=== PATIENT | male | born 1965 | race African-American/Black ===

== ENCOUNTER 2016-05-10 08:14 | Inpatient (IN) | payer OTHER ==
[2016-05-10 09:59] VITALS: BMI 39.5
[2016-05-10] MEDS ORDERED: MENTHOL/PHENOL 1 EACH UD MM PRN (12:13)
[2016-05-10] MEDS ORDERED: P-EPHED 60MG/TRIPROLIDI 2.5MG TABLET PO PRN (12:13)
[2016-05-10] MEDS ORDERED: MAGNESIUM CITRATE 300 ML BOTTLE PO PRN (12:13)
[2016-05-10] MEDS ORDERED: chlordiazePOXIDE HCL 25 MG CAPSULE PO PRN (12:13)
[2016-05-10] MEDS ORDERED: hydrOXYzine PAMOATE 50 MG CAPSULE (FP) PO PRN (12:13)
[2016-05-10] MEDS ORDERED: NICOTINE POLACRILEX 2 MG GUM BUC PRN (12:13)
[2016-05-10] MEDS ORDERED: ACETAMINOPHEN 325 MG TABLET (FP) PO PRN (12:13)
[2016-05-10] MEDS ORDERED: MAGNESIUM HYDROX 2400MG/30ML ORAL SUSPENSION 30 ML CUP PO PRN (12:13)
[2016-05-10] MEDS ORDERED: MAG HYDROX/AL HYDROX/SIMETH 30 ML UNIT-DOSE CUP PO PRN (12:13)
[2016-05-10] MEDS ORDERED: LOPERAMIDE HCL 2 MG CAPSULE PO PRN (12:13)
[2016-05-10] MEDS ORDERED: guaiFENesin/D-METHORPHAN HB 10 ML UNIT-DOSE CUPS PO PRN (12:13)
--- NOTE | 2016-05-10 12:25 | HP ---
CIWA Score - CIWA Score Nausea/Vomitin-Mild Nausea/No Vomiting (and diarrhea) Muscle Tremors: 3 Anxiety: 4-Mod. Anxious/Guarded Agitation: 3 Paroxysmal Sweats: 3 Orientation: 2-Disoriented Date<2 days Tacttile Disturbances: 0-None Auditory Disturbances: 0-None Visual Disturbances: 0-None Headache: 1-Very Mild CIWA-Ar Total Score: 17 Admission ROS BHS - HPI Chief Complaint: Withdrawal sx. Allergies/Adverse Reactions: Allergies Allergy/AdvReac Type Severity Reaction Status Date / Time No Known Allergies Allergy Verified 05/10/16 10:17 History of Present Illness: 51 y/o man with a long hx. of alcoholism is admitted for detox. Pt. has been in previous detox, he reports sobriety only during incarceration. Exam Limitations: No Limitations - Ebola screening Have you traveled outside of the country in the last 21 days: No Have you had contact with anyone from an Ebola affected area: No Have you been sick,other than usual withdrawal symptoms: No - Review of Systems Constitutional: Diaphoresis EENT: reports: No Symptoms Reported Respiratory: reports: No Symptoms reported Cardiac: reports: No Symptoms Reported GI: reports: Diarrhea, Nausea : reports: No Symptoms Reported Musculoskeletal: reports: No Symptoms Reported Integumentary: reports: Sweating Neuro: reports: Headache, Tremors Endocrine: reports: No Symptoms Reported Hematology: reports: No Symptoms Reported Psychiatric: reports: No Sypmtoms Reported Other Systems: Reviewed and Negative Patient History - Patient Medical History Hx Anemia: No Hx Asthma: No Hx Chronic Obstructive Pulmonary Disease (COPD): No Hx Cancer: No Hx Cardiac Disorders: No Hx Congestive Heart Failure: No Hx Hypertension: Yes (on meds) Hx Hypercholesterolemia: Yes (zocor) Hx Pacemaker: No HX Cerebrovascular Accident: No Hx Seizures: No Hx Dementia: No Hx Diabetes: Yes (Type II) Hx Gastrointestinal Disorders: No Hx Liver Disease: No Hx Genitourinary Disorders: No Hx Sexually Transmitted Disorders: No Hx Renal Disease (ESRD): No Hx Thyroid Disease: No Hx Human Immunodeficiency Virus (HIV): No (NEGATIVE HX) Hx Hepatitis C: No Hx Depression: No Hx Suicide Attempt: No Hx Bipolar Disorder: No Hx Schizophrenia: No - Patient Surgical History Past Surgical History: No Hx Neurologic Surgery: No Hx Cataract Extraction: No Hx Cardiac Surgery: No Hx Lung Surgery: No Hx Breast Surgery: No Hx Breast Biopsy: No Hx Abdominal Surgery: No Hx Appendectomy: No Hx Cholecystectomy: No Hx Genitourinary Surgery: No Hx Section: No Hx Orthopedic Surgery: No Anesthesia Reaction: No - PPD History Previous Implant?: Yes Documented Results: Negative w/o proof Implanted On Prior R Admission?: Yes Date: 02/01/15 Results: 0 mm PPD to be Administered?: Yes - Smoking Cessation Smoking history: Current every day smoker Have you smoked in the past 12 months: Yes Aproximately how many cigarettes per day: 10 Hx Chewing Tobacco Use: No Initiated information on smoking cessation: Yes 'Breaking Loose' booklet given: 05/10/16 - Substance & Tx. History Hx Alcohol Use: Yes Hx Substance Use: Yes Substance Use Type: Alcohol, Cocaine Hx Substance Use Treatment: Yes (Detox) - Substances Abused Alcohol Route: Oral Frequency: Daily Amount used: 3 PINTS VODKA Age of first use: 15 Date of Last Use: 05/10/16 Crack Route: Smoking Frequency: Daily Amount used: $40 Age of first use: 21 Date of Last Use: 05/07/16 Family Disease History - Family Disease History Family Disease History: Diabetes: Father (diabetes), Heart Disease: Mother ( hypertension) Admission Physical Exam BHS - Vital Signs Vital Signs: Vital Signs - 24 hr 05/10/16 09:57 Temperature 97.6 F Pulse Rate 86 Respiratory 18 Rate Blood Pressure 138/75 - Physical General Appearance: Yes: Alcohol on Breath, Tremorous, Sweating, Anxious HEENTM: Yes: Within Normal Limits Respiratory: Yes: Chest Non-Tender, Lungs Clear, Normal Breath Sounds Neck: Yes: Supple Breast: Yes: Breast Exam Deferred Cardiology: Yes: Regular Rhythm, Regular Rate, S1, S2 Abdominal: Yes: Normal Bowel Sounds, Non Tender, Soft Genitourinary: Yes: Within Normal Limits Back: Yes: Within Normal Limits Musculoskeletal: Yes: Within Normal Limits Extremities: Yes: Tremors Neurological: Yes: Fully Oriented, Alert Integumentary: Yes: Diaphoresis Lymphatic: Yes: Within Normal Limits - Diagnostic (1) Alcohol dependence with uncomplicated withdrawal Current Visit: Yes Status: Acute (2) Hypertension Current Visit: Yes Status: Chronic Qualifiers: Hypertension type: essential hypertension Qualified Code(s): I10 - Essential (primary) hypertension (3) Type II diabetes mellitus Current Visit: Yes Status: Chronic Qualifiers: Diabetes mellitus complication status: without complication Diabetes mellitus longterm insulin use: without longterm use Qualified Code(s): E11.9 - Type 2 diabetes mellitus without complications (4) Cocaine dependence, uncomplicated Current Visit: Yes Status: Acute (5) Acid reflux disease Current Visit: Yes Status: Chronic Qualifiers: Esophagitis presence: esophagitis presence not specified Qualified Code (s): K21.9 - Gastro-esophageal reflux disease without esophagitis (6) Obesities, morbid Current Visit: Yes Status: Acute Qualifiers: Obesity type: due to excess calories Qualified Code(s): E66.01 - Morbid (severe) obesity due to excess calories Cleared for Admission BHS - Detox or Rehab S Level of Care: Medically Managed Detox Regimen/Protocol: Librium S Breath Alcohol Content Breath Alcohol Content: 0.003 Urine Drug Screen - Results Drug Screen Negative: No Urine Drug Screen Results: BINH-Cocaine, MET-Methamphetamine
[2016-05-10] MEDS ORDERED: chlordiazePOXIDE HCL 25 MG CAPSULE PO ONE (12:53)
[2016-05-10 14:36] LABS: HIV 1 & 2 AB NEGATIVE; HIV 1 AGp24 NEGATIVE
[2016-05-10] MEDS ORDERED: chlordiazePOXIDE HCL 25 MG CAPSULE ONE (14:59)
[2016-05-10] MEDS: NICOTINE 21 MG/24 HOURS TOPICAL PATCH TD SCH (15:10)
[2016-05-10] MEDS: chlordiazePOXIDE HCL 25 MG CAPSULE PO SCH ×2 (17:30→22:13)
[2016-05-10] MEDS: INSULIN SLIDING SCALE (NOVOLOG) 1 VIAL SQ SCH (17:31)
[2016-05-10] MEDS: metFORMIN HCL 500 MG TABLET (FP) PO SCH (17:34)
[2016-05-10 19:12] LABS: URINE APPEARANCE CLEAR; URINE BILIRUBIN NEGATIVE (NEGATIVE); URINE BLOOD 1+ (NEGATIVE); URINE COLOR STRAW; URINE GLUCOSE (UA) NEGATIVE (NEGATIVE); URINE KETONE NEGATIVE (NEGATIVE); URINE LEUK ESTERASE NEGATIVE (NEGATIVE); URINE NITRITE NEGATIVE (NEGATIVE); URINE PROTEIN 3+ (NEGATIVE); URINE UROBILINOGEN NEGATIVE E.U./dl (0.2-1.0)
[2016-05-10 19:24] LABS: URINE RBC 4 /hpf (0-3); URINE WBC 1 /hpf (3-5)
[2016-05-10] MEDS: THIAMINE HCL 100 MG TABLET (FP) PO SCH (22:12)
[2016-05-10] MEDS: ATORVASTATIN CA 20 MG TABLET (FP) PO SCH (22:12)
[2016-05-10] MEDS: RANITIDINE HCL 150 MG TABLET (FP) PO SCH (22:12)
[2016-05-11] MEDS: IBUPROFEN 400 MG TABLET (FP) PO PRN ×2 (04:19→10:26)
[2016-05-11] MEDS: chlordiazePOXIDE HCL 25 MG CAPSULE PO SCH ×4 (06:21→23:07)
[2016-05-11] MEDS: metFORMIN HCL 500 MG TABLET (FP) PO SCH ×2 (06:22→17:37)
[2016-05-11] MEDS: INSULIN SLIDING SCALE (NOVOLOG) 1 VIAL SQ SCH ×2 (06:44→17:38)
[2016-05-11 10:09] LABS: MCHC 31.9 g/dl (32.0-35.9); MEAN CELL VOLUME 81.5 fl (80-96); MEAN PLT VOLUME 9.5 fl (7.5-11.1); PLATELET COUNT 212 K/MM3 (134-434); RDW 17.5 % (11.9-15.9); WHITE BLOOD COUNT 9.5 K/mm3 (4.0-10.0)
[2016-05-11] MEDS: NICOTINE 21 MG/24 HOURS TOPICAL PATCH TD SCH (10:22)
[2016-05-11 10:27] LABS: ALBUMIN 2.3 g/dl (3.4-5.0); BILIRUBIN,TOTAL 0.2 mg/dL (0.2-1.0); CALCIUM 8.4 mg/dL (8.5-10.1); CREATININE 1.7 mg/dL (0.7-1.3); TOT PROT 5.6 g/dl (6.4-8.2)
[2016-05-11] MEDS: RANITIDINE HCL 150 MG TABLET (FP) PO SCH ×2 (10:27→23:08)
[2016-05-11] MEDS: LISINOPRIL 20 MG TABLET (FP) PO SCH (10:27)
[2016-05-11] MEDS: ASPIRIN 81 MG CHEWABLE TABLETS PO SCH (10:27)
[2016-05-11] MEDS: PRENATAL VITAMINS W/ FOLIC ACID TABLET (FP) PO SCH (10:27)
--- NOTE | 2016-05-11 10:51 | PN ---
S CIWA - CIWA Score Nausea/Vomitin-No Nausea/No Vomiting Muscle Tremors: 4-Moderate,w/Arms Extend Anxiety: 4-Mod. Anxious/Guarded Agitation: 4-Moderately Restless Paroxysmal Sweats: 3 Orientation: 0-Oriented Tacttile Disturbances: 0-None Auditory Disturbances: 0-None Visual Disturbances: 0-None Headache: 1-Very Mild CIWA-Ar Total Score: 16 BHS Progress Note (SOAP) Subjective: low back pain sweats irritable agitation Objective: 05/11/16 10:48 Vital Signs Temperature 97.9 F 05/11/16 10:17 Pulse Rate 74 05/11/16 10:17 Respiratory Rate 18 05/11/16 10:17 Blood Pressure 135/84 05/11/16 10:17 O2 Sat by Pulse Oximetry (%) Laboratory Tests 05/10/16 05/10/16 05/10/16 10:30 11:30 13:00 WBC RBC Hgb Hct MCV MCHC RDW Plt Count MPV Sodium Potassium Chloride Carbon Dioxide Anion Gap BUN Creatinine Creat Clearance w eGFR POC Glucometer 129 Random Glucose Calcium Total Bilirubin AST ALT Alkaline Phosphatase Total Protein Albumin Urine Color Straw Urine Appearance Clear Urine pH 5.0 Ur Specific [place] 1.015 Urine Protein 3+ H Urine Glucose (UA) Negative Urine Ketones Negative Urine Blood 1+ H Urine Nitrite Negative Urine Bilirubin Negative Urine Urobilinogen Negative Ur Leukocyte Esterase Negative Urine RBC 4 Urine WBC 1 HIV 1&2 Antibody Screen Negative HIV P24 Antigen Negative 05/10/16 05/11/16 05/11/16 16:36 06:00 06:00 WBC 9.5 RBC 4.91 Hgb 12.8 Hct 40.0 MCV 81.5 MCHC 31.9 L RDW 17.5 H D Plt Count 212 MPV 9.5 Sodium 141 Potassium 4.0 Chloride 104 Carbon Dioxide 28 Anion Gap 9 BUN 37 H Creatinine 1.7 H Creat Clearance w eGFR 42.70 POC Glucometer 101 Random Glucose 86 Calcium 8.4 L Total Bilirubin 0.2 D AST 22 D ALT 21 D Alkaline Phosphatase 66 Total Protein 5.6 L Albumin 2.3 L Urine Color Urine Appearance Urine pH Ur Specific [place] Urine Protein Urine Glucose (UA) Urine Ketones Urine Blood Urine Nitrite Urine Bilirubin Urine Urobilinogen Ur Leukocyte Esterase Urine RBC Urine WBC HIV 1&2 Antibody Screen HIV P24 Antigen 05/11/16 06:21 WBC RBC Hgb Hct MCV MCHC RDW Plt Count MPV Sodium Potassium Chloride Carbon Dioxide Anion Gap BUN Creatinine Creat Clearance w eGFR POC Glucometer 87 Random Glucose Calcium Total Bilirubin AST ALT Alkaline Phosphatase Total Protein Albumin Urine Color Urine Appearance Urine pH Ur Specific [place] Urine Protein Urine Glucose (UA) Urine Ketones Urine Blood Urine Nitrite Urine Bilirubin Urine Urobilinogen Ur Leukocyte Esterase Urine RBC Urine WBC HIV 1&2 Antibody Screen HIV P24 Antigen awake/alert ambulating no acute distress Assessment: 05/11/16 10:50 withdrawal sx Plan: continue detox increase fluids motrin 400mg prn
[2016-05-11] MEDS ORDERED: PNEUMOCOCCAL 23 VACCINE 0.5 ML VIAL IM ONE (12:00)
[2016-05-11] MEDS ORDERED: PNEUMOC 13-VAL CONJ-DIP CRM/PF 0.5 ML DISP.SYRIN IM ONE (12:00)
--- NOTE | 2016-05-11 12:28 | EKG ---
Test Reason : Blood Pressure : / mmHG Vent. Rate : 088 BPM Atrial Rate : 088 BPM P-R Int : 148 ms QRS Dur : 086 ms QT Int : 374 ms P-R-T Axes : 039 008 029 degrees QTc Int : 452 ms NORMAL SINUS RHYTHM MODERATE VOLTAGE CRITERIA FOR LVH, MAY BE NORMAL VARIANT NONSPECIFIC T WAVE ABNORMALITY ABNORMAL ECG NO PREVIOUS ECGS AVAILABLE Confirmed by NACHO COTE MD ([id number]) on 05/11/2016 12:28:05 PM Referred By: Confirmed By:NACHO COTE MD
[2016-05-11] MEDS: ATORVASTATIN CA 20 MG TABLET (FP) PO SCH (23:07)
[2016-05-11] MEDS: THIAMINE HCL 100 MG TABLET (FP) PO SCH (23:07)
[2016-05-12] MEDS: chlordiazePOXIDE HCL 25 MG CAPSULE PO SCH ×2 (05:16→10:20)
[2016-05-12] MEDS: IBUPROFEN 400 MG TABLET (FP) PO PRN (06:01)
[2016-05-12] MEDS: INSULIN SLIDING SCALE (NOVOLOG) 1 VIAL SQ SCH ×2 (07:47→17:00)
[2016-05-12] MEDS: metFORMIN HCL 500 MG TABLET (FP) PO SCH (07:47)
--- NOTE | 2016-05-12 09:32 | CONSULT ---
[facility] Psychiatric Consult - Data Date of interview: 05/12/16 Admission source: [facility] Identifying data: This is 51 years old male with no psychiatric hospitalization history ihtoxicated with: Alcohol, Crack and Nicotine Substance Abuse History: Smoking history: Current every day smoker. Have you smoked in the past 12 months: Yes. Aproximately how many cigarettes per day: 10. Hx Chewing Tobacco Use: No. Initiated information on smoking cessation: Yes. 'Breaking Loose' booklet given: 05/10/16. - Substance & Tx. History. Hx Alcohol Use: Yes. Hx Substance Use: Yes. Substance Use Type: Alcohol, Cocaine. Hx Substance Use Treatment: Yes (Detox). - Substances Abused. Alcohol. Route: Oral. Frequency: Daily. Amount used: 3 PINTS VODKA. Age of first use: 15. Date of Last Use: 05/10/16. Crack. Route: Smoking. Frequency: Daily. Amount used: $40. Age of first use: 21. Date of Last Use: 05/07/16 Medical History: Obesity, GERD, HTN, DM-2, Left shoulder injury history Psychiatric History: Denies past psychiatric history Physical/Sexual Abuse/Trauma History: Denies Additional Comment: Obsewrvation. Detox Unit Care Protocol Mental Status Exam - Mental Status Exam Alert and Oriented to: Person Cognitive Function: Fair Patient Appearance: Unkempt Mood: Sad Affect: Flat Patient Behavior: Sedated Speech Pattern: Delayed Voice Loudness: Mildly Soft/Quiet Thought Process: Circumstantial Thought Disorder: Being Controlled Hallucinations: Denies Suicidal Ideation: Denies Homicidal Ideation: Denies Insight/Judgement: Fair Sleep: Difficulty falling asleep Appetite: Weight gain Muscle strength/Tone: Mild Hypotonicity Gait/Station: Shuffling Additional Comments: Obsewrvation. Detox Unit Care Protocol Psychiatric Findings - Problem List ([place] 1, 2,3) (1) Alcohol dependence with uncomplicated withdrawal Current Visit: Yes Status: Acute (2) Cocaine dependence, uncomplicated Current Visit: Yes Status: Acute (3) Obesities, morbid Current Visit: Yes Status: Acute Qualifiers: Obesity type: due to excess calories Qualified Code(s): E66.01 - Morbid (severe) obesity due to excess calories (4) Cocaine dependence with withdrawal Current Visit: No Status: Chronic (5) Drug-induced mood disorder Current Visit: Yes Status: Suspected - Initial Treatment Plan Initial Treatment Plan: Obsewrvation. Detox Unit Care Protocol
[2016-05-12] MEDS: NICOTINE 21 MG/24 HOURS TOPICAL PATCH TD SCH (10:19)
[2016-05-12] MEDS: PRENATAL VITAMINS W/ FOLIC ACID TABLET (FP) PO SCH (10:19)
[2016-05-12] MEDS: ASPIRIN 81 MG CHEWABLE TABLETS PO SCH (10:20)
[2016-05-12] MEDS: RANITIDINE HCL 150 MG TABLET (FP) PO SCH ×2 (10:20→22:50)
[2016-05-12] MEDS: LISINOPRIL 20 MG TABLET (FP) PO SCH (10:20)
--- NOTE | 2016-05-12 12:19 | PN ---
[facility] CIWA - CIWA Score Nausea/Vomitin Muscle Tremors: 2 Anxiety: 3 Agitation: 3 Paroxysmal Sweats: 3 Orientation: 0-Oriented Tacttile Disturbances: 1-Very Mild Itch/Numbness Auditory Disturbances: 1-Very Mild Visual Disturbances: 0-None Headache: 0-None Present CIWA-Ar Total Score: 15 S Progress Note (SOAP) Subjective: interrupted sleep, sweats, wants more food Objective: 05/12/16 12:15 Vital Signs Temperature 97.9 F 05/12/16 09:29 Pulse Rate 80 05/12/16 09:29 Respiratory Rate 18 05/12/16 09:29 Blood Pressure 145/90 05/12/16 09:29 O2 Sat by Pulse Oximetry (%) Laboratory Tests 05/10/16 05/10/16 05/10/16 10:30 11:30 13:00 WBC RBC Hgb Hct MCV MCHC RDW Plt Count MPV Sodium Potassium Chloride Carbon Dioxide Anion Gap BUN Creatinine Creat Clearance w eGFR POC Glucometer 129 Random Glucose Calcium Total Bilirubin AST ALT Alkaline Phosphatase Total Protein Albumin Urine Color Straw Urine Appearance Clear Urine pH 5.0 Ur Specific [place] 1.015 Urine Protein 3+ H Urine Glucose (UA) Negative Urine Ketones Negative Urine Blood 1+ H Urine Nitrite Negative Urine Bilirubin Negative Urine Urobilinogen Negative Ur Leukocyte Esterase Negative Urine RBC 4 Urine WBC 1 RPR Titer HIV 1&2 Antibody Screen Negative HIV P24 Antigen Negative 05/10/16 05/11/16 05/11/16 16:36 06:00 06:00 WBC 9.5 RBC 4.91 Hgb 12.8 Hct 40.0 MCV 81.5 MCHC 31.9 L RDW 17.5 H D Plt Count 212 MPV 9.5 Sodium 141 Potassium 4.0 Chloride 104 Carbon Dioxide 28 Anion Gap 9 BUN 37 H Creatinine 1.7 H Creat Clearance w eGFR 42.70 POC Glucometer 101 Random Glucose 86 Calcium 8.4 L Total Bilirubin 0.2 D AST 22 D ALT 21 D Alkaline Phosphatase 66 Total Protein 5.6 L Albumin 2.3 L Urine Color Urine Appearance Urine pH Ur Specific [place] Urine Protein Urine Glucose (UA) Urine Ketones Urine Blood Urine Nitrite Urine Bilirubin Urine Urobilinogen Ur Leukocyte Esterase Urine RBC Urine WBC RPR Titer HIV 1&2 Antibody Screen HIV P24 Antigen 05/11/16 05/11/16 05/11/16 06:00 06:21 16:39 WBC RBC Hgb Hct MCV MCHC RDW Plt Count MPV Sodium Potassium Chloride Carbon Dioxide Anion Gap BUN Creatinine Creat Clearance w eGFR POC Glucometer 87 103 Random Glucose Calcium Total Bilirubin AST ALT Alkaline Phosphatase Total Protein Albumin Urine Color Urine Appearance Urine pH Ur Specific [place] Urine Protein Urine Glucose (UA) Urine Ketones Urine Blood Urine Nitrite Urine Bilirubin Urine Urobilinogen Ur Leukocyte Esterase Urine RBC Urine WBC RPR Titer Nonreactive HIV 1&2 Antibody Screen HIV P24 Antigen 05/12/16 05:18 WBC RBC Hgb Hct MCV MCHC RDW Plt Count MPV Sodium Potassium Chloride Carbon Dioxide Anion Gap BUN Creatinine Creat Clearance w eGFR POC Glucometer 117 Random Glucose Calcium Total Bilirubin AST ALT Alkaline Phosphatase Total Protein Albumin Urine Color Urine Appearance Urine pH Ur Specific [place] Urine Protein Urine Glucose (UA) Urine Ketones Urine Blood Urine Nitrite Urine Bilirubin Urine Urobilinogen Ur Leukocyte Esterase Urine RBC Urine WBC RPR Titer HIV 1&2 Antibody Screen HIV P24 Antigen pt aox3 in nad , obese Assessment: 05/12/16 12:16 withdrawl sx;s dm obesity elevated creatine 05/12/16 12:18 Plan: cont. detox increase fluids d/c metform creatine 1.7 gluotrol 5.0mg bid
[2016-05-12] MEDS: glipiZIDE 5 MG TABLET (FP) PO SCH (18:13)
[2016-05-12] MEDS: chlordiazePOXIDE 5 MG CAPSULE PO SCH ×2 (18:13→22:50)
[2016-05-12] MEDS: THIAMINE HCL 100 MG TABLET (FP) PO SCH (22:50)
[2016-05-12] MEDS: ATORVASTATIN CA 20 MG TABLET (FP) PO SCH (22:50)
[2016-05-13] MEDS: diphenhydrAMINE HCL 50 MG CAPSULE PO PRN ×2 (00:36→22:20)
[2016-05-13] MEDS: IBUPROFEN 400 MG TABLET (FP) PO PRN (00:36)
[2016-05-13] MEDS: chlordiazePOXIDE 5 MG CAPSULE PO SCH ×2 (05:40→10:55)
[2016-05-13] MEDS: INSULIN SLIDING SCALE (NOVOLOG) 1 VIAL SQ SCH ×2 (08:31→17:25)
[2016-05-13] MEDS: glipiZIDE 5 MG TABLET (FP) PO SCH ×2 (08:31→17:23)
[2016-05-13] MEDS: PRENATAL VITAMINS W/ FOLIC ACID TABLET (FP) PO SCH (10:55)
[2016-05-13] MEDS: RANITIDINE HCL 150 MG TABLET (FP) PO SCH ×2 (10:55→22:19)
[2016-05-13] MEDS: ASPIRIN 81 MG CHEWABLE TABLETS PO SCH (10:55)
[2016-05-13] MEDS: NICOTINE 21 MG/24 HOURS TOPICAL PATCH TD SCH (10:55)
[2016-05-13] MEDS: LISINOPRIL 20 MG TABLET (FP) PO SCH (10:55)
[2016-05-13] MEDS ORDERED: LIDOCAINE 5% TOPICAL PATCH TP ONE (11:01)
--- NOTE | 2016-05-13 13:16 | PN ---
S Progress Note (SOAP) Subjective: Interrupted sleep, Back Ache, anxious, irritable. Objective: PT A & O X 2 (DISORIENTED ABOUT DAY / DATE); OBSERVED AMBULATING ON UNIT. 05/13/16 13:14 Vital Signs Temperature 97.3 F L 05/13/16 10:26 Pulse Rate 84 05/13/16 10:26 Respiratory Rate 18 05/13/16 10:26 Blood Pressure 155/93 05/13/16 10:26 O2 Sat by Pulse Oximetry (%) Laboratory Last Values WBC 9.5 K/mm3 (4.0-10.0) 05/11/16 06:00 RBC 4.91 M/mm3 (4.00-5.60) 05/11/16 06:00 Hgb 12.8 GM/dL (11.7-16.9) 05/11/16 06:00 Hct 40.0 % (35.4-49) 05/11/16 06:00 MCV 81.5 fl (80-96) 05/11/16 06:00 MCHC 31.9 g/dl (32.0-35.9) L 05/11/16 06:00 RDW 17.5 % (11.9-15.9) H D 05/11/16 06:00 Plt Count 212 K/MM3 (134-434) 05/11/16 06:00 MPV 9.5 fl (7.5-11.1) 05/11/16 06:00 Sodium 141 mmol/L (136-145) 05/11/16 06:00 Potassium 4.0 mmol/L (3.5-5.1) 05/11/16 06:00 Chloride 104 mmol/L (98-107) 05/11/16 06:00 Carbon Dioxide 28 mmol/L (21-32) 05/11/16 06:00 Anion Gap 9 (8-16) 05/11/16 06:00 BUN 37 mg/dL (7-18) H 05/11/16 06:00 Creatinine 1.7 mg/dL (0.7-1.3) H 05/11/16 06:00 Creat Clearance w eGFR 42.70 (>60) 05/11/16 06:00 POC Glucometer 112 UNITS (()) 05/12/16 16:50 Random Glucose 86 mg/dL (74-106) 05/11/16 06:00 Calcium 8.4 mg/dL (8.5-10.1) L 05/11/16 06:00 Total Bilirubin 0.2 mg/dL (0.2-1.0) D 05/11/16 06:00 AST 22 U/L (15-37) D 05/11/16 06:00 ALT 21 U/L (12-78) D 05/11/16 06:00 Alkaline Phosphatase 66 U/L (45-117) 05/11/16 06:00 Total Protein 5.6 g/dl (6.4-8.2) L 05/11/16 06:00 Albumin 2.3 g/dl (3.4-5.0) L 05/11/16 06:00 Urine Color Straw 05/10/16 13:00 Urine Appearance Clear 05/10/16 13:00 Urine pH 5.0 (5.0-8.0) 05/10/16 13:00 Ur Specific [place] 1.015 (1.001-1.035) 05/10/16 13:00 Urine Protein 3+ (NEGATIVE) H 05/10/16 13:00 Urine Glucose (UA) Negative (NEGATIVE) 05/10/16 13:00 Urine Ketones Negative (NEGATIVE) 05/10/16 13:00 Urine Blood 1+ (NEGATIVE) H 05/10/16 13:00 Urine Nitrite Negative (NEGATIVE) 05/10/16 13:00 Urine Bilirubin Negative (NEGATIVE) 05/10/16 13:00 Urine Urobilinogen Negative E.U./dl (0.2-1.0) 05/10/16 13:00 Ur Leukocyte Esterase Negative (NEGATIVE) 05/10/16 13:00 Urine RBC 4 /hpf (0-3) 05/10/16 13:00 Urine WBC 1 /hpf (3-5) 05/10/16 13:00 RPR Titer Nonreactive (NONREACTIVE) 05/11/16 06:00 HIV 1&2 Antibody Screen Negative 05/10/16 11:30 HIV P24 Antigen Negative 05/10/16 11:30 LABS NOTED. Assessment: 05/13/16 13:15 WITHDRAWAL SYMPTOMS. Plan: CONTINUE DETOX. ADVISED PATIENT TO FOLLOW-UP WITH MANAGER OF ADMINISTRATION AFTER DISCHARGE FROM DETOX FOR GENERAL MEDICAL ASSESSMENT AND FOR ABNORMAL LAB VALUES.
[2016-05-13] MEDS: chlordiazePOXIDE HCL 10 MG CAPSULE PO SCH ×2 (17:24→22:19)
[2016-05-13] MEDS: ATORVASTATIN CA 20 MG TABLET (FP) PO SCH (22:19)
[2016-05-13] MEDS: THIAMINE HCL 100 MG TABLET (FP) PO SCH (22:19)
[2016-05-14 07:02] VITALS: BP 137/75; PULSE 72; TEMP 98.3
== END 2016-05-14 07:15 | disposition home or self-care (01) | DRG 774 ==
LOC: YASAS 08:14 → Y6N 12:48 → UNDODISIN 05-14 07:15 → Y6N 05-20 14:35
PROVIDERS: ADMIT Internal Medicine Addiction Medicine; ATTEND Internal Medicine Addiction Medicine
PROC: HZ2ZZZZ Detoxification Services for Substance Abuse Treatment (ICD-10-PCS; principal; 2016-05-14)
DX: F10.230 Alcohol dependence with withdrawal, uncomplicated (principal); F14.23 Cocaine dependence with withdrawal; F19.24 Other psychoactive substance dependence with psychoactive substance-induced mood disorder; I10 Essential (primary) hypertension; E11.9 Type 2 diabetes mellitus without complications; Z79.4 Long term (current) use of insulin; K21.9 Gastro-esophageal reflux disease without esophagitis; E66.01 Morbid (severe) obesity due to excess calories; Z68.39 Body mass index [BMI] 39.0-39.9, adult
CPT/HCPCS: 36415; 80053; 81003; 81015; 85027; 86593; 87389; 90732; 93005; 93010; G0009

== ENCOUNTER 2016-09-04 21:30 | Inpatient (IN) | payer OTHER ==
--- NOTE | 2016-09-04 21:57 | HP ---
CIWA Score - CIWA Score Nausea/Vomitin-Mild Nausea/No Vomiting Muscle Tremors: 1-None Visible, but [place] Anxiety: 3 Agitation: 3 Paroxysmal Sweats: No Perspiration Orientation: 1-Uncertain about Date Tacttile Disturbances: 0-None Auditory Disturbances: 0-None Visual Disturbances: 2-Mild Sensitivity Headache: 2-Mild CIWA-Ar Total Score: 13 Admission ROS BHS - HPI Chief Complaint: WITHDRAWAL SYMPTOMS Allergies/Adverse Reactions: Allergies Allergy/AdvReac Type Severity Reaction Status Date / Time No Known Allergies Allergy Verified 05/10/16 10:17 History of Present Illness: 51 y.o. man with an extensive history of alcohol dependence is here seeking detox. He was last here for detox on 05/10/16. His longest period of sobriety has been 18 years while incarcerated. Exam Limitations: No Limitations - Ebola screening Have you traveled outside of the country in the last 21 days: No (N) Have you had contact with anyone from an Ebola affected area: No Do you have a fever: No - Review of Systems Constitutional: Loss of Appetite, Changes in sleep, Unintentional Wgt. Loss EENT: reports: Blurred Vision, Nose Congestion Respiratory: reports: Cough Cardiac: reports: Lightheadedness GI: reports: Diarrhea, Poor Appetite : reports: No Symptoms Reported Musculoskeletal: reports: Joint Pain (Right knee) Integumentary: reports: No Symptoms Reported Neuro: reports: Headache Endocrine: reports: No Symptoms Reported Hematology: reports: No Symptoms Reported Psychiatric: reports: Mood/Affect Appropiate, Depressed Other Systems: Reviewed and Negative Patient History - Patient Medical History Hx Anemia: No Hx Asthma: No Hx Chronic Obstructive Pulmonary Disease (COPD): No Hx Cancer: No Hx Cardiac Disorders: No Hx Congestive Heart Failure: No Hx Hypertension: Yes (on meds) Hx Hypercholesterolemia: Yes Hx Pacemaker: No HX Cerebrovascular Accident: No Hx Seizures: No Hx Dementia: No Hx Diabetes: Yes (Type II) Hx Gastrointestinal Disorders: Yes Hx Liver Disease: No Hx Genitourinary Disorders: No Hx Sexually Transmitted Disorders: No Hx Renal Disease (ESRD): No Hx Thyroid Disease: No Hx Human Immunodeficiency Virus (HIV): No (NEGATIVE HX) Hx Hepatitis C: No Hx Depression: Yes Hx Suicide Attempt: No Hx Bipolar Disorder: No Hx Schizophrenia: No - Patient Surgical History Past Surgical History: No Hx Neurologic Surgery: No Hx Cataract Extraction: No Hx Cardiac Surgery: No Hx Lung Surgery: No Hx Breast Surgery: No Hx Breast Biopsy: No Hx Abdominal Surgery: No Hx Appendectomy: No Hx Cholecystectomy: No Hx Genitourinary Surgery: No Hx Section: No Hx Orthopedic Surgery: No Anesthesia Reaction: No - PPD History Previous Implant?: Yes Documented Results: Negative w/proof Date: 05/12/16 Results: 0 mm PPD to be Administered?: No - Reproductive History Patient is a Female of Child Bearing Age (11 -55 yrs old): No - Smoking Cessation Smoking history: Current every day smoker Have you smoked in the past 12 months: Yes Aproximately how many cigarettes per day: 10 Hx Chewing Tobacco Use: No Initiated information on smoking cessation: Yes 'Breaking Loose' booklet given: 09/04/16 - Substance & Tx. History Hx Alcohol Use: Yes Hx Substance Use: Yes Substance Use Type: Alcohol, Cocaine Hx Substance Use Treatment: Yes (Detox: last was in 04/2016 + rehab at [facility] 06/2016 ) - Substances Abused Alcohol Route: Oral Frequency: Daily Amount used: 6 packs of 24oz of beer + 2 pints of liquor Age of first use: 15 Date of Last Use: 09/04/16 Cocaine Route: Smoking Frequency: 1-3 times last 30 days Amount used: $40 Age of first use: 24 Date of Last Use: 09/01/16 Family Disease History - Family Disease History Family Disease History: Diabetes: Father (diabetes), Heart Disease: Mother ( hypertension) Admission Physical Exam BHS - Vital Signs Vital Signs: Last Vital Signs Temp Pulse Resp BP Pulse Ox 98.0 F 88 16 161/102 09/04/16 22:19 09/04/16 22:19 09/04/16 22:19 09/04/16 22:19 - Physical General Appearance: Yes: Obese, Irritable, Anxious HEENTM: Yes: Hearing grossly Normal, Normocephalic, Normal Voice, BIB Respiratory: Yes: Lungs Clear, Normal Breath Sounds, No Respiratory Distress, No Accessory Muscle Use Neck: Yes: No masses,lesions,Nodules, Trachea in good position Breast: Yes: Breast Exam Deferred Cardiology: Yes: Regular Rhythm, Regular Rate Abdominal: Yes: Flat, Soft Genitourinary: Yes: Other (NO COMPLAINTS REPORTED) Back: Yes: Normal Inspection Musculoskeletal: Yes: Back pain Extremities: Yes: Normal Inspection, Normal Range of Motion, Non-Tender Neurological: Yes: Alert, Normal Mood/Affect, Normal Response Integumentary: Yes: Normal Color, Dry, Warm Lymphatic: Yes: Within Normal Limits - Diagnostic (1) Alcohol dependence with uncomplicated withdrawal Current Visit: Yes Status: Chronic (2) Cocaine dependence, uncomplicated Current Visit: Yes Status: Chronic (3) Obesities, morbid Current Visit: Yes Status: Chronic Qualifiers: Obesity type: due to excess calories Qualified Code(s): E66.01 - Morbid (severe) obesity due to excess calories (4) Acid reflux disease Current Visit: Yes Status: Chronic Qualifiers: Esophagitis presence: esophagitis presence not specified Qualified Code(s): K21.9 - Gastro-esophageal reflux disease without esophagitis (5) Hypertension Current Visit: Yes Status: Chronic Qualifiers: Hypertension type: essential hypertension Qualified Code(s): I10 - Essential (primary) hypertension (6) Type II diabetes mellitus Current Visit: Yes Status: Chronic Qualifiers: Diabetes mellitus complication status: without complication Diabetes mellitus terminal gauger supervisor insulin use: without senior living use Qualified Code(s): E11.9 - Type 2 diabetes mellitus without complications Cleared for Admission BHS - Detox or Rehab S Level of Care: Medically Managed Detox Regimen/Protocol: Librium BHS Breath Alcohol Content Breath Alcohol Content: 0 Vital Signs - Vital Signs Vital Signs Refused: No Temperature: 98.0 F Temperature Source: Oral Pulse Rate: 88 Respiratory Rate: 16 Blood Pressure: 161/102 BP Location: Left Arm Blood Pressure Position: Sitting - Height Height: 5 ft 8 in - Weight Weight: 249 lb Weight Measurement Method: Standing Scale Body Mass Index (BMI): 37.8 Urine Drug Screen - Test Device Lot Number: [id number] Expiration Date: 02/23/17 - Control Is Test Valid: Yes - Results Drug Screen Negative: No Urine Drug Screen Results: BINH-Cocaine
[2016-09-04] MEDS ORDERED: chlordiazePOXIDE HCL 25 MG CAPSULE PO ONE (22:00)
[2016-09-04] MEDS ORDERED: MAGNESIUM HYDROX 2400MG/30ML ORAL SUSPENSION 30 ML CUP PO PRN (22:00)
[2016-09-04] MEDS ORDERED: hydrOXYzine PAMOATE 50 MG CAPSULE (FP) PO PRN (22:00)
[2016-09-04] MEDS ORDERED: P-EPHED 60MG/TRIPROLIDI 2.5MG TABLET PO PRN (22:00)
[2016-09-04] MEDS ORDERED: MENTHOL/PHENOL 1 EACH UD MM PRN (22:00)
[2016-09-04] MEDS ORDERED: ACETAMINOPHEN 325 MG TABLET (FP) PO PRN (22:00)
[2016-09-04] MEDS ORDERED: LOPERAMIDE HCL 2 MG CAPSULE PO PRN (22:00)
[2016-09-04] MEDS ORDERED: guaiFENesin/D-METHORPHAN HB 10 ML UNIT-DOSE CUPS PO PRN (22:00)
[2016-09-04] MEDS ORDERED: chlordiazePOXIDE HCL 25 MG CAPSULE PO PRN (22:00)
[2016-09-04] MEDS ORDERED: MAGNESIUM CITRATE 300 ML BOTTLE PO PRN (22:00)
[2016-09-04] MEDS ORDERED: diphenhydrAMINE HCL 50 MG CAPSULE PO PRN (22:00)
[2016-09-04] MEDS ORDERED: LISINOPRIL 20 MG TABLET (FP) PO ONE (22:04)
[2016-09-04 22:19] VITALS: BMI 37.8
[2016-09-04] MEDS: THIAMINE HCL 100 MG TABLET (FP) PO SCH (23:12)
[2016-09-04] MEDS: chlordiazePOXIDE HCL 25 MG CAPSULE PO SCH (23:13)
[2016-09-05] MEDS: chlordiazePOXIDE HCL 25 MG CAPSULE PO SCH ×4 (06:01→22:52)
[2016-09-05] MEDS: cloNIDine HCL 0.1 MG TABLET PO PRN (06:25)
[2016-09-05] MEDS: metFORMIN HCL 500 MG TABLET (FP) PO SCH ×2 (06:39→17:10)
[2016-09-05] MEDS ORDERED: LISINOPRIL 20 MG TABLET (FP) PO SCH (10:00)
[2016-09-05 10:03] LABS: MCH 26.7 pg (25.7-33.7); MCHC 32.2 g/dl (32.0-35.9); MEAN CELL VOLUME 83.1 fl (80-96); MEAN PLT VOLUME 9.3 fl (7.5-11.1); PLATELET COUNT 199 K/MM3 (134-434); RDW 16.4 % (11.9-15.9)
[2016-09-05 10:13] LABS: ALBUMIN 1.7 g/dl (3.4-5.0); CALCIUM 7.9 mg/dL (8.5-10.1)
[2016-09-05 10:18] LABS: BILIRUBIN,TOTAL 0.1 mg/dL (0.2-1.0); COCKROFT - GAULT 87.25; CREATININE 1.6 mg/dL (0.7-1.3); TOT PROT 4.6 g/dl (6.4-8.2)
[2016-09-05] MEDS: RANITIDINE HCL 150 MG TABLET (FP) PO SCH (10:18)
[2016-09-05] MEDS: PRENATAL VITAMINS W/ FOLIC ACID TABLET (FP) PO SCH (10:19)
[2016-09-05] MEDS: ASPIRIN COATED 81 MG TABLET.EC PO SCH (10:19)
[2016-09-05] MEDS: IBUPROFEN 400 MG TABLET (FP) PO PRN (11:04)
[2016-09-05] MEDS ORDERED: PNEUMOC 13-VAL CONJ-DIP CRM/PF 0.5 ML DISP.SYRIN IM ONE (12:00)
[2016-09-05] MEDS ORDERED: PNEUMOCOCCAL 23 VACCINE 0.5 ML VIAL IM ONE (12:00)
[2016-09-05 12:39] LABS: HIV 1 & 2 AB NEGATIVE; HIV 1 AGp24 NEGATIVE
--- NOTE | 2016-09-05 12:45 | CONSULT ---
[facility] Psychiatric Consult - Data Date of interview: 09/05/16 Admission source: [facility] Identifying data: Readmission to [facility] for this 51 y/o AA male seking detox treatment for alcohol and cocaine dependence.Patient is single without children, homeless,unemployed and supported on Welfare. Substance Abuse History: - Smoking Cessation. Smoking history: Current every day smoker. Have you smoked in the past 12 months: Yes. Aproximately how many cigarettes per day: 10. Hx Chewing Tobacco Use: No. Initiated information on smoking cessation: Yes. 'Breaking Loose' booklet given: 09/04/16. - Substance & Tx. History. Hx Alcohol Use: Yes. Hx Substance Use: Yes. Substance Use Type : Alcohol, Cocaine. Hx Substance Use Treatment: Yes (Detox: last was in 04/2016 + rehab at [facility] 06/2016). - Substances Abused. Alcohol. Route: Oral. Frequency: Daily. Amount used: 6 packs of 24oz of beer + 2 pints of liquor. Age of first use: 15. Date of Last Use: 09/04/16. Cocaine. Route: Smoking. Frequency: 1-3 times last 30 days. Amount used: $40. Age of first use: 24. Date of Last Use: 09/01/16. Confirmed by patient. Medical History: Diabetes mellitus,hypertension and hypercholesterolemia. Psychiatric History: Patient denies. Physical/Sexual Abuse/Trauma History: Patient denies. Additional Comment: Urine Drug Screen Results: BINH-Cocaine.Noted. Mental Status Exam - Mental Status Exam Alert and Oriented to: Time, Place, Person Cognitive Function: Good Patient Appearance: Well Groomed Mood: Withdrawn, Anxious Affect: Mood Congruent Patient Behavior: Fatigued, Appropriate, Cooperative Speech Pattern: Clear Voice Loudness: Normal Thought Process: Goal Oriented Thought Disorder: Not Present Hallucinations: Denies Suicidal Ideation: Denies Homicidal Ideation: Denies Insight/Judgement: Poor Sleep: Poorly, Difficulty falling asleep Appetite: Good Muscle strength/Tone: Normal Gait/Station: Normal Psychiatric Findings - Problem List ([place] 1, 2,3) (1) Alcohol dependence with uncomplicated withdrawal Current Visit: Yes Status: Acute (2) Cocaine dependence, uncomplicated Current Visit: Yes Status: Acute (3) Nicotine dependence Current Visit: Yes Status: Acute (4) Drug-induced mood disorder Current Visit: Yes Status: Acute (5) Acid reflux disease Current Visit: Yes Status: Chronic Qualifiers: Esophagitis presence: esophagitis presence not specified Qualified Code(s): K21.9 - Gastro-esophageal reflux disease without esophagitis (6) Hypertension Current Visit: Yes Status: Chronic Qualifiers: Hypertension type: essential hypertension Qualified Code(s): I10 - Essential (primary) hypertension (7) Type II diabetes mellitus Current Visit: Yes Status: Chronic Qualifiers: Diabetes mellitus complication status: without complication Diabetes mellitus usp insulin use: without exterminator helper use Qualified Code(s): E11.9 - Type 2 diabetes mellitus without complications (8) Insomnia Current Visit: Yes Status: Acute - Initial Treatment Plan Initial Treatment Plan: Psychoeducation.Detoxification.Ambien 10 mg po hs prn.Patient is made aware of potential for parasomnias.Observation.
--- NOTE | 2016-09-05 14:12 | EKG ---
Test Reason : Blood Pressure : / mmHG Vent. Rate : 084 BPM Atrial Rate : 084 BPM P-R Int : 146 ms QRS Dur : 086 ms QT Int : 366 ms P-R-T Axes : 033 004 000 degrees QTc Int : 432 ms NORMAL SINUS RHYTHM VOLTAGE CRITERIA FOR LEFT VENTRICULAR HYPERTROPHY NONSPECIFIC T WAVE ABNORMALITY ABNORMAL ECG WHEN COMPARED WITH ECG OF 10-MAY-2016 15:01, NO SIGNIFICANT CHANGE WAS FOUND Confirmed by CHARLIE PAULINO MD ([id number]) on 09/05/2016 2:12:18 PM Referred By: Confirmed By:CHARLIE PAULINO MD
--- NOTE | 2016-09-05 14:13 | PN ---
S CIWA - CIWA Score Nausea/Vomitin-No Nausea/No Vomiting Muscle Tremors: 3 Anxiety: 4-Mod. Anxious/Guarded Agitation: 4-Moderately Restless Paroxysmal Sweats: 3 Orientation: 0-Oriented Tacttile Disturbances: 0-None Auditory Disturbances: 0-None Visual Disturbances: 0-None Headache: 0-None Present CIWA-Ar Total Score: 14 [facility] Progress Note (SOAP) Subjective: Sweating,interrupted sleep,restless Objective: 09/05/16 14:12 Vital Signs - 8 hr 09/05/16 09/05/16 09/05/16 06:23 09:44 13:41 Temperature 97.9 F 98.0 F 97.5 F L Pulse Rate 81 75 74 Respiratory 18 18 18 Rate Blood Pressure 157/100 150/96 152/96 Laboratory Tests 09/05/16 09/05/16 09/05/16 06:01 07:00 07:00 WBC 8.0 RBC 4.94 Hgb 13.2 Hct 41.1 MCV 83.1 MCHC 32.2 RDW 16.4 H Plt Count 199 MPV 9.3 Sodium 144 Potassium 4.1 Chloride 110 H Carbon Dioxide 27 Anion Gap 7 L BUN 24 H D Creatinine 1.6 H Creat Clearance w eGFR 45.80 POC Glucometer 84 Random Glucose 88 Calcium 7.9 L Total Bilirubin 0.1 L D AST 23 ALT 23 Alkaline Phosphatase 62 Total Protein 4.6 L Albumin 1.7 L D RPR Titer HIV 1&2 Antibody Screen HIV P24 Antigen 09/05/16 09/05/16 07:00 07:00 WBC RBC Hgb Hct MCV MCHC RDW Plt Count MPV Sodium Potassium Chloride Carbon Dioxide Anion Gap BUN Creatinine Creat Clearance w eGFR POC Glucometer Random Glucose Calcium Total Bilirubin AST ALT Alkaline Phosphatase Total Protein Albumin RPR Titer Nonreactive HIV 1&2 Antibody Screen Negative HIV P24 Antigen Negative labs noted Assessment: 09/05/16 14:13 withdrawal sx. Plan: continue detox
[2016-09-05 17:26] LABS: URINE APPEARANCE CLEAR; URINE BILIRUBIN NEGATIVE (NEGATIVE); URINE COLOR STRAW; URINE GLUCOSE (UA) 1+ (NEGATIVE); URINE KETONE NEGATIVE (NEGATIVE); URINE LEUK ESTERASE NEGATIVE (NEGATIVE); URINE NITRITE NEGATIVE (NEGATIVE); URINE UROBILINOGEN NEGATIVE E.U./dl (0.2-1.0)
[2016-09-05 17:27] LABS: URINE BLOOD 1+ (NEGATIVE); URINE PROTEIN 3+ (NEGATIVE)
[2016-09-05 17:30] LABS: URINE MUCUS RARE; URINE RBC 7 /hpf (0-3); URINE WBC 5 /hpf (3-5)
[2016-09-05] MEDS ORDERED: ZOLPIDEM TARTRATE 10 MG TABLET (PARK CARE ONLY) PO PRN (22:00)
[2016-09-05] MEDS: THIAMINE HCL 100 MG TABLET (FP) PO SCH (22:51)
[2016-09-05] MEDS: LISINOPRIL 20 MG TABLET (FP) PO SCH (22:51)
[2016-09-06] MEDS: MAG HYDROX/AL HYDROX/SIMETH 30 ML UNIT-DOSE CUP PO PRN (01:02)
[2016-09-06] MEDS: IBUPROFEN 400 MG TABLET (FP) PO PRN ×2 (02:29→19:25)
[2016-09-06] MEDS: chlordiazePOXIDE HCL 25 MG CAPSULE PO SCH ×3 (05:40→16:48)
[2016-09-06] MEDS: cloNIDine HCL 0.1 MG TABLET PO PRN (05:56)
[2016-09-06] MEDS: metFORMIN HCL 500 MG TABLET (FP) PO SCH ×2 (07:03→16:49)
[2016-09-06] MEDS: PRENATAL VITAMINS W/ FOLIC ACID TABLET (FP) PO SCH (10:22)
[2016-09-06] MEDS: ASPIRIN COATED 81 MG TABLET.EC PO SCH (10:22)
[2016-09-06] MEDS: TRIAMTERENE AND HCTZ - 37.5 MG/25 MG CAPSULE PO SCH (10:22)
[2016-09-06] MEDS: RANITIDINE HCL 150 MG TABLET (FP) PO SCH (10:22)
[2016-09-06] MEDS: LISINOPRIL 20 MG TABLET (FP) PO SCH ×2 (10:22→22:21)
--- NOTE | 2016-09-06 10:36 | PN ---
[facility] CIWA - CIWA Score Nausea/Vomitin-No Nausea/No Vomiting Muscle Tremors: 4-Moderate,w/Arms Extend Anxiety: 5 Agitation: 4-Moderately Restless Paroxysmal Sweats: 1-Minimal Palms Moist Orientation: 0-Oriented Tacttile Disturbances: 3-Moderate Itch/Numb/Burn Auditory Disturbances: 0-None Visual Disturbances: 0-None Headache: 0-None Present CIWA-Ar Total Score: 17 S Progress Note (SOAP) Subjective: ANXIETY,IRRITABILITY,SWEATS,INTERMITTENT SLEEP. Objective: 09/06/16 10:35 Vital Signs Temperature 97.2 F L 09/06/16 09:30 Pulse Rate 66 09/06/16 09:30 Respiratory Rate 18 09/06/16 09:30 Blood Pressure 166/107 09/06/16 09:30 O2 Sat by Pulse Oximetry (%) Laboratory Last Values WBC 8.0 K/mm3 (4.0-10.0) 09/05/16 07:00 RBC 4.94 M/mm3 (4.00-5.60) 09/05/16 07:00 Hgb 13.2 GM/dL (11.7-16.9) 09/05/16 07:00 Hct 41.1 % (35.4-49) 09/05/16 07:00 MCV 83.1 fl (80-96) 09/05/16 07:00 MCHC 32.2 g/dl (32.0-35.9) 09/05/16 07:00 RDW 16.4 % (11.9-15.9) H 09/05/16 07:00 Plt Count 199 K/MM3 (134-434) 09/05/16 07:00 MPV 9.3 fl (7.5-11.1) 09/05/16 07:00 Sodium 144 mmol/L (136-145) 09/05/16 07:00 Potassium 4.1 mmol/L (3.5-5.1) 09/05/16 07:00 Chloride 110 mmol/L (98-107) H 09/05/16 07:00 Carbon Dioxide 27 mmol/L (21-32) 09/05/16 07:00 Anion Gap 7 (8-16) L 09/05/16 07:00 BUN 24 mg/dL (7-18) H D 09/05/16 07:00 Creatinine 1.6 mg/dL (0.7-1.3) H 09/05/16 07:00 Creat Clearance w eGFR 45.80 (>60) 09/05/16 07:00 POC Glucometer 85 UNITS (()) 09/05/16 16:18 Random Glucose 88 mg/dL (74-106) 09/05/16 07:00 Calcium 7.9 mg/dL (8.5-10.1) L 09/05/16 07:00 Total Bilirubin 0.1 mg/dL (0.2-1.0) L D 09/05/16 07:00 AST 23 U/L (15-37) 09/05/16 07:00 ALT 23 U/L (12-78) 09/05/16 07:00 Alkaline Phosphatase 62 U/L (45-117) 09/05/16 07:00 Total Protein 4.6 g/dl (6.4-8.2) L 09/05/16 07:00 Albumin 1.7 g/dl (3.4-5.0) L D 09/05/16 07:00 Urine Color Straw 09/05/16 17:00 Urine Appearance Clear 09/05/16 17:00 Urine pH 6.0 (5.0-8.0) 09/05/16 17:00 Ur Specific [place] 1.020 (1.005-1.025) 09/05/16 17:00 Urine Protein 3+ (NEGATIVE) H 09/05/16 17:00 Urine Glucose (UA) 1+ (NEGATIVE) H 09/05/16 17:00 Urine Ketones Negative (NEGATIVE) 09/05/16 17:00 Urine Blood 1+ (NEGATIVE) H 09/05/16 17:00 Urine Nitrite Negative (NEGATIVE) 09/05/16 17:00 Urine Bilirubin Negative (NEGATIVE) 09/05/16 17:00 Urine Urobilinogen Negative E.U./dl (0.2-1.0) 09/05/16 17:00 Ur Leukocyte Esterase Negative (NEGATIVE) 09/05/16 17:00 Urine RBC 7 /hpf (0-3) 09/05/16 17:00 Urine WBC 5 /hpf (3-5) 09/05/16 17:00 Urine Mucus Rare 09/05/16 17:00 RPR Titer Nonreactive (NONREACTIVE) 09/05/16 07:00 HIV 1&2 Antibody Screen Negative 09/05/16 07:00 HIV P24 Antigen Negative 09/05/16 07:00 Assessment: 09/06/16 10:36 WITHDRAWAL SX Plan: CONTINUE DETOX
--- NOTE | 2016-09-06 18:56 | PN ---
[facility] Progress Note Note: Psychiatry Attending's note : Asked to re-evaluate this patient. Reason : irritability and disregard for rules/regulations. Upset when called for meds and tests/procedures. Prone to loud outbursts and profane language. Taken to office for psychiatric interview. Mr Ugarte started cursing.Argues that he " should be left alone ". " I need my f.. sleep and privacy.Mind your business." Patient refused to answer questions and left office. Staff was made aware of details of encounter.
[2016-09-06] MEDS: THIAMINE HCL 100 MG TABLET (FP) PO SCH (22:21)
[2016-09-06] MEDS: chlordiazePOXIDE 5 MG CAPSULE PO SCH (22:21)
[2016-09-07] MEDS: MAG HYDROX/AL HYDROX/SIMETH 30 ML UNIT-DOSE CUP PO PRN (00:48)
[2016-09-07] MEDS: chlordiazePOXIDE 5 MG CAPSULE PO SCH ×3 (05:47→17:02)
[2016-09-07] MEDS: cloNIDine HCL 0.1 MG TABLET PO PRN (06:00)
[2016-09-07] MEDS: IBUPROFEN 400 MG TABLET (FP) PO PRN (06:08)
[2016-09-07] MEDS: metFORMIN HCL 500 MG TABLET (FP) PO SCH ×2 (07:27→17:02)
[2016-09-07] MEDS: PRENATAL VITAMINS W/ FOLIC ACID TABLET (FP) PO SCH (10:38)
[2016-09-07] MEDS: RANITIDINE HCL 150 MG TABLET (FP) PO SCH (10:38)
[2016-09-07] MEDS: ASPIRIN COATED 81 MG TABLET.EC PO SCH (10:38)
[2016-09-07] MEDS: TRIAMTERENE AND HCTZ - 37.5 MG/25 MG CAPSULE PO SCH (10:38)
[2016-09-07] MEDS: LISINOPRIL 20 MG TABLET (FP) PO SCH ×2 (10:39→22:19)
--- NOTE | 2016-09-07 11:00 | PN ---
[facility] Progress Note (SOAP) Subjective: PT RESPONDED TO STAFF BY IGNORING CALLS BY TRANSITION COACH. EXHIBITS IRRITABILITY,ANGER. Objective: 09/07/16 10:58 Vital Signs Temperature 96.2 F L 09/07/16 09:22 Pulse Rate 65 09/07/16 09:22 Respiratory Rate 18 09/07/16 09:22 Blood Pressure 151/96 09/07/16 09:22 O2 Sat by Pulse Oximetry (%) Assessment: 09/07/16 10:58 WITHDRAWAL SX Plan: CONTINUE DETOX MONITOR PT STATUS
[2016-09-07] MEDS: chlordiazePOXIDE HCL 10 MG CAPSULE PO SCH (22:19)
[2016-09-07] MEDS: THIAMINE HCL 100 MG TABLET (FP) PO SCH (22:19)
[2016-09-08] MEDS: IBUPROFEN 400 MG TABLET (FP) PO PRN (04:59)
[2016-09-08] MEDS: chlordiazePOXIDE HCL 10 MG CAPSULE PO SCH (06:12)
[2016-09-08] MEDS: metFORMIN HCL 500 MG TABLET (FP) PO SCH (06:12)
[2016-09-08] MEDS: RANITIDINE HCL 150 MG TABLET (FP) PO SCH (06:40)
[2016-09-08] MEDS: LISINOPRIL 20 MG TABLET (FP) PO SCH (06:41)
[2016-09-08 06:48] VITALS: BP 167/96; PULSE 70; TEMP 97.1
--- NOTE | 2016-09-08 12:41 | DS ---
[facility] Detox Discharge Summary Admission Date: 09/04/16 Discharge Date: 09/08/16 - History Present History: Alcohol Dependence, Cocaine Dependence Additional Comments: DETOX COMPLETED. PT D/C'D EARLIER TODAY. Pertinent Past History: HTN HYPERCHOLESTEROLEMIA TYPE 2 DM GERD - Physical Exam Results Vital Signs: Vital Signs Temperature 97.1 F L 09/08/16 06:48 Pulse Rate 70 09/08/16 06:48 Respiratory Rate 18 09/08/16 06:48 Blood Pressure 167/96 09/08/16 06:48 O2 Sat by Pulse Oximetry (%) Pertinent Admission Physical Exam Findings: WITHDRAWAL SX - Treatment Hospital Course: Detox Protocol Followed, Detoxed Safely, Responded well, Discharged Condition Good, Rehab Referral Accepted Patient has Accepted a Rehab Referral to: [facility] - Medication Discharge Medications: Ambulatory Orders Aspirin [ASA -] 81 mg PO DAILY 02/11/15 Lisinopril [Prinivil] 20 mg PO DAILY #30 tablet 04/06/15 Ranitidine [Zantac -] 150 mg PO BID #60 tablet 04/06/15 Metformin HCl [Glucophage -] 500 mg PO BID 05/10/16 Triamterene/Hydrochlorothiazid [Dyazide 37.5-25 Capsule] 1 each PO DAILY - Diagnosis (1) Alcohol dependence with uncomplicated withdrawal Status: Acute (2) Cocaine dependence, uncomplicated Status: Acute (3) Nicotine dependence Status: Acute Qualifiers: Nicotine product type: cigarettes Substance use status: in withdrawal Qualified Code(s): F17.213 - Nicotine dependence, cigarettes, with withdrawal (4) Acid reflux disease Status: Chronic Qualifiers: Esophagitis presence: esophagitis presence not specified Qualified Code(s): K21.9 - Gastro-esophageal reflux disease without esophagitis (5) Hypertension Status: Chronic Qualifiers: Hypertension type: essential hypertension Qualified Code(s): I10 - Essential (primary) hypertension (6) Drug-induced mood disorder Status: Acute (7) Insomnia Status: Acute (8) Obesities, morbid Status: Chronic Qualifiers: Obesity type: due to excess calories Qualified Code(s): E66.01 - Morbid (severe) obesity due to excess calories (9) Type II diabetes mellitus Status: Chronic Qualifiers: Diabetes mellitus complication status: without complication Diabetes mellitus joint terminal attack controller insulin use: without joint terminal attack controller use Qualified Code(s): E11.9 - Type 2 diabetes mellitus without complications - AMA Did Patient Leave Against Medical Advice: No
== END 2016-09-08 06:45 | disposition home or self-care (01) | DRG 774 ==
LOC: YASAS 21:30 → Y3N 21:42
PROVIDERS: ADMIT Internal Medicine; ATTEND Internal Medicine
PROC: HZ2ZZZZ Detoxification Services for Substance Abuse Treatment (ICD-10-PCS; principal; 2016-09-04)
DX: F10.230 Alcohol dependence with withdrawal, uncomplicated (principal); F14.20 Cocaine dependence, uncomplicated; F17.213 Nicotine dependence, cigarettes, with withdrawal; F19.24 Other psychoactive substance dependence with psychoactive substance-induced mood disorder; K21.9 Gastro-esophageal reflux disease without esophagitis; I10 Essential (primary) hypertension; G47.00 Insomnia, unspecified; E66.01 Morbid (severe) obesity due to excess calories; Z68.37 Body mass index [BMI] 37.0-37.9, adult; E11.9 Type 2 diabetes mellitus without complications; Z79.84 Long term (current) use of oral hypoglycemic drugs
CPT/HCPCS: 36415; 80053; 81003; 81015; 85027; 86593; 87389; 90732; 93005; 93010; G0009

== ENCOUNTER 2016-09-08 10:16 | Inpatient (IN) | payer OTHER ==
[2016-09-08 12:32] VITALS: BMI 38.0
--- NOTE | 2016-09-08 14:38 | HP ---
[facility] Re[facility] Assess/Revision - Admission History Ad[facility] (COMPLETED DETOX FROM 09/04/16 TO 09/08/16) Date of Admission to Rehab: 09/08/16 - Vital signs Vital Signs: Vital Signs Period Temp Pulse Resp BP Sys/Light Pulse Ox Last 24 Hr 96.6 F 80 18 160/98 - Findings Detox History & Physical reviewed: Yes Concur with findings: Yes Comments/Additional Findings: PT COMPLETED DETOX TODAY AND WAS SUPPOSED TO BE PICKED UP BY [facility] WHO WAS A NO SHOW PER PT BUT NOW HERE TO CONTINUE WITH REHAB AFTERCARE. PT REMAINED ON PREMISES. ALERT O X 3. NAD. PLAN:ADMIT TO REHAB TODAY.
[2016-09-08] MEDS ORDERED: IBUPROFEN 400 MG TABLET (FP) PO PRN (14:40)
[2016-09-08] MEDS ORDERED: P-EPHED 60MG/TRIPROLIDI 2.5MG TABLET PO PRN (14:40)
[2016-09-08] MEDS ORDERED: ACETAMINOPHEN 325 MG TABLET (FP) PO PRN (14:40)
[2016-09-08] MEDS ORDERED: NICOTINE POLACRILEX 2 MG GUM BUC PRN (14:40)
[2016-09-08] MEDS ORDERED: MAGNESIUM HYDROX 2400MG/30ML ORAL SUSPENSION 30 ML CUP PO PRN (14:40)
[2016-09-08] MEDS ORDERED: MENTHOL/PHENOL 1 EACH UD MM PRN (14:40)
[2016-09-08] MEDS ORDERED: guaiFENesin/D-METHORPHAN HB 10 ML UNIT-DOSE CUPS PO PRN (14:40)
[2016-09-08] MEDS ORDERED: LOPERAMIDE HCL 2 MG CAPSULE PO PRN (14:40)
[2016-09-08] MEDS ORDERED: hydrOXYzine PAMOATE 25 MG CAPSULE (FP) PO PRN (14:40)
[2016-09-08] MEDS ORDERED: MAGNESIUM CITRATE 300 ML BOTTLE PO PRN (14:40)
[2016-09-08] MEDS: TRIAMTERENE AND HCTZ - 37.5 MG/25 MG CAPSULE PO SCH (15:47)
[2016-09-08] MEDS: NICOTINE 14 MG/24 HOURS TOPICAL PATCH TD SCH (15:50)
[2016-09-08] MEDS: metFORMIN HCL 500 MG TABLET (FP) PO SCH (17:16)
[2016-09-08 20:02] LABS: URINE APPEARANCE CLEAR; URINE BILIRUBIN NEGATIVE (NEGATIVE); URINE COLOR STRAW; URINE GLUCOSE (UA) 1+ (NEGATIVE); URINE KETONE NEGATIVE (NEGATIVE); URINE LEUK ESTERASE NEGATIVE (NEGATIVE); URINE NITRITE NEGATIVE (NEGATIVE); URINE UROBILINOGEN NEGATIVE E.U./dl (0.2-1.0)
[2016-09-08 20:06] LABS: URINE BLOOD 1+ (NEGATIVE); URINE PROTEIN 3+ (NEGATIVE)
[2016-09-08 20:09] LABS: GRANULAR CASTS 95 /lpf; URINE MUCUS RARE; URINE RBC 3 /hpf (0-3); URINE WBC 4 /hpf (3-5)
[2016-09-08] MEDS: THIAMINE HCL 100 MG TABLET (FP) PO SCH (22:03)
[2016-09-08] MEDS: RANITIDINE HCL 150 MG TABLET (FP) PO SCH (22:04)
[2016-09-08] MEDS: diphenhydrAMINE HCL 50 MG CAPSULE PO PRN (22:04)
[2016-09-09] MEDS: metFORMIN HCL 500 MG TABLET (FP) PO SCH ×2 (06:27→16:47)
[2016-09-09] MEDS: LISINOPRIL 10 MG TABLET (FP) PO SCH (10:29)
[2016-09-09] MEDS: RANITIDINE HCL 150 MG TABLET (FP) PO SCH ×2 (10:29→21:55)
[2016-09-09] MEDS: PRENATAL VITAMINS W/ FOLIC ACID TABLET (FP) PO SCH (10:29)
[2016-09-09] MEDS: ASPIRIN 81 MG CHEWABLE TABLETS PO SCH (10:29)
[2016-09-09] MEDS: TRIAMTERENE AND HCTZ - 37.5 MG/25 MG CAPSULE PO SCH (10:29)
[2016-09-09] MEDS: NICOTINE 14 MG/24 HOURS TOPICAL PATCH TD SCH (10:30)
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
[2016-09-09 18:09] LABS: URINE APPEARANCE CLEAR; URINE BILIRUBIN NEGATIVE (NEGATIVE); URINE BLOOD 1+ (NEGATIVE); URINE COLOR LTYELLOW; URINE GLUCOSE (UA) NEGATIVE (NEGATIVE); URINE KETONE NEGATIVE (NEGATIVE); URINE LEUK ESTERASE NEGATIVE (NEGATIVE); URINE NITRITE NEGATIVE (NEGATIVE); URINE PROTEIN 3+ (NEGATIVE); URINE UROBILINOGEN NEGATIVE E.U./dl (0.2-1.0)
[2016-09-09 18:11] LABS: URINE HYALINE CAST 1 /lpf; URINE MUCUS RARE; URINE RBC 15 /hpf (0-3); URINE WBC 3 /hpf (3-5)
[2016-09-09] MEDS: THIAMINE HCL 100 MG TABLET (FP) PO SCH (21:55)
[2016-09-10] MEDS: metFORMIN HCL 500 MG TABLET (FP) PO SCH ×2 (06:23→16:52)
[2016-09-10] MEDS: RANITIDINE HCL 150 MG TABLET (FP) PO SCH ×2 (10:09→22:04)
[2016-09-10] MEDS: NICOTINE 14 MG/24 HOURS TOPICAL PATCH TD SCH (10:09)
[2016-09-10] MEDS: ASPIRIN 81 MG CHEWABLE TABLETS PO SCH (10:09)
[2016-09-10] MEDS: TRIAMTERENE AND HCTZ - 37.5 MG/25 MG CAPSULE PO SCH (10:09)
[2016-09-10] MEDS: LISINOPRIL 10 MG TABLET (FP) PO SCH (10:09)
[2016-09-10] MEDS: PRENATAL VITAMINS W/ FOLIC ACID TABLET (FP) PO SCH (10:09)
[2016-09-10] MEDS: THIAMINE HCL 100 MG TABLET (FP) PO SCH (22:04)
[2016-09-10] MEDS: diphenhydrAMINE HCL 50 MG CAPSULE PO PRN (22:04)
[2016-09-11] MEDS: metFORMIN HCL 500 MG TABLET (FP) PO SCH ×2 (06:42→16:54)
[2016-09-11] MEDS: RANITIDINE HCL 150 MG TABLET (FP) PO SCH ×2 (10:44→22:10)
[2016-09-11] MEDS: PRENATAL VITAMINS W/ FOLIC ACID TABLET (FP) PO SCH (10:44)
[2016-09-11] MEDS: LISINOPRIL 10 MG TABLET (FP) PO SCH (10:44)
[2016-09-11] MEDS: TRIAMTERENE AND HCTZ - 37.5 MG/25 MG CAPSULE PO SCH (10:44)
[2016-09-11] MEDS: ASPIRIN 81 MG CHEWABLE TABLETS PO SCH (10:44)
[2016-09-11] MEDS: NICOTINE 14 MG/24 HOURS TOPICAL PATCH TD SCH (10:45)
[2016-09-11] MEDS: diphenhydrAMINE HCL 50 MG CAPSULE PO PRN (22:10)
[2016-09-11] MEDS: THIAMINE HCL 100 MG TABLET (FP) PO SCH (22:10)
[2016-09-12] MEDS: metFORMIN HCL 500 MG TABLET (FP) PO SCH ×2 (06:39→17:00)
[2016-09-12] MEDS: RANITIDINE HCL 150 MG TABLET (FP) PO SCH ×2 (10:41→22:22)
[2016-09-12] MEDS: LISINOPRIL 10 MG TABLET (FP) PO SCH (10:41)
[2016-09-12] MEDS: PRENATAL VITAMINS W/ FOLIC ACID TABLET (FP) PO SCH (10:41)
[2016-09-12] MEDS: NICOTINE 14 MG/24 HOURS TOPICAL PATCH TD SCH (10:41)
[2016-09-12] MEDS: ASPIRIN 81 MG CHEWABLE TABLETS PO SCH (10:41)
[2016-09-12] MEDS: TRIAMTERENE AND HCTZ - 37.5 MG/25 MG CAPSULE PO SCH (10:42)
--- NOTE | 2016-09-12 12:18 | PN ---
[facility] Progress Note Note: bgm monitoring has been in normal range will d/c bgm
[2016-09-12] MEDS: diphenhydrAMINE HCL 50 MG CAPSULE PO PRN (22:22)
[2016-09-12] MEDS: THIAMINE HCL 100 MG TABLET (FP) PO SCH (22:22)
[2016-09-13] MEDS: metFORMIN HCL 500 MG TABLET (FP) PO SCH ×2 (06:53→17:05)
[2016-09-13] MEDS: NICOTINE 14 MG/24 HOURS TOPICAL PATCH TD SCH (10:32)
[2016-09-13] MEDS: RANITIDINE HCL 150 MG TABLET (FP) PO SCH ×2 (10:32→22:06)
[2016-09-13] MEDS: TRIAMTERENE AND HCTZ - 37.5 MG/25 MG CAPSULE PO SCH (10:32)
[2016-09-13] MEDS: LISINOPRIL 10 MG TABLET (FP) PO SCH (10:32)
[2016-09-13] MEDS: PRENATAL VITAMINS W/ FOLIC ACID TABLET (FP) PO SCH (10:32)
[2016-09-13] MEDS: ASPIRIN 81 MG CHEWABLE TABLETS PO SCH (10:32)
[2016-09-13] MEDS: THIAMINE HCL 100 MG TABLET (FP) PO SCH (22:06)
[2016-09-14] MEDS: metFORMIN HCL 500 MG TABLET (FP) PO SCH ×2 (06:39→16:54)
[2016-09-14] MEDS: TRIAMTERENE AND HCTZ - 37.5 MG/25 MG CAPSULE PO SCH (10:41)
[2016-09-14] MEDS: PRENATAL VITAMINS W/ FOLIC ACID TABLET (FP) PO SCH (10:42)
[2016-09-14] MEDS: NICOTINE 14 MG/24 HOURS TOPICAL PATCH TD SCH (10:42)
[2016-09-14] MEDS: LISINOPRIL 10 MG TABLET (FP) PO SCH (10:42)
[2016-09-14] MEDS: RANITIDINE HCL 150 MG TABLET (FP) PO SCH ×2 (10:42→21:49)
[2016-09-14] MEDS: ASPIRIN 81 MG CHEWABLE TABLETS PO SCH (10:42)
[2016-09-14] MEDS: MAG HYDROX/AL HYDROX/SIMETH 30 ML UNIT-DOSE CUP PO PRN (19:45)
[2016-09-14] MEDS: THIAMINE HCL 100 MG TABLET (FP) PO SCH (21:49)
[2016-09-15] MEDS: metFORMIN HCL 500 MG TABLET (FP) PO SCH ×2 (06:15→17:05)
[2016-09-15] MEDS: RANITIDINE HCL 150 MG TABLET (FP) PO SCH ×2 (10:35→22:10)
[2016-09-15] MEDS: LISINOPRIL 10 MG TABLET (FP) PO SCH (10:35)
[2016-09-15] MEDS: TRIAMTERENE AND HCTZ - 37.5 MG/25 MG CAPSULE PO SCH (10:35)
[2016-09-15] MEDS: ASPIRIN 81 MG CHEWABLE TABLETS PO SCH (10:35)
[2016-09-15] MEDS: PRENATAL VITAMINS W/ FOLIC ACID TABLET (FP) PO SCH (10:35)
[2016-09-15] MEDS: NICOTINE 14 MG/24 HOURS TOPICAL PATCH TD SCH (10:36)
[2016-09-15] MEDS: MAG HYDROX/AL HYDROX/SIMETH 30 ML UNIT-DOSE CUP PO PRN (17:51)
[2016-09-15] MEDS: diphenhydrAMINE HCL 50 MG CAPSULE PO PRN (22:10)
[2016-09-15] MEDS: THIAMINE HCL 100 MG TABLET (FP) PO SCH (22:10)
[2016-09-15] MEDS: HYDROCORTISONE 1% TOPICAL CREAM 30 GM TUBE TP SCH (22:11)
[2016-09-16] MEDS: metFORMIN HCL 500 MG TABLET (FP) PO SCH ×2 (06:01→16:58)
[2016-09-16] MEDS: LISINOPRIL 10 MG TABLET (FP) PO SCH (10:22)
[2016-09-16] MEDS: RANITIDINE HCL 150 MG TABLET (FP) PO SCH ×2 (10:22→22:15)
[2016-09-16] MEDS: TRIAMTERENE AND HCTZ - 37.5 MG/25 MG CAPSULE PO SCH (10:22)
[2016-09-16] MEDS: ASPIRIN 81 MG CHEWABLE TABLETS PO SCH (10:22)
[2016-09-16] MEDS: PRENATAL VITAMINS W/ FOLIC ACID TABLET (FP) PO SCH (10:22)
[2016-09-16] MEDS: NICOTINE 14 MG/24 HOURS TOPICAL PATCH TD SCH (10:23)
[2016-09-16] MEDS: HYDROCORTISONE 1% TOPICAL CREAM 30 GM TUBE TP SCH ×2 (10:23→22:15)
[2016-09-16] MEDS: THIAMINE HCL 100 MG TABLET (FP) PO SCH (22:15)
[2016-09-16] MEDS: MAG HYDROX/AL HYDROX/SIMETH 30 ML UNIT-DOSE CUP PO PRN (22:28)
[2016-09-17] MEDS: metFORMIN HCL 500 MG TABLET (FP) PO SCH ×2 (06:33→17:30)
[2016-09-17] MEDS: NICOTINE 14 MG/24 HOURS TOPICAL PATCH TD SCH (10:12)
[2016-09-17] MEDS: ASPIRIN 81 MG CHEWABLE TABLETS PO SCH (10:12)
[2016-09-17] MEDS: TRIAMTERENE AND HCTZ - 37.5 MG/25 MG CAPSULE PO SCH (10:12)
[2016-09-17] MEDS: LISINOPRIL 10 MG TABLET (FP) PO SCH (10:12)
[2016-09-17] MEDS: HYDROCORTISONE 1% TOPICAL CREAM 30 GM TUBE TP SCH ×2 (10:12→23:44)
[2016-09-17] MEDS: RANITIDINE HCL 150 MG TABLET (FP) PO SCH ×2 (10:12→22:38)
[2016-09-17] MEDS: PRENATAL VITAMINS W/ FOLIC ACID TABLET (FP) PO SCH (10:12)
[2016-09-17] MEDS: diphenhydrAMINE HCL 50 MG CAPSULE PO PRN (22:37)
[2016-09-17] MEDS: THIAMINE HCL 100 MG TABLET (FP) PO SCH (22:38)
[2016-09-18] MEDS: metFORMIN HCL 500 MG TABLET (FP) PO SCH ×2 (06:35→16:49)
[2016-09-18] MEDS: ASPIRIN 81 MG CHEWABLE TABLETS PO SCH (10:02)
[2016-09-18] MEDS: LISINOPRIL 10 MG TABLET (FP) PO SCH (10:02)
[2016-09-18] MEDS: RANITIDINE HCL 150 MG TABLET (FP) PO SCH ×2 (10:03→21:44)
[2016-09-18] MEDS: TRIAMTERENE AND HCTZ - 37.5 MG/25 MG CAPSULE PO SCH (10:03)
[2016-09-18] MEDS: NICOTINE 14 MG/24 HOURS TOPICAL PATCH TD SCH (10:03)
[2016-09-18] MEDS: HYDROCORTISONE 1% TOPICAL CREAM 30 GM TUBE TP SCH ×2 (10:04→21:45)
[2016-09-18] MEDS: PRENATAL VITAMINS W/ FOLIC ACID TABLET (FP) PO SCH (11:02)
[2016-09-18] MEDS: THIAMINE HCL 100 MG TABLET (FP) PO SCH (21:44)
[2016-09-18] MEDS: diphenhydrAMINE HCL 50 MG CAPSULE PO PRN (21:44)
[2016-09-19] MEDS: metFORMIN HCL 500 MG TABLET (FP) PO SCH ×2 (06:54→16:43)
[2016-09-19] MEDS: ASPIRIN 81 MG CHEWABLE TABLETS PO SCH (10:41)
[2016-09-19] MEDS: TRIAMTERENE AND HCTZ - 37.5 MG/25 MG CAPSULE PO SCH (10:42)
[2016-09-19] MEDS: RANITIDINE HCL 150 MG TABLET (FP) PO SCH ×2 (10:42→21:56)
[2016-09-19] MEDS: LISINOPRIL 10 MG TABLET (FP) PO SCH (10:42)
[2016-09-19] MEDS: PRENATAL VITAMINS W/ FOLIC ACID TABLET (FP) PO SCH (10:42)
[2016-09-19] MEDS: HYDROCORTISONE 1% TOPICAL CREAM 30 GM TUBE TP SCH ×2 (10:43→22:27)
[2016-09-19] MEDS: NICOTINE 14 MG/24 HOURS TOPICAL PATCH TD SCH (10:43)
[2016-09-19] MEDS: diphenhydrAMINE HCL 50 MG CAPSULE PO PRN (21:56)
[2016-09-19] MEDS: THIAMINE HCL 100 MG TABLET (FP) PO SCH (21:56)
[2016-09-20] MEDS: metFORMIN HCL 500 MG TABLET (FP) PO SCH ×2 (06:19→16:59)
[2016-09-20] MEDS: LISINOPRIL 10 MG TABLET (FP) PO SCH (10:36)
[2016-09-20] MEDS: ASPIRIN 81 MG CHEWABLE TABLETS PO SCH (10:36)
[2016-09-20] MEDS: PRENATAL VITAMINS W/ FOLIC ACID TABLET (FP) PO SCH (10:36)
[2016-09-20] MEDS: RANITIDINE HCL 150 MG TABLET (FP) PO SCH ×2 (10:36→22:12)
[2016-09-20] MEDS: TRIAMTERENE AND HCTZ - 37.5 MG/25 MG CAPSULE PO SCH (10:37)
[2016-09-20] MEDS: HYDROCORTISONE 1% TOPICAL CREAM 30 GM TUBE TP SCH ×2 (10:37→22:12)
[2016-09-20] MEDS: NICOTINE 14 MG/24 HOURS TOPICAL PATCH TD SCH (10:37)
[2016-09-20] MEDS: diphenhydrAMINE HCL 50 MG CAPSULE PO PRN (22:12)
[2016-09-20] MEDS: THIAMINE HCL 100 MG TABLET (FP) PO SCH (22:12)
[2016-09-21] MEDS: metFORMIN HCL 500 MG TABLET (FP) PO SCH ×2 (06:28→16:53)
[2016-09-21] MEDS: RANITIDINE HCL 150 MG TABLET (FP) PO SCH ×2 (10:23→21:24)
[2016-09-21] MEDS: LISINOPRIL 10 MG TABLET (FP) PO SCH (10:23)
[2016-09-21] MEDS: HYDROCORTISONE 1% TOPICAL CREAM 30 GM TUBE TP SCH ×2 (10:23→21:24)
[2016-09-21] MEDS: TRIAMTERENE AND HCTZ - 37.5 MG/25 MG CAPSULE PO SCH (10:23)
[2016-09-21] MEDS: PRENATAL VITAMINS W/ FOLIC ACID TABLET (FP) PO SCH (10:23)
[2016-09-21] MEDS: ASPIRIN 81 MG CHEWABLE TABLETS PO SCH (10:23)
[2016-09-21] MEDS: NICOTINE 14 MG/24 HOURS TOPICAL PATCH TD SCH (10:24)
[2016-09-21] MEDS: MAG HYDROX/AL HYDROX/SIMETH 30 ML UNIT-DOSE CUP PO PRN (19:43)
[2016-09-21] MEDS: THIAMINE HCL 100 MG TABLET (FP) PO SCH (21:24)
[2016-09-22 06:25] VITALS: TEMP 98.1
[2016-09-22] MEDS: metFORMIN HCL 500 MG TABLET (FP) PO SCH (06:25)
--- NOTE | 2016-09-22 09:15 | PN ---
Psychiatric Progress Note Vital Signs: Vital Signs Period Temp Pulse Resp BP Sys/Light Pulse Ox Last 24 Hr 98.1 F 74-79 16-20 138-150/70-81 Date of Session: 09/22/16 Chief Complaint:: discharge visit HPI: Patient has addressed alcohol, cocaine,nicotine dependence comorbid drug induced mood disorder. ROS: HTN, acid reflux medically managed. Current Medications: Active Medications Generic Name Dose Route Start Last Admin Trade Name Freq PRN Reason Stop Dose Admin Acetaminophen 650 mg 09/08/16 14:40 Tylenol - PO Q4H PRN PAIN Al Hydroxide/Mg Hydroxide 30 ml 09/08/16 14:40 09/21/16 19:43 Mylanta Oral Suspension - PO 30 ml Q6H PRN Administration DYSPEPSIA Aspirin 81 mg 09/09/16 10:00 09/21/16 10:23 Asa - PO 81 mg DAILY PARVIN Administration Diphenhydramine HCl 50 mg 09/08/16 14:40 09/20/16 22:12 Benadryl - PO 50 mg HSMR1 PRN Administration INSOMNIA Eucalyptus/Menthol/Phenol/Sorbitol 1 each 09/08/16 14:40 Cepastat Lozenge - MM Q4H PRN SORE THROAT Guaifenesin 10 ml 09/08/16 14:40 Robitussin Dm - PO Q6H PRN COUGH Hydrocortisone 1 applic 09/15/16 22:00 09/21/16 21:24 Hytone 1% Cream - TP Not Given BID PARVIN Hydroxyzine Pamoate 25 mg 09/08/16 14:40 09/08/16 15:48 Vistaril - PO 25 mg Q4H PRN Administration AGITATION Ibuprofen 400 mg 09/08/16 14:40 09/08/16 15:48 Motrin - PO 400 mg Q6H PRN Administration SEVERE PAIN Lisinopril 20 mg 09/09/16 10:00 09/21/16 10:23 Prinivil PO 20 mg DAILY PARVIN Administration Loperamide HCl 4 mg 09/08/16 14:40 Imodium - PO Q6H PRN DIARRHEA Magnesium Citrate 300 ml 09/08/16 14:40 Citroma - PO Q48H PRN CONSTIPATION Magnesium Hydroxide 30 ml 09/08/16 14:40 Milk Of Magnesia - PO DAILY PRN CONSTIPATION Metformin HCl 500 mg 09/08/16 16:30 09/22/16 06:25 Glucophage - PO 500 mg BID@0700,1630 PARVIN Administration Nicotine 14 mg 09/08/16 14:45 09/21/16 10:24 Nicoderm Patch - TD Not Given DAILY PARVIN Nicotine Polacrilex 2 mg 09/08/16 14:40 Nicorette Gum - BUC Q2H PRN NICOTINE REPLACEMENT RX Multivit/Folic Acid/Iron 1 tab 09/09/16 10:00 09/21/16 10:23 Vitamins (Sjr) - PO 1 tab DAILY PARVIN Administration Pseudoephedrine/Triprolidine 1 combo 09/08/16 14:40 Actifed - PO TID PRN NASAL CONGESTION Ranitidine HCl 150 mg 09/08/16 22:00 09/21/16 21:24 Zantac - PO 150 mg BID PARVIN Administration Thiamine HCl 100 mg 09/08/16 22:00 09/21/16 21:24 Vitamin B1 - PO 100 mg HS PARVIN Administration Triamterene/HCTZ 1 cap 09/08/16 14:45 09/21/16 10:23 Dyazide 25/37.5mg PO 1 cap DAILY PARVIN Administration Current Side Effect: No Lab tests ordered: No Lab tests reviewed: Yes Provider note:: Patient has competed today his treatment and met his goals, will continue to address his issues at [facility] . He gained insights into his addiction, focused on importance of utlization of supports to prevent relapses. He was educated on his addiction,implications and consequences on his physical health and importance continue maintain abstinence.Counsleing and supportive therapy provided. Patient is stable for discharge today. Total face to face time:: 35 Mental Status Exam - Mental Status Exam Alert and Oriented to: Time, Place, Person Cognitive Function: Good Patient Appearance: Well Groomed Mood: Hopeful Affect: Appropriate, Mood Congruent Patient Behavior: Appropriate, Cooperative Speech Pattern: Clear, Appropriate Voice Loudness: Normal Thought Process: Intact, Goal Oriented Thought Disorder: Not Present Hallucinations: Denies Suicidal Ideation: Denies Homicidal Ideation: Denies Insight/Judgement: Fair Sleep: Fair Appetite: Good Muscle strength/Tone: Normal Gait/Station: Normal Psychiatric Treatment Plan - Problem List (1) Drug-induced mood disorder Current Visit: No (2) Nicotine dependence Current Visit: No Qualifiers: Nicotine product type: cigarettes Substance use status: in withdrawal Qualified Code(s): F17.213 - Nicotine dependence, cigarettes, with withdrawal (3) Acid reflux disease Current Visit: No Qualifiers: Esophagitis presence: esophagitis presence not specified Qualified Code(s): K21.9 - Gastro-esophageal reflux disease without esophagitis (4) Hypertension Current Visit: No Qualifiers: Hypertension type: essential hypertension Qualified Code(s): I10 - Essential (primary) hypertension (5) Obesities, morbid Current Visit: No Qualifiers: Obesity type: due to excess calories Qualified Code(s): E66.01 - Morbid (severe) obesity due to excess calories (6) Cocaine dependence Current Visit: Yes (7) Alcohol dependence Current Visit: Yes (8) Insomnia Current Visit: No
[2016-09-22] MEDS ORDERED: PT OWN MED DRAWER 7, Y5N ONE (09:16)
[2016-09-22] MEDS: ASPIRIN 81 MG CHEWABLE TABLETS PO SCH (09:18)
[2016-09-22] MEDS: RANITIDINE HCL 150 MG TABLET (FP) PO SCH (09:18)
[2016-09-22] MEDS: LISINOPRIL 10 MG TABLET (FP) PO SCH (09:18)
[2016-09-22] MEDS: TRIAMTERENE AND HCTZ - 37.5 MG/25 MG CAPSULE PO SCH (09:18)
[2016-09-22] MEDS: HYDROCORTISONE 1% TOPICAL CREAM 30 GM TUBE TP SCH ×2 (09:19→09:21)
[2016-09-22] MEDS: NICOTINE 14 MG/24 HOURS TOPICAL PATCH TD SCH (09:19)
[2016-09-22] MEDS: PRENATAL VITAMINS W/ FOLIC ACID TABLET (FP) PO SCH (09:20)
[2016-09-22 10:05] VITALS: BP 156/91; PULSE 91
== END 2016-09-22 10:15 | disposition home or self-care (01) | DRG 772 ==
LOC: YASAS 10:16 → Y5N 13:05
PROVIDERS: ADMIT Psychiatry & Neurology Psychiatry; ATTEND Psychiatry & Neurology Psychiatry
PROC: HZ42ZZZ Group Counseling for Substance Abuse Treatment, Cognitive-Behavioral (ICD-10-PCS; principal; 2016-09-22)
DX: F10.20 Alcohol dependence, uncomplicated (principal); F14.20 Cocaine dependence, uncomplicated; F17.213 Nicotine dependence, cigarettes, with withdrawal; F19.24 Other psychoactive substance dependence with psychoactive substance-induced mood disorder; G47.00 Insomnia, unspecified; E11.9 Type 2 diabetes mellitus without complications; Z79.84 Long term (current) use of oral hypoglycemic drugs; I10 Essential (primary) hypertension; K21.9 Gastro-esophageal reflux disease without esophagitis; E66.01 Morbid (severe) obesity due to excess calories; Z68.38 Body mass index [BMI] 38.0-38.9, adult
CPT/HCPCS: 81003; 81015

== ENCOUNTER 2016-12-07 10:40 | Inpatient (IN) | payer OTHER ==
[2016-12-07 12:34] VITALS: BMI 39.5
--- NOTE | 2016-12-07 14:52 | HP ---
CIWA Score - CIWA Score Nausea/Vomitin Muscle Tremors: 2 Anxiety: 4-Mod. Anxious/Guarded Agitation: 2 Paroxysmal Sweats: 2 Orientation: 0-Oriented Tacttile Disturbances: 0-None Auditory Disturbances: 0-None Visual Disturbances: 3-Moderate Sensitivity Headache: 4-Moderately Severe CIWA-Ar Total Score: 20 Admission ROS S - HPI Chief Complaint: I have an alcohol and drug use problem." Pt. is here to Detox from Alcohol. Allergies/Adverse Reactions: Allergies Allergy/AdvReac Type Severity Reaction Status Date / Time No Known Allergies Allergy Verified 12/07/16 12:20 History of Present Illness: Pt. is a 51 YO male here to Detox from Alcohol. Pt. has had several previous Detox and Rehab admissions at [facility], ([facility] and [place] [facility] in the past. Longest period of sobriety: approx. 18 years (1992 - 2011). Exam Limitations: No Limitations - Ebola screening Have you traveled outside of the country in the last 21 days: No Have you had contact with anyone from an Ebola affected area: No Have you been sick,other than usual withdrawal symptoms: No Do you have a fever: No - Review of Systems Constitutional: Diaphoresis, Loss of Appetite, Malaise, Night Sweats, Changes in sleep EENT: reports: Blurred Vision, Nose Congestion, Sinus Pressure Respiratory: reports: SOB with Exertion, Productive cough Cardiac: reports: No Symptoms Reported GI: reports: Blood Streaked Bowels (Occasional in past (last episode: approx. 2 months ago.)), Diarrhea, Nausea, Poor Appetite, Vomiting, Indigestion, Abdominal cramping : reports: No Symptoms Reported Musculoskeletal: reports: No Symptoms Reported Integumentary: reports: No Symptoms Reported Neuro: reports: Headache, Tremors Endocrine: reports: No Symptoms Reported Hematology: reports: No Symptoms Reported Psychiatric: reports: Judgement Intact, Mood/Affect Appropiate, Orientated x3, Anxious, Depressed (No treatment in past.) Other Systems: Reviewed and Negative Patient History - Patient Medical History Hx Anemia: No Hx Asthma: No Hx Chronic Obstructive Pulmonary Disease (COPD): No Hx Cancer: No Hx Cardiac Disorders: No Hx Congestive Heart Failure: No Hx Hypertension: Yes (On meds.; last taken: approx. 1 week ago.) Hx Hypercholesterolemia: Yes (Med. in past; not taken for at least 2 weeks.) Hx Pacemaker: No HX Cerebrovascular Accident: No Hx Seizures: No Hx Dementia: No Hx Diabetes: Yes (NIDDM; On med.) Hx Gastrointestinal Disorders: Yes (acid reflux) Hx Liver Disease: No Hx Genitourinary Disorders: No Hx Sexually Transmitted Disorders: No Hx Renal Disease (ESRD): No Hx Thyroid Disease: No Hx Human Immunodeficiency Virus (HIV): No (Last Tested approx. 3 weeks ago: NEGATIVE.) Hx Hepatitis C: No (NEGATIVE HX.) Hx Depression: Yes (No Treatment in past.) Hx Suicide Attempt: No (PATIENT DENEIS CURRENT SI / HI.) Hx Bipolar Disorder: No Hx Schizophrenia: No Other Medical History: DENIES. - Patient Surgical History Past Surgical History: No Hx Neurologic Surgery: No Hx Cataract Extraction: No Hx Cardiac Surgery: No Hx Lung Surgery: No Hx Breast Surgery: No Hx Breast Biopsy: No Hx Abdominal Surgery: No Hx Appendectomy: No Hx Cholecystectomy: No Hx Genitourinary Surgery: No Hx Section: No Hx Orthopedic Surgery: No Anesthesia Reaction: No - PPD History Previous Implant?: Yes Documented Results: Negative w/proof Implanted On Prior [facility] Admission?: Yes Date: 09/14/16 Results: 0 mm PPD to be Administered?: No - Reproductive History Patient is a Female of Child Bearing Age (11 -55 yrs old): No (PATIENT IS MALE.) - Smoking Cessation Smoking history: Current every day smoker Have you smoked in the past 12 months: Yes Aproximately how many cigarettes per day: 5 Cigars Per Day: 0 Hx Chewing Tobacco Use: No Initiated information on smoking cessation: Yes 'Breaking Loose' booklet given: 12/07/16 (GIVEN ON UNIT.) - Substance & Tx. History Hx Alcohol Use: Yes Hx Substance Use: Yes Substance Use Type: Alcohol, Cocaine Hx Substance Use Treatment: Yes (Previous Detox / rehab admissions at [facility], [facility] , [facility] - Substances Abused Crack Route: Smoking Frequency: 3-6 times per week Amount used: $60 Age of first use: 22 Date of Last Use: 12/06/16 Alcohol-vodka/beer Route: Oral Frequency: Daily Amount used: 3 pts./3-4 (24 oz.) Age of first use: 15 Date of Last Use: 12/07/16 Family Disease History - Family Disease History Family Disease History: Diabetes: Father (diabetes), Heart Disease: Mother ( hypertension) Admission Physical Exam S - Vital Signs Vital Signs: Vital Signs - 24 hr 12/07/16 12:32 Temperature 98.2 F Pulse Rate 97 H Respiratory 20 Rate Blood Pressure 141/78 - Physical General Appearance: Yes: No Apparent Distress, Nourished, Appropriately Dressed , Irritable, Anxious HEENTM: Yes: Hearing grossly Normal, Normocephalic, Normal Voice, BIB, Pharynx Normal Respiratory: Yes: Chest Non-Tender, Lungs Clear, No Respiratory Distress, No Accessory Muscle Use Neck: Yes: No masses,lesions,Nodules, Supple, Trachea in good position Breast: Yes: Breast Exam Deferred Cardiology: Yes: Regular Rhythm, Regular Rate, S1, S2 Abdominal: Yes: Normal Bowel Sounds, Non Tender, Soft, Protuberent Genitourinary: Yes: Within Normal Limits Back: Yes: Normal Inspection Musculoskeletal: Yes: full range of Motion, Gait Steady Extremities: Yes: Normal Range of Motion, Non-Tender, Tremors Neurological: Yes: Fully Oriented, Alert, Normal Mood/Affect, Normal Response Integumentary: Yes: Normal Color, Dry, Warm Lymphatic: Yes: Within Normal Limits - Diagnostic (1) Alcohol dependence with uncomplicated withdrawal Current Visit: Yes Status: Acute (2) Cocaine dependence, uncomplicated Current Visit: Yes Status: Acute (3) Nicotine dependence Current Visit: Yes Status: Chronic Qualifiers: Nicotine product type: cigarettes Substance use status: in withdrawal Qualified Code(s): F17.213 - Nicotine dependence, cigarettes, with withdrawal (4) Acid reflux disease Current Visit: Yes Status: Chronic Qualifiers: Esophagitis presence: esophagitis presence not specified Qualified Code(s): K21.9 - Gastro-esophageal reflux disease without esophagitis (5) Hypertension Current Visit: Yes Status: Chronic Qualifiers: Hypertension type: essential hypertension Qualified Code(s): I10 - Essential (primary) hypertension (6) Type II diabetes mellitus Current Visit: Yes Status: Chronic Qualifiers: Diabetes mellitus complication status: without complication Diabetes mellitus skilled nursing insulin use: without skilled nursing use Qualified Code(s): E11.9 - Type 2 diabetes mellitus without complications (7) Depression (emotion) Current Visit: Yes Status: Chronic Qualifiers: Depression Type: unspecified Qualified Code(s): F32.9 - Major depressive disorder, single episode, unspecified Cleared for Admission [facility] - Detox or Rehab [facility] Level of Care: Medically Managed Detox Regimen/Protocol: Librium [facility] Breath Alcohol Content Breath Alcohol Content: 0.089 Urine Drug Screen - Results Drug Screen Negative: No Urine Drug Screen Results: BINH-Cocaine, BZO-Benzodiazepines
[2016-12-07] MEDS ORDERED: LOPERAMIDE HCL 2 MG CAPSULE PO PRN (15:19)
[2016-12-07] MEDS ORDERED: P-EPHED 60MG/TRIPROLIDI 2.5MG TABLET PO PRN (15:19)
[2016-12-07] MEDS ORDERED: MAGNESIUM HYDROX 2400MG/30ML ORAL SUSPENSION 30 ML CUP PO PRN (15:19)
[2016-12-07] MEDS ORDERED: MAG HYDROX/AL HYDROX/SIMETH 30 ML UNIT-DOSE CUP PO PRN (15:19)
[2016-12-07] MEDS ORDERED: diphenhydrAMINE HCL 50 MG CAPSULE PO PRN (15:19)
[2016-12-07] MEDS ORDERED: chlordiazePOXIDE HCL 25 MG CAPSULE PO PRN (15:19)
[2016-12-07] MEDS ORDERED: guaiFENesin/D-METHORPHAN HB 10 ML UNIT-DOSE CUPS PO PRN (15:19)
[2016-12-07] MEDS ORDERED: IBUPROFEN 400 MG TABLET (FP) PO PRN (15:19)
[2016-12-07] MEDS ORDERED: MAGNESIUM CITRATE 300 ML BOTTLE PO PRN (15:19)
[2016-12-07] MEDS ORDERED: NICOTINE POLACRILEX 2 MG GUM BC PRN (15:19)
[2016-12-07] MEDS ORDERED: MENTHOL/PHENOL 1 EACH UD MM PRN (15:19)
[2016-12-07] MEDS ORDERED: ACETAMINOPHEN 325 MG TABLET (FP) PO PRN (15:19)
[2016-12-07] MEDS ORDERED: hydrOXYzine PAMOATE 50 MG CAPSULE (FP) PO PRN (15:19)
[2016-12-07] MEDS ORDERED: chlordiazePOXIDE HCL 25 MG CAPSULE PO ONE (16:45)
[2016-12-07 17:01] LABS: MCH 27.3 pg (25.7-33.7); MEAN CELL VOLUME 82.9 fl (80-96); MEAN PLT VOLUME 9.7 fl (7.5-11.1); PLATELET COUNT 226 K/MM3 (134-434); WHITE BLOOD COUNT 8.1 K/mm3 (4.0-10.0)
[2016-12-07 17:05] LABS: URINE APPEARANCE SLCLOUDY; URINE BILIRUBIN NEGATIVE (NEGATIVE); URINE BLOOD 2+ (NEGATIVE); URINE COLOR LTYELLOW; URINE GLUCOSE (UA) 1+ (NEGATIVE); URINE KETONE NEGATIVE (NEGATIVE); URINE LEUK ESTERASE NEGATIVE (NEGATIVE); URINE NITRITE NEGATIVE (NEGATIVE); URINE UROBILINOGEN NEGATIVE mg/dL (0.2-1.0)
[2016-12-07 17:15] LABS: URINE PROTEIN 3+ (NEGATIVE)
[2016-12-07 17:22] LABS: ALK PHOS 79 U/L (45-117); ANION GAP 11 (8-16); BILIRUBIN,TOTAL 0.2 mg/dL (0.2-1.0); CALCIUM 8.2 mg/dL (8.5-10.1); CO2 25 mmol/L (21-32); CREATININE 1.4 mg/dL (0.7-1.3); GLUCOSE,RANDOM 92 mg/dL (74-106); SGOT/AST 18 U/L (15-37); SGPT/ALT 22 U/L (12-78); TOT PROT 5.2 g/dl (6.4-8.2); URINE MUCUS RARE; URINE RBC 2 /hpf (0-3); URINE WBC 4 /hpf (3-5)
[2016-12-07] MEDS: metFORMIN HCL 500 MG TABLET (FP) PO SCH (17:59)
[2016-12-07] MEDS: TRIAMTERENE AND HCTZ - 37.5 MG/25 MG CAPSULE PO SCH (17:59)
[2016-12-07] MEDS: LISINOPRIL 20 MG TABLET (FP) PO SCH (17:59)
[2016-12-07] MEDS: chlordiazePOXIDE HCL 25 MG CAPSULE PO SCH ×2 (17:59→22:28)
[2016-12-07] MEDS: RANITIDINE HCL 150 MG TABLET (FP) PO SCH (22:28)
[2016-12-07] MEDS: THIAMINE HCL 100 MG TABLET (FP) PO SCH (22:28)
[2016-12-08] MEDS: NICOTINE 14 MG/24 HOURS TOPICAL PATCH TD SCH ×2 (00:14→10:22)
[2016-12-08] MEDS: metFORMIN HCL 500 MG TABLET (FP) PO SCH ×2 (06:56→17:54)
[2016-12-08] MEDS: chlordiazePOXIDE HCL 25 MG CAPSULE PO SCH ×4 (06:56→22:41)
--- NOTE | 2016-12-08 08:34 | CONSULT ---
[facility] Psychiatric Consult - Data Date of interview: 12/08/16 Admission source: [facility] Identifying data: This is 51 years old male with nop psychiatric hospitalization history intoxicated with: Alcohol, Cocaine and Nicotine Substance Abuse History: - Smoking Cessation. Smoking history: Current every day smoker. Have you smoked in the past 12 months: Yes. Aproximately how many cigarettes per day: 5. Cigars Per Day: 0. Hx Chewing Tobacco Use: No. Initiated information on smoking cessation: Yes. 'Breaking Loose' booklet given : 12/07/16 (GIVEN ON UNIT.). - Substance & Tx. History. Hx Alcohol Use: Yes. Hx Substance Use: Yes. Substance Use Type: Alcohol, Cocaine. Hx Substance Use Treatment: Yes (Previous Detox / rehab admissions at [facility], [facility] - Substances Abused. Crack. Route: Smoking. Frequency: 3-6 times per week. Amount used: $60. Age of first use: 22. Date of Last Use: 12/06/16. * * Alcohol-vodka/beer. Route: Oral. Frequency: Daily. Amount used: 3 pts./3-4 (24 oz.). Age of first use: 15. Date of Last Use: 12/07/16 Medical History: GERD, DM-2, Obesity Psychiatric History: Patient reports history of depression, denies suicidal history, reports no medications taking prior to admission Physical/Sexual Abuse/Trauma History: Denies Additional Comment: Observation. Detox Unit Care Protocol Mental Status Exam - Mental Status Exam Alert and Oriented to: Person Cognitive Function: Fair Patient Appearance: Unkempt Mood: Sad Affect: Flat Patient Behavior: Sedated Speech Pattern: Delayed Voice Loudness: Mildly Soft/Quiet Thought Process: Circumstantial Thought Disorder: Being Controlled Hallucinations: Denies Suicidal Ideation: Denies Homicidal Ideation: Denies Insight/Judgement: Fair Sleep: Difficulty falling asleep Appetite: Weight gain Muscle strength/Tone: Mild Hypotonicity Gait/Station: Shuffling Additional Comments: Observation. Detox Unit Care Protocol Psychiatric Findings - Problem List ([place] 1, 2,3) (1) Cocaine dependence, uncomplicated Current Visit: Yes Status: Acute (2) Depression (emotion) Current Visit: Yes Status: Chronic Qualifiers: Depression Type: unspecified Qualified Code(s): F32.9 - Major depressive disorder, single episode, unspecified (3) Alcohol dependence Current Visit: No Status: Acute (4) Cocaine dependence Current Visit: No Status: Acute (5) Drug-induced mood disorder Current Visit: No Status: Acute - Initial Treatment Plan Initial Treatment Plan: Observation. Detox Unit Care Protocol
[2016-12-08] MEDS: ASPIRIN 81 MG CHEWABLE TABLETS PO SCH (10:21)
[2016-12-08] MEDS: RANITIDINE HCL 150 MG TABLET (FP) PO SCH ×2 (10:21→22:41)
[2016-12-08] MEDS: TRIAMTERENE AND HCTZ - 37.5 MG/25 MG CAPSULE PO SCH (10:21)
[2016-12-08] MEDS: LISINOPRIL 20 MG TABLET (FP) PO SCH (10:21)
[2016-12-08] MEDS: PRENATAL VITAMINS W/ FOLIC ACID TABLET (FP) PO SCH (10:21)
--- NOTE | 2016-12-08 11:13 | PN ---
[facility] CIWA - CIWA Score Nausea/Vomitin-No Nausea/No Vomiting Muscle Tremors: 4-Moderate,w/Arms Extend Anxiety: 4-Mod. Anxious/Guarded Agitation: 4-Moderately Restless Paroxysmal Sweats: 3 Orientation: 0-Oriented Tacttile Disturbances: 0-None Auditory Disturbances: 0-None Visual Disturbances: 0-None Headache: 0-None Present CIWA-Ar Total Score: 15 BHS Progress Note (SOAP) Subjective: shakes sweats interrupted sleep agitation Objective: 12/08/16 11:14 Vital Signs Temperature 97.9 F 12/08/16 10:18 Pulse Rate 76 12/08/16 10:18 Respiratory Rate 16 12/08/16 10:18 Blood Pressure 110/92 12/08/16 10:18 O2 Sat by Pulse Oximetry (%) Laboratory Tests 12/07/16 12/07/16 12/07/16 12:45 15:00 15:00 WBC 8.1 RBC 5.00 Hgb 13.7 Hct 41.4 MCV 82.9 MCH 27.3 MCHC 33.0 RDW 16.0 H Plt Count 226 MPV 9.7 Sodium 146 H Potassium 4.0 Chloride 110 H Carbon Dioxide 25 Anion Gap 11 BUN 16 D Creatinine 1.4 H Creat Clearance w eGFR 53.43 POC Glucometer 117 Random Glucose 92 Calcium 8.2 L Total Bilirubin 0.2 D AST 18 D ALT 22 Alkaline Phosphatase 79 D Total Protein 5.2 L Albumin 2.0 L Urine Color Urine Appearance Urine pH Ur Specific [place] Urine Protein Urine Glucose (UA) Urine Ketones Urine Blood Urine Nitrite Urine Bilirubin Urine Urobilinogen Urine RBC Urine WBC Ur Epithelial Cells Urine Mucus RPR Titer 12/07/16 12/07/16 12/08/16 15:00 15:00 06:55 WBC RBC Hgb Hct MCV MCH MCHC RDW Plt Count MPV Sodium Potassium Chloride Carbon Dioxide Anion Gap BUN Creatinine Creat Clearance w eGFR POC Glucometer 105 Random Glucose Calcium Total Bilirubin AST ALT Alkaline Phosphatase Total Protein Albumin Urine Color Ltyellow Urine Appearance Slcloudy Urine pH 5.0 D Ur Specific [place] 1.020 Urine Protein 3+ H Urine Glucose (UA) 1+ H Urine Ketones Negative Urine Blood 2+ H Urine Nitrite Negative Urine Bilirubin Negative Urine Urobilinogen Negative Urine RBC 2 Urine WBC 4 Ur Epithelial Cells Rare Urine Mucus Rare RPR Titer Nonreactive repeat u/a awake/alert ambulating no acute distress Assessment: 12/08/16 11:15 withdrawal sx Plan: continue detox increase fluids repeat u/a
[2016-12-08] MEDS ORDERED: FLU VACCINE QUAD 60 MCG/0.5 ML (MDV 17-18) IM ONE (12:00)
--- NOTE | 2016-12-08 13:25 | EKG ---
Test Reason : Blood Pressure : / mmHG Vent. Rate : 089 BPM Atrial Rate : 089 BPM P-R Int : 146 ms QRS Dur : 076 ms QT Int : 366 ms P-R-T Axes : 043 013 033 degrees QTc Int : 445 ms NORMAL SINUS RHYTHM POSSIBLE LEFT ATRIAL ENLARGEMENT LEFT VENTRICULAR HYPERTROPHY CANNOT RULE OUT SEPTAL INFARCT , AGE UNDETERMINED ABNORMAL ECG WHEN COMPARED WITH ECG OF 04-SEP-2016 21:22, MINIMAL CRITERIA FOR SEPTAL INFARCT ARE NOW PRESENT Confirmed by ONOFRE FLEMING MD ([id number]) on 12/08/2016 1:25:41 PM Referred By: Jenaro Godoy Confirmed By:ONOFRE FLEMING MD
[2016-12-08] MEDS: THIAMINE HCL 100 MG TABLET (FP) PO SCH (22:41)
[2016-12-09] MEDS: chlordiazePOXIDE HCL 25 MG CAPSULE PO SCH ×2 (05:43→10:03)
[2016-12-09] MEDS: metFORMIN HCL 500 MG TABLET (FP) PO SCH ×2 (07:08→17:25)
[2016-12-09 08:47] LABS: HIV 1 & 2 AB NEGATIVE; HIV 1 AGp24 NEGATIVE
[2016-12-09] MEDS: ASPIRIN 81 MG CHEWABLE TABLETS PO SCH (10:02)
[2016-12-09] MEDS: TRIAMTERENE AND HCTZ - 37.5 MG/25 MG CAPSULE PO SCH (10:03)
[2016-12-09] MEDS: NICOTINE 14 MG/24 HOURS TOPICAL PATCH TD SCH (10:03)
[2016-12-09] MEDS: PRENATAL VITAMINS W/ FOLIC ACID TABLET (FP) PO SCH (10:03)
[2016-12-09] MEDS: RANITIDINE HCL 150 MG TABLET (FP) PO SCH ×2 (10:03→22:55)
[2016-12-09] MEDS: LISINOPRIL 20 MG TABLET (FP) PO SCH (10:03)
--- NOTE | 2016-12-09 11:18 | PN ---
S CIWA - CIWA Score Nausea/Vomitin-No Nausea/No Vomiting Muscle Tremors: 4-Moderate,w/Arms Extend Anxiety: 3 Agitation: 3 Paroxysmal Sweats: 3 Orientation: 0-Oriented Tacttile Disturbances: 0-None Auditory Disturbances: 0-None Visual Disturbances: 0-None Headache: 0-None Present CIWA-Ar Total Score: 13 BHS Progress Note (SOAP) Subjective: body aches headache sweats irritable Objective: 12/09/16 11:16 Vital Signs Temperature 97.9 F 12/09/16 09:41 Pulse Rate 70 12/09/16 09:41 Respiratory Rate 18 12/09/16 09:41 Blood Pressure 153/97 12/09/16 09:41 O2 Sat by Pulse Oximetry (%) Laboratory Tests 12/07/16 12/07/16 12/07/16 09:45 12:45 15:00 WBC RBC Hgb Hct MCV MCH MCHC RDW Plt Count MPV Sodium Potassium Chloride Carbon Dioxide Anion Gap BUN Creatinine Creat Clearance w eGFR POC Glucometer 117 Random Glucose Calcium Total Bilirubin AST ALT Alkaline Phosphatase Total Protein Albumin Urine Color Urine Appearance Urine pH Ur Specific [place] Urine Protein Urine Glucose (UA) Urine Ketones Urine Blood Urine Nitrite Urine Bilirubin Urine Urobilinogen Urine RBC Urine WBC Ur Epithelial Cells Urine Mucus RPR Titer Hepatitis C Antibody <0.1 HIV 1&2 Antibody Screen Negative HIV P24 Antigen Negative 12/07/16 12/07/16 12/07/16 15:00 15:00 15:00 WBC 8.1 RBC 5.00 Hgb 13.7 Hct 41.4 MCV 82.9 MCH 27.3 MCHC 33.0 RDW 16.0 H Plt Count 226 MPV 9.7 Sodium 146 H Potassium 4.0 Chloride 110 H Carbon Dioxide 25 Anion Gap 11 BUN 16 D Creatinine 1.4 H Creat Clearance w eGFR 53.43 POC Glucometer Random Glucose 92 Calcium 8.2 L Total Bilirubin 0.2 D AST 18 D ALT 22 Alkaline Phosphatase 79 D Total Protein 5.2 L Albumin 2.0 L Urine Color Urine Appearance Urine pH Ur Specific [place] Urine Protein Urine Glucose (UA) Urine Ketones Urine Blood Urine Nitrite Urine Bilirubin Urine Urobilinogen Urine RBC Urine WBC Ur Epithelial Cells Urine Mucus RPR Titer Nonreactive Hepatitis C Antibody HIV 1&2 Antibody Screen HIV P24 Antigen 12/07/16 12/08/16 12/09/16 15:00 06:55 05:42 WBC RBC Hgb Hct MCV MCH MCHC RDW Plt Count MPV Sodium Potassium Chloride Carbon Dioxide Anion Gap BUN Creatinine Creat Clearance w eGFR POC Glucometer 105 97 Random Glucose Calcium Total Bilirubin AST ALT Alkaline Phosphatase Total Protein Albumin Urine Color Ltyellow Urine Appearance Slcloudy Urine pH 5.0 D Ur Specific [place] 1.020 Urine Protein 3+ H Urine Glucose (UA) 1+ H Urine Ketones Negative Urine Blood 2+ H Urine Nitrite Negative Urine Bilirubin Negative Urine Urobilinogen Negative Urine RBC 2 Urine WBC 4 Ur Epithelial Cells Rare Urine Mucus Rare RPR Titer Hepatitis C Antibody HIV 1&2 Antibody Screen HIV P24 Antigen awake/alert ambulating no acute distress Assessment: 12/09/16 11:17 withdrawal sx Plan: continue detox increase fluids motrin/tylenol prn
[2016-12-09] MEDS: chlordiazePOXIDE 5 MG CAPSULE PO SCH ×2 (17:31→22:55)
[2016-12-09] MEDS: THIAMINE HCL 100 MG TABLET (FP) PO SCH (22:55)
[2016-12-10] MEDS: chlordiazePOXIDE 5 MG CAPSULE PO SCH ×2 (06:18→10:46)
[2016-12-10] MEDS: metFORMIN HCL 500 MG TABLET (FP) PO SCH ×2 (07:18→18:06)
[2016-12-10] MEDS: LISINOPRIL 20 MG TABLET (FP) PO SCH (09:08)
[2016-12-10] MEDS: TRIAMTERENE AND HCTZ - 37.5 MG/25 MG CAPSULE PO SCH (09:08)
[2016-12-10] MEDS: RANITIDINE HCL 150 MG TABLET (FP) PO SCH ×2 (10:45→22:15)
[2016-12-10] MEDS: ASPIRIN 81 MG CHEWABLE TABLETS PO SCH (10:45)
[2016-12-10] MEDS: PRENATAL VITAMINS W/ FOLIC ACID TABLET (FP) PO SCH (10:45)
[2016-12-10] MEDS: NICOTINE 14 MG/24 HOURS TOPICAL PATCH TD SCH (10:46)
--- NOTE | 2016-12-10 13:10 | PN ---
BHS Progress Note (SOAP) Subjective: Agitation, anxiety, interrupted sleep, restlessness Objective: 12/10/16 13:10 Vital Signs - 8 hr 12/10/16 12/10/16 06:50 11:03 Temperature 97.3 F L 97.9 F Pulse Rate 67 73 Respiratory 18 18 Rate Blood Pressure 137/75 144/107 Laboratory Last Values WBC 8.1 K/mm3 (4.0-10.0) 12/07/16 15:00 RBC 5.00 M/mm3 (4.00-5.60) 12/07/16 15:00 Hgb 13.7 GM/dL (11.7-16.9) 12/07/16 15:00 Hct 41.4 % (35.4-49) 12/07/16 15:00 MCV 82.9 fl (80-96) 12/07/16 15:00 MCH 27.3 pg (25.7-33.7) 12/07/16 15:00 MCHC 33.0 g/dl (32.0-35.9) 12/07/16 15:00 RDW 16.0 % (11.9-15.9) H 12/07/16 15:00 Plt Count 226 K/MM3 (134-434) 12/07/16 15:00 MPV 9.7 fl (7.5-11.1) 12/07/16 15:00 Sodium 146 mmol/L (136-145) H 12/07/16 15:00 Potassium 4.0 mmol/L (3.5-5.1) 12/07/16 15:00 Chloride 110 mmol/L (98-107) H 12/07/16 15:00 Carbon Dioxide 25 mmol/L (21-32) 12/07/16 15:00 Anion Gap 11 (8-16) 12/07/16 15:00 BUN 16 mg/dL (7-18) D 12/07/16 15:00 Creatinine 1.4 mg/dL (0.7-1.3) H 12/07/16 15:00 Creat Clearance w eGFR 53.43 (>60) 12/07/16 15:00 POC Glucometer 93 UNITS (()) 12/10/16 06:20 Random Glucose 92 mg/dL (74-106) 12/07/16 15:00 Calcium 8.2 mg/dL (8.5-10.1) L 12/07/16 15:00 Total Bilirubin 0.2 mg/dL (0.2-1.0) D 12/07/16 15:00 AST 18 U/L (15-37) D 12/07/16 15:00 ALT 22 U/L (12-78) 12/07/16 15:00 Alkaline Phosphatase 79 U/L (45-117) D 12/07/16 15:00 Total Protein 5.2 g/dl (6.4-8.2) L 12/07/16 15:00 Albumin 2.0 g/dl (3.4-5.0) L 12/07/16 15:00 Urine Color Ltyellow 12/07/16 15:00 Urine Appearance Slcloudy 12/07/16 15:00 Urine pH 5.0 (5.0-8.0) D 12/07/16 15:00 Ur Specific [place] 1.020 (1.005-1.025) 12/07/16 15:00 Urine Protein 3+ (NEGATIVE) H 12/07/16 15:00 Urine Glucose (UA) 1+ (NEGATIVE) H 12/07/16 15:00 Urine Ketones Negative (NEGATIVE) 12/07/16 15:00 Urine Blood 2+ (NEGATIVE) H 12/07/16 15:00 Urine Nitrite Negative (NEGATIVE) 12/07/16 15:00 Urine Bilirubin Negative (NEGATIVE) 12/07/16 15:00 Urine Urobilinogen Negative mg/dL (0.2-1.0) 12/07/16 15:00 Urine RBC 2 /hpf (0-3) 12/07/16 15:00 Urine WBC 4 /hpf (3-5) 12/07/16 15:00 Ur Epithelial Cells Rare /hpf (FEW) 12/07/16 15:00 Urine Mucus Rare 12/07/16 15:00 RPR Titer Nonreactive (NONREACTIVE) 12/07/16 15:00 Hepatitis C Antibody <0.1 s/co ratio (0.0-0.9) 12/07/16 15:00 HIV 1&2 Antibody Screen Negative 12/07/16 09:45 HIV P24 Antigen Negative 12/07/16 09:45 labs noted Assessment: 12/10/16 13:10 withdrawal sx Plan: continue detox
[2016-12-10] MEDS: chlordiazePOXIDE HCL 10 MG CAPSULE PO SCH ×2 (18:06→22:15)
[2016-12-10] MEDS: THIAMINE HCL 100 MG TABLET (FP) PO SCH (22:15)
[2016-12-11] MEDS: chlordiazePOXIDE HCL 10 MG CAPSULE PO SCH ×2 (05:29→11:23)
[2016-12-11 06:34] VITALS: PULSE 83
[2016-12-11] MEDS: metFORMIN HCL 500 MG TABLET (FP) PO SCH (06:57)
[2016-12-11 10:28] VITALS: BP 164/98; TEMP 96.5
[2016-12-11] MEDS: ASPIRIN 81 MG CHEWABLE TABLETS PO SCH (11:21)
[2016-12-11] MEDS: TRIAMTERENE AND HCTZ - 37.5 MG/25 MG CAPSULE PO SCH (11:21)
[2016-12-11] MEDS: NICOTINE 14 MG/24 HOURS TOPICAL PATCH TD SCH (11:21)
[2016-12-11] MEDS: PRENATAL VITAMINS W/ FOLIC ACID TABLET (FP) PO SCH (11:22)
[2016-12-11] MEDS: RANITIDINE HCL 150 MG TABLET (FP) PO SCH (11:22)
[2016-12-11] MEDS: LISINOPRIL 20 MG TABLET (FP) PO SCH (11:22)
--- NOTE | 2016-12-11 18:10 | DS ---
[facility] Detox Discharge Summary Admission Date: 12/07/16 Discharge Date: 12/11/16 - History Present History: Alcohol Dependence, Cocaine Dependence Pertinent Past History: Type II DM - Physical Exam Results Vital Signs: Vital Signs Temperature 96.5 F L 12/11/16 10:27 Pulse Rate 83 12/11/16 10:27 Respiratory Rate 18 12/11/16 10:27 Blood Pressure 164/98 12/11/16 10:27 O2 Sat by Pulse Oximetry (%) Pertinent Admission Physical Exam Findings: Withdrawal sx. Laboratory Last Values WBC 8.1 K/mm3 (4.0-10.0) 12/07/16 15:00 RBC 5.00 M/mm3 (4.00-5.60) 12/07/16 15:00 Hgb 13.7 GM/dL (11.7-16.9) 12/07/16 15:00 Hct 41.4 % (35.4-49) 12/07/16 15:00 MCV 82.9 fl (80-96) 12/07/16 15:00 MCH 27.3 pg (25.7-33.7) 12/07/16 15:00 MCHC 33.0 g/dl (32.0-35.9) 12/07/16 15:00 RDW 16.0 % (11.9-15.9) H 12/07/16 15:00 Plt Count 226 K/MM3 (134-434) 12/07/16 15:00 MPV 9.7 fl (7.5-11.1) 12/07/16 15:00 Sodium 146 mmol/L (136-145) H 12/07/16 15:00 Potassium 4.0 mmol/L (3.5-5.1) 12/07/16 15:00 Chloride 110 mmol/L (98-107) H 12/07/16 15:00 Carbon Dioxide 25 mmol/L (21-32) 12/07/16 15:00 Anion Gap 11 (8-16) 12/07/16 15:00 BUN 16 mg/dL (7-18) D 12/07/16 15:00 Creatinine 1.4 mg/dL (0.7-1.3) H 12/07/16 15:00 Creat Clearance w eGFR 53.43 (>60) 12/07/16 15:00 POC Glucometer 98 UNITS (()) 12/11/16 05:31 Random Glucose 92 mg/dL (74-106) 12/07/16 15:00 Calcium 8.2 mg/dL (8.5-10.1) L 12/07/16 15:00 Total Bilirubin 0.2 mg/dL (0.2-1.0) D 12/07/16 15:00 AST 18 U/L (15-37) D 12/07/16 15:00 ALT 22 U/L (12-78) 12/07/16 15:00 Alkaline Phosphatase 79 U/L (45-117) D 12/07/16 15:00 Total Protein 5.2 g/dl (6.4-8.2) L 12/07/16 15:00 Albumin 2.0 g/dl (3.4-5.0) L 12/07/16 15:00 Urine Color Ltyellow 12/07/16 15:00 Urine Appearance Slcloudy 12/07/16 15:00 Urine pH 5.0 (5.0-8.0) D 12/07/16 15:00 Ur Specific [place] 1.020 (1.005-1.025) 12/07/16 15:00 Urine Protein 3+ (NEGATIVE) H 12/07/16 15:00 Urine Glucose (UA) 1+ (NEGATIVE) H 12/07/16 15:00 Urine Ketones Negative (NEGATIVE) 12/07/16 15:00 Urine Blood 2+ (NEGATIVE) H 12/07/16 15:00 Urine Nitrite Negative (NEGATIVE) 12/07/16 15:00 Urine Bilirubin Negative (NEGATIVE) 12/07/16 15:00 Urine Urobilinogen Negative mg/dL (0.2-1.0) 12/07/16 15:00 Urine RBC 2 /hpf (0-3) 12/07/16 15:00 Urine WBC 4 /hpf (3-5) 12/07/16 15:00 Ur Epithelial Cells Rare /hpf (FEW) 12/07/16 15:00 Urine Mucus Rare 12/07/16 15:00 RPR Titer Nonreactive (NONREACTIVE) 12/07/16 15:00 Hepatitis C Antibody <0.1 s/co ratio (0.0-0.9) 12/07/16 15:00 HIV 1&2 Antibody Screen Negative 12/07/16 09:45 HIV P24 Antigen Negative 12/07/16 09:45 labs noted - Treatment Hospital Course: Detox Protocol Followed, Detoxed Safely, Responded well, Discharged Condition Good, Rehab Referral Accepted Patient has Accepted a Rehab Referral to: [facility] - Medication Discharge Medications: Ambulatory Orders Aspirin [ASA -] 81 mg PO DAILY #30 tab 09/21/16 Hctz 25Mg/Triamterene [Dyazide 25/37.5 -] 1 cap PO DAILY #30 cap 09/21/16 Lisinopril [Prinivil] 20 mg PO DAILY #30 tablet 09/21/16 Metformin HCl [Glucophage -] 500 mg PO BID #60 tab 09/21/16 Ranitidine [Zantac -] 150 mg PO BID #60 tablet 09/21/16 - Diagnosis (1) Alcohol dependence with uncomplicated withdrawal Status: Chronic (2) Cocaine dependence, uncomplicated Status: Chronic (3) Hypertension Status: Chronic Qualifiers: Hypertension type: essential hypertension Qualified Code(s): I10 - Essential (primary) hypertension (4) Type II diabetes mellitus Status: Chronic Qualifiers: Diabetes mellitus complication status: without complication Diabetes mellitus chcf insulin use: without chcf use Qualified Code(s): E11.9 - Type 2 diabetes mellitus without complications (5) Drug-induced mood disorder Status: Acute - AMA Did Patient Leave Against Medical Advice: No
== END 2016-12-11 09:50 | disposition home or self-care (01) | DRG 774 ==
LOC: YASAS 10:40 → Y6N 14:29
PROVIDERS: ADMIT Internal Medicine; ATTEND Internal Medicine
PROC: HZ2ZZZZ Detoxification Services for Substance Abuse Treatment (ICD-10-PCS; principal; 2016-12-07)
DX: F10.230 Alcohol dependence with withdrawal, uncomplicated (principal); F14.20 Cocaine dependence, uncomplicated; F19.24 Other psychoactive substance dependence with psychoactive substance-induced mood disorder; F32.9 Major depressive disorder, single episode, unspecified; I10 Essential (primary) hypertension; E11.9 Type 2 diabetes mellitus without complications; Z79.84 Long term (current) use of oral hypoglycemic drugs; K21.9 Gastro-esophageal reflux disease without esophagitis
CPT/HCPCS: 36415; 80053; 81003; 81015; 85027; 86593; 86803; 87389; 93005; 93010

== ENCOUNTER 2017-05-07 11:36 | Inpatient (IN) | payer OTHER ==
[2017-05-07 12:14] VITALS: BMI 34.3
--- NOTE | 2017-05-07 13:40 | HP ---
CIWA Score - CIWA Score Nausea/Vomitin Muscle Tremors: 3 Anxiety: 3 Agitation: 3 Paroxysmal Sweats: 2 Orientation: 0-Oriented Tacttile Disturbances: 2-Mild Itch/Numbness/Burn Auditory Disturbances: 2-Mild Harshness/Frighten Visual Disturbances: 1-Very Mild Sensitivity Headache: 2-Mild CIWA-Ar Total Score: 21 Admission ROS BHS - HPI Chief Complaint: I NEED HELP TO STOP DRINKING ALCOHOL,COCAINE Allergies/Adverse Reactions: Allergies Allergy/AdvReac Type Severity Reaction Status Date / Time No Known Allergies Allergy Verified 05/07/17 13:47 History of Present Illness: THIS 52 YEARS OLD BLACK MALE WITH ALCOHOL AND COCAINE DEPENDENCE,WITHDRAWAL SYMPTOM,SEEKING DETOX,LAST DETOX 12/07/16 TO 12/11/16 HYPERTENSION,TYPE 2 DM,NICOTINE DEPENDENCE DEPRESSION MULTIPLE ADMISSIONS IN THE PAST LONGEST PERIOD OF SOBRIETY 18 YEARS Exam Limitations: No Limitations - Ebola screening Have you traveled outside of the country in the last 21 days: No Have you been sick,other than usual withdrawal symptoms: No - Review of Systems Constitutional: Loss of Appetite, Malaise, Night Sweats, Changes in sleep, Weakness EENT: reports: Nose Congestion Respiratory: reports: No Symptoms reported Cardiac: reports: Palpitations GI: reports: Diarrhea, Nausea, Vomiting, Abdominal cramping : reports: No Symptoms Reported Musculoskeletal: reports: Back Pain, Muscle Pain Integumentary: reports: Dryness Neuro: reports: Tremors Endocrine: reports: No Symptoms Reported Hematology: reports: No Symptoms Reported Psychiatric: reports: Depressed (INSOMNIA) Patient History - Patient Medical History Hx Anemia: No Hx Asthma: No Hx Chronic Obstructive Pulmonary Disease (COPD): No Hx Cancer: No Hx Cardiac Disorders: No Hx Congestive Heart Failure: No Hx Hypertension: Yes (On meds.; last taken: 2 DAYS AGO) Hx Hypercholesterolemia: Yes (Med. in past; TAKE MEDICATION 2 DAYS AGO) Hx Pacemaker: No HX Cerebrovascular Accident: No Hx Seizures: No Hx Dementia: No Hx Diabetes: Yes (NIDDM; On DIET CONTROL) Hx Gastrointestinal Disorders: Yes (acid reflux) Hx Liver Disease: No Hx Genitourinary Disorders: No Hx Sexually Transmitted Disorders: No Hx Renal Disease (ESRD): No Hx Thyroid Disease: No Hx Human Immunodeficiency Virus (HIV): No (03/12 NEGATIVE LAST) Hx Hepatitis C: No (NEGATIVE HX.) Hx Depression: Yes (No Treatment in past.) Hx Suicide Attempt: No (PATIENT DENEIS CURRENT SI / HI.) Hx Bipolar Disorder: No Hx Schizophrenia: No Other Medical History: NO SUICIDAL,NO HOMIIDAL - Patient Surgical History Past Surgical History: No Hx Neurologic Surgery: No Hx Cataract Extraction: No Hx Cardiac Surgery: No Hx Lung Surgery: No Hx Breast Surgery: No Hx Breast Biopsy: No Hx Abdominal Surgery: No Hx Appendectomy: No Hx Cholecystectomy: No Hx Genitourinary Surgery: No Hx Section: No Hx Orthopedic Surgery: No Anesthesia Reaction: No - PPD History Previous Implant?: Yes Documented Results: Negative w/proof Date: 09/14/16 Results: 0 mm PPD to be Administered?: No - Smoking Cessation Smoking history: Current every day smoker Have you smoked in the past 12 months: Yes Aproximately how many cigarettes per day: 5 Cigars Per Day: 0 Hx Chewing Tobacco Use: No Initiated information on smoking cessation: Yes 'Breaking Loose' booklet given: 05/07/17 - Substance & Tx. History Hx Alcohol Use: Yes Hx Substance Use: Yes Substance Use Type: Alcohol, Cocaine Hx Substance Use Treatment: Yes ([facility] 12/07/16 TO 12/11/16) - Substances Abused Alcohol Route: Oral Frequency: Daily Amount used: 1/2 PINT OF VODKA/3 OF 6PCAKS OF 24 OZS OF BEER Age of first use: 15 Date of Last Use: 05/06/17 Cocaine Route: Smoking Frequency: Daily Amount used: 200$ Age of first use: 23 Date of Last Use: 05/06/17 Family Disease History - Family Disease History Family Disease History: Diabetes: Mother (hypertension,), Heart Disease: Mother , Other: Father (ALCOHOL,) Admission Physical Exam [facility] - Vital Signs Vital Signs: Vital Signs - 24 hr 05/07/17 12:12 Temperature 96.5 F L Pulse Rate 74 Respiratory 20 Rate Blood Pressure 151/92 - Physical General Appearance: Yes: Moderate Distress, Tremorous, Irritable, Sweating, Anxious HEENTM: Yes: Normal ENT Inspection, BIB, Pharynx Normal Respiratory: Yes: Lungs Clear, Normal Breath Sounds, No Respiratory Distress Neck: Yes: Within Normal Limits, Supple, Trachea in good position Breast: Yes: Within Normal Limits Cardiology: Yes: Within Normal Limits, Regular Rhythm, Regular Rate, S1, S2 Abdominal: Yes: Normal Bowel Sounds, Non Tender, Flat, Soft Genitourinary: Yes: Within Normal Limits Back: Yes: Muscle Spasm Musculoskeletal: Yes: Back pain, Muscle Pain Extremities: Yes: Tremors Neurological: Yes: network applications specialist II-XII NML intact, Alert, Motor Strength 5/5 Integumentary: Yes: Dry Lymphatic: Yes: Within Normal Limits - Diagnostic (1) Alcohol dependence with uncomplicated withdrawal Current Visit: No Status: Chronic (2) Depression Current Visit: Yes Status: Acute (3) Cocaine dependence Current Visit: No Status: Acute (4) Insomnia Current Visit: No Status: Acute (5) Depression (emotion) Current Visit: No Status: Chronic Qualifiers: Depression Type: unspecified Qualified Code(s): F32.9 - Major depressive disorder, single episode, unspecified (6) Hypertension Current Visit: No Status: Chronic Qualifiers: Hypertension type: essential hypertension Qualified Code(s): I10 - Essential (primary) hypertension (7) Nicotine dependence Current Visit: No Status: Chronic Qualifiers: Nicotine product type: cigarettes Substance use status: in withdrawal Qualified Code(s): F17.213 - Nicotine dependence, cigarettes, with withdrawal (8) Type II diabetes mellitus Current Visit: No Status: Chronic Qualifiers: Diabetes mellitus complication status: without complication Diabetes mellitus physician's assistant insulin use: without fci use Qualified Code(s): E11.9 - Type 2 diabetes mellitus without complications Cleared for Admission S - Detox or Rehab [facility] Level of Care: Medically Managed Detox Regimen/Protocol: Librium [facility] Breath Alcohol Content Breath Alcohol Content: 0.008 Urine Drug Screen - Results Drug Screen Negative: No Urine Drug Screen Results: BINH-Cocaine
[2017-05-07] MEDS ORDERED: LOPERAMIDE HCL 2 MG CAPSULE PO PRN (13:54)
[2017-05-07] MEDS ORDERED: MAGNESIUM HYDROX 2400MG/30ML ORAL SUSPENSION 30 ML CUP PO PRN (13:54)
[2017-05-07] MEDS ORDERED: IBUPROFEN 400 MG TABLET (FP) PO PRN (13:54)
[2017-05-07] MEDS ORDERED: hydrOXYzine PAMOATE 50 MG CAPSULE (FP) PO PRN (13:54)
[2017-05-07] MEDS ORDERED: MENTHOL/PHENOL 1 EACH UD MM PRN (13:54)
[2017-05-07] MEDS ORDERED: guaiFENesin/D-METHORPHAN HB 10 ML UNIT-DOSE CUPS PO PRN (13:54)
[2017-05-07] MEDS ORDERED: MAGNESIUM CITRATE 300 ML BOTTLE PO PRN (13:54)
[2017-05-07] MEDS ORDERED: chlordiazePOXIDE HCL 25 MG CAPSULE PO PRN (13:54)
[2017-05-07] MEDS ORDERED: P-EPHED 60MG/TRIPROLIDI 2.5MG TABLET PO PRN (13:54)
[2017-05-07] MEDS ORDERED: ACETAMINOPHEN 325 MG TABLET (FP) PO PRN (13:54)
[2017-05-07] MEDS ORDERED: MAG HYDROX/AL HYDROX/SIMETH 30 ML UNIT-DOSE CUP PO PRN (13:54)
[2017-05-07] MEDS ORDERED: chlordiazePOXIDE HCL 25 MG CAPSULE PO ONE (15:00)
[2017-05-07] MEDS: TRIAMTERENE AND HCTZ - 37.5 MG/25 MG CAPSULE PO SCH (15:30)
[2017-05-07] MEDS: RANITIDINE HCL 150 MG TABLET (FP) PO SCH ×2 (15:30→22:40)
[2017-05-07] MEDS: LISINOPRIL 20 MG TABLET (FP) PO SCH (15:30)
[2017-05-07] MEDS: chlordiazePOXIDE HCL 25 MG CAPSULE PO SCH ×2 (18:07→22:40)
[2017-05-07 19:01] LABS: URINE APPEARANCE CLEAR; URINE BILIRUBIN NEGATIVE (NEGATIVE); URINE BLOOD NEGATIVE (NEGATIVE); URINE COLOR LTYELLOW; URINE GLUCOSE (UA) NEGATIVE (NEGATIVE); URINE KETONE NEGATIVE (NEGATIVE); URINE LEUK ESTERASE NEGATIVE (NEGATIVE); URINE NITRITE NEGATIVE (NEGATIVE); URINE UROBILINOGEN NEGATIVE mg/dL (0.2-1.0)
[2017-05-07 19:04] LABS: URINE PROTEIN 3+ (NEGATIVE)
[2017-05-07 19:10] LABS: EPI CELLS RARE /HPF (FEW)
[2017-05-07] MEDS: THIAMINE HCL 100 MG TABLET (FP) PO SCH (22:41)
[2017-05-08] MEDS: chlordiazePOXIDE HCL 25 MG CAPSULE PO SCH ×4 (05:49→22:46)
[2017-05-08 10:07] LABS: HEMATOCRIT 39.9 % (35.4-49); HEMOGLOBIN 12.8 GM/dL (11.7-16.9); MCH 26.6 pg (25.7-33.7); MEAN CELL VOLUME 83.2 fl (80-96); MEAN PLT VOLUME 9.4 fl (7.5-11.1); PLATELET COUNT 198 K/MM3 (134-434); RDW 15.4 % (11.9-15.9)
[2017-05-08 10:22] LABS: CHLORIDE 106 mmol/L (98-107); SODIUM 140 mmol/L (136-145)
[2017-05-08] MEDS: LISINOPRIL 20 MG TABLET (FP) PO SCH (10:29)
[2017-05-08] MEDS: TRIAMTERENE AND HCTZ - 37.5 MG/25 MG CAPSULE PO SCH (10:29)
[2017-05-08] MEDS: RANITIDINE HCL 150 MG TABLET (FP) PO SCH ×2 (10:29→22:47)
[2017-05-08] MEDS: PRENATAL VITAMINS W/ FOLIC ACID TABLET (FP) PO SCH (10:29)
[2017-05-08] MEDS: ASPIRIN 81 MG CHEWABLE TABLETS PO SCH (10:29)
[2017-05-08 10:41] LABS: ALBUMIN 2.3 g/dl (3.4-5.0); ALK PHOS 65 U/L (45-117); ANION GAP 7 (8-16); BILIRUBIN,TOTAL 0.3 mg/dL (0.2-1.0); BLOOD UREA NITROGEN 32 mg/dL (7-18); CALCIUM 7.6 mg/dL (8.5-10.1); CO2 27 mmol/L (21-32); CREATININE 1.4 mg/dL (0.7-1.3); GLUCOSE,RANDOM 101 mg/dL (74-106); SGOT/AST 18 U/L (15-37); SGPT/ALT 23 U/L (12-78)
--- NOTE | 2017-05-08 11:54 | CONSULT ---
[facility] Psychiatric Consult - Data Date of interview: 05/08/17 Admission source: [facility] Identifying data: Another admission to [facility] for this 52 y/o AA male seking detox treatment on for alcohol and cocaine dependence.Patient is single without children,homeless,unemployed and supported on welfare. Substance Abuse History: Confirmed by patient in this session.See details in current [facility] report . Smoking history: Current every day smoker. Have you smoked in the past 12 months: Yes. Aproximately how many cigarettes per day: 5. Cigars Per Day: 0. Hx Chewing Tobacco Use: No. Initiated information on smoking cessation: Yes. 'Breaking Loose' booklet given: 05/07/17. - Substance & Tx. History. Hx Alcohol Use: Yes. Hx Substance Use: Yes. Substance Use Type : Alcohol, Cocaine. Hx Substance Use Treatment: Yes ([facility] 12/07/16 TO 12/11/16) . - Substances Abused. Alcohol. Route: Oral. Frequency: Daily. Amount used: 1/2 PINT OF VODKA/3 OF 6PCAKS OF 24 OZS OF BEER. Age of first use: 15. Date of Last Use: 05/06/17. Cocaine. Route: Smoking. Frequency: Daily. Amount used: 200$. Age of first use: 23. Date of Last Use: 05/06/17 Medical History: Diabetes mellitus,hypertension and hypercholesterolemia. Psychiatric History: Patient denies. Physical/Sexual Abuse/Trauma History: No reported history of abuse. Additional Comment: Urine Drug Screen Results: BINH-Cocaine.Noted. Mental Status Exam - Mental Status Exam Alert and Oriented to: Time, Place, Person Cognitive Function: Good Patient Appearance: Well Groomed Mood: Withdrawn Affect: Mood Congruent Patient Behavior: Fatigued, Appropriate, Cooperative Speech Pattern: Clear, Appropriate Voice Loudness: Normal Thought Process: Intact, Goal Oriented Thought Disorder: Not Present Hallucinations: Denies Suicidal Ideation: Denies Homicidal Ideation: Denies Insight/Judgement: Poor Sleep: Well Appetite: Good Muscle strength/Tone: Normal Gait/Station: Normal Psychiatric Findings - Problem List ([place] 1, 2,3) (1) Alcohol dependence with uncomplicated withdrawal Current Visit: Yes Status: Chronic (2) Cocaine dependence Current Visit: Yes Status: Acute (3) Nicotine dependence Current Visit: Yes Status: Chronic Qualifiers: Nicotine product type: cigarettes Substance use status: in withdrawal Qualified Code(s): F17.213 - Nicotine dependence, cigarettes, with withdrawal (4) Drug-induced mood disorder Current Visit: Yes Status: Acute - Initial Treatment Plan Initial Treatment Plan: Psychoeducation.Detoxification in progress.Observation.
--- NOTE | 2017-05-08 14:32 | PN ---
S CIWA - CIWA Score Nausea/Vomitin Muscle Tremors: 3 Anxiety: 3 Agitation: 3 Paroxysmal Sweats: 3 Orientation: 0-Oriented Tacttile Disturbances: 0-None Auditory Disturbances: 0-None Visual Disturbances: 0-None Headache: 0-None Present CIWA-Ar Total Score: 15 BHS Progress Note (SOAP) Subjective: shakes anxious sleepless Objective: 05/08/17 14:31 Vital Signs Temperature 97.1 F L 05/08/17 14:28 Pulse Rate 75 05/08/17 14:28 Respiratory Rate 18 05/08/17 14:28 Blood Pressure 126/79 05/08/17 14:28 O2 Sat by Pulse Oximetry (%) Laboratory Last Values WBC 7.0 K/mm3 (4.0-10.0) 05/08/17 07:00 RBC 4.80 M/mm3 (4.00-5.60) 05/08/17 07:00 Hgb 12.8 GM/dL (11.7-16.9) 05/08/17 07:00 Hct 39.9 % (35.4-49) 05/08/17 07:00 MCV 83.2 fl (80-96) 05/08/17 07:00 MCH 26.6 pg (25.7-33.7) 05/08/17 07:00 MCHC 32.0 g/dl (32.0-35.9) 05/08/17 07:00 RDW 15.4 % (11.9-15.9) 05/08/17 07:00 Plt Count 198 K/MM3 (134-434) 05/08/17 07:00 MPV 9.4 fl (7.5-11.1) 05/08/17 07:00 Sodium 140 mmol/L (136-145) 05/08/17 07:00 Potassium 4.0 mmol/L (3.5-5.1) 05/08/17 07:00 Chloride 106 mmol/L (98-107) 05/08/17 07:00 Carbon Dioxide 27 mmol/L (21-32) 05/08/17 07:00 Anion Gap 7 (8-16) L 05/08/17 07:00 BUN 32 mg/dL (7-18) H D 05/08/17 07:00 Creatinine 1.4 mg/dL (0.7-1.3) H 05/08/17 07:00 Creat Clearance w eGFR 53.22 (>60) 05/08/17 07:00 POC Glucometer 100 UNITS (80-120) 05/08/17 05:48 Random Glucose 101 mg/dL (74-106) 05/08/17 07:00 Calcium 7.6 mg/dL (8.5-10.1) L 05/08/17 07:00 Total Bilirubin 0.3 mg/dL (0.2-1.0) D 05/08/17 07:00 AST 18 U/L (15-37) 05/08/17 07:00 ALT 23 U/L (12-78) 05/08/17 07:00 Alkaline Phosphatase 65 U/L (45-117) 05/08/17 07:00 Total Protein 5.0 g/dl (6.4-8.2) L 05/08/17 07:00 Albumin 2.3 g/dl (3.4-5.0) L 05/08/17 07:00 Urine Color Ltyellow 05/07/17 15:35 Urine Appearance Clear 05/07/17 15:35 Urine pH 5.0 (5.0-8.0) 05/07/17 15:35 Ur Specific [place] 1.016 (1.001-1.035) 05/07/17 15:35 Urine Protein 3+ (NEGATIVE) H 05/07/17 15:35 Urine Glucose (UA) Negative (NEGATIVE) 05/07/17 15:35 Urine Ketones Negative (NEGATIVE) 05/07/17 15:35 Urine Blood Negative (NEGATIVE) 05/07/17 15:35 Urine Nitrite Negative (NEGATIVE) 05/07/17 15:35 Urine Bilirubin Negative (NEGATIVE) 05/07/17 15:35 Urine Urobilinogen Negative mg/dL (0.2-1.0) 05/07/17 15:35 Ur Leukocyte Esterase Negative (NEGATIVE) 05/07/17 15:35 Urine WBC (Auto) 4 /hpf (3-5) 05/07/17 15:35 Urine RBC (Auto) 1 /hpf (0-3) 05/07/17 15:35 Ur Epithelial Cells Rare /HPF (FEW) 05/07/17 15:35 RPR Titer Nonreactive (NONREACTIVE) 05/08/17 07:00 labs noted Assessment: 05/08/17 14:32 withdrawal sx Plan: continue detox
[2017-05-08] MEDS: THIAMINE HCL 100 MG TABLET (FP) PO SCH (22:46)
--- NOTE | 2017-05-08 23:32 | EKG ---
Test Reason : Blood Pressure : / mmHG Vent. Rate : 071 BPM Atrial Rate : 071 BPM P-R Int : 156 ms QRS Dur : 088 ms QT Int : 412 ms P-R-T Axes : 050 011 010 degrees QTc Int : 447 ms NORMAL SINUS RHYTHM MINIMAL VOLTAGE CRITERIA FOR LVH, MAY BE NORMAL VARIANT NONSPECIFIC T WAVE ABNORMALITY ABNORMAL ECG WHEN COMPARED WITH ECG OF 07-MAY-2017 15:04, NO SIGNIFICANT CHANGE WAS FOUND Confirmed by JEFFERSON MOREL, CHARLIE ([id number]) on 05/08/2017 11:32:26 PM Referred By: Charles Gomez Confirmed By:CHARLIE PAULINO MD
--- NOTE | 2017-05-08 23:33 | EKG ---
Test Reason : Blood Pressure : / mmHG Vent. Rate : 081 BPM Atrial Rate : 081 BPM P-R Int : 160 ms QRS Dur : 086 ms QT Int : 404 ms P-R-T Axes : 047 024 039 degrees QTc Int : 469 ms NORMAL SINUS RHYTHM NONSPECIFIC T WAVE ABNORMALITY PROLONGED QT ABNORMAL ECG WHEN COMPARED WITH ECG OF 07-DEC-2016 16:34, T WAVE VARIATION Confirmed by CHARLIE PAULINO MD ([id number]) on 05/08/2017 11:33:23 PM Referred By: Charles Gomez Confirmed By:CHARLIE PAULINO MD
[2017-05-09] MEDS: chlordiazePOXIDE HCL 25 MG CAPSULE PO SCH ×2 (06:28→10:35)
[2017-05-09] MEDS: ASPIRIN 81 MG CHEWABLE TABLETS PO SCH (10:35)
[2017-05-09] MEDS: PRENATAL VITAMINS W/ FOLIC ACID TABLET (FP) PO SCH (10:35)
[2017-05-09] MEDS: LISINOPRIL 20 MG TABLET (FP) PO SCH (10:35)
[2017-05-09] MEDS: TRIAMTERENE AND HCTZ - 37.5 MG/25 MG CAPSULE PO SCH (10:35)
[2017-05-09] MEDS: RANITIDINE HCL 150 MG TABLET (FP) PO SCH ×2 (10:35→23:07)
--- NOTE | 2017-05-09 13:45 | PN ---
[facility] CIWA - CIWA Score Nausea/Vomitin-No Nausea/No Vomiting Muscle Tremors: 3 Anxiety: 5 Agitation: 2 Paroxysmal Sweats: 3 Orientation: 0-Oriented Tacttile Disturbances: 3-Moderate Itch/Numb/Burn Auditory Disturbances: 0-None Visual Disturbances: 3-Moderate Sensitivity Headache: 0-None Present CIWA-Ar Total Score: 19 S Progress Note (SOAP) Subjective: Fatigue, Anxious, Tremors, Sweating, Body Aches. Objective: PT. A & O X 3, OBSERVED AMBULATING ON UNIT. NO ACUTE DISTRESS. 05/09/17 13:43 Vital Signs Temperature 97.5 F L 05/09/17 09:56 Pulse Rate 74 05/09/17 09:56 Respiratory Rate 18 05/09/17 09:56 Blood Pressure 132/82 05/09/17 09:56 O2 Sat by Pulse Oximetry (%) Laboratory Tests 05/07/17 05/07/17 05/08/17 15:35 16:54 05:48 WBC RBC Hgb Hct MCV MCH MCHC RDW Plt Count MPV Sodium Potassium Chloride Carbon Dioxide Anion Gap BUN Creatinine Creat Clearance w eGFR POC Glucometer 112 100 Random Glucose Calcium Total Bilirubin AST ALT Alkaline Phosphatase Total Protein Albumin Urine Color Ltyellow Urine Appearance Clear Urine pH 5.0 Ur Specific [place] 1.016 Urine Protein 3+ H Urine Glucose (UA) Negative Urine Ketones Negative Urine Blood Negative Urine Nitrite Negative Urine Bilirubin Negative Urine Urobilinogen Negative Ur Leukocyte Esterase Negative Urine WBC (Auto) 4 Urine RBC (Auto) 1 Ur Epithelial Cells Rare RPR Titer 05/08/17 05/08/17 05/08/17 07:00 07:00 07:00 WBC 7.0 RBC 4.80 Hgb 12.8 Hct 39.9 MCV 83.2 MCH 26.6 MCHC 32.0 RDW 15.4 Plt Count 198 MPV 9.4 Sodium 140 Potassium 4.0 Chloride 106 Carbon Dioxide 27 Anion Gap 7 L BUN 32 H D Creatinine 1.4 H Creat Clearance w eGFR 53.22 POC Glucometer Random Glucose 101 Calcium 7.6 L Total Bilirubin 0.3 D AST 18 ALT 23 Alkaline Phosphatase 65 Total Protein 5.0 L Albumin 2.3 L Urine Color Urine Appearance Urine pH Ur Specific [place] Urine Protein Urine Glucose (UA) Urine Ketones Urine Blood Urine Nitrite Urine Bilirubin Urine Urobilinogen Ur Leukocyte Esterase Urine WBC (Auto) Urine RBC (Auto) Ur Epithelial Cells RPR Titer Nonreactive 05/08/17 05/09/17 16:21 06:26 WBC RBC Hgb Hct MCV MCH MCHC RDW Plt Count MPV Sodium Potassium Chloride Carbon Dioxide Anion Gap BUN Creatinine Creat Clearance w eGFR POC Glucometer 129 115 Random Glucose Calcium Total Bilirubin AST ALT Alkaline Phosphatase Total Protein Albumin Urine Color Urine Appearance Urine pH Ur Specific [place] Urine Protein Urine Glucose (UA) Urine Ketones Urine Blood Urine Nitrite Urine Bilirubin Urine Urobilinogen Ur Leukocyte Esterase Urine WBC (Auto) Urine RBC (Auto) Ur Epithelial Cells RPR Titer LABS NOTED. Assessment: 05/09/17 13:43 WITHDRAWAL SYMPTOMS. Plan: CONTINUE DETOX. D/C IBUPROFEN AND MAGNESIUM-CONTAINING MEDS. FOR ABNORMAL ADMISSION RENAL LAB VALUES. INCREASE DAILY PO FLUID INTAKE.
[2017-05-09] MEDS: chlordiazePOXIDE 5 MG CAPSULE PO SCH ×2 (17:24→23:07)
[2017-05-09] MEDS: THIAMINE HCL 100 MG TABLET (FP) PO SCH (23:07)
[2017-05-10] MEDS: chlordiazePOXIDE 5 MG CAPSULE PO SCH ×2 (05:17→10:41)
[2017-05-10] MEDS: PRENATAL VITAMINS W/ FOLIC ACID TABLET (FP) PO SCH (10:41)
[2017-05-10] MEDS: ASPIRIN 81 MG CHEWABLE TABLETS PO SCH (10:41)
[2017-05-10] MEDS: TRIAMTERENE AND HCTZ - 37.5 MG/25 MG CAPSULE PO SCH (10:41)
[2017-05-10] MEDS: LISINOPRIL 20 MG TABLET (FP) PO SCH (10:41)
[2017-05-10] MEDS: RANITIDINE HCL 150 MG TABLET (FP) PO SCH ×2 (10:42→22:19)
--- NOTE | 2017-05-10 12:40 | PN ---
BHS Progress Note (SOAP) Subjective: Sweating, interrupted sleep. Objective: PT. A & O X 3, OBSERVED AMBULATING ON UNIT. NO ACUTE DISTRESS. 05/10/17 12:37 Vital Signs Temperature 97.2 F L 05/10/17 06:16 Pulse Rate 65 05/10/17 06:16 Respiratory Rate 18 05/10/17 06:16 Blood Pressure 126/78 05/10/17 06:16 O2 Sat by Pulse Oximetry (%) Laboratory Tests 05/07/17 05/07/17 05/08/17 15:35 16:54 05:48 WBC RBC Hgb Hct MCV MCH MCHC RDW Plt Count MPV Sodium Potassium Chloride Carbon Dioxide Anion Gap BUN Creatinine Creat Clearance w eGFR POC Glucometer 112 100 Random Glucose Calcium Total Bilirubin AST ALT Alkaline Phosphatase Total Protein Albumin Urine Color Ltyellow Urine Appearance Clear Urine pH 5.0 Ur Specific [place] 1.016 Urine Protein 3+ H Urine Glucose (UA) Negative Urine Ketones Negative Urine Blood Negative Urine Nitrite Negative Urine Bilirubin Negative Urine Urobilinogen Negative Ur Leukocyte Esterase Negative Urine WBC (Auto) 4 Urine RBC (Auto) 1 Ur Epithelial Cells Rare RPR Titer 05/08/17 05/08/17 05/08/17 07:00 07:00 07:00 WBC 7.0 RBC 4.80 Hgb 12.8 Hct 39.9 MCV 83.2 MCH 26.6 MCHC 32.0 RDW 15.4 Plt Count 198 MPV 9.4 Sodium 140 Potassium 4.0 Chloride 106 Carbon Dioxide 27 Anion Gap 7 L BUN 32 H D Creatinine 1.4 H Creat Clearance w eGFR 53.22 POC Glucometer Random Glucose 101 Calcium 7.6 L Total Bilirubin 0.3 D AST 18 ALT 23 Alkaline Phosphatase 65 Total Protein 5.0 L Albumin 2.3 L Urine Color Urine Appearance Urine pH Ur Specific [place] Urine Protein Urine Glucose (UA) Urine Ketones Urine Blood Urine Nitrite Urine Bilirubin Urine Urobilinogen Ur Leukocyte Esterase Urine WBC (Auto) Urine RBC (Auto) Ur Epithelial Cells RPR Titer Nonreactive 05/08/17 05/09/17 05/09/17 16:21 06:26 16:28 WBC RBC Hgb Hct MCV MCH MCHC RDW Plt Count MPV Sodium Potassium Chloride Carbon Dioxide Anion Gap BUN Creatinine Creat Clearance w eGFR POC Glucometer 129 115 127 Random Glucose Calcium Total Bilirubin AST ALT Alkaline Phosphatase Total Protein Albumin Urine Color Urine Appearance Urine pH Ur Specific [place] Urine Protein Urine Glucose (UA) Urine Ketones Urine Blood Urine Nitrite Urine Bilirubin Urine Urobilinogen Ur Leukocyte Esterase Urine WBC (Auto) Urine RBC (Auto) Ur Epithelial Cells RPR Titer 05/10/17 05:19 WBC RBC Hgb Hct MCV MCH MCHC RDW Plt Count MPV Sodium Potassium Chloride Carbon Dioxide Anion Gap BUN Creatinine Creat Clearance w eGFR POC Glucometer 103 Random Glucose Calcium Total Bilirubin AST ALT Alkaline Phosphatase Total Protein Albumin Urine Color Urine Appearance Urine pH Ur Specific [place] Urine Protein Urine Glucose (UA) Urine Ketones Urine Blood Urine Nitrite Urine Bilirubin Urine Urobilinogen Ur Leukocyte Esterase Urine WBC (Auto) Urine RBC (Auto) Ur Epithelial Cells RPR Titer LABS NOTED. Assessment: 05/10/17 12:37 WITHDRAWAL SYMPTOMS. Plan: CONTINUE DETOX.
[2017-05-10] MEDS: chlordiazePOXIDE HCL 10 MG CAPSULE PO SCH ×2 (17:33→22:19)
[2017-05-10] MEDS: THIAMINE HCL 100 MG TABLET (FP) PO SCH (22:19)
[2017-05-11] MEDS: chlordiazePOXIDE HCL 10 MG CAPSULE PO SCH (06:21)
[2017-05-11 06:36] VITALS: BP 157/94; PULSE 69; TEMP 96.7
--- NOTE | 2017-05-11 13:17 | DS ---
[facility] Detox Discharge Summary Admission Date: 05/07/17 Discharge Date: 05/11/17 - History Present History: Alcohol Dependence, Cocaine Dependence Additional Comments: PATIENT GOING HOME TO RETURN TO WORK. PATIENT ADVISED TO FOLLOW-UP WITH [facility] GALLAGHER ([place], [place] FOR GENERAL MEDICAL EVALUATION AND FOR HISTORY OF HTN AND TYPE II DM. PATIENT ALSO ADVISED TO CONSIDER LOCAL OUTPATIENT 12-STEP / NA / AA OUTPATIENT SUPPORT GROUPS PROGRAMS FORA FTERCARE. PATIENT WAS DISCHARGED FROM DETOX UNIT IN STABLE MEDICAL CONDITION. Pertinent Past History: HTN, Hyperchoelsterolemia, Nicotine Dependence, Depression, NIDDM, Insomnia, GERD. - Physical Exam Results Vital Signs: Vital Signs Temperature 96.7 F L 05/11/17 06:35 Pulse Rate 69 05/11/17 06:35 Respiratory Rate 18 05/11/17 06:35 Blood Pressure 157/94 05/11/17 06:35 O2 Sat by Pulse Oximetry (%) Pertinent Admission Physical Exam Findings: WITHDRAWAL SYMPTOMS. Laboratory Tests 05/07/17 05/07/17 05/08/17 15:35 16:54 05:48 WBC RBC Hgb Hct MCV MCH MCHC RDW Plt Count MPV Sodium Potassium Chloride Carbon Dioxide Anion Gap BUN Creatinine Creat Clearance w eGFR POC Glucometer 112 100 Random Glucose Calcium Total Bilirubin AST ALT Alkaline Phosphatase Total Protein Albumin Urine Color Ltyellow Urine Appearance Clear Urine pH 5.0 Ur Specific [place] 1.016 Urine Protein 3+ H Urine Glucose (UA) Negative Urine Ketones Negative Urine Blood Negative Urine Nitrite Negative Urine Bilirubin Negative Urine Urobilinogen Negative Ur Leukocyte Esterase Negative Urine WBC (Auto) 4 Urine RBC (Auto) 1 Ur Epithelial Cells Rare RPR Titer 05/08/17 05/08/17 05/08/17 07:00 07:00 07:00 WBC 7.0 RBC 4.80 Hgb 12.8 Hct 39.9 MCV 83.2 MCH 26.6 MCHC 32.0 RDW 15.4 Plt Count 198 MPV 9.4 Sodium 140 Potassium 4.0 Chloride 106 Carbon Dioxide 27 Anion Gap 7 L BUN 32 H D Creatinine 1.4 H Creat Clearance w eGFR 53.22 POC Glucometer Random Glucose 101 Calcium 7.6 L Total Bilirubin 0.3 D AST 18 ALT 23 Alkaline Phosphatase 65 Total Protein 5.0 L Albumin 2.3 L Urine Color Urine Appearance Urine pH Ur Specific [place] Urine Protein Urine Glucose (UA) Urine Ketones Urine Blood Urine Nitrite Urine Bilirubin Urine Urobilinogen Ur Leukocyte Esterase Urine WBC (Auto) Urine RBC (Auto) Ur Epithelial Cells RPR Titer Nonreactive 05/08/17 05/09/17 05/09/17 16:21 06:26 16:28 WBC RBC Hgb Hct MCV MCH MCHC RDW Plt Count MPV Sodium Potassium Chloride Carbon Dioxide Anion Gap BUN Creatinine Creat Clearance w eGFR POC Glucometer 129 115 127 Random Glucose Calcium Total Bilirubin AST ALT Alkaline Phosphatase Total Protein Albumin Urine Color Urine Appearance Urine pH Ur Specific [place] Urine Protein Urine Glucose (UA) Urine Ketones Urine Blood Urine Nitrite Urine Bilirubin Urine Urobilinogen Ur Leukocyte Esterase Urine WBC (Auto) Urine RBC (Auto) Ur Epithelial Cells RPR Titer 05/10/17 05/10/17 05:19 16:30 WBC RBC Hgb Hct MCV MCH MCHC RDW Plt Count MPV Sodium Potassium Chloride Carbon Dioxide Anion Gap BUN Creatinine Creat Clearance w eGFR POC Glucometer 103 111 Random Glucose Calcium Total Bilirubin AST ALT Alkaline Phosphatase Total Protein Albumin Urine Color Urine Appearance Urine pH Ur Specific [place] Urine Protein Urine Glucose (UA) Urine Ketones Urine Blood Urine Nitrite Urine Bilirubin Urine Urobilinogen Ur Leukocyte Esterase Urine WBC (Auto) Urine RBC (Auto) Ur Epithelial Cells RPR Titer LABS NOTED. - Treatment Hospital Course: Detox Protocol Followed, Detoxed Safely, Responded well, Discharged Condition Good Patient has Accepted a Rehab Referral to: PT ADVISED TO CONSIDER LOCAL 12-STEP/ NA/AA SUPPORT GROUPS FOR AFTERCARE. - Medication Discharge Medications: Ambulatory Orders Ranitidine [Zantac -] 150 mg PO BID #60 tablet 09/21/16 Aspirin [ASA -] 81 mg PO DAILY #30 tab 05/10/17 Hctz 25Mg/Triamterene [Dyazide 25/37.5 -] 1 cap PO DAILY #30 cap 05/10/17 Lisinopril [Prinivil] 20 mg PO DAILY #30 tablet 05/10/17 Ranitidine HCl [Zantac] 150 mg PO BID 30 Days #60 tablet 05/10/17 metFORMIN HCL [Glucophage -] 500 mg PO BID #60 tab 05/10/17 - Diagnosis (1) Cocaine dependence Status: Acute Qualifiers: Substance use status: uncomplicated Qualified Code(s): F14.20 - Cocaine dependence, uncomplicated (2) Depression Status: Acute Qualifiers: Depression Type: unspecified Qualified Code(s): F32.9 - Major depressive disorder, single episode, unspecified (3) Alcohol dependence with uncomplicated withdrawal Status: Acute (4) Nicotine dependence Status: Chronic Qualifiers: Nicotine product type: cigarettes Substance use status: in withdrawal Qualified Code(s): F17.213 - Nicotine dependence, cigarettes, with withdrawal (5) Type II diabetes mellitus Status: Chronic Qualifiers: Diabetes mellitus complication status: without complication Diabetes mellitus skilled nursing insulin use: without exterminator helper termite use Qualified Code(s): E11.9 - Type 2 diabetes mellitus without complications (6) Hypercholesteremia Status: Chronic (7) Insomnia Status: Acute Qualifiers: Insomnia type: unspecified Qualified Code(s): G47.00 - Insomnia, unspecified (8) Hypertension Status: Chronic Qualifiers: Hypertension type: essential hypertension Qualified Code(s): I10 - Essential (primary) hypertension (9) Drug-induced mood disorder Status: Acute - AMA Did Patient Leave Against Medical Advice: No
== END 2017-05-11 07:25 | disposition home or self-care (01) | DRG 774 ==
LOC: YASAS 11:36 → Y3N 14:03
PROVIDERS: ADMIT Internal Medicine; ATTEND Internal Medicine
PROC: HZ2ZZZZ Detoxification Services for Substance Abuse Treatment (ICD-10-PCS; principal; 2017-05-07)
DX: F10.230 Alcohol dependence with withdrawal, uncomplicated (principal); F14.20 Cocaine dependence, uncomplicated; F17.210 Nicotine dependence, cigarettes, uncomplicated; F32.9 Major depressive disorder, single episode, unspecified; F19.24 Other psychoactive substance dependence with psychoactive substance-induced mood disorder; I10 Essential (primary) hypertension; E11.9 Type 2 diabetes mellitus without complications; E78.00 Pure hypercholesterolemia, unspecified; G47.00 Insomnia, unspecified
CPT/HCPCS: 36415; 80053; 81003; 81015; 82962; 85027; 86593; 93005; 93010

== ENCOUNTER 2017-07-30 08:54 | Inpatient (IN) | payer OTHER ==
[2017-07-30 09:16] VITALS: BMI 36.8
--- NOTE | 2017-07-30 10:38 | HP ---
CIWA Score - CIWA Score Nausea/Vomitin-Mild Nausea/No Vomiting Muscle Tremors: 2 Anxiety: 3 Agitation: 4-Moderately Restless Paroxysmal Sweats: 3 Orientation: 0-Oriented Tacttile Disturbances: 1-Very Mild Itch/Numbness Auditory Disturbances: 0-None Visual Disturbances: 0-None Headache: 3-Moderate CIWA-Ar Total Score: 17 Admission ROS BHS - HPI Chief Complaint: "I want detox" Allergies/Adverse Reactions: Allergies Allergy/AdvReac Type Severity Reaction Status Date / Time No Known Allergies Allergy Verified 07/30/17 09:15 History of Present Illness: 52 y/o male with a long hx of alcohol use presents here today for alcohol detox. Pt states he was sober for 18 years s/p being in jail (1992 - 2011) and two yrs following that but has been drinking since then. Pt was last here in Apr 2017 but states he relapsed 2 days ago and is here "to put a stop to it before it gets out of hand again". Pt lives in a detention but has been sent out because of his 'use'. Pt states he is here voluntarily. Hx of HTN, DM 2, Acid reflux and Hypercholestremia. Feels sad about losing his accommodation at [facility] but denies prior or current SI/HI. Exam Limitations: No Limitations - Ebola screening Have you traveled outside of the country in the last 21 days: No (N) Have you had contact with anyone from an Ebola affected area: No Have you been sick,other than usual withdrawal symptoms: No Do you have a fever: No - Review of Systems Constitutional: Night Sweats EENT: reports: Nose Congestion Respiratory: reports: Cough (non productive x 2 days) Cardiac: reports: Lightheadedness GI: reports: No Symptoms Reported : reports: No Symptoms Reported Musculoskeletal: reports: No Symptoms Reported Integumentary: reports: No Symptoms Reported Neuro: reports: Headache Endocrine: reports: Intolerance to Cold (Waiting room and [facility] area cold s/p air conditioning) Hematology: reports: No Symptoms Reported Psychiatric: reports: Anxious, Depressed (Feel bad because "I relapsed" and got kicked out) Other Systems: Reviewed and Negative Patient History - Patient Medical History Hx Anemia: No Hx Asthma: No Hx Chronic Obstructive Pulmonary Disease (COPD): No Hx Cancer: No Hx Cardiac Disorders: No Hx Congestive Heart Failure: No Hx Hypertension: Yes (On Lisinopril 40mg and Aspirin 81mg; last taken: 3 DAYS AGO) Hx Hypercholesterolemia: Yes (Med. in past; TAKE MEDICATION 3 DAYS AGO) Hx Pacemaker: No HX Cerebrovascular Accident: No Hx Seizures: No Hx Dementia: No Hx Diabetes: Yes (DM II; On Metformin 500mg BID) Hx Gastrointestinal Disorders: Yes (acid reflux, On Zantac, last taken 3 days ago) Hx Liver Disease: No Hx Genitourinary Disorders: No Hx Sexually Transmitted Disorders: No Hx Renal Disease (ESRD): No Hx Thyroid Disease: No Hx Human Immunodeficiency Virus (HIV): No (03/12 NEGATIVE LAST) Hx Hepatitis C: No (NEGATIVE HX.) Hx Depression: No (No Treatment in past.) Hx Suicide Attempt: No (PATIENT DENEIS CURRENT SI / HI.) Hx Bipolar Disorder: No Hx Schizophrenia: No - Patient Surgical History Past Surgical History: No Hx Neurologic Surgery: No Hx Cataract Extraction: No Hx Cardiac Surgery: No Hx Lung Surgery: No Hx Breast Surgery: No Hx Breast Biopsy: No Hx Abdominal Surgery: No Hx Appendectomy: No Hx Cholecystectomy: No Hx Genitourinary Surgery: No Hx Section: No Hx Orthopedic Surgery: No Anesthesia Reaction: No - PPD History Previous Implant?: Yes Documented Results: Negative w/proof Implanted On Prior [facility] Admission?: Yes Date: 09/14/16 Results: 0 mm PPD to be Administered?: No - Reproductive History Patient is a Female of Child Bearing Age (11 -55 yrs old): No - Smoking Cessation Smoking history: Current every day smoker Have you smoked in the past 12 months: Yes Aproximately how many cigarettes per day: 5 Cigars Per Day: 0 Hx Chewing Tobacco Use: No Initiated information on smoking cessation: Yes 'Breaking Loose' booklet given: 07/30/17 - Substance & Tx. History Hx Alcohol Use: Yes (Last @ [facility] 04/2017) Hx Substance Use: No Substance Use Type: Cocaine (Crack ) Hx Substance Use Treatment: Yes - Substances Abused Alcohol Route: Oral Frequency: Daily Amount used: LIQUOR- 2 PINTS, BEER- 1 SIX PACK Age of first use: 15 Date of Last Use: 07/30/17 Cocaine Route: Smoking Frequency: 1-3 times last 30 days (Used last 2 days) Amount used: $400 Age of first use: 24 Date of Last Use: 07/29/17 Family Disease History - Family Disease History Family Disease History: Diabetes: Mother (hypertension,Substance abuse, Alcohol ; ), Heart Disease: Mother, Other: Father (ALCOHOL,) Admission Physical Exam [facility] - Vital Signs Vital Signs: Vital Signs - 24 hr 07/30/17 09:15 Temperature 97.6 F Pulse Rate 64 Respiratory 20 Rate Blood Pressure 184/92 - Physical General Appearance: Yes: Mild Distress HEENTM: Yes: Within Normal Limits Respiratory: Yes: Chest Non-Tender, No Respiratory Distress Neck: Yes: Within Normal Limits, No masses,lesions,Nodules Breast: Yes: Breast Exam Deferred Cardiology: Yes: Regular Rate Abdominal: Yes: Non Tender, Distended Genitourinary: Yes: Within Normal Limits Back: Yes: Within Normal Limits Musculoskeletal: Yes: Within Normal Limits, full range of Motion, Gait Steady Extremities: Yes: Within Normal Limits Neurological: Yes: Fully Oriented, Alert, Motor Strength 5/5, Normal Mood/Affect Integumentary: Yes: Normal Color Lymphatic: Yes: Within Normal Limits - Diagnostic (1) Alcohol dependence with uncomplicated withdrawal Current Visit: Yes Status: Acute (2) Cocaine dependence, uncomplicated Current Visit: Yes Status: Acute (3) Acid reflux disease Current Visit: Yes Status: Chronic Qualifiers: Esophagitis presence: esophagitis presence not specified Qualified Code(s) : K21.9 - Gastro-esophageal reflux disease without esophagitis (4) Depression (emotion) Current Visit: No Status: Suspected Qualifiers: Depression Type: unspecified Qualified Code(s): F32.9 - Major depressive disorder, single episode, unspecified (5) Hypercholesteremia Current Visit: Yes Status: Chronic (6) Nicotine dependence Current Visit: Yes Status: Chronic Qualifiers: Nicotine product type: cigarettes Substance use status: in withdrawal Qualified Code(s): F17.213 - Nicotine dependence, cigarettes, with withdrawal (7) Hypertension Current Visit: Yes Status: Chronic Qualifiers: Hypertension type: essential hypertension Qualified Code(s): I10 - Essential (primary) hypertension (8) Obesities, morbid Current Visit: Yes Status: Chronic (9) Type II diabetes mellitus Current Visit: No Status: Chronic Qualifiers: Diabetes mellitus long-term insulin use: 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
[2017-07-30] MEDS ORDERED: MENTHOL/PHENOL 1 EACH UD MM PRN (11:13)
[2017-07-30] MEDS ORDERED: guaiFENesin/D-METHORPHAN HB 10 ML UNIT-DOSE CUPS PO PRN (11:13)
[2017-07-30] MEDS ORDERED: hydrOXYzine PAMOATE 50 MG CAPSULE (FP) PO PRN (11:13)
[2017-07-30] MEDS ORDERED: P-EPHED 60MG/TRIPROLIDI 2.5MG TABLET PO PRN (11:13)
[2017-07-30] MEDS ORDERED: NICOTINE POLACRILEX 2 MG GUM BUC PRN (11:13)
[2017-07-30] MEDS ORDERED: MAGNESIUM HYDROX 2400MG/30ML ORAL SUSPENSION 30 ML CUP PO PRN (11:13)
[2017-07-30] MEDS ORDERED: ACETAMINOPHEN 325 MG TABLET (FP) PO PRN (11:13)
[2017-07-30] MEDS ORDERED: IBUPROFEN 400 MG TABLET (FP) PO PRN (11:13)
[2017-07-30] MEDS ORDERED: MAGNESIUM CITRATE 300 ML BOTTLE PO PRN (11:13)
[2017-07-30] MEDS ORDERED: MAG HYDROX/AL HYDROX/SIMETH 30 ML UNIT-DOSE CUP PO PRN (11:13)
[2017-07-30] MEDS ORDERED: chlordiazePOXIDE HCL 25 MG CAPSULE PO PRN (11:13)
[2017-07-30] MEDS ORDERED: LOPERAMIDE HCL 2 MG CAPSULE PO PRN (11:13)
[2017-07-30] MEDS ORDERED: LISINOPRIL 20 MG TABLET (FP) PO ONE (11:24)
[2017-07-30] MEDS: RANITIDINE HCL 150 MG TABLET (FP) PO SCH (12:47)
[2017-07-30] MEDS: TRIAMTERENE AND HCTZ - 37.5 MG/25 MG CAPSULE PO SCH (12:47)
[2017-07-30] MEDS: ASPIRIN 81 MG CHEWABLE TABLETS PO ONE (12:47)
[2017-07-30] MEDS: chlordiazePOXIDE HCL 25 MG CAPSULE PO SCH ×3 (12:48→22:32)
[2017-07-30] MEDS: NICOTINE 14 MG/24 HOURS TOPICAL PATCH TD SCH (12:49)
--- NOTE | 2017-07-30 14:34 | EKG ---
Test Reason : Blood Pressure : / mmHG Vent. Rate : 074 BPM Atrial Rate : 074 BPM P-R Int : 146 ms QRS Dur : 088 ms QT Int : 412 ms P-R-T Axes : 052 007 015 degrees QTc Int : 457 ms NORMAL SINUS RHYTHM MODERATE VOLTAGE CRITERIA FOR LVH, MAY BE NORMAL VARIANT NONSPECIFIC T WAVE ABNORMALITY ABNORMAL ECG WHEN COMPARED WITH ECG OF 08-MAY-2017 10:42, NO SIGNIFICANT CHANGE WAS FOUND Confirmed by MD Kulwant, Winston ([id number]) on 07/30/2017 2:34:21 PM Referred By: Confirmed By:Winston Blum MD
[2017-07-30] MEDS ORDERED: INSULIN SLIDING SCALE (NOVOLOG) 1 VIAL SQ SCH (16:30)
[2017-07-30] MEDS ORDERED: metFORMIN HCL 500 MG TABLET (FP) PO SCH (16:30)
[2017-07-30 21:09] LABS: URINE APPEARANCE CLEAR; URINE BILIRUBIN NEGATIVE (<2.0 mg/dL); URINE COLOR LTYELLOW; URINE GLUCOSE (UA) 1+ (NEGATIVE); URINE KETONE NEGATIVE (NEGATIVE); URINE LEUK ESTERASE NEGATIVE (NEGATIVE); URINE NITRITE NEGATIVE (NEGATIVE); URINE UROBILINOGEN NEGATIVE mg/dL (0.2-1.0)
[2017-07-30 21:10] LABS: URINE PROTEIN 3+ (NEGATIVE)
[2017-07-30 21:17] LABS: EPI CELLS RARE /HPF (FEW); URINE HYALINE CAST 3 /lpf; URINE MUCUS RARE
[2017-07-30] MEDS ORDERED: MELATONIN 5 MG TABLETS PO PRN (22:00)
[2017-07-30] MEDS: THIAMINE HCL 100 MG TABLET (FP) PO SCH (22:32)
[2017-07-31] MEDS: chlordiazePOXIDE HCL 25 MG CAPSULE PO SCH ×5 (05:27→22:28)
[2017-07-31] MEDS ORDERED: INSULIN SLIDING SCALE (NOVOLOG) 1 VIAL SQ SCH (07:00)
--- NOTE | 2017-07-31 07:13 | PN ---
[facility] Progress Note Note: CLIENT STATES HE IS NO LONGER ON ORAL ANTI DIABETIC MEDS. REFUSING METFORMIN AND INSULIN. CONTINUE TO MONITOR BGM DAILY MEDS D/C'ED PENDING BGM VALUES Laboratory Tests 07/30/17 07/30/17 07/30/17 09:49 16:32 18:55 POC Glucometer 108 111 Urine Color Ltyellow Urine Appearance Clear Urine pH 5.0 Ur Specific [place] 1.024 Urine Protein 3+ H Urine Glucose (UA) 1+ H Urine Ketones Negative Urine Blood 1+ H Urine Nitrite Negative Urine Bilirubin Negative Urine Urobilinogen Negative Ur Leukocyte Esterase Negative Urine WBC (Auto) 7 Urine RBC (Auto) 1 Ur Epithelial Cells Rare Hyaline Casts 3 Urine Mucus Rare
[2017-07-31 09:43] LABS: HEMATOCRIT 39.2 % (35.4-49); HEMOGLOBIN 13.1 GM/dL (11.7-16.9); MCH 27.9 pg (25.7-33.7); MCHC 33.5 g/dl (32.0-35.9); MEAN CELL VOLUME 83.2 fl (80-96); MEAN PLT VOLUME 9.4 fl (7.5-11.1); PLATELET COUNT 220 K/MM3 (134-434); RBC 4.71 M/mm3 (4.00-5.60); RDW 15.5 % (11.9-15.9); WHITE BLOOD COUNT 6.7 K/mm3 (4.0-10.0)
[2017-07-31 09:51] LABS: CHLORIDE 110 mmol/L (98-107); POTASSIUM 3.8 mmol/L (3.5-5.1); SGOT/AST 30 U/L (15-37); SGPT/ALT 25 U/L (12-78); SODIUM 144 mmol/L (136-145)
[2017-07-31 09:56] LABS: ALBUMIN 1.9 g/dl (3.4-5.0); ALK PHOS 78 U/L (45-117); ANION GAP 4 (8-16); BILIRUBIN,TOTAL 0.2 mg/dL (0.2-1.0); BLOOD UREA NITROGEN 22 mg/dL (7-18); CALCIUM 7.7 mg/dL (8.5-10.1); CO2 30 mmol/L (21-32); CREATININE 1.4 mg/dL (0.7-1.3); GLUCOSE,RANDOM 96 mg/dL (74-106)
[2017-07-31] MEDS: TRIAMTERENE AND HCTZ - 37.5 MG/25 MG CAPSULE PO SCH (10:27)
[2017-07-31] MEDS: PRENATAL VITAMINS W/ FOLIC ACID TABLET (FP) PO SCH (10:27)
[2017-07-31] MEDS: LISINOPRIL 10 MG TABLET (FP) PO SCH (10:27)
[2017-07-31] MEDS: RANITIDINE HCL 150 MG TABLET (FP) PO SCH (10:27)
[2017-07-31] MEDS: ASPIRIN 81 MG CHEWABLE TABLETS PO SCH (10:27)
[2017-07-31] MEDS: NICOTINE 14 MG/24 HOURS TOPICAL PATCH TD SCH (10:29)
--- NOTE | 2017-07-31 10:46 | PN ---
S CIWA - CIWA Score Nausea/Vomitin Muscle Tremors: 3 Anxiety: 3 Agitation: 2 Paroxysmal Sweats: 1-Minimal Palms Moist Orientation: 0-Oriented Tacttile Disturbances: 1-Very Mild Itch/Numbness Auditory Disturbances: 1-Very Mild Visual Disturbances: 0-None Headache: 1-Very Mild CIWA-Ar Total Score: 15 S Progress Note (SOAP) Subjective: ALERT,IRRITABLE,ANXIOUS,INTERRUPTED SLEEP,TREMOR Objective: 07/31/17 10:42 Vital Signs Temperature 97.7 F 07/31/17 10:12 Pulse Rate 79 07/31/17 10:12 Respiratory Rate 20 07/31/17 10:12 Blood Pressure 142/88 07/31/17 10:12 O2 Sat by Pulse Oximetry (%) Laboratory Last Values WBC 6.7 K/mm3 (4.0-10.0) 07/31/17 07:00 RBC 4.71 M/mm3 (4.00-5.60) 07/31/17 07:00 Hgb 13.1 GM/dL (11.7-16.9) 07/31/17 07:00 Hct 39.2 % (35.4-49) 07/31/17 07:00 MCV 83.2 fl (80-96) 07/31/17 07:00 MCH 27.9 pg (25.7-33.7) 07/31/17 07:00 MCHC 33.5 g/dl (32.0-35.9) 07/31/17 07:00 RDW 15.5 % (11.9-15.9) 07/31/17 07:00 Plt Count 220 K/MM3 (134-434) 07/31/17 07:00 MPV 9.4 fl (7.5-11.1) 07/31/17 07:00 Sodium 144 mmol/L (136-145) 07/31/17 07:00 Potassium 3.8 mmol/L (3.5-5.1) 07/31/17 07:00 Chloride 110 mmol/L (98-107) H 07/31/17 07:00 Carbon Dioxide 30 mmol/L (21-32) 07/31/17 07:00 Anion Gap 4 (8-16) L 07/31/17 07:00 BUN 22 mg/dL (7-18) H D 05/07/18 07:00 Creatinine 1.4 mg/dL (0.7-1.3) H 07/31/17 07:00 Creat Clearance w eGFR 53.22 (>60) 07/31/17 07:00 POC Glucometer 194 UNITS (80-120) 07/31/17 07:26 Random Glucose 96 mg/dL (74-106) 07/31/17 07:00 Calcium 7.7 mg/dL (8.5-10.1) L 07/31/17 07:00 Total Bilirubin 0.2 mg/dL (0.2-1.0) D 07/31/17 07:00 AST 30 U/L (15-37) D 07/31/17 07:00 ALT 25 U/L (12-78) 07/31/17 07:00 Alkaline Phosphatase 78 U/L (45-117) 07/31/17 07:00 Total Protein 5.0 g/dl (6.4-8.2) L 07/31/17 07:00 Albumin 1.9 g/dl (3.4-5.0) L 07/31/17 07:00 Urine Color Ltyellow 07/30/17 18:55 Urine Appearance Clear 07/30/17 18:55 Urine pH 5.0 (5.0-8.0) 07/30/17 18:55 Ur Specific [place] 1.024 (1.001-1.035) 07/30/17 18:55 Urine Protein 3+ (NEGATIVE) H 07/30/17 18:55 Urine Glucose (UA) 1+ (NEGATIVE) H 07/30/17 18:55 Urine Ketones Negative (NEGATIVE) 07/30/17 18:55 Urine Blood 1+ (NEGATIVE) H 07/30/17 18:55 Urine Nitrite Negative (NEGATIVE) 07/30/17 18:55 Urine Bilirubin Negative (<2.0 mg/dL) 07/30/17 18:55 Urine Urobilinogen Negative mg/dL (0.2-1.0) 07/30/17 18:55 Ur Leukocyte Esterase Negative (NEGATIVE) 07/30/17 18:55 Urine WBC (Auto) 7 /hpf (3-5) 07/30/17 18:55 Urine RBC (Auto) 1 /hpf (0-3) 05/06/18 18:55 Ur Epithelial Cells Rare /HPF (FEW) 07/30/17 18:55 Hyaline Casts 3 /lpf 07/30/17 18:55 Urine Mucus Rare 07/30/17 18:55 RPR Titer Nonreactive (NONREACTIVE) 07/31/17 07:00 Assessment: 07/31/17 10:45 WITHDRAWAL SYMPTOM Plan: CONTINUE DETOX,BGM MONITORING,ENCOURAGE ORAL FLIUD,
--- NOTE | 2017-07-31 12:45 | CONSULT ---
[facility] Psychiatric Consult - Data Date of interview: 07/31/17 Admission source: [facility] Identifying data: One of multiple admissions to [facility] for this 52 y/o AA male seking detox treatment on for alcohol and cocaine dependence.Patient is single without children,homeless,unemployed and supported on welfare. Substance Abuse History: Confirmed by patient in this interview.Details in current [facility] report : Smoking history: Current every day smoker. Have you smoked in the past 12 months: Yes. Aproximately how many cigarettes per day: 5. Cigars Per Day: 0. Hx Chewing Tobacco Use: No. Initiated information on smoking cessation: Yes. 'Breaking Loose' booklet given: 07/30/17. - Substance & Tx. History. Hx Alcohol Use: Yes (Last @ [facility] 04/2017). Hx Substance Use: No. Substance Use Type: Cocaine (Crack ). Hx Substance Use Treatment: Yes. - Substances Abused. Alcohol. Route: Oral. Frequency: Daily. Amount used: LIQUOR- 2 PINTS, BEER- 1 SIX PACK. Age of first use: 15. Date of Last Use: 09/11. Cocaine. Route: Smoking. Frequency: 1-3 times last 30 days (Used last 2 days). Amount used: $400. Age of first use: 24. Date of Last Use: 08/11 Medical History: Remarkable for GERD,obesity,diabetes mellitus,hypertension and hypercholesterolemia. Psychiatric History: Patient denies. Physical/Sexual Abuse/Trauma History: Patient denies. Additional Comment: Urine Drug Screen Results: BINH-Cocaine.Noted. Mental Status Exam - Mental Status Exam Alert and Oriented to: Time, Place, Person Cognitive Function: Good Patient Appearance: Well Groomed Mood: Withdrawn Affect: Appropriate, Normal Range Patient Behavior: Fatigued, Appropriate, Cooperative Speech Pattern: Clear Voice Loudness: Normal Thought Process: Intact, Goal Oriented Thought Disorder: Not Present Hallucinations: Denies Suicidal Ideation: Denies Homicidal Ideation: Denies Insight/Judgement: Poor Sleep: Poorly, Difficulty falling asleep Appetite: Good Muscle strength/Tone: Normal Gait/Station: Normal Psychiatric Findings - Problem List ([place] 1, 2,3) (1) Alcohol dependence with uncomplicated withdrawal Current Visit: Yes Status: Acute (2) Cocaine dependence, uncomplicated Current Visit: Yes Status: Acute (3) Nicotine dependence Current Visit: Yes Status: Acute Qualifiers: Nicotine product type: cigarettes Substance use status: in withdrawal Qualified Code(s): F17.213 - Nicotine dependence, cigarettes, with withdrawal (4) Insomnia Current Visit: Yes Status: Acute Qualifiers: Insomnia type: unspecified Qualified Code(s): G47.00 - Insomnia, unspecified - Initial Treatment Plan Initial Treatment Plan: Psychoeducation.Sleep hygiene.Detoxification.Ambien 10 mg po hs prn.Patient is made aware of risk of parasomnias.He agrees with this careplan.Observation.
[2017-07-31] MEDS: THIAMINE HCL 100 MG TABLET (FP) PO SCH (22:11)
[2017-07-31] MEDS: ZOLPIDEM TARTRATE 10 MG TABLET (PARK CARE ONLY) PO PRN (22:13)
[2017-08-01] MEDS: chlordiazePOXIDE HCL 25 MG CAPSULE PO SCH (05:48)
[2017-08-01] MEDS ORDERED: metFORMIN HCL 500 MG TABLET (FP) PO SCH (07:00)
[2017-08-01 10:01] LABS: CHLORIDE 109 mmol/L (98-107); POTASSIUM 4.3 mmol/L (3.5-5.1); SODIUM 144 mmol/L (136-145)
[2017-08-01 10:21] LABS: ALBUMIN 2.2 g/dl (3.4-5.0); ALK PHOS 84 U/L (45-117); ANION GAP 6 (8-16); BILIRUBIN,TOTAL 0.2 mg/dL (0.2-1.0); BLOOD UREA NITROGEN 22 mg/dL (7-18); CALCIUM 8.5 mg/dL (8.5-10.1); CO2 29 mmol/L (21-32); CREATININE 1.4 mg/dL (0.7-1.3); GLUCOSE,RANDOM 93 mg/dL (74-106); SGOT/AST 25 U/L (15-37); SGPT/ALT 29 U/L (12-78); TOT PROT 5.8 g/dl (6.4-8.2)
[2017-08-01] MEDS: RANITIDINE HCL 150 MG TABLET (FP) PO SCH (10:31)
[2017-08-01] MEDS: NICOTINE 14 MG/24 HOURS TOPICAL PATCH TD SCH (10:31)
[2017-08-01] MEDS: LISINOPRIL 10 MG TABLET (FP) PO SCH (10:31)
[2017-08-01] MEDS: PRENATAL VITAMINS W/ FOLIC ACID TABLET (FP) PO SCH (10:31)
[2017-08-01] MEDS: ASPIRIN 81 MG CHEWABLE TABLETS PO SCH (10:31)
[2017-08-01] MEDS: TRIAMTERENE AND HCTZ - 37.5 MG/25 MG CAPSULE PO SCH (10:32)
[2017-08-01] MEDS: chlordiazePOXIDE 5 MG CAPSULE PO SCH ×3 (10:32→22:03)
--- NOTE | 2017-08-01 12:24 | PN ---
S CIWA - CIWA Score Nausea/Vomitin Muscle Tremors: 3 Anxiety: 2 Agitation: 2 Paroxysmal Sweats: 1-Minimal Palms Moist Orientation: 0-Oriented Tacttile Disturbances: 1-Very Mild Itch/Numbness Auditory Disturbances: 1-Very Mild Visual Disturbances: 0-None Headache: 2-Mild CIWA-Ar Total Score: 15 BHS Progress Note (SOAP) Subjective: ALERT,IRRITABLE,ANXIOUS,INTERRUPTED SLEEP,TREMOR Objective: 08/01/17 12:20 Laboratory Last Values WBC 6.7 K/mm3 (4.0-10.0) 07/31/17 07:00 RBC 4.71 M/mm3 (4.00-5.60) 07/31/17 07:00 Hgb 13.1 GM/dL (11.7-16.9) 07/31/17 07:00 Hct 39.2 % (35.4-49) 07/31/17 07:00 MCV 83.2 fl (80-96) 07/31/17 07:00 MCH 27.9 pg (25.7-33.7) 07/31/17 07:00 MCHC 33.5 g/dl (32.0-35.9) 07/31/17 07:00 RDW 15.5 % (11.9-15.9) 07/31/17 07:00 Plt Count 220 K/MM3 (134-434) 07/31/17 07:00 MPV 9.4 fl (7.5-11.1) 07/31/17 07:00 Sodium 144 mmol/L (136-145) 08/01/17 07:30 Potassium 4.3 mmol/L (3.5-5.1) 08/01/17 07:30 Chloride 109 mmol/L (98-107) H 08/01/17 07:30 Carbon Dioxide 29 mmol/L (21-32) 08/01/17 07:30 Anion Gap 6 (8-16) L 08/01/17 07:30 BUN 22 mg/dL (7-18) H 08/01/17 07:30 Creatinine 1.4 mg/dL (0.7-1.3) H 08/01/17 07:30 Creat Clearance w eGFR 53.22 (>60) 08/01/17 07:30 POC Glucometer 119 UNITS (80-120) 08/01/17 05:47 Random Glucose 93 mg/dL (74-106) 08/01/17 07:30 Hemoglobin A1c % 6.9 % (4.8-6.0) H 08/01/17 07:30 Calcium 8.5 mg/dL (8.5-10.1) 08/01/17 07:30 Total Bilirubin 0.2 mg/dL (0.2-1.0) 08/01/17 07:30 AST 25 U/L (15-37) 08/01/17 07:30 ALT 29 U/L (12-78) 08/01/17 07:30 Alkaline Phosphatase 84 U/L (45-117) 08/01/17 07:30 Total Protein 5.8 g/dl (6.4-8.2) L 08/01/17 07:30 Albumin 2.2 g/dl (3.4-5.0) L 08/01/17 07:30 Urine Color Ltyellow 07/30/17 18:55 Urine Appearance Clear 07/30/17 18:55 Urine pH 5.0 (5.0-8.0) 07/30/17 18:55 Ur Specific [place] 1.024 (1.001-1.035) 07/30/17 18:55 Urine Protein 3+ (NEGATIVE) H 07/30/17 18:55 Urine Glucose (UA) 1+ (NEGATIVE) H 07/30/17 18:55 Urine Ketones Negative (NEGATIVE) 07/30/17 18:55 Urine Blood 1+ (NEGATIVE) H 07/30/17 18:55 Urine Nitrite Negative (NEGATIVE) 07/30/17 18:55 Urine Bilirubin Negative (<2.0 mg/dL) 07/30/17 18:55 Urine Urobilinogen Negative mg/dL (0.2-1.0) 07/30/17 18:55 Ur Leukocyte Esterase Negative (NEGATIVE) 07/30/17 18:55 Urine WBC (Auto) 7 /hpf (3-5) 07/30/17 18:55 Urine RBC (Auto) 1 /hpf (0-3) 07/30/17 18:55 Ur Epithelial Cells Rare /HPF (FEW) 07/30/17 18:55 Hyaline Casts 3 /lpf 07/30/17 18:55 Urine Mucus Rare 07/30/17 18:55 RPR Titer Nonreactive (NONREACTIVE) 07/31/17 07:00 Assessment: 08/01/17 12:22 WITHDRAWAL SYMPTOM Plan: CONTINUE DETOX,ENCOURAGE ORAL FLUID WATER
[2017-08-01] MEDS: THIAMINE HCL 100 MG TABLET (FP) PO SCH (22:03)
[2017-08-01] MEDS: ZOLPIDEM TARTRATE 10 MG TABLET (PARK CARE ONLY) PO PRN (22:05)
[2017-08-02] MEDS: chlordiazePOXIDE 5 MG CAPSULE PO SCH (05:10)
[2017-08-02 09:08] VITALS: BP 114/77; PULSE 65; TEMP 96.8
[2017-08-02] MEDS: RANITIDINE HCL 150 MG TABLET (FP) PO SCH (10:18)
[2017-08-02] MEDS: PRENATAL VITAMINS W/ FOLIC ACID TABLET (FP) PO SCH (10:18)
[2017-08-02] MEDS: LISINOPRIL 10 MG TABLET (FP) PO SCH (10:18)
[2017-08-02] MEDS: ASPIRIN 81 MG CHEWABLE TABLETS PO SCH (10:18)
[2017-08-02] MEDS: TRIAMTERENE AND HCTZ - 37.5 MG/25 MG CAPSULE PO SCH (10:19)
[2017-08-02] MEDS: NICOTINE 14 MG/24 HOURS TOPICAL PATCH TD SCH (10:19)
[2017-08-02] MEDS ORDERED: chlordiazePOXIDE HCL 10 MG CAPSULE PO SCH (11:00)
--- NOTE | 2017-08-02 12:00 | PN ---
BHS Progress Note (SOAP) Subjective: Anxious, Sweating. Objective: PATIENT A & O X 3, OBSERVED AMBULATING ON UNIT. NO ACUTE DISTRESS. 08/02/17 11:58 Vital Signs Temperature 96.8 F L 08/02/17 09:06 Pulse Rate 65 08/02/17 09:06 Respiratory Rate 18 08/02/17 09:06 Blood Pressure 114/77 08/02/17 09:06 O2 Sat by Pulse Oximetry (%) Laboratory Tests 07/30/17 07/30/17 07/30/17 09:49 16:32 18:55 WBC RBC Hgb Hct MCV MCH MCHC RDW Plt Count MPV Sodium Potassium Chloride Carbon Dioxide Anion Gap BUN Creatinine Creat Clearance w eGFR POC Glucometer 108 111 Random Glucose Hemoglobin A1c % Calcium Total Bilirubin AST ALT Alkaline Phosphatase Total Protein Albumin Urine Color Ltyellow Urine Appearance Clear Urine pH 5.0 Ur Specific [place] 1.024 Urine Protein 3+ H Urine Glucose (UA) 1+ H Urine Ketones Negative Urine Blood 1+ H Urine Nitrite Negative Urine Bilirubin Negative Urine Urobilinogen Negative Ur Leukocyte Esterase Negative Urine WBC (Auto) 7 Urine RBC (Auto) 1 Ur Epithelial Cells Rare Hyaline Casts 3 Urine Mucus Rare RPR Titer 07/31/17 07/31/17 07/31/17 07:00 07:00 07:00 WBC 6.7 RBC 4.71 Hgb 13.1 Hct 39.2 MCV 83.2 MCH 27.9 MCHC 33.5 RDW 15.5 Plt Count 220 MPV 9.4 Sodium 144 Potassium 3.8 Chloride 110 H Carbon Dioxide 30 Anion Gap 4 L BUN 22 H D Creatinine 1.4 H Creat Clearance w eGFR 53.22 POC Glucometer Random Glucose 96 Hemoglobin A1c % Calcium 7.7 L Total Bilirubin 0.2 D AST 30 D ALT 25 Alkaline Phosphatase 78 Total Protein 5.0 L Albumin 1.9 L Urine Color Urine Appearance Urine pH Ur Specific [place] Urine Protein Urine Glucose (UA) Urine Ketones Urine Blood Urine Nitrite Urine Bilirubin Urine Urobilinogen Ur Leukocyte Esterase Urine WBC (Auto) Urine RBC (Auto) Ur Epithelial Cells Hyaline Casts Urine Mucus RPR Titer Nonreactive 07/31/17 08/01/17 08/01/17 07:26 05:47 07:30 WBC RBC Hgb Hct MCV MCH MCHC RDW Plt Count MPV Sodium 144 Potassium 4.3 Chloride 109 H Carbon Dioxide 29 Anion Gap 6 L BUN 22 H Creatinine 1.4 H Creat Clearance w eGFR 53.22 POC Glucometer 194 119 Random Glucose 93 Hemoglobin A1c % Calcium 8.5 Total Bilirubin 0.2 AST 25 ALT 29 Alkaline Phosphatase 84 Total Protein 5.8 L Albumin 2.2 L Urine Color Urine Appearance Urine pH Ur Specific [place] Urine Protein Urine Glucose (UA) Urine Ketones Urine Blood Urine Nitrite Urine Bilirubin Urine Urobilinogen Ur Leukocyte Esterase Urine WBC (Auto) Urine RBC (Auto) Ur Epithelial Cells Hyaline Casts Urine Mucus RPR Titer 08/01/17 08/02/17 07:30 05:11 WBC RBC Hgb Hct MCV MCH MCHC RDW Plt Count MPV Sodium Potassium Chloride Carbon Dioxide Anion Gap BUN Creatinine Creat Clearance w eGFR POC Glucometer 97 Random Glucose Hemoglobin A1c % 6.9 H Calcium Total Bilirubin AST ALT Alkaline Phosphatase Total Protein Albumin Urine Color Urine Appearance Urine pH Ur Specific [place] Urine Protein Urine Glucose (UA) Urine Ketones Urine Blood Urine Nitrite Urine Bilirubin Urine Urobilinogen Ur Leukocyte Esterase Urine WBC (Auto) Urine RBC (Auto) Ur Epithelial Cells Hyaline Casts Urine Mucus RPR Titer LABS NOTED. Assessment: 08/02/17 11:58 WITHDRAWAL SYMPTOMS. Plan: CONTINUE DETOX. INCREASE DAILY PO FLUID INTAKE. D/C IBUPROFEN AND MAGNESIUM-CONTAINING MEDS. FOR ABNORMAL RENAL LAB VALUES. PATIENT SCHEDULED FOR D/C TOMORROW.
--- NOTE | 2017-08-02 15:27 | DS ---
[facility] Detox Discharge Summary Admission Date: 07/30/17 Discharge Date: 08/02/17 - History Present History: Alcohol Dependence, Cocaine Dependence Additional Comments: PT DOWN TO LAST LIBRIUM TAPER. WANTS TO LEAVE TODAY. ALERT O X 3. NAD. PT TO FOLLOW UP AT [facility]. PT STATES HE HAS PMD/PCP DR. CALLOWAY ([address], [place]. Pertinent Past History: PLEASE SEE DX BELOW - Physical Exam Results Vital Signs: Vital Signs Temperature 96.8 F L 08/02/17 09:06 Pulse Rate 65 08/02/17 09:06 Respiratory Rate 18 08/02/17 09:06 Blood Pressure 114/77 08/02/17 09:06 O2 Sat by Pulse Oximetry (%) Pertinent Admission Physical Exam Findings: WITHDRAWAL SX Laboratory Last Values WBC 6.7 K/mm3 (4.0-10.0) 07/31/17 07:00 RBC 4.71 M/mm3 (4.00-5.60) 07/31/17 07:00 Hgb 13.1 GM/dL (11.7-16.9) 07/31/17 07:00 Hct 39.2 % (35.4-49) 07/31/17 07:00 MCV 83.2 fl (80-96) 07/31/17 07:00 MCH 27.9 pg (25.7-33.7) 07/31/17 07:00 MCHC 33.5 g/dl (32.0-35.9) 07/31/17 07:00 RDW 15.5 % (11.9-15.9) 07/31/17 07:00 Plt Count 220 K/MM3 (134-434) 07/31/17 07:00 MPV 9.4 fl (7.5-11.1) 07/31/17 07:00 Sodium 144 mmol/L (136-145) 08/01/17 07:30 Potassium 4.3 mmol/L (3.5-5.1) 08/01/17 07:30 Chloride 109 mmol/L (98-107) H 08/01/17 07:30 Carbon Dioxide 29 mmol/L (21-32) 08/01/17 07:30 Anion Gap 6 (8-16) L 08/01/17 07:30 BUN 22 mg/dL (7-18) H 08/01/17 07:30 Creatinine 1.4 mg/dL (0.7-1.3) H 08/01/17 07:30 Creat Clearance w eGFR 53.22 (>60) 08/01/17 07:30 POC Glucometer 97 UNITS (80-120) 08/02/17 05:11 Random Glucose 93 mg/dL (74-106) 08/01/17 07:30 Hemoglobin A1c % 6.9 % (4.8-6.0) H 08/01/17 07:30 Calcium 8.5 mg/dL (8.5-10.1) 08/01/17 07:30 Total Bilirubin 0.2 mg/dL (0.2-1.0) 08/01/17 07:30 AST 25 U/L (15-37) 08/01/17 07:30 ALT 29 U/L (12-78) 08/01/17 07:30 Alkaline Phosphatase 84 U/L (45-117) 08/01/17 07:30 Total Protein 5.8 g/dl (6.4-8.2) L 08/01/17 07:30 Albumin 2.2 g/dl (3.4-5.0) L 08/01/17 07:30 Urine Color Ltyellow 07/30/17 18:55 Urine Appearance Clear 07/30/17 18:55 Urine pH 5.0 (5.0-8.0) 07/30/17 18:55 Ur Specific [place] 1.024 (1.001-1.035) 07/30/17 18:55 Urine Protein 3+ (NEGATIVE) H 07/30/17 18:55 Urine Glucose (UA) 1+ (NEGATIVE) H 07/30/17 18:55 Urine Ketones Negative (NEGATIVE) 07/30/17 18:55 Urine Blood 1+ (NEGATIVE) H 07/30/17 18:55 Urine Nitrite Negative (NEGATIVE) 07/30/17 18:55 Urine Bilirubin Negative (<2.0 mg/dL) 07/30/17 18:55 Urine Urobilinogen Negative mg/dL (0.2-1.0) 07/30/17 18:55 Ur Leukocyte Esterase Negative (NEGATIVE) 07/30/17 18:55 Urine WBC (Auto) 7 /hpf (3-5) 07/30/17 18:55 Urine RBC (Auto) 1 /hpf (0-3) 07/30/17 18:55 Ur Epithelial Cells Rare /HPF (FEW) 07/30/17 18:55 Hyaline Casts 3 /lpf 07/30/17 18:55 Urine Mucus Rare 07/30/17 18:55 RPR Titer Nonreactive (NONREACTIVE) 07/31/17 07:00 - Treatment Hospital Course: Detox Protocol Followed, Detoxed Safely, Responded well, Discharged Condition Good, Rehab Referral Accepted Patient has Accepted a Rehab Referral to: [facility] [place] - Medication Discharge Medications: Ambulatory Orders Ranitidine [Zantac -] 150 mg PO BID #60 tablet 09/21/16 Aspirin [ASA -] 81 mg PO DAILY #30 tab 05/10/17 Hctz 25Mg/Triamterene [Dyazide 25/37.5 -] 1 cap PO DAILY #30 cap 05/10/17 Lisinopril [Prinivil] 20 mg PO DAILY #30 tablet 05/10/17 Ranitidine HCl [Zantac] 150 mg PO BID 30 Days #60 tablet 05/10/17 metFORMIN HCL [Glucophage -] 500 mg PO BID #60 tab 05/10/17 - Diagnosis (1) Alcohol dependence with uncomplicated withdrawal Current Visit: Yes Status: Acute (2) Cocaine dependence, uncomplicated Current Visit: Yes Status: Acute (3) Nicotine dependence Current Visit: Yes Status: Acute Qualifiers: Nicotine product type: cigarettes Substance use status: in withdrawal Qualified Code(s): F17.213 - Nicotine dependence, cigarettes, with withdrawal (4) Acid reflux disease Current Visit: Yes Status: Chronic Qualifiers: Esophagitis presence: esophagitis presence not specified Qualified Code(s) : K21.9 - Gastro-esophageal reflux disease without esophagitis (5) Hypercholesteremia Current Visit: Yes Status: Chronic (6) Hypertension Current Visit: Yes Status: Chronic Qualifiers: Hypertension type: essential hypertension Qualified Code(s): I10 - Essential (primary) hypertension (7) Obesities, morbid Current Visit: Yes Status: Chronic (8) Type II diabetes mellitus Current Visit: Yes Status: Chronic Qualifiers: Diabetes mellitus [employer] [place] [employer] insulin use: without [employer] use Diabetes mellitus complication status: without complication Qualified Code(s): E11.9 - Type 2 diabetes mellitus without complications - AMA Did Patient Leave Against Medical Advice: No
== END 2017-08-02 15:20 | disposition home or self-care (01) | DRG 774 ==
LOC: YASAS 08:54 → Y6N 11:26 → Y3N 08-01 18:45
PROVIDERS: ADMIT Internal Medicine; ATTEND Internal Medicine
PROC: HZ2ZZZZ Detoxification Services for Substance Abuse Treatment (ICD-10-PCS; principal; 2017-07-30)
DX: F10.230 Alcohol dependence with withdrawal, uncomplicated (principal); F14.20 Cocaine dependence, uncomplicated; F17.210 Nicotine dependence, cigarettes, uncomplicated; F19.24 Other psychoactive substance dependence with psychoactive substance-induced mood disorder; I10 Essential (primary) hypertension; K21.9 Gastro-esophageal reflux disease without esophagitis; E78.00 Pure hypercholesterolemia, unspecified; E11.9 Type 2 diabetes mellitus without complications; E66.01 Morbid (severe) obesity due to excess calories; G47.00 Insomnia, unspecified; Z68.36 Body mass index [BMI] 36.0-36.9, adult
CPT/HCPCS: 36415; 80053; 81003; 81015; 82962; 83036; 85027; 86593; 93005; 93010

== ENCOUNTER 2017-12-06 09:22 | Inpatient (IN) | payer OTHER ==
[2017-12-06 10:27] VITALS: BMI 37.7
--- NOTE | 2017-12-06 13:36 | HP ---
CIWA Score - CIWA Score Nausea/Vomitin-Mild Nausea/No Vomiting Muscle Tremors: 4-Moderate,w/Arms Extend Anxiety: 3 Agitation: 4-Moderately Restless Paroxysmal Sweats: 1-Minimal Palms Moist Orientation: 0-Oriented Tacttile Disturbances: 2-Mild Itch/Numbness/Burn Auditory Disturbances: 0-None Visual Disturbances: 0-None Headache: 1-Very Mild CIWA-Ar Total Score: 16 Admission ROS BHS - HPI Chief Complaint: alcohol withdrawal sx negative ppd at 09/2017 Allergies/Adverse Reactions: Allergies Allergy/AdvReac Type Severity Reaction Status Date / Time No Known Allergies Allergy Verified 12/06/17 11:54 History of Present Illness: 52 years old male with long history of alcohol nicotine dependence has hypertension gerd hypercholesterol and depression is admitted to detox longest sobriety was 18 years while in residential sober 4 months last year [facility] care provider dr ambrosio [address] [place] since 2011 average 3 times a year Exam Limitations: No Limitations - Ebola screening Have you traveled outside of the country in the last 21 days: No Have you had contact with anyone from an Ebola affected area: No Have you been sick,other than usual withdrawal symptoms: No Do you have a fever: No - Review of Systems Constitutional: Changes in sleep, Weight Stable EENT: reports: Blurred Vision (need eye glasses), Hearing Loss (bilaterally x 10 years) Respiratory: reports: No Symptoms reported Cardiac: reports: No Symptoms Reported GI: reports: Constipated, Nausea, Poor Fluid Intake, Indigestion, Abdominal cramping : reports: No Symptoms Reported Musculoskeletal: reports: No Symptoms Reported Integumentary: reports: No Symptoms Reported Neuro: reports: Tremors Endocrine: reports: No Symptoms Reported Hematology: reports: No Symptoms Reported Psychiatric: reports: Judgement Intact, Orientated x3, Depressed Other Systems: Reviewed and Negative Patient History - Patient Medical History Hx Anemia: No Hx Asthma: No Hx Chronic Obstructive Pulmonary Disease (COPD): No Hx Cancer: No Hx Cardiac Disorders: No Hx Congestive Heart Failure: No Hx Hypertension: Yes Hx Hypercholesterolemia: Yes (Med. in past; TAKE MEDICATION 3 DAYS AGO) Hx Pacemaker: No HX Cerebrovascular Accident: No Hx Seizures: No Hx Dementia: No Hx Diabetes: Yes (currently not on treatment) Hx Gastrointestinal Disorders: Yes (acid reflux) Hx Liver Disease: No Hx Genitourinary Disorders: No Hx Sexually Transmitted Disorders: No Hx Renal Disease (ESRD): No Hx Thyroid Disease: No Hx Human Immunodeficiency Virus (HIV): No ( NEGATIVE HX ) Hx Hepatitis C: No (NEGATIVE HX.) Hx Depression: Yes Hx Suicide Attempt: No Hx Bipolar Disorder: No Hx Schizophrenia: No - Patient Surgical History Past Surgical History: No Hx Neurologic Surgery: No Hx Cataract Extraction: No Hx Cardiac Surgery: No Hx Lung Surgery: No Hx Breast Surgery: No Hx Breast Biopsy: No Hx Abdominal Surgery: No Hx Appendectomy: No Hx Cholecystectomy: No Hx Genitourinary Surgery: No Hx Orthopedic Surgery: No - PPD History Previous Implant?: Yes Documented Results: Negative w/proof Implanted On Prior [facility] Admission?: Yes Date: 10/08/17 Results: 0 mm PPD to be Administered?: No - Smoking Cessation Smoking history: Current every day smoker Have you smoked in the past 12 months: Yes Aproximately how many cigarettes per day: 5 Cigars Per Day: 0 Hx Chewing Tobacco Use: No Initiated information on smoking cessation: Yes 'Breaking Loose' booklet given: 12/06/17 - Substance & Tx. History Hx Alcohol Use: Yes Hx Substance Use: No Substance Use Type: Alcohol Hx Substance Use Treatment: Yes (09/2017 [facility]) - Substances Abused Alcohol-vodka Route: Oral Frequency: Daily Amount used: 3 pts. Age of first use: 16 Date of Last Use: 12/05/17 Family Disease History - Family Disease History Family Disease History: Diabetes: Mother (hypertension,Substance abuse, Alcohol ; ), Heart Disease: Mother, Other: Father (ALCOHOL,), Mother, Brother (no contact), Sister (no contact) Admission Physical Exam S - Vital Signs Vital Signs: Vital Signs - 24 hr 12/06/17 10:25 Temperature 97.8 F Pulse Rate 91 H Respiratory 17 Rate Blood Pressure 140/72 - Physical General Appearance: Yes: Appropriately Dressed, Mild Distress, Tremorous, Irritable, Sweating, Anxious HEENTM: Yes: Hearing grossly Normal, Normocephalic, Normal Voice Respiratory: Yes: Chest Non-Tender, Lungs Clear, Normal Breath Sounds, No Respiratory Distress, No Accessory Muscle Use Neck: Yes: Supple, Trachea in good position Breast: Yes: Breasts Symetrical, No Discharge Cardiology: Yes: Regular Rhythm, S1, S2, Tachycardia Abdominal: Yes: Non Tender, Flat, Soft Genitourinary: Yes: Within Normal Limits Back: Yes: Normal Inspection Musculoskeletal: Yes: full range of Motion, Gait Steady Extremities: Yes: Normal Inspection, Normal Range of Motion, Non-Tender, Tremors Neurological: Yes: Fully Oriented, Alert, Motor Strength 5/5, Normal Response, Depressed Affect Integumentary: Yes: Warm Lymphatic: Yes: Within Normal Limits - Diagnostic (1) Alcohol dependence with uncomplicated withdrawal Current Visit: Yes Status: Acute (2) Nicotine dependence Current Visit: Yes Status: Acute Qualifiers: Nicotine product type: cigarettes Substance use status: in withdrawal Qualified Code(s): F17.213 - Nicotine dependence, cigarettes, with withdrawal (3) Acid reflux disease Current Visit: Yes Status: Chronic Qualifiers: Esophagitis presence: esophagitis presence not specified Qualified Code(s) : K21.9 - Gastro-esophageal reflux disease without esophagitis (4) Hypercholesteremia Current Visit: Yes Status: Chronic (5) Hypertension Current Visit: Yes Status: Chronic Qualifiers: Hypertension type: essential hypertension Qualified Code(s): I10 - Essential (primary) hypertension (6) Obesities, morbid Current Visit: Yes Status: Chronic (7) Drug-induced mood disorder Current Visit: Yes Status: Suspected Cleared for Admission [facility] - Detox or Rehab [facility] Level of Care: Medically Managed Detox Regimen/Protocol: Librium S Breath Alcohol Content Breath Alcohol Content: 0 Urine Drug Screen - Results Drug Screen Negative: Yes
[2017-12-06] MEDS ORDERED: P-EPHED 60MG/TRIPROLIDI 2.5MG TABLET PO PRN (13:49)
[2017-12-06] MEDS ORDERED: MAGNESIUM CITRATE 300 ML BOTTLE PO PRN (13:49)
[2017-12-06] MEDS ORDERED: MAGNESIUM HYDROX 2400MG/30ML ORAL SUSPENSION 30 ML CUP PO PRN (13:49)
[2017-12-06] MEDS ORDERED: ACETAMINOPHEN 325 MG TABLET (FP) PO PRN (13:49)
[2017-12-06] MEDS ORDERED: LOPERAMIDE HCL 2 MG CAPSULE PO PRN (13:49)
[2017-12-06] MEDS ORDERED: MAG HYDROX/AL HYDROX/SIMETH 30 ML UNIT-DOSE CUP PO PRN (13:49)
[2017-12-06] MEDS ORDERED: guaiFENesin/D-METHORPHAN HB 10 ML UNIT-DOSE CUPS PO PRN (13:49)
[2017-12-06] MEDS ORDERED: chlordiazePOXIDE HCL 25 MG CAPSULE PO PRN (13:49)
[2017-12-06] MEDS ORDERED: MENTHOL/PHENOL 1 EACH UD MM PRN (13:49)
[2017-12-06] MEDS ORDERED: NICOTINE POLACRILEX 2 MG GUM BUC PRN (13:49)
[2017-12-06] MEDS: NICOTINE 14 MG/24 HOURS TOPICAL PATCH TD SCH (15:21)
--- NOTE | 2017-12-06 15:58 | EKG ---
Test Reason : Blood Pressure : / mmHG Vent. Rate : 078 BPM Atrial Rate : 078 BPM P-R Int : 154 ms QRS Dur : 090 ms QT Int : 376 ms P-R-T Axes : 036 005 020 degrees QTc Int : 428 ms NORMAL SINUS RHYTHM MODERATE VOLTAGE CRITERIA FOR LVH, MAY BE NORMAL VARIANT NONSPECIFIC T WAVE ABNORMALITY ABNORMAL ECG WHEN COMPARED WITH ECG OF 07-OCT-2017 13:13, NO SIGNIFICANT CHANGE WAS FOUND Confirmed by ROCAEL MOREL, NACHO ([id number]) on 12/06/2017 3:58:26 PM Referred By: Confirmed By:NACHO COTE MD
--- NOTE | 2017-12-06 16:41 | CONSULT ---
[facility] Psychiatric Consult - Data Date of interview: 12/06/17 Admission source: [facility] Identifying data: Patient is a 52 year old single male, without children, unemployed (denies receiving financial assistance) and homeless. This is one of multiple admissions for patient. Pt. admitted to for alcohol dependence. Substance Abuse History: - Smoking Cessation. Smoking history: Current every day smoker. Have you smoked in the past 12 months: Yes. Aproximately how many cigarettes per day: 5. Cigars Per Day: 0. Hx Chewing Tobacco Use: No. Initiated information on smoking cessation: Yes. 'Breaking Loose' booklet given : 12/06/17. - Substance & Tx. History. Hx Alcohol Use: Yes. Hx Substance Use : No. Substance Use Type: Alcohol. Hx Substance Use Treatment: Yes (09/2017 [facility]). - Substances Abused. Alcohol-vodka. Route: Oral. Frequency: Daily. Amount used: 3 pts. Age of first use: 16. Date of Last Use: 12/05/17 Medical History: hypercholesterolemia, acid reflux, diabetes, hypertension Psychiatric History: Patient denies h/o psychiatric hospitalization, outpatient care, and suicide attempt. Pt. reports poor sleep. Physical/Sexual Abuse/Trauma History: denies. Mental Status Exam - Mental Status Exam Alert and Oriented to: Time, Place, Person Cognitive Function: Good Patient Appearance: Well Groomed Mood: Withdrawn, Euthymic Affect: Mood Congruent Patient Behavior: Cooperative Speech Pattern: Clear, Appropriate Voice Loudness: Normal Thought Process: Intact, Goal Oriented Thought Disorder: Not Present Hallucinations: Denies Suicidal Ideation: Denies Homicidal Ideation: Denies Insight/Judgement: Poor Sleep: Poorly Appetite: Fair Muscle strength/Tone: Normal Gait/Station: Normal Psychiatric Findings - Problem List ([place] 1, 2,3) (1) Alcohol dependence with uncomplicated withdrawal Current Visit: Yes Status: Acute (2) Nicotine dependence Current Visit: Yes Status: Chronic Qualifiers: Nicotine product type: cigarettes Substance use status: in withdrawal Qualified Code(s): F17.213 - Nicotine dependence, cigarettes, with withdrawal (3) Insomnia Current Visit: Yes Status: Acute - Initial Treatment Plan Initial Treatment Plan: Psychoeducation provided. Detoxification in progress. Will order ambien 10mg qhs. Benefits and side effects discussed. Pt. reports favorable effect from previously accepting ambien. Pt. made aware of the risk of parasomnia. Verbal consent given.
[2017-12-06] MEDS: chlordiazePOXIDE HCL 25 MG CAPSULE PO SCH ×2 (17:23→22:29)
[2017-12-06] MEDS ORDERED: MELATONIN 5 MG TABLETS PO PRN (22:00)
[2017-12-06] MEDS ORDERED: ZOLPIDEM TARTRATE 10 MG TABLET (PARK CARE ONLY) PO PRN (22:00)
[2017-12-06] MEDS: RANITIDINE HCL 150 MG TABLET (FP) PO SCH (22:28)
[2017-12-06] MEDS: THIAMINE HCL 100 MG TABLET (FP) PO SCH (22:28)
[2017-12-06] MEDS: ATORVASTATIN CA 40 MG TABLET (FP) PO SCH (22:29)
[2017-12-06 23:58] LABS: URINE APPEARANCE CLEAR; URINE BILIRUBIN NEGATIVE (<2.0 mg/dL); URINE COLOR LTYELLOW; URINE GLUCOSE (UA) 1+ (NEGATIVE); URINE KETONE NEGATIVE (NEGATIVE); URINE LEUK ESTERASE NEGATIVE (NEGATIVE); URINE NITRITE NEGATIVE (NEGATIVE); URINE UROBILINOGEN NEGATIVE mg/dL (0.2-1.0)
[2017-12-07 00:27] LABS: URINE PROTEIN 3+ (NEGATIVE)
[2017-12-07 00:57] LABS: URINE BACTERIA RARE /hpf (NONE SEEN); URINE MUCUS RARE
[2017-12-07] MEDS: chlordiazePOXIDE HCL 25 MG CAPSULE PO SCH ×4 (05:52→23:04)
[2017-12-07] MEDS: ASPIRIN 81 MG CHEWABLE TABLETS PO SCH (10:10)
[2017-12-07] MEDS: HYDROCHLOROTHIAZIDE 25 MG TABLET (FP) PO SCH (10:10)
[2017-12-07] MEDS: RANITIDINE HCL 150 MG TABLET (FP) PO SCH ×2 (10:10→23:04)
[2017-12-07] MEDS: amLODIPine BESYLATE 10 MG TABLET (FP) PO SCH (10:10)
[2017-12-07] MEDS: PRENATAL VITAMINS W/ FOLIC ACID TABLET (FP) PO SCH (10:10)
[2017-12-07] MEDS: LISINOPRIL 20 MG TABLET (FP) PO SCH (10:11)
[2017-12-07] MEDS: NICOTINE 14 MG/24 HOURS TOPICAL PATCH TD SCH (10:11)
[2017-12-07 10:48] LABS: ALBUMIN 2.4 g/dl (3.4-5.0); ALK PHOS 88 U/L (45-117); ANION GAP 10 MMOL/L (8-16); BILIRUBIN,TOTAL 0.1 mg/dL (0.2-1.0); BLOOD UREA NITROGEN 30 mg/dL (7-18); CALCIUM 8.2 mg/dL (8.5-10.1); CHLORIDE 106 mmol/L (98-107); CO2 27 mmol/L (21-32); CREATININE 1.6 mg/dL (0.7-1.3); GLUCOSE,RANDOM 103 mg/dL (74-106); POTASSIUM 4.5 mmol/L (3.5-5.1); SGOT/AST 22 U/L (15-37); SGPT/ALT 28 U/L (13-61); SODIUM 143 mmol/L (136-145); TOT PROT 5.8 g/dl (6.4-8.2)
[2017-12-07 11:21] LABS: HEMATOCRIT 44.9 % (35.4-49); HEMOGLOBIN 14.4 GM/dL (11.7-16.9); MCH 26.8 pg (25.7-33.7); MEAN CELL VOLUME 83.7 fl (80-96); MEAN PLT VOLUME 10.5 fl (7.5-11.1); PLATELET COUNT 209 K/MM3 (134-434); RBC 5.37 M/mm3 (4.00-5.60); RDW 16.5 % (11.9-15.9); WHITE BLOOD COUNT 10.6 K/mm3 (4.0-10.0)
--- NOTE | 2017-12-07 12:23 | PN ---
S CIWA - CIWA Score Nausea/Vomitin-Mild Nausea/No Vomiting Muscle Tremors: 4-Moderate,w/Arms Extend Anxiety: 3 Agitation: 3 Paroxysmal Sweats: 1-Minimal Palms Moist Orientation: 0-Oriented Tacttile Disturbances: 0-None Auditory Disturbances: 0-None Visual Disturbances: 1-Very Mild Sensitivity Headache: 0-None Present CIWA-Ar Total Score: 13 BHS Progress Note (SOAP) Subjective: sweat tremor restlessness anxiety trouble sleep at night Objective: 12/07/17 12:21 Vital Signs Temperature 96.8 F L 12/07/17 09:07 Pulse Rate 91 H 12/07/17 09:07 Respiratory Rate 18 12/07/17 09:07 Blood Pressure 142/91 12/07/17 09:07 O2 Sat by Pulse Oximetry (%) Laboratory Last Values WBC 10.6 K/mm3 (4.0-10.0) H 12/07/17 05:50 RBC 5.37 M/mm3 (4.00-5.60) 12/07/17 05:50 Hgb 14.4 GM/dL (11.7-16.9) 12/07/17 05:50 Hct 44.9 % (35.4-49) D 12/07/17 05:50 MCV 83.7 fl (80-96) 12/07/17 05:50 MCH 26.8 pg (25.7-33.7) 12/07/17 05:50 MCHC 32.0 g/dl (32.0-35.9) 12/07/17 05:50 RDW 16.5 % (11.9-15.9) H 12/07/17 05:50 Plt Count 209 K/MM3 (134-434) 12/07/17 05:50 MPV 10.5 fl (7.5-11.1) 12/07/17 05:50 Sodium 143 mmol/L (136-145) 12/07/17 05:50 Potassium 4.5 mmol/L (3.5-5.1) 12/07/17 05:50 Chloride 106 mmol/L (98-107) 12/07/17 05:50 Carbon Dioxide 27 mmol/L (21-32) 12/07/17 05:50 Anion Gap 10 MMOL/L (8-16) 12/07/17 05:50 BUN 30 mg/dL (7-18) H 12/07/17 05:50 Creatinine 1.6 mg/dL (0.7-1.3) H 12/07/17 05:50 Creat Clearance w eGFR 45.62 (>60) 12/07/17 05:50 POC Glucometer 96 UNITS (80-120) 12/06/17 12:18 Random Glucose 103 mg/dL (74-106) 12/07/17 05:50 Calcium 8.2 mg/dL (8.5-10.1) L 12/07/17 05:50 Total Bilirubin 0.1 mg/dL (0.2-1.0) L 12/07/17 05:50 AST 22 U/L (15-37) 12/07/17 05:50 ALT 28 U/L (13-61) 12/07/17 05:50 Alkaline Phosphatase 88 U/L (45-117) 12/07/17 05:50 Total Protein 5.8 g/dl (6.4-8.2) L 12/07/17 05:50 Albumin 2.4 g/dl (3.4-5.0) L 12/07/17 05:50 Urine Color Ltyellow 12/06/17 Unknown Urine Appearance Clear 12/06/17 Unknown Urine pH 5.0 (5.0-8.0) 12/06/17 Unknown Ur Specific [place] 1.017 (1.001-1.035) 12/06/17 Unknown Urine Protein 3+ (NEGATIVE) H 12/06/17 Unknown Urine Glucose (UA) 1+ (NEGATIVE) H 12/06/17 Unknown Urine Ketones Negative (NEGATIVE) 12/06/17 Unknown Urine Blood Negative (NEGATIVE) 12/06/17 Unknown Urine Nitrite Negative (NEGATIVE) 12/06/17 Unknown Urine Bilirubin Negative (<2.0 mg/dL) 12/06/17 Unknown Urine Urobilinogen Negative mg/dL (0.2-1.0) 12/06/17 Unknown Ur Leukocyte Esterase Negative (NEGATIVE) 12/06/17 Unknown Urine WBC (Auto) 3 /hpf (3-5) 12/06/17 Unknown Urine RBC (Auto) 1 /hpf (0-3) 12/06/17 Unknown Urine Bacteria Rare /hpf (NONE SEEN) 12/06/17 Unknown Urine Mucus Rare 12/06/17 Unknown RPR Titer Nonreactive (NONREACTIVE) 12/07/17 05:50 HIV 1&2 Antibody Screen Negative 12/06/17 14:00 HIV P24 Antigen Negative 12/06/17 14:00 lab noted repeat camp Assessment: 12/07/17 12:22 withdrawal sx Plan: continue deox
[2017-12-07] MEDS: THIAMINE HCL 100 MG TABLET (FP) PO SCH (23:04)
[2017-12-07] MEDS: ATORVASTATIN CA 40 MG TABLET (FP) PO SCH (23:04)
[2017-12-08] MEDS: chlordiazePOXIDE HCL 25 MG CAPSULE PO SCH ×2 (06:04→10:02)
[2017-12-08] MEDS: PRENATAL VITAMINS W/ FOLIC ACID TABLET (FP) PO SCH (10:01)
[2017-12-08] MEDS: HYDROCHLOROTHIAZIDE 25 MG TABLET (FP) PO SCH (10:01)
[2017-12-08] MEDS: ASPIRIN 81 MG CHEWABLE TABLETS PO SCH (10:01)
[2017-12-08] MEDS: amLODIPine BESYLATE 10 MG TABLET (FP) PO SCH (10:02)
[2017-12-08] MEDS: RANITIDINE HCL 150 MG TABLET (FP) PO SCH ×2 (10:02→23:05)
[2017-12-08] MEDS: LISINOPRIL 20 MG TABLET (FP) PO SCH (10:02)
--- NOTE | 2017-12-08 10:11 | PN ---
S CIWA - CIWA Score Nausea/Vomitin-No Nausea/No Vomiting Muscle Tremors: 3 Anxiety: 3 Agitation: 3 Paroxysmal Sweats: 3 Orientation: 0-Oriented Tacttile Disturbances: 0-None Auditory Disturbances: 0-None Visual Disturbances: 0-None Headache: 0-None Present CIWA-Ar Total Score: 12 BHS Progress Note (SOAP) Subjective: shakes sweats anxiety Objective: 12/08/17 10:10 Vital Signs Temperature 97.1 F L 12/08/17 09:58 Pulse Rate 88 12/08/17 09:58 Respiratory Rate 16 12/08/17 09:58 Blood Pressure 149/91 12/08/17 09:58 O2 Sat by Pulse Oximetry (%) pending labs Assessment: 12/08/17 10:10 withdrawal sx Plan: continue detox increase fluids
[2017-12-08] MEDS: NICOTINE 14 MG/24 HOURS TOPICAL PATCH TD SCH (10:23)
[2017-12-08 11:21] LABS: HEMATOCRIT 44.4 % (35.4-49); HEMOGLOBIN 14.3 GM/dL (11.7-16.9); MCH 26.2 pg (25.7-33.7); MCHC 32.1 g/dl (32.0-35.9); MEAN CELL VOLUME 81.7 fl (80-96); MEAN PLT VOLUME 9.5 fl (7.5-11.1); PLATELET COUNT 243 K/MM3 (134-434); RBC 5.44 M/mm3 (4.00-5.60); RDW 15.9 % (11.9-15.9)
[2017-12-08] MEDS: chlordiazePOXIDE 5 MG CAPSULE PO SCH ×2 (17:52→23:04)
[2017-12-08] MEDS: THIAMINE HCL 100 MG TABLET (FP) PO SCH (23:04)
[2017-12-08] MEDS: ATORVASTATIN CA 40 MG TABLET (FP) PO SCH (23:05)
[2017-12-09] MEDS: chlordiazePOXIDE 5 MG CAPSULE PO SCH ×2 (05:42→10:11)
[2017-12-09] MEDS: LISINOPRIL 20 MG TABLET (FP) PO SCH (10:10)
[2017-12-09] MEDS: ASPIRIN 81 MG CHEWABLE TABLETS PO SCH (10:10)
[2017-12-09] MEDS: amLODIPine BESYLATE 10 MG TABLET (FP) PO SCH (10:10)
[2017-12-09] MEDS: PRENATAL VITAMINS W/ FOLIC ACID TABLET (FP) PO SCH (10:10)
[2017-12-09] MEDS: RANITIDINE HCL 150 MG TABLET (FP) PO SCH ×2 (10:10→22:46)
[2017-12-09] MEDS: HYDROCHLOROTHIAZIDE 25 MG TABLET (FP) PO SCH (10:10)
[2017-12-09] MEDS: NICOTINE 14 MG/24 HOURS TOPICAL PATCH TD SCH (10:11)
--- NOTE | 2017-12-09 15:55 | PN ---
BHS Progress Note (SOAP) Subjective: pt here for alcohol detox- has no complaints today O: Vital Signs - 24 hr 12/08/17 12/08/17 12/09/17 18:19 22:16 00:30 Temperature 98.6 F 98.1 F Pulse Rate 97 H 83 Respiratory 19 20 18 Rate Blood Pressure 123/81 149/77 12/09/17 12/09/17 12/09/17 03:30 07:50 08:52 Temperature 97.5 F L 97.9 F Pulse Rate 83 74 Respiratory 20 20 18 Rate Blood Pressure 144/93 137/79 12/09/17 14:01 Temperature 98.1 F Pulse Rate 86 Respiratory 16 Rate Blood Pressure 151/75 Laboratory Tests 12/06/17 12/06/17 12/06/17 12:18 14:00 Unknown WBC RBC Hgb Hct MCV MCH MCHC RDW Plt Count MPV Sodium Potassium Chloride Carbon Dioxide Anion Gap BUN Creatinine Creat Clearance w eGFR POC Glucometer 96 Random Glucose Calcium Total Bilirubin AST ALT Alkaline Phosphatase Total Protein Albumin Urine Color Ltyellow Urine Appearance Clear Urine pH 5.0 Ur Specific [place] 1.017 Urine Protein 3+ H Urine Glucose (UA) 1+ H Urine Ketones Negative Urine Blood Negative Urine Nitrite Negative Urine Bilirubin Negative Urine Urobilinogen Negative Ur Leukocyte Esterase Negative Urine WBC (Auto) 3 Urine RBC (Auto) 1 Urine Bacteria Rare Urine Mucus Rare RPR Titer HIV 1&2 Antibody Screen Negative HIV P24 Antigen Negative 12/07/17 12/07/17 12/07/17 05:50 05:50 05:50 WBC 10.6 H RBC 5.37 Hgb 14.4 Hct 44.9 D MCV 83.7 MCH 26.8 MCHC 32.0 RDW 16.5 H Plt Count 209 MPV 10.5 Sodium 143 Potassium 4.5 Chloride 106 Carbon Dioxide 27 Anion Gap 10 BUN 30 H Creatinine 1.6 H Creat Clearance w eGFR 45.62 POC Glucometer Random Glucose 103 Calcium 8.2 L Total Bilirubin 0.1 L AST 22 ALT 28 Alkaline Phosphatase 88 Total Protein 5.8 L Albumin 2.4 L Urine Color Urine Appearance Urine pH Ur Specific [place] Urine Protein Urine Glucose (UA) Urine Ketones Urine Blood Urine Nitrite Urine Bilirubin Urine Urobilinogen Ur Leukocyte Esterase Urine WBC (Auto) Urine RBC (Auto) Urine Bacteria Urine Mucus RPR Titer Nonreactive HIV 1&2 Antibody Screen HIV P24 Antigen 12/08/17 07:20 WBC 9.0 RBC 5.44 Hgb 14.3 Hct 44.4 MCV 81.7 MCH 26.2 MCHC 32.1 RDW 15.9 Plt Count 243 MPV 9.5 Sodium Potassium Chloride Carbon Dioxide Anion Gap BUN Creatinine Creat Clearance w eGFR POC Glucometer Random Glucose Calcium Total Bilirubin AST ALT Alkaline Phosphatase Total Protein Albumin Urine Color Urine Appearance Urine pH Ur Specific [place] Urine Protein Urine Glucose (UA) Urine Ketones Urine Blood Urine Nitrite Urine Bilirubin Urine Urobilinogen Ur Leukocyte Esterase Urine WBC (Auto) Urine RBC (Auto) Urine Bacteria Urine Mucus RPR Titer HIV 1&2 Antibody Screen HIV P24 Antigen low albumi, high RDW, not anemic, increased Cr Ass/Plan: pt to go home tomorrow- completing alcohol detox protocol- doing well
[2017-12-09] MEDS: chlordiazePOXIDE HCL 10 MG CAPSULE PO SCH ×2 (17:46→22:45)
[2017-12-09] MEDS: THIAMINE HCL 100 MG TABLET (FP) PO SCH (22:45)
[2017-12-09] MEDS: ATORVASTATIN CA 40 MG TABLET (FP) PO SCH (22:45)
[2017-12-10] MEDS: chlordiazePOXIDE HCL 10 MG CAPSULE PO SCH ×2 (05:17→09:59)
--- NOTE | 2017-12-10 09:06 | DS ---
[facility] Detox Discharge Summary Admission Date: 12/06/17 Discharge Date: 12/10/17 - History Present History: Alcohol Dependence Additional Comments: 52 years old male admitted on 12/06/17 for alcohol withdrawal sx stated feeling good confidence to leave the detox and continue [facility] for sobriety denies alcohol withdrawal sx alert oriented x 3 no acute distress aftercare [facility] - Physical Exam Results Vital Signs: Vital Signs Temperature 97.5 F L 12/10/17 07:18 Pulse Rate 71 12/10/17 07:18 Respiratory Rate 20 12/10/17 07:18 Blood Pressure 124/83 12/10/17 07:18 O2 Sat by Pulse Oximetry (%) Pertinent Admission Physical Exam Findings: alcohol withdrawal sx Vital Signs Temperature 98.1 F 12/10/17 09:32 Pulse Rate 82 12/10/17 09:32 Respiratory Rate 18 12/10/17 09:32 Blood Pressure 145/88 12/10/17 09:32 O2 Sat by Pulse Oximetry (%) Laboratory Last Values WBC 9.0 K/mm3 (4.0-10.0) 12/08/17 07:20 RBC 5.44 M/mm3 (4.00-5.60) 12/08/17 07:20 Hgb 14.3 GM/dL (11.7-16.9) 12/08/17 07:20 Hct 44.4 % (35.4-49) 12/08/17 07:20 MCV 81.7 fl (80-96) 12/08/17 07:20 MCH 26.2 pg (25.7-33.7) 12/08/17 07:20 MCHC 32.1 g/dl (32.0-35.9) 12/08/17 07:20 RDW 15.9 % (11.9-15.9) 12/08/17 07:20 Plt Count 243 K/MM3 (134-434) 12/08/17 07:20 MPV 9.5 fl (7.5-11.1) 12/08/17 07:20 Sodium 143 mmol/L (136-145) 12/07/17 05:50 Potassium 4.5 mmol/L (3.5-5.1) 12/07/17 05:50 Chloride 106 mmol/L (98-107) 12/07/17 05:50 Carbon Dioxide 27 mmol/L (21-32) 12/07/17 05:50 Anion Gap 10 MMOL/L (8-16) 12/07/17 05:50 BUN 30 mg/dL (7-18) H 12/07/17 05:50 Creatinine 1.6 mg/dL (0.7-1.3) H 12/07/17 05:50 Creat Clearance w eGFR 45.62 (>60) 12/07/17 05:50 POC Glucometer 96 UNITS (80-120) 12/06/17 12:18 Random Glucose 103 mg/dL (74-106) 12/07/17 05:50 Calcium 8.2 mg/dL (8.5-10.1) L 12/07/17 05:50 Total Bilirubin 0.1 mg/dL (0.2-1.0) L 12/07/17 05:50 AST 22 U/L (15-37) 12/07/17 05:50 ALT 28 U/L (13-61) 12/07/17 05:50 Alkaline Phosphatase 88 U/L (45-117) 12/07/17 05:50 Total Protein 5.8 g/dl (6.4-8.2) L 12/07/17 05:50 Albumin 2.4 g/dl (3.4-5.0) L 12/07/17 05:50 Urine Color Ltyellow 12/06/17 Unknown Urine Appearance Clear 12/06/17 Unknown Urine pH 5.0 (5.0-8.0) 12/06/17 Unknown Ur Specific [place] 1.017 (1.001-1.035) 12/06/17 Unknown Urine Protein 3+ (NEGATIVE) H 12/06/17 Unknown Urine Glucose (UA) 1+ (NEGATIVE) H 12/06/17 Unknown Urine Ketones Negative (NEGATIVE) 12/06/17 Unknown Urine Blood Negative (NEGATIVE) 12/06/17 Unknown Urine Nitrite Negative (NEGATIVE) 12/06/17 Unknown Urine Bilirubin Negative (<2.0 mg/dL) 12/06/17 Unknown Urine Urobilinogen Negative mg/dL (0.2-1.0) 12/06/17 Unknown Ur Leukocyte Esterase Negative (NEGATIVE) 12/06/17 Unknown Urine WBC (Auto) 3 /hpf (3-5) 12/06/17 Unknown Urine RBC (Auto) 1 /hpf (0-3) 12/06/17 Unknown Urine Bacteria Rare /hpf (NONE SEEN) 12/06/17 Unknown Urine Mucus Rare 12/06/17 Unknown RPR Titer Nonreactive (NONREACTIVE) 12/07/17 05:50 HIV 1&2 Antibody Screen Negative 12/06/17 14:00 HIV P24 Antigen Negative 12/06/17 14:00 lab noted - Treatment Hospital Course: Detox Protocol Followed, Detoxed Safely, Responded well, Discharged Condition Good, Rehab Referral Accepted [facility] Medication Discharge Medications: Ambulatory Orders Aspirin [ASA -] 81 mg PO DAILY #30 tab 05/10/17 Multivitamins [Multivit ([facility] Formulary)] 1 tab PO DAILY 12/06/17 Amlodipine Besylate [Norvasc -] 10 mg PO DAILY #30 tablet 12/10/17 Atorvastatin Ca [Lipitor] 40 mg PO HS #30 tablet 12/10/17 Hydrochlorothiazide [Hctz -] 25 mg PO DAILY #30 tablet 12/10/17 Lisinopril [Prinivil -] 40 mg PO DAILY #30 tablet 12/10/17 Ranitidine [Zantac -] 150 mg PO BID #60 tablet 12/10/17 - Diagnosis (1) Alcohol dependence with uncomplicated withdrawal Status: Acute (2) Nicotine dependence Status: Acute Qualifiers: Nicotine product type: cigarettes Substance use status: in withdrawal Qualified Code(s): F17.213 - Nicotine dependence, cigarettes, with withdrawal (3) Acid reflux disease Status: Chronic Qualifiers: Esophagitis presence: esophagitis presence not specified Qualified Code(s) : K21.9 - Gastro-esophageal reflux disease without esophagitis (4) Hypercholesteremia Status: Chronic (5) Hypertension Status: Chronic Qualifiers: Hypertension type: essential hypertension Qualified Code(s): I10 - Essential (primary) hypertension (6) Obesities, morbid Status: Chronic (7) Drug-induced mood disorder Status: Suspected - AMA Did Patient Leave Against Medical Advice: No
[2017-12-10] MEDS: RANITIDINE HCL 150 MG TABLET (FP) PO SCH (09:30)
[2017-12-10] MEDS: ASPIRIN 81 MG CHEWABLE TABLETS PO SCH (09:30)
[2017-12-10] MEDS: HYDROCHLOROTHIAZIDE 25 MG TABLET (FP) PO SCH (09:30)
[2017-12-10] MEDS: NICOTINE 14 MG/24 HOURS TOPICAL PATCH TD SCH (09:31)
[2017-12-10] MEDS: PRENATAL VITAMINS W/ FOLIC ACID TABLET (FP) PO SCH (09:31)
[2017-12-10] MEDS: amLODIPine BESYLATE 10 MG TABLET (FP) PO SCH (09:31)
[2017-12-10] MEDS: LISINOPRIL 20 MG TABLET (FP) PO SCH (09:31)
[2017-12-10 09:32] VITALS: BP 145/88; PULSE 82; TEMP 98.1
== END 2017-12-10 09:47 | disposition home or self-care (01) | DRG 775 ==
LOC: YASAS 09:22 → Y6N 14:02
PROC: HZ2ZZZZ Detoxification Services for Substance Abuse Treatment (ICD-10-PCS; principal; 2017-12-06)
DX: F10.230 Alcohol dependence with withdrawal, uncomplicated (principal); F17.213 Nicotine dependence, cigarettes, with withdrawal; F19.24 Other psychoactive substance dependence with psychoactive substance-induced mood disorder; F32.9 Major depressive disorder, single episode, unspecified; G47.00 Insomnia, unspecified; I10 Essential (primary) hypertension; E78.00 Pure hypercholesterolemia, unspecified; K21.9 Gastro-esophageal reflux disease without esophagitis; E66.01 Morbid (severe) obesity due to excess calories; Z68.37 Body mass index [BMI] 37.0-37.9, adult; Z59.0 Homelessness
CPT/HCPCS: 36415; 80053; 81003; 81015; 82962; 85027; 86593; 87389; 93005; 93010

== ENCOUNTER 2017-12-11 08:51 | Inpatient (IN) | payer OTHER ==
[2017-12-11 12:06] VITALS: BMI 38.2
--- NOTE | 2017-12-11 15:50 | HP ---
Admission ROS [facility] Chief Complaint: alcohol and crack/ cocaine rehab Allergies/Adverse Reactions: Allergies Allergy/AdvReac Type Severity Reaction Status Date / Time No Known Allergies Allergy Verified 12/11/17 11:46 History of Present Illness: 52 to AA male with long history of alcohol, nicotine, and crack /cocaine dependence is here for rehabilitation. Patient completed detox at [facility] 12/06/17 - 12/10/17. PMHX: HTN, GERD, Hyperlipidemia and depression. Denies suicidal / homicidal ideation. Reports longest period of sobriety 18 years while in long term. Denies hx of seizures or blackouts. Exam Limitations: No Limitations - Ebola screening Have you traveled outside of the country in the last 21 days: No (N) Have you had contact with anyone from an Ebola affected area: No Have you been sick,other than usual withdrawal symptoms: No Do you have a fever: No - Review of Systems Constitutional: Diaphoresis, Changes in sleep EENT: reports: No Symptoms Reported Respiratory: reports: No Symptoms reported Cardiac: reports: No Symptoms Reported GI: reports: No Symptoms Reported : reports: No Symptoms Reported Musculoskeletal: reports: No Symptoms Reported Integumentary: reports: No Symptoms Reported Neuro: reports: No Symptoms reported Endocrine: reports: No Symptoms Reported Hematology: reports: No Symptoms Reported Psychiatric: reports: Orientated x3, Anxious Other Systems: Reviewed and Negative Patient History - Patient Medical History Hx Anemia: No Hx Asthma: No Hx Chronic Obstructive Pulmonary Disease (COPD): No Hx Cancer: No Hx Cardiac Disorders: No Hx Congestive Heart Failure: No Hx Hypertension: Yes Hx Hypercholesterolemia: Yes (Med. in past; TAKE MEDICATION 3 DAYS AGO) Hx Pacemaker: No HX Cerebrovascular Accident: No Hx Seizures: No Hx Dementia: No Hx Diabetes: No Hx Gastrointestinal Disorders: Yes (acid reflux) Hx Liver Disease: No Hx Genitourinary Disorders: No Hx Sexually Transmitted Disorders: No Hx Renal Disease (ESRD): No Hx Thyroid Disease: No Hx Human Immunodeficiency Virus (HIV): No ( NEGATIVE HX ) Hx Hepatitis C: No (NEGATIVE HX.) Hx Depression: No Hx Suicide Attempt: No Hx Bipolar Disorder: No Hx Schizophrenia: No - Patient Surgical History Past Surgical History: No Hx Neurologic Surgery: No Hx Cataract Extraction: No Hx Cardiac Surgery: No Hx Lung Surgery: No Hx Breast Surgery: No Hx Breast Biopsy: No Hx Abdominal Surgery: No Hx Appendectomy: No Hx Cholecystectomy: No Hx Genitourinary Surgery: No Hx Section: No Hx Orthopedic Surgery: No Anesthesia Reaction: No - PPD History Previous Implant?: Yes Documented Results: Negative w/proof Implanted On Prior [facility] Admission?: Yes Date: 10/08/17 Results: 0 mm PPD to be Administered?: No - Smoking Cessation Smoking history: Current every day smoker Have you smoked in the past 12 months: Yes Aproximately how many cigarettes per day: 5 Cigars Per Day: 0 Hx Chewing Tobacco Use: No Initiated information on smoking cessation: Yes 'Breaking Loose' booklet given: 12/11/17 - Substances Abused Crack Route: Smoking Frequency: 3-6 times per week Amount used: $150 Age of first use: 23 Date of Last Use: 12/10/17 Alcohol-beer Route: Oral Frequency: Daily Amount used: 2-3 6 pks. Age of first use: 16 Date of Last Use: 12/10/17 Family Disease History - Family Disease History Family Disease History: Diabetes: Mother (hypertension,Substance abuse, Alcohol ; ), Heart Disease: Mother, Other: Father (ALCOHOL,), Mother, Brother (no contact), Sister (no contact) Admission Physical Exam BHS - Vital Signs Vital Signs: Vital Signs - 24 hr 12/11/17 12:02 Temperature 98.7 F Pulse Rate 93 H Respiratory 18 Rate Blood Pressure 156/91 - Physical General Appearance: Yes: Appropriately Dressed, Obese, Sweating HEENTM: Yes: EOMI, Hearing grossly Normal, Normal ENT Inspection, Normocephalic , Normal Voice, BIB, Pharynx Normal, Tm's normal Respiratory: Yes: Chest Non-Tender, Lungs Clear, Normal Breath Sounds, No Respiratory Distress, No Accessory Muscle Use Neck: Yes: Within Normal Limits Breast: Yes: Breast Exam Deferred Cardiology: Yes: Regular Rhythm, Regular Rate Abdominal: Yes: Normal Bowel Sounds, Non Tender, Soft, Protuberent Genitourinary: Yes: Within Normal Limits Back: Yes: Within Normal Limits, Normal Inspection Extremities: Yes: Normal Capillary Refill, Normal Inspection, Normal Range of Motion, Non-Tender Neurological: Yes: chief of production II-XII NML intact, Fully Oriented, Alert, Motor Strength 5/5, Depressed Affect Integumentary: Yes: Normal Color, Warm, Diaphoresis Lymphatic: Yes: Within Normal Limits - Diagnostic (1) Alcohol dependence Current Visit: Yes Status: Acute Qualifiers: Substance use status: uncomplicated Qualified Code(s): F10.20 - Alcohol dependence, uncomplicated (2) Cocaine dependence Current Visit: Yes Status: Acute Qualifiers: Substance use status: uncomplicated Qualified Code(s): F14.20 - Cocaine dependence, uncomplicated (3) Depression Current Visit: Yes Status: Suspected Qualifiers: Depression Type: unspecified Qualified Code(s): F32.9 - Major depressive disorder, single episode, unspecified (4) Nicotine dependence Current Visit: Yes Status: Acute Qualifiers: Nicotine product type: cigarettes Substance use status: in withdrawal Qualified Code(s): F17.213 - Nicotine dependence, cigarettes, with withdrawal (5) Acid reflux disease Current Visit: Yes Status: Chronic Qualifiers: Esophagitis presence: esophagitis presence not specified Qualified Code(s) : K21.9 - Gastro-esophageal reflux disease without esophagitis (6) Hypercholesteremia Current Visit: No Status: Chronic (7) Hypertension Current Visit: Yes Status: Chronic Qualifiers: Hypertension type: essential hypertension Qualified Code(s): I10 - Essential (primary) hypertension (8) Obesities, morbid Current Visit: Yes Status: Chronic BHS Breath Alcohol Content Breath Alcohol Content: 0 Urine Drug Screen - Results Urine Drug Screen Results: BINH-Cocaine, BZO-Benzodiazepines Inpatient Rehab Admission - Initial Determination Are CD services needed?: Yes Free of communicable disease: Yes Not in need of hospitalization: Yes - Rehab Admission Criteria Previous failed treatment: Yes Poor recovery environment: Yes Comorbidities: Yes Lacks judgement: Yes Patient is meeting Inpatient Rehab admission criteria:: Yes
[2017-12-11] MEDS ORDERED: MAGNESIUM CITRATE 300 ML BOTTLE PO PRN (16:00)
[2017-12-11] MEDS ORDERED: NICOTINE POLACRILEX 2 MG GUM BC PRN (16:00)
[2017-12-11] MEDS ORDERED: LOPERAMIDE HCL 2 MG CAPSULE PO PRN (16:00)
[2017-12-11] MEDS ORDERED: hydrOXYzine PAMOATE 50 MG CAPSULE (FP) PO PRN (16:00)
[2017-12-11] MEDS ORDERED: P-EPHED 60MG/TRIPROLIDI 2.5MG TABLET PO PRN (16:00)
[2017-12-11] MEDS ORDERED: ACETAMINOPHEN 325 MG TABLET (FP) PO PRN (16:00)
[2017-12-11] MEDS ORDERED: MAG HYDROX/AL HYDROX/SIMETH 30 ML UNIT-DOSE CUP PO PRN (16:00)
[2017-12-11] MEDS ORDERED: guaiFENesin/D-METHORPHAN HB 10 ML UNIT-DOSE CUPS PO PRN (16:00)
[2017-12-11] MEDS ORDERED: MENTHOL/PHENOL 1 EACH UD MM PRN (16:00)
--- NOTE | 2017-12-11 16:05 | PN ---
[facility] Progress Note Note: Vital Signs Temperature 98.7 F 12/11/17 12:02 Pulse Rate 93 H 12/11/17 12:02 Respiratory Rate 18 12/11/17 12:02 Blood Pressure 156/91 12/11/17 12:02 O2 Sat by Pulse Oximetry (%) Patient reports he has not taken BP medications for today. BP meds ordered for now. increase PO fluids continue to monitor
[2017-12-11] MEDS ORDERED: amLODIPine BESYLATE 10 MG TABLET (FP) PO ONE (17:00)
[2017-12-11] MEDS ORDERED: HYDROCHLOROTHIAZIDE 25 MG TABLET (FP) PO ONE (17:00)
[2017-12-11] MEDS ORDERED: LISINOPRIL 20 MG TABLET (FP) PO ONE (17:00)
[2017-12-11] MEDS: ATORVASTATIN CA 40 MG TABLET (FP) PO SCH (21:50)
[2017-12-11] MEDS: THIAMINE HCL 100 MG TABLET (FP) PO SCH (21:50)
[2017-12-11] MEDS: RANITIDINE HCL 150 MG TABLET (FP) PO SCH (21:50)
[2017-12-11] MEDS ORDERED: MELATONIN 5 MG TABLETS PO PRN (22:00)
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
[2017-12-12] MEDS: NICOTINE 14 MG/24 HOURS TOPICAL PATCH TD SCH (10:11)
[2017-12-12] MEDS: RANITIDINE HCL 150 MG TABLET (FP) PO SCH ×2 (10:11→22:00)
[2017-12-12] MEDS: amLODIPine BESYLATE 10 MG TABLET (FP) PO SCH (10:11)
[2017-12-12] MEDS: HYDROCHLOROTHIAZIDE 25 MG TABLET (FP) PO SCH (10:11)
[2017-12-12] MEDS: LISINOPRIL 20 MG TABLET (FP) PO SCH (10:11)
[2017-12-12] MEDS: PRENATAL VITAMINS W/ FOLIC ACID TABLET (FP) PO SCH (10:11)
[2017-12-12] MEDS: ASPIRIN 81 MG CHEWABLE TABLETS PO SCH (10:11)
[2017-12-12] MEDS ORDERED: FLU VACCINE QUAD 60 MCG/0.5 ML (MDV 18-19) IM ONE (12:00)
--- NOTE | 2017-12-12 16:46 | EKG ---
Test Reason : Blood Pressure : / mmHG Vent. Rate : 097 BPM Atrial Rate : 097 BPM P-R Int : 144 ms QRS Dur : 086 ms QT Int : 352 ms P-R-T Axes : 035 011 -15 degrees QTc Int : 447 ms NORMAL SINUS RHYTHM MODERATE VOLTAGE CRITERIA FOR LVH, MAY BE NORMAL VARIANT NONSPECIFIC ST AND T WAVE ABNORMALITY ABNORMAL ECG WHEN COMPARED WITH ECG OF 06-DEC-2017 14:48, NON-SPECIFIC CHANGE IN ST SEGMENT IN ANTERIOR LEADS Confirmed by Kali Bourne ([id number]) on 12/12/2017 4:45:26 PM Referred By: Confirmed By:Kali Bourne
[2017-12-12 17:02] LABS: URINE APPEARANCE CLEAR; URINE BILIRUBIN NEGATIVE (<2.0 mg/dL); URINE COLOR STRAW; URINE GLUCOSE (UA) 1+ (NEGATIVE); URINE KETONE NEGATIVE (NEGATIVE); URINE LEUK ESTERASE NEGATIVE (NEGATIVE); URINE NITRITE NEGATIVE (NEGATIVE); URINE UROBILINOGEN NEGATIVE mg/dL (0.2-1.0)
[2017-12-12 17:03] LABS: URINE PROTEIN 3+ (NEGATIVE)
[2017-12-12] MEDS: THIAMINE HCL 100 MG TABLET (FP) PO SCH (22:00)
[2017-12-12] MEDS: ATORVASTATIN CA 40 MG TABLET (FP) PO SCH (22:00)
[2017-12-13] MEDS: LISINOPRIL 20 MG TABLET (FP) PO SCH (10:03)
[2017-12-13] MEDS: ASPIRIN 81 MG CHEWABLE TABLETS PO SCH (10:03)
[2017-12-13] MEDS: NICOTINE 14 MG/24 HOURS TOPICAL PATCH TD SCH (10:03)
[2017-12-13] MEDS: HYDROCHLOROTHIAZIDE 25 MG TABLET (FP) PO SCH (10:03)
[2017-12-13] MEDS: RANITIDINE HCL 150 MG TABLET (FP) PO SCH ×2 (10:03→21:25)
[2017-12-13] MEDS: amLODIPine BESYLATE 10 MG TABLET (FP) PO SCH (10:03)
[2017-12-13] MEDS: PRENATAL VITAMINS W/ FOLIC ACID TABLET (FP) PO SCH (10:03)
[2017-12-13] MEDS: THIAMINE HCL 100 MG TABLET (FP) PO SCH (21:25)
[2017-12-13] MEDS: ATORVASTATIN CA 40 MG TABLET (FP) PO SCH (21:25)
[2017-12-13] MEDS: MELATONIN 5 MG TABLETS PO PRN (21:26)
[2017-12-14] MEDS: amLODIPine BESYLATE 10 MG TABLET (FP) PO SCH (10:15)
[2017-12-14] MEDS: LISINOPRIL 20 MG TABLET (FP) PO SCH (10:15)
[2017-12-14] MEDS: NICOTINE 14 MG/24 HOURS TOPICAL PATCH TD SCH (10:16)
[2017-12-14] MEDS: RANITIDINE HCL 150 MG TABLET (FP) PO SCH ×2 (10:16→21:27)
[2017-12-14] MEDS: PRENATAL VITAMINS W/ FOLIC ACID TABLET (FP) PO SCH (10:16)
[2017-12-14] MEDS: HYDROCHLOROTHIAZIDE 25 MG TABLET (FP) PO SCH (10:16)
[2017-12-14] MEDS: ASPIRIN 81 MG CHEWABLE TABLETS PO SCH (10:17)
[2017-12-14] MEDS: THIAMINE HCL 100 MG TABLET (FP) PO SCH (21:28)
[2017-12-14] MEDS: ATORVASTATIN CA 40 MG TABLET (FP) PO SCH (21:28)
[2017-12-15] MEDS: LISINOPRIL 20 MG TABLET (FP) PO SCH (09:59)
[2017-12-15] MEDS: PRENATAL VITAMINS W/ FOLIC ACID TABLET (FP) PO SCH (09:59)
[2017-12-15] MEDS: RANITIDINE HCL 150 MG TABLET (FP) PO SCH ×2 (09:59→21:26)
[2017-12-15] MEDS: NICOTINE 14 MG/24 HOURS TOPICAL PATCH TD SCH (09:59)
[2017-12-15] MEDS: ASPIRIN 81 MG CHEWABLE TABLETS PO SCH (09:59)
[2017-12-15] MEDS: amLODIPine BESYLATE 10 MG TABLET (FP) PO SCH (09:59)
[2017-12-15] MEDS: HYDROCHLOROTHIAZIDE 25 MG TABLET (FP) PO SCH (09:59)
[2017-12-15] MEDS: THIAMINE HCL 100 MG TABLET (FP) PO SCH (21:26)
[2017-12-15] MEDS: ATORVASTATIN CA 40 MG TABLET (FP) PO SCH (21:26)
[2017-12-15] MEDS: MAGNESIUM HYDROX 2400MG/30ML ORAL SUSPENSION 30 ML CUP PO PRN (21:27)
[2017-12-16] MEDS: HYDROCHLOROTHIAZIDE 25 MG TABLET (FP) PO SCH (10:01)
[2017-12-16] MEDS: PRENATAL VITAMINS W/ FOLIC ACID TABLET (FP) PO SCH (10:01)
[2017-12-16] MEDS: amLODIPine BESYLATE 10 MG TABLET (FP) PO SCH (10:01)
[2017-12-16] MEDS: ASPIRIN 81 MG CHEWABLE TABLETS PO SCH (10:01)
[2017-12-16] MEDS: NICOTINE 14 MG/24 HOURS TOPICAL PATCH TD SCH (10:01)
[2017-12-16] MEDS: RANITIDINE HCL 150 MG TABLET (FP) PO SCH ×2 (10:01→21:32)
[2017-12-16] MEDS: LISINOPRIL 20 MG TABLET (FP) PO SCH (10:01)
[2017-12-16] MEDS: THIAMINE HCL 100 MG TABLET (FP) PO SCH (21:32)
[2017-12-16] MEDS: ATORVASTATIN CA 40 MG TABLET (FP) PO SCH (21:32)
[2017-12-16] MEDS: MAGNESIUM HYDROX 2400MG/30ML ORAL SUSPENSION 30 ML CUP PO PRN (21:34)
[2017-12-17] MEDS: HYDROCHLOROTHIAZIDE 25 MG TABLET (FP) PO SCH (10:05)
[2017-12-17] MEDS: LISINOPRIL 20 MG TABLET (FP) PO SCH (10:05)
[2017-12-17] MEDS: RANITIDINE HCL 150 MG TABLET (FP) PO SCH ×2 (10:05→21:30)
[2017-12-17] MEDS: ASPIRIN 81 MG CHEWABLE TABLETS PO SCH (10:05)
[2017-12-17] MEDS: amLODIPine BESYLATE 10 MG TABLET (FP) PO SCH (10:05)
[2017-12-17] MEDS: PRENATAL VITAMINS W/ FOLIC ACID TABLET (FP) PO SCH (10:06)
[2017-12-17] MEDS: NICOTINE 14 MG/24 HOURS TOPICAL PATCH TD SCH (10:06)
[2017-12-17] MEDS: ATORVASTATIN CA 40 MG TABLET (FP) PO SCH (21:30)
[2017-12-17] MEDS: MELATONIN 5 MG TABLETS PO PRN (21:30)
[2017-12-17] MEDS: THIAMINE HCL 100 MG TABLET (FP) PO SCH (21:30)
[2017-12-18] MEDS: HYDROCHLOROTHIAZIDE 25 MG TABLET (FP) PO SCH (10:45)
[2017-12-18] MEDS: LISINOPRIL 20 MG TABLET (FP) PO SCH (10:45)
[2017-12-18] MEDS: PRENATAL VITAMINS W/ FOLIC ACID TABLET (FP) PO SCH (10:46)
[2017-12-18] MEDS: NICOTINE 14 MG/24 HOURS TOPICAL PATCH TD SCH (10:46)
[2017-12-18] MEDS: RANITIDINE HCL 150 MG TABLET (FP) PO SCH ×2 (10:46→22:00)
[2017-12-18] MEDS: ASPIRIN 81 MG CHEWABLE TABLETS PO SCH (10:46)
[2017-12-18] MEDS: amLODIPine BESYLATE 10 MG TABLET (FP) PO SCH (10:46)
[2017-12-18] MEDS: MELATONIN 5 MG TABLETS PO PRN (22:00)
[2017-12-18] MEDS: ATORVASTATIN CA 40 MG TABLET (FP) PO SCH (22:00)
[2017-12-18] MEDS: THIAMINE HCL 100 MG TABLET (FP) PO SCH (22:00)
[2017-12-19] MEDS: amLODIPine BESYLATE 10 MG TABLET (FP) PO SCH (10:26)
[2017-12-19] MEDS: PRENATAL VITAMINS W/ FOLIC ACID TABLET (FP) PO SCH (10:27)
[2017-12-19] MEDS: ASPIRIN 81 MG CHEWABLE TABLETS PO SCH (10:27)
[2017-12-19] MEDS: NICOTINE 14 MG/24 HOURS TOPICAL PATCH TD SCH (10:27)
[2017-12-19] MEDS: RANITIDINE HCL 150 MG TABLET (FP) PO SCH ×2 (10:27→21:22)
[2017-12-19] MEDS: HYDROCHLOROTHIAZIDE 25 MG TABLET (FP) PO SCH (10:27)
[2017-12-19] MEDS: LISINOPRIL 20 MG TABLET (FP) PO SCH (10:27)
[2017-12-19] MEDS: MELATONIN 5 MG TABLETS PO PRN (21:22)
[2017-12-19] MEDS: ATORVASTATIN CA 40 MG TABLET (FP) PO SCH (21:22)
[2017-12-19] MEDS: THIAMINE HCL 100 MG TABLET (FP) PO SCH (21:22)
[2017-12-20] MEDS: PRENATAL VITAMINS W/ FOLIC ACID TABLET (FP) PO SCH (10:17)
[2017-12-20] MEDS: ASPIRIN 81 MG CHEWABLE TABLETS PO SCH (10:17)
[2017-12-20] MEDS: amLODIPine BESYLATE 10 MG TABLET (FP) PO SCH (10:17)
[2017-12-20] MEDS: LISINOPRIL 20 MG TABLET (FP) PO SCH (10:17)
[2017-12-20] MEDS: RANITIDINE HCL 150 MG TABLET (FP) PO SCH ×2 (10:18→21:17)
[2017-12-20] MEDS: HYDROCHLOROTHIAZIDE 25 MG TABLET (FP) PO SCH (10:18)
[2017-12-20] MEDS: NICOTINE 14 MG/24 HOURS TOPICAL PATCH TD SCH (10:18)
[2017-12-20] MEDS: ATORVASTATIN CA 40 MG TABLET (FP) PO SCH (21:18)
[2017-12-20] MEDS: THIAMINE HCL 100 MG TABLET (FP) PO SCH (21:18)
[2017-12-20] MEDS: MELATONIN 5 MG TABLETS PO PRN (21:18)
[2017-12-21] MEDS: ASPIRIN 81 MG CHEWABLE TABLETS PO SCH (10:17)
[2017-12-21] MEDS: RANITIDINE HCL 150 MG TABLET (FP) PO SCH ×2 (10:17→21:23)
[2017-12-21] MEDS: amLODIPine BESYLATE 10 MG TABLET (FP) PO SCH (10:17)
[2017-12-21] MEDS: PRENATAL VITAMINS W/ FOLIC ACID TABLET (FP) PO SCH (10:17)
[2017-12-21] MEDS: HYDROCHLOROTHIAZIDE 25 MG TABLET (FP) PO SCH (10:17)
[2017-12-21] MEDS: LISINOPRIL 20 MG TABLET (FP) PO SCH (10:17)
[2017-12-21] MEDS: NICOTINE 14 MG/24 HOURS TOPICAL PATCH TD SCH (10:17)
[2017-12-21] MEDS: THIAMINE HCL 100 MG TABLET (FP) PO SCH (21:23)
[2017-12-21] MEDS: ATORVASTATIN CA 40 MG TABLET (FP) PO SCH (21:23)
[2017-12-21] MEDS: IBUPROFEN 400 MG TABLET (FP) PO PRN (22:59)
[2017-12-22] MEDS: ASPIRIN 81 MG CHEWABLE TABLETS PO SCH (09:54)
[2017-12-22] MEDS: HYDROCHLOROTHIAZIDE 25 MG TABLET (FP) PO SCH (09:54)
[2017-12-22] MEDS: NICOTINE 14 MG/24 HOURS TOPICAL PATCH TD SCH (09:55)
[2017-12-22] MEDS: LISINOPRIL 20 MG TABLET (FP) PO SCH (09:55)
[2017-12-22] MEDS: RANITIDINE HCL 150 MG TABLET (FP) PO SCH ×2 (09:55→21:20)
[2017-12-22] MEDS: amLODIPine BESYLATE 10 MG TABLET (FP) PO SCH (09:55)
[2017-12-22] MEDS: PRENATAL VITAMINS W/ FOLIC ACID TABLET (FP) PO SCH (09:55)
--- NOTE | 2017-12-22 14:28 | PN ---
[facility] Progress Note (SOAP) Subjective: C/o (L) ear pain x 1 day. Denies headache, cough, SOB. Objective: A&O x3. (L) TM w/o erythema. Canal w/ increased erythema. No lesions or exudate. (+) nasal congestion (L) > (R). Throat w/o lesions or exudate. Lungs CTA. Vital Signs 12/22/17 12/22/17 06:58 10:00 Temperature 97.7 F Pulse Rate 69 71 Respiratory 18 18 Rate Blood Pressure 137/66 141/83 12/22/17 14:26 Assessment: Early remission poly-substance abuse. Nasal congestion. Plan: Continue rehab. Start Sudafed 60 mg PO TID x 3 days. Encourage increased water intake.
[2017-12-22] MEDS: MELATONIN 5 MG TABLETS PO PRN (21:20)
[2017-12-22] MEDS: THIAMINE HCL 100 MG TABLET (FP) PO SCH (21:20)
[2017-12-22] MEDS: ATORVASTATIN CA 40 MG TABLET (FP) PO SCH (21:20)
[2017-12-22] MEDS: PSEUDOEPHEDRINE HCL 60 MG TABLET PO SCH (22:45)
[2017-12-23] MEDS: PSEUDOEPHEDRINE HCL 60 MG TABLET PO SCH ×3 (06:28→21:30)
[2017-12-23] MEDS: RANITIDINE HCL 150 MG TABLET (FP) PO SCH ×2 (10:00→21:29)
[2017-12-23] MEDS: LISINOPRIL 20 MG TABLET (FP) PO SCH (10:00)
[2017-12-23] MEDS: ASPIRIN 81 MG CHEWABLE TABLETS PO SCH (10:00)
[2017-12-23] MEDS: amLODIPine BESYLATE 10 MG TABLET (FP) PO SCH (10:00)
[2017-12-23] MEDS: HYDROCHLOROTHIAZIDE 25 MG TABLET (FP) PO SCH (10:00)
[2017-12-23] MEDS: PRENATAL VITAMINS W/ FOLIC ACID TABLET (FP) PO SCH (10:01)
[2017-12-23] MEDS: NICOTINE 14 MG/24 HOURS TOPICAL PATCH TD SCH (10:01)
[2017-12-23] MEDS: MAGNESIUM HYDROX 2400MG/30ML ORAL SUSPENSION 30 ML CUP PO PRN (10:03)
[2017-12-23] MEDS: THIAMINE HCL 100 MG TABLET (FP) PO SCH (21:29)
[2017-12-23] MEDS: ATORVASTATIN CA 40 MG TABLET (FP) PO SCH (21:29)
[2017-12-24] MEDS: PSEUDOEPHEDRINE HCL 60 MG TABLET PO SCH ×3 (07:15→21:18)
[2017-12-24] MEDS: RANITIDINE HCL 150 MG TABLET (FP) PO SCH ×2 (10:10→21:18)
[2017-12-24] MEDS: LISINOPRIL 20 MG TABLET (FP) PO SCH (10:10)
[2017-12-24] MEDS: amLODIPine BESYLATE 10 MG TABLET (FP) PO SCH (10:10)
[2017-12-24] MEDS: ASPIRIN 81 MG CHEWABLE TABLETS PO SCH (10:11)
[2017-12-24] MEDS: NICOTINE 14 MG/24 HOURS TOPICAL PATCH TD SCH (10:11)
[2017-12-24] MEDS: HYDROCHLOROTHIAZIDE 25 MG TABLET (FP) PO SCH (10:11)
[2017-12-24] MEDS: PRENATAL VITAMINS W/ FOLIC ACID TABLET (FP) PO SCH (10:11)
[2017-12-24] MEDS: ATORVASTATIN CA 40 MG TABLET (FP) PO SCH (21:18)
[2017-12-24] MEDS: THIAMINE HCL 100 MG TABLET (FP) PO SCH (21:18)
[2017-12-24] MEDS: MELATONIN 5 MG TABLETS PO PRN (21:18)
[2017-12-25] MEDS: PSEUDOEPHEDRINE HCL 60 MG TABLET PO SCH ×2 (06:44→14:12)
[2017-12-25] MEDS: PRENATAL VITAMINS W/ FOLIC ACID TABLET (FP) PO SCH (10:00)
[2017-12-25] MEDS: amLODIPine BESYLATE 10 MG TABLET (FP) PO SCH (10:00)
[2017-12-25] MEDS: RANITIDINE HCL 150 MG TABLET (FP) PO SCH ×2 (10:00→21:17)
[2017-12-25] MEDS: NICOTINE 14 MG/24 HOURS TOPICAL PATCH TD SCH (10:00)
[2017-12-25] MEDS: ASPIRIN 81 MG CHEWABLE TABLETS PO SCH (10:00)
[2017-12-25] MEDS: HYDROCHLOROTHIAZIDE 25 MG TABLET (FP) PO SCH (10:00)
[2017-12-25] MEDS: LISINOPRIL 20 MG TABLET (FP) PO SCH (10:00)
[2017-12-25] MEDS: THIAMINE HCL 100 MG TABLET (FP) PO SCH (21:17)
[2017-12-25] MEDS: ATORVASTATIN CA 40 MG TABLET (FP) PO SCH (21:17)
[2017-12-26] MEDS: PRENATAL VITAMINS W/ FOLIC ACID TABLET (FP) PO SCH (09:49)
[2017-12-26] MEDS: NICOTINE 14 MG/24 HOURS TOPICAL PATCH TD SCH (09:50)
[2017-12-26] MEDS: ASPIRIN 81 MG CHEWABLE TABLETS PO SCH (09:50)
[2017-12-26] MEDS: RANITIDINE HCL 150 MG TABLET (FP) PO SCH ×2 (09:50→21:11)
[2017-12-26] MEDS: HYDROCHLOROTHIAZIDE 25 MG TABLET (FP) PO SCH (09:50)
[2017-12-26] MEDS: LISINOPRIL 20 MG TABLET (FP) PO SCH (09:50)
[2017-12-26] MEDS: amLODIPine BESYLATE 10 MG TABLET (FP) PO SCH (09:50)
[2017-12-26] MEDS: ATORVASTATIN CA 40 MG TABLET (FP) PO SCH (21:10)
[2017-12-26] MEDS: THIAMINE HCL 100 MG TABLET (FP) PO SCH (21:10)
[2017-12-26] MEDS: MELATONIN 5 MG TABLETS PO PRN (21:10)
[2017-12-27] MEDS: RANITIDINE HCL 150 MG TABLET (FP) PO SCH ×2 (10:13→21:16)
[2017-12-27] MEDS: ASPIRIN 81 MG CHEWABLE TABLETS PO SCH (10:13)
[2017-12-27] MEDS: amLODIPine BESYLATE 10 MG TABLET (FP) PO SCH (10:13)
[2017-12-27] MEDS: HYDROCHLOROTHIAZIDE 25 MG TABLET (FP) PO SCH (10:13)
[2017-12-27] MEDS: PRENATAL VITAMINS W/ FOLIC ACID TABLET (FP) PO SCH (10:13)
[2017-12-27] MEDS: LISINOPRIL 20 MG TABLET (FP) PO SCH (10:13)
[2017-12-27] MEDS: NICOTINE 14 MG/24 HOURS TOPICAL PATCH TD SCH (10:13)
[2017-12-27] MEDS: THIAMINE HCL 100 MG TABLET (FP) PO SCH (21:16)
[2017-12-27] MEDS: ATORVASTATIN CA 40 MG TABLET (FP) PO SCH (21:16)
[2017-12-28] MEDS: ASPIRIN 81 MG CHEWABLE TABLETS PO SCH (09:52)
[2017-12-28] MEDS: LISINOPRIL 20 MG TABLET (FP) PO SCH (09:52)
[2017-12-28] MEDS: PRENATAL VITAMINS W/ FOLIC ACID TABLET (FP) PO SCH (09:52)
[2017-12-28] MEDS: RANITIDINE HCL 150 MG TABLET (FP) PO SCH ×2 (09:52→21:18)
[2017-12-28] MEDS: HYDROCHLOROTHIAZIDE 25 MG TABLET (FP) PO SCH (09:52)
[2017-12-28] MEDS: amLODIPine BESYLATE 10 MG TABLET (FP) PO SCH (09:52)
[2017-12-28] MEDS: NICOTINE 14 MG/24 HOURS TOPICAL PATCH TD SCH (09:53)
[2017-12-28] MEDS: MAGNESIUM HYDROX 2400MG/30ML ORAL SUSPENSION 30 ML CUP PO PRN (09:54)
[2017-12-28] MEDS: ATORVASTATIN CA 40 MG TABLET (FP) PO SCH (21:18)
[2017-12-28] MEDS: THIAMINE HCL 100 MG TABLET (FP) PO SCH (21:18)
[2017-12-28] MEDS: MELATONIN 5 MG TABLETS PO PRN (21:18)
[2017-12-29] MEDS: PRENATAL VITAMINS W/ FOLIC ACID TABLET (FP) PO SCH (10:03)
[2017-12-29] MEDS: LISINOPRIL 20 MG TABLET (FP) PO SCH (10:03)
[2017-12-29] MEDS: RANITIDINE HCL 150 MG TABLET (FP) PO SCH ×2 (10:03→21:25)
[2017-12-29] MEDS: ASPIRIN 81 MG CHEWABLE TABLETS PO SCH (10:03)
[2017-12-29] MEDS: amLODIPine BESYLATE 10 MG TABLET (FP) PO SCH (10:04)
[2017-12-29] MEDS: NICOTINE 14 MG/24 HOURS TOPICAL PATCH TD SCH (10:05)
[2017-12-29] MEDS: HYDROCHLOROTHIAZIDE 25 MG TABLET (FP) PO SCH (10:05)
[2017-12-29] MEDS: MELATONIN 5 MG TABLETS PO PRN (21:24)
[2017-12-29] MEDS: ATORVASTATIN CA 40 MG TABLET (FP) PO SCH (21:25)
[2017-12-29] MEDS: THIAMINE HCL 100 MG TABLET (FP) PO SCH (21:25)
[2017-12-30] MEDS: amLODIPine BESYLATE 10 MG TABLET (FP) PO SCH (09:53)
[2017-12-30] MEDS: HYDROCHLOROTHIAZIDE 25 MG TABLET (FP) PO SCH (09:53)
[2017-12-30] MEDS: ASPIRIN 81 MG CHEWABLE TABLETS PO SCH (09:53)
[2017-12-30] MEDS: LISINOPRIL 20 MG TABLET (FP) PO SCH (09:53)
[2017-12-30] MEDS: RANITIDINE HCL 150 MG TABLET (FP) PO SCH ×2 (09:53→21:22)
[2017-12-30] MEDS: NICOTINE 14 MG/24 HOURS TOPICAL PATCH TD SCH (09:54)
[2017-12-30] MEDS: PRENATAL VITAMINS W/ FOLIC ACID TABLET (FP) PO SCH (09:56)
[2017-12-30] MEDS: THIAMINE HCL 100 MG TABLET (FP) PO SCH (21:22)
[2017-12-30] MEDS: ATORVASTATIN CA 40 MG TABLET (FP) PO SCH (21:22)
[2017-12-31] MEDS: NICOTINE 14 MG/24 HOURS TOPICAL PATCH TD SCH (09:44)
[2017-12-31] MEDS: RANITIDINE HCL 150 MG TABLET (FP) PO SCH ×2 (09:44→21:18)
[2017-12-31] MEDS: LISINOPRIL 20 MG TABLET (FP) PO SCH (09:44)
[2017-12-31] MEDS: ASPIRIN 81 MG CHEWABLE TABLETS PO SCH (09:44)
[2017-12-31] MEDS: amLODIPine BESYLATE 10 MG TABLET (FP) PO SCH (09:44)
[2017-12-31] MEDS: HYDROCHLOROTHIAZIDE 25 MG TABLET (FP) PO SCH (09:44)
[2017-12-31] MEDS: PRENATAL VITAMINS W/ FOLIC ACID TABLET (FP) PO SCH (09:44)
[2017-12-31] MEDS: ATORVASTATIN CA 40 MG TABLET (FP) PO SCH (21:18)
[2017-12-31] MEDS: THIAMINE HCL 100 MG TABLET (FP) PO SCH (21:18)
[2018-01-01] MEDS: PRENATAL VITAMINS W/ FOLIC ACID TABLET (FP) PO SCH (09:45)
[2018-01-01] MEDS: RANITIDINE HCL 150 MG TABLET (FP) PO SCH ×2 (09:45→21:21)
[2018-01-01] MEDS: HYDROCHLOROTHIAZIDE 25 MG TABLET (FP) PO SCH (09:45)
[2018-01-01] MEDS: amLODIPine BESYLATE 10 MG TABLET (FP) PO SCH (09:45)
[2018-01-01] MEDS: ASPIRIN 81 MG CHEWABLE TABLETS PO SCH (09:45)
[2018-01-01] MEDS: NICOTINE 14 MG/24 HOURS TOPICAL PATCH TD SCH (09:45)
[2018-01-01] MEDS: LISINOPRIL 20 MG TABLET (FP) PO SCH (09:45)
[2018-01-01] MEDS: THIAMINE HCL 100 MG TABLET (FP) PO SCH (21:21)
[2018-01-01] MEDS: ATORVASTATIN CA 40 MG TABLET (FP) PO SCH (21:21)
[2018-01-02] MEDS: ASPIRIN 81 MG CHEWABLE TABLETS PO SCH (09:37)
[2018-01-02] MEDS: PRENATAL VITAMINS W/ FOLIC ACID TABLET (FP) PO SCH (09:37)
[2018-01-02] MEDS: NICOTINE 14 MG/24 HOURS TOPICAL PATCH TD SCH (09:37)
[2018-01-02] MEDS: LISINOPRIL 20 MG TABLET (FP) PO SCH (09:37)
[2018-01-02] MEDS: RANITIDINE HCL 150 MG TABLET (FP) PO SCH ×2 (09:37→21:33)
[2018-01-02] MEDS: amLODIPine BESYLATE 10 MG TABLET (FP) PO SCH (09:37)
[2018-01-02] MEDS: HYDROCHLOROTHIAZIDE 25 MG TABLET (FP) PO SCH (09:38)
[2018-01-02] MEDS: ATORVASTATIN CA 40 MG TABLET (FP) PO SCH (21:33)
[2018-01-02] MEDS: THIAMINE HCL 100 MG TABLET (FP) PO SCH (21:33)
[2018-01-03] MEDS: HYDROCHLOROTHIAZIDE 25 MG TABLET (FP) PO SCH (10:05)
[2018-01-03] MEDS: LISINOPRIL 20 MG TABLET (FP) PO SCH (10:05)
[2018-01-03] MEDS: amLODIPine BESYLATE 10 MG TABLET (FP) PO SCH (10:05)
[2018-01-03] MEDS: RANITIDINE HCL 150 MG TABLET (FP) PO SCH ×2 (10:05→21:32)
[2018-01-03] MEDS: ASPIRIN 81 MG CHEWABLE TABLETS PO SCH (10:05)
[2018-01-03] MEDS: PRENATAL VITAMINS W/ FOLIC ACID TABLET (FP) PO SCH (10:05)
[2018-01-03] MEDS: NICOTINE 14 MG/24 HOURS TOPICAL PATCH TD SCH (10:06)
[2018-01-03] MEDS: THIAMINE HCL 100 MG TABLET (FP) PO SCH (21:32)
[2018-01-03] MEDS: ATORVASTATIN CA 40 MG TABLET (FP) PO SCH (21:32)
[2018-01-04] MEDS: HYDROCHLOROTHIAZIDE 25 MG TABLET (FP) PO SCH (10:06)
[2018-01-04] MEDS: ASPIRIN 81 MG CHEWABLE TABLETS PO SCH (10:06)
[2018-01-04] MEDS: RANITIDINE HCL 150 MG TABLET (FP) PO SCH ×2 (10:06→21:24)
[2018-01-04] MEDS: PRENATAL VITAMINS W/ FOLIC ACID TABLET (FP) PO SCH (10:06)
[2018-01-04] MEDS: LISINOPRIL 20 MG TABLET (FP) PO SCH (10:06)
[2018-01-04] MEDS: NICOTINE 14 MG/24 HOURS TOPICAL PATCH TD SCH (10:06)
[2018-01-04] MEDS: amLODIPine BESYLATE 10 MG TABLET (FP) PO SCH (10:06)
[2018-01-04] MEDS: ATORVASTATIN CA 40 MG TABLET (FP) PO SCH (21:24)
[2018-01-04] MEDS: THIAMINE HCL 100 MG TABLET (FP) PO SCH (21:25)
[2018-01-04] MEDS: IBUPROFEN 400 MG TABLET (FP) PO PRN (22:16)
[2018-01-05] MEDS: PRENATAL VITAMINS W/ FOLIC ACID TABLET (FP) PO SCH (09:54)
[2018-01-05] MEDS: RANITIDINE HCL 150 MG TABLET (FP) PO SCH ×2 (09:54→21:27)
[2018-01-05] MEDS: ASPIRIN 81 MG CHEWABLE TABLETS PO SCH (09:54)
[2018-01-05] MEDS: LISINOPRIL 20 MG TABLET (FP) PO SCH (09:54)
[2018-01-05] MEDS: NICOTINE 14 MG/24 HOURS TOPICAL PATCH TD SCH (09:54)
[2018-01-05] MEDS: HYDROCHLOROTHIAZIDE 25 MG TABLET (FP) PO SCH (09:54)
[2018-01-05] MEDS: amLODIPine BESYLATE 10 MG TABLET (FP) PO SCH (09:54)
[2018-01-05] MEDS: THIAMINE HCL 100 MG TABLET (FP) PO SCH (21:27)
[2018-01-05] MEDS: ATORVASTATIN CA 40 MG TABLET (FP) PO SCH (21:27)
[2018-01-06] MEDS: PRENATAL VITAMINS W/ FOLIC ACID TABLET (FP) PO SCH (10:03)
[2018-01-06] MEDS: NICOTINE 14 MG/24 HOURS TOPICAL PATCH TD SCH (10:04)
[2018-01-06] MEDS: ASPIRIN 81 MG CHEWABLE TABLETS PO SCH (10:04)
[2018-01-06] MEDS: RANITIDINE HCL 150 MG TABLET (FP) PO SCH ×2 (10:04→21:25)
[2018-01-06] MEDS: LISINOPRIL 20 MG TABLET (FP) PO SCH (10:04)
[2018-01-06] MEDS: HYDROCHLOROTHIAZIDE 25 MG TABLET (FP) PO SCH (10:04)
[2018-01-06] MEDS: amLODIPine BESYLATE 10 MG TABLET (FP) PO SCH (10:04)
[2018-01-06] MEDS: THIAMINE HCL 100 MG TABLET (FP) PO SCH (21:25)
[2018-01-06] MEDS: ATORVASTATIN CA 40 MG TABLET (FP) PO SCH (21:25)
[2018-01-07] MEDS: HYDROCHLOROTHIAZIDE 25 MG TABLET (FP) PO SCH (10:13)
[2018-01-07] MEDS: PRENATAL VITAMINS W/ FOLIC ACID TABLET (FP) PO SCH (10:13)
[2018-01-07] MEDS: RANITIDINE HCL 150 MG TABLET (FP) PO SCH ×2 (10:13→21:10)
[2018-01-07] MEDS: LISINOPRIL 20 MG TABLET (FP) PO SCH (10:13)
[2018-01-07] MEDS: ASPIRIN 81 MG CHEWABLE TABLETS PO SCH (10:13)
[2018-01-07] MEDS: NICOTINE 14 MG/24 HOURS TOPICAL PATCH TD SCH (10:14)
[2018-01-07] MEDS: amLODIPine BESYLATE 10 MG TABLET (FP) PO SCH (10:50)
[2018-01-07] MEDS: ATORVASTATIN CA 40 MG TABLET (FP) PO SCH (21:10)
[2018-01-07] MEDS: THIAMINE HCL 100 MG TABLET (FP) PO SCH (21:10)
--- NOTE | 2018-01-08 06:40 | PN ---
Psychiatric Progress Note Vital Signs: Vital Signs Period Temp Pulse Resp BP Sys/Light Pulse Ox Last 24 Hr 97.8 F 69-86 18-19 143-149/80-91 Date of Session: 01/08/18 Chief Complaint:: Discharge Note HPI: Patient addressing Alcohol and Cocaine Dependence comorbid with Nicotine Dependence, Substance-Induced Mood Disorder and Substance-Induce Sleep Disorder ROS: GERD, HTN, HLD, Type 2 DM, Mild obesity were medically managed Current Medications: Active Medications Generic Name Dose Route Start Last Admin Trade Name Freq PRN Reason Stop Dose Admin Acetaminophen 650 mg 12/11/17 16:00 Tylenol - PO Q4H PRN FEVER Al Hydroxide/Mg Hydroxide 30 ml 12/11/17 16:00 12/17/17 11:04 Mylanta Oral Suspension - PO 30 ml Q6H PRN Administration DYSPEPSIA Amlodipine Besylate 10 mg 12/12/17 10:00 01/07/18 10:50 Norvasc - PO 10 mg DAILY PARVIN Administration Aspirin 81 mg 12/12/17 10:00 01/07/18 10:13 Asa - PO 81 mg DAILY PARVIN Administration Atorvastatin Calcium 40 mg 12/11/17 22:00 01/07/18 21:10 Lipitor - PO 40 mg HS PARVIN Administration Eucalyptus/Menthol/Phenol/Sorbitol 1 each 12/11/17 16:00 Cepastat Lozenge - MM Q4H PRN SORE THROAT Guaifenesin 10 ml 12/11/17 16:00 Robitussin Dm - PO Q6H PRN COUGH Hydrochlorothiazide 25 mg 12/12/17 10:00 01/07/18 10:13 Hctz - PO 25 mg DAILY PARVIN Administration Hydroxyzine Pamoate 50 mg 12/11/17 16:00 01/01/18 12:51 Vistaril - PO 50 mg Q4H PRN Administration AGITATION Ibuprofen 400 mg 12/11/17 16:00 01/04/18 22:16 Motrin - PO 400 mg Q6H PRN Administration Pain level 4-6 Lisinopril 40 mg 12/12/17 10:00 01/07/18 10:13 Prinivil PO 40 mg DAILY PARVIN Administration Loperamide HCl 4 mg 12/11/17 16:00 Imodium - PO Q6H PRN DIARRHEA Magnesium Citrate 300 ml 12/11/17 16:00 Citroma - PO Q48H PRN CONSTIPATION Magnesium Hydroxide 30 ml 12/11/17 16:00 12/28/17 09:54 Milk Of Magnesia - PO 30 ml DAILY PRN Administration CONSTIPATION Melatonin 10 mg 12/12/17 11:20 12/29/17 21:24 Melatonin PO 10 mg HS PRN Administration INSOMNIA Nicotine 14 mg 12/12/17 10:00 01/07/18 10:14 Nicoderm Patch - TD Not Given DAILY PARVIN Nicotine Polacrilex 2 mg 12/11/17 16:00 Nicorette Gum - BC Q2H PRN NICOTINE REPLACEMENT RX Multivit/Folic Acid/Iron 1 tab 12/12/17 10:00 01/07/18 10:13 Vitamins ([facility]) - PO 1 tab DAILY PARVIN Administration Pseudoephedrine/Triprolidine 1 combo 12/11/17 16:00 Actifed - PO TID PRN NASAL CONGESTION Ranitidine HCl 150 mg 12/11/17 22:00 01/07/18 21:10 Zantac - PO 150 mg BID PARVIN Administration Thiamine HCl 100 mg 12/11/17 22:00 01/07/18 21:10 Vitamin B1 - PO 100 mg HS PARVIN Administration Current Side Effect: No Lab tests ordered: Yes Lab tests reviewed: Yes Provider note:: Patient has completed this program today. He has met his treatment goals and will continue to address his issues in residential residential treatment at [facility] at [address] [place] [address]. Told life insurance underwriter that from his participation in this program, he has learned the tools that will keep him away from drug. He is stable for discharge today Total face to face time:: 35 Mental Status Exam - Mental Status Exam Alert and Oriented to: Time, Place, Person Cognitive Function: Fair Patient Appearance: Well Groomed Mood: Hopeful, Euthymic Affect: Appropriate Patient Behavior: Cooperative Speech Pattern: Clear Voice Loudness: Normal Thought Process: Intact, Goal Oriented Thought Disorder: Not Present Hallucinations: Denies Suicidal Ideation: Denies Homicidal Ideation: Denies Insight/Judgement: Fair Sleep: Fair Appetite: Fair Muscle strength/Tone: Normal Gait/Station: Normal Psychiatric Treatment Plan - Problem List (1) Alcohol dependence Current Visit: Yes Qualifiers: Substance use status: uncomplicated Qualified Code(s): F10.20 - Alcohol dependence, uncomplicated (2) Cocaine dependence Current Visit: Yes Qualifiers: Substance use status: uncomplicated Qualified Code(s): F14.20 - Cocaine dependence, uncomplicated (3) Nicotine dependence Current Visit: Yes Qualifiers: Nicotine product type: cigarettes Substance use status: in withdrawal Qualified Code(s): F17.213 - Nicotine dependence, cigarettes, with withdrawal (4) Substance-induced sleep disorder Current Visit: Yes (5) Acid reflux disease Current Visit: Yes Qualifiers: Esophagitis presence: esophagitis presence not specified Qualified Code(s) : K21.9 - Gastro-esophageal reflux disease without esophagitis (6) Hypercholesteremia Current Visit: Yes (7) Hypertension Current Visit: Yes Qualifiers: Hypertension type: essential hypertension Qualified Code(s): I10 - Essential (primary) hypertension (8) Obesities, morbid Current Visit: Yes (9) Type II diabetes mellitus Current Visit: No Qualifiers: Diabetes mellitus residential insulin use: without residential use Diabetes mellitus complication status: without complication Qualified Code(s): E11.9 - Type 2 diabetes mellitus without complications Comment: "PMD STOPPED METFORMIN". NOT TAKING MEDS CURRENTLY BECAUSE CONTROLLED PER PT. Initial treatment plan: Patient is discharged today and referred to [facility] for residential residential treatment
[2018-01-08 07:14] VITALS: TEMP 98.2
[2018-01-08 07:15] VITALS: BP 126/81; PULSE 64
[2018-01-08] MEDS: HYDROCHLOROTHIAZIDE 25 MG TABLET (FP) PO SCH (10:04)
[2018-01-08] MEDS: RANITIDINE HCL 150 MG TABLET (FP) PO SCH (10:04)
[2018-01-08] MEDS: LISINOPRIL 20 MG TABLET (FP) PO SCH (10:04)
[2018-01-08] MEDS: PRENATAL VITAMINS W/ FOLIC ACID TABLET (FP) PO SCH (10:04)
[2018-01-08] MEDS: ASPIRIN 81 MG CHEWABLE TABLETS PO SCH (10:04)
[2018-01-08] MEDS: NICOTINE 14 MG/24 HOURS TOPICAL PATCH TD SCH (10:05)
[2018-01-08] MEDS: amLODIPine BESYLATE 10 MG TABLET (FP) PO SCH (10:15)
--- NOTE | 2018-01-08 10:16 | PN ---
S Progress Note Note: REHAB TREATMENT COMPLETED TODAY. PT HAS PRIMARY CARE WITH DR CALLOWAY AT [facility], [address] [place] [address] AND WILL FOLLOW UP UPON D/ C. Vital Signs 01/08/18 01/08/18 03:30 07:13 Temperature 98.2 F Pulse Rate 64 Respiratory 18 18 Rate Blood Pressure 126/81 PLAN:PT REPORTS HE IS GOING TO RESIDENTIAL AT [facility] FOR AFTERCARE BUT GOING TO HIS PMD TODAY FIRST.
== END 2018-01-08 11:20 | disposition home or self-care (01) | DRG 772 ==
LOC: YASAS 08:51 → Y5N 16:23
PROVIDERS: ADMIT Psychiatry & Neurology Psychiatry; ATTEND Psychiatry & Neurology Psychiatry
PROC: HZ42ZZZ Group Counseling for Substance Abuse Treatment, Cognitive-Behavioral (ICD-10-PCS; principal; 2017-12-11)
DX: F10.20 Alcohol dependence, uncomplicated (principal); F14.20 Cocaine dependence, uncomplicated; F17.213 Nicotine dependence, cigarettes, with withdrawal; F19.282 Other psychoactive substance dependence with psychoactive substance-induced sleep disorder; F19.24 Other psychoactive substance dependence with psychoactive substance-induced mood disorder; F32.9 Major depressive disorder, single episode, unspecified; I10 Essential (primary) hypertension; E78.00 Pure hypercholesterolemia, unspecified; K21.9 Gastro-esophageal reflux disease without esophagitis; E11.9 Type 2 diabetes mellitus without complications; Z79.84 Long term (current) use of oral hypoglycemic drugs; E66.01 Morbid (severe) obesity due to excess calories; Z68.38 Body mass index [BMI] 38.0-38.9, adult; Z59.0 Homelessness
CPT/HCPCS: 81003; 81015; 90688; 93005; 93010; G0008

== ENCOUNTER 2018-02-16 14:47 | Inpatient (IN) | payer OTHER ==
[2018-02-16 15:43] VITALS: BMI 38.5
--- NOTE | 2018-02-16 16:24 | HP ---
CIWA Score Nausea/Vomitin-Mild Nausea/No Vomiting Muscle Tremors: None Anxiety: 1-Mildly Anxious Agitation: 0-Normal Activity Paroxysmal Sweats: 1-Minimal Palms Moist Orientation: 0-Oriented Tacttile Disturbances: 0-None Auditory Disturbances: 0-None Visual Disturbances: 3-Moderate Sensitivity Headache: 0-None Present CIWA-Ar Total Score: 6 - Admission Criteria OASAS Guidelines: Admission for Medically Managed Detox: Requires at least one of the followin. CIWA greater than 12 2. Seizures within the past 24 hours 3. Delirium tremens within the past 24 hours 4. Hallucinations within the past 24 hours 5. Acute intervention needed for co occurring medical disorder 6. Acute intervention needed for co occurring psychiatric disorder 7. Severe withdrawal that cannot be handled at a lower level of care (continued vomiting, continued diarrhea, abnormal vital signs) requiring intravenous medication and/or fluids 8. Admission ROS S - HPI Allergies/Adverse Reactions: Allergies Allergy/AdvReac Type Severity Reaction Status Date / Time No Known Allergies Allergy Verified 02/16/18 16:52 History of Present Illness: patient here requesting detox from etoh use , reports has been drinking since age 15 , currently 2 pints/ day ,latest use today , reports tremors if drinking liquor , denies h/o seizures , + blackouts, denies falls . utox neg , Kaylene 0.008 Has been to detox prior to today , most recently 2 mo ago @ [facility] , longest sobriety - treatment days . Has completed rehab in the past 2 mo ago at this facility . PMHX : HTN , HLD PSHx : denies PSych denies meds : unknown allergies : denies tobacco - 1/4 ppd , denies nrt - Ebola screening Have you traveled outside of the country in the last 21 days: No Have you had contact with anyone from an Ebola affected area: No Have you been sick,other than usual withdrawal symptoms: No Do you have a fever: No - Review of Systems Constitutional: See HPI EENT: reports: Other (glasses) Respiratory: reports: No Symptoms reported Cardiac: reports: No Symptoms Reported GI: reports: No Symptoms Reported : reports: No Symptoms Reported Musculoskeletal: reports: No Symptoms Reported Integumentary: reports: No Symptoms Reported Neuro: reports: No Symptoms reported Psychiatric: reports: Judgement Intact, Orientated x3 Patient History - Patient Medical History Hx Anemia: No Hx Asthma: No Hx Chronic Obstructive Pulmonary Disease (COPD): No Hx Cancer: No Hx Cardiac Disorders: No Hx Congestive Heart Failure: No Hx Hypertension: Yes Hx Hypercholesterolemia: Yes (Med. in past; TAKE MEDICATION 3 DAYS AGO) Hx Pacemaker: No HX Cerebrovascular Accident: No Hx Seizures: No Hx Dementia: No Hx Diabetes: No Hx Gastrointestinal Disorders: Yes (acid reflux) Hx Liver Disease: No Hx Genitourinary Disorders: No Hx Sexually Transmitted Disorders: No Hx Renal Disease (ESRD): No Hx Thyroid Disease: No Hx Human Immunodeficiency Virus (HIV): No ( NEGATIVE HX ) Hx Hepatitis C: No (NEGATIVE HX.) Hx Depression: No Hx Suicide Attempt: No Hx Bipolar Disorder: No Hx Schizophrenia: No - Patient Surgical History Past Surgical History: No Hx Neurologic Surgery: No Hx Cataract Extraction: No Hx Cardiac Surgery: No Hx Lung Surgery: No Hx Breast Surgery: No Hx Breast Biopsy: No Hx Abdominal Surgery: No Hx Appendectomy: No Hx Cholecystectomy: No Hx Genitourinary Surgery: No Hx Section: No Hx Orthopedic Surgery: No Anesthesia Reaction: No - PPD History Date: 10/08/17 Results: 0 mm - Smoking Cessation Smoking history: Current every day smoker Have you smoked in the past 12 months: Yes Aproximately how many cigarettes per day: 5 Cigars Per Day: 0 Hx Chewing Tobacco Use: No Initiated information on smoking cessation: No - Substances Abused Alcohol Route: Oral Frequency: Daily Amount used: LIQUOR- 3 PINTS, BEER- 2 SIX PACKS Age of first use: 15 Date of Last Use: 02/16/18 Family Disease History - Family Disease History Family Disease History: Diabetes: Mother (hypertension,Substance abuse, Alcohol ; ), Heart Disease: Mother, Other: Father (ALCOHOL,), Mother, Brother (no contact), Sister (no contact) Admission Physical Exam [facility] - Vital Signs Vital Signs: Vital Signs - 24 hr 02/16/18 15:41 Temperature 99.1 F Pulse Rate 97 H Respiratory 19 Rate Blood Pressure 146/90 - Physical General Appearance: Yes: No Apparent Distress HEENTM: Yes: Within Normal Limits, Hearing grossly Normal, Normocephalic, Pharynx Normal Respiratory: Yes: Chest Non-Tender, Lungs Clear, Normal Breath Sounds Neck: Yes: No masses,lesions,Nodules, Trachea in good position Cardiology: Yes: Regular Rhythm, Regular Rate, S1, S2, Tachycardia, Systolic Murmur (2/6 ANIYAH) Abdominal: Yes: Normal Bowel Sounds, Soft, Protuberent Back: Yes: Normal Inspection Extremities: Yes: Normal Capillary Refill, Normal Range of Motion Neurological: Yes: Motor Strength 5/5, Normal Mood/Affect Integumentary: Yes: Normal Color, Dry, Warm - Diagnostic (1) Alcohol dependence with uncomplicated withdrawal Current Visit: No Status: Acute (2) Hypertension Current Visit: No Status: Chronic Qualifiers: Hypertension type: essential hypertension Qualified Code(s): I10 - Essential (primary) hypertension (3) Nicotine dependence Current Visit: No Status: Chronic Qualifiers: Nicotine product type: cigarettes Substance use status: in withdrawal Qualified Code(s): F17.213 - Nicotine dependence, cigarettes, with withdrawal [facility] Breath Alcohol Content Breath Alcohol Content: 0.008 Urine Drug Screen - Results Drug Screen Negative: Yes
[2018-02-16] MEDS ORDERED: ACETAMINOPHEN 325 MG TABLET (FP) PO PRN (16:29)
[2018-02-16] MEDS ORDERED: MAG HYDROX/AL HYDROX/SIMETH 30 ML UNIT-DOSE CUP PO PRN (16:29)
[2018-02-16] MEDS ORDERED: P-EPHED 60MG/TRIPROLIDI 2.5MG TABLET PO PRN (16:29)
[2018-02-16] MEDS ORDERED: MENTHOL/PHENOL 1 EACH UD MM PRN (16:29)
[2018-02-16] MEDS ORDERED: chlordiazePOXIDE HCL 25 MG CAPSULE PO PRN (16:29)
[2018-02-16] MEDS ORDERED: MAGNESIUM CITRATE 300 ML BOTTLE PO PRN (16:29)
[2018-02-16] MEDS ORDERED: guaiFENesin/D-METHORPHAN HB 10 ML UNIT-DOSE CUPS PO PRN (16:29)
[2018-02-16] MEDS ORDERED: MAGNESIUM HYDROX 2400MG/30ML ORAL SUSPENSION 30 ML CUP PO PRN (16:29)
[2018-02-16] MEDS ORDERED: IBUPROFEN 400 MG TABLET (FP) PO PRN (16:29)
[2018-02-16] MEDS: LISINOPRIL 20 MG TABLET (FP) PO SCH (18:14)
[2018-02-16] MEDS: ASPIRIN 81 MG CHEWABLE TABLETS PO SCH (18:15)
[2018-02-16] MEDS: ATORVASTATIN CA 20 MG TABLET (FP) PO SCH (22:39)
[2018-02-16] MEDS: chlordiazePOXIDE HCL 25 MG CAPSULE PO SCH (22:39)
[2018-02-16] MEDS: THIAMINE HCL 100 MG TABLET (FP) PO SCH (22:39)
[2018-02-16] MEDS: RANITIDINE HCL 150 MG TABLET (FP) PO SCH (22:40)
[2018-02-16 23:07] LABS: URINE APPEARANCE CLEAR; URINE BILIRUBIN NEGATIVE (<2.0 mg/dL); URINE COLOR LTYELLOW; URINE GLUCOSE (UA) NEGATIVE (NEGATIVE); URINE KETONE NEGATIVE (NEGATIVE); URINE LEUK ESTERASE NEGATIVE (NEGATIVE); URINE NITRITE NEGATIVE (NEGATIVE); URINE PROTEIN 3+ (NEGATIVE); URINE UROBILINOGEN NEGATIVE mg/dL (0.2-1.0)
[2018-02-16 23:31] LABS: EPI CELLS RARE /HPF (FEW); GRANULAR CASTS 76 /lpf; URINE MUCUS RARE
[2018-02-17] MEDS: chlordiazePOXIDE HCL 25 MG CAPSULE PO SCH ×3 (06:00→17:29)
[2018-02-17] MEDS: HYDROCHLOROTHIAZIDE 25 MG TABLET (FP) PO SCH (10:31)
[2018-02-17] MEDS: PRENATAL VITAMINS W/ FOLIC ACID TABLET (FP) PO SCH (10:31)
[2018-02-17] MEDS: LISINOPRIL 20 MG TABLET (FP) PO SCH (10:32)
[2018-02-17] MEDS: RANITIDINE HCL 150 MG TABLET (FP) PO SCH ×2 (10:32→22:31)
[2018-02-17] MEDS: ASPIRIN 81 MG CHEWABLE TABLETS PO SCH (10:32)
[2018-02-17 12:07] LABS: HEMATOCRIT 40.1 % (35.4-49); HEMOGLOBIN 12.7 GM/dL (11.7-16.9); MCH 26.1 pg (25.7-33.7); MCHC 31.6 g/dl (32.0-35.9); MEAN CELL VOLUME 82.6 fl (80-96); MEAN PLT VOLUME 9.3 fl (7.5-11.1); PLATELET COUNT 209 K/MM3 (134-434); RBC 4.85 M/mm3 (4.00-5.60); RDW 15.9 % (11.9-15.9); WHITE BLOOD COUNT 7.7 K/mm3 (4.0-10.0)
[2018-02-17 12:16] LABS: ALBUMIN 2.4 g/dl (3.4-5.0); ALK PHOS 77 U/L (45-117); ANION GAP 7 MMOL/L (8-16); BILIRUBIN,TOTAL 0.2 mg/dL (0.2-1); BLOOD UREA NITROGEN 27 mg/dL (7-18); CALCIUM 8.4 mg/dL (8.5-10.1); CHLORIDE 105 mmol/L (98-107); CO2 29 mmol/L (21-32); CREATININE 1.5 mg/dL (0.55-1.3); GLUCOSE,RANDOM 109 mg/dL (74-106); POTASSIUM 4.1 mmol/L (3.5-5.1); SGOT/AST 23 U/L (15-37); SGPT/ALT 28 U/L (13-61); SODIUM 141 mmol/L (136-145); TOT PROT 5.5 g/dl (6.4-8.2)
--- NOTE | 2018-02-17 16:00 | PN ---
[facility] CIWA - CIWA Score Nausea/Vomitin-Mild Nausea/No Vomiting Muscle Tremors: 3 Anxiety: 2 Agitation: 1-Slight > Activity Paroxysmal Sweats: 3 Orientation: 0-Oriented Tacttile Disturbances: 0-None Auditory Disturbances: 0-None Visual Disturbances: 0-None Headache: 0-None Present CIWA-Ar Total Score: 10 S Progress Note (SOAP) Subjective: Sweats sleep interruption Objective: 02/17/18 15:57 A & O x 3 Slightly tremulous Vital Signs Temperature 97.7 F 02/17/18 14:01 Pulse Rate 78 02/17/18 14:01 Respiratory Rate 20 02/17/18 14:01 Blood Pressure 126/78 02/17/18 14:01 O2 Sat by Pulse Oximetry (%) Laboratory Last Values WBC 7.7 K/mm3 (4.0-10.0) 02/17/18 08:00 RBC 4.85 M/mm3 (4.00-5.60) 02/17/18 08:00 Hgb 12.7 GM/dL (11.7-16.9) 02/17/18 08:00 Hct 40.1 % (35.4-49) 02/17/18 08:00 MCV 82.6 fl (80-96) 02/17/18 08:00 MCH 26.1 pg (25.7-33.7) 02/17/18 08:00 MCHC 31.6 g/dl (32.0-35.9) L 02/17/18 08:00 RDW 15.9 % (11.9-15.9) 02/17/18 08:00 Plt Count 209 K/MM3 (134-434) 02/17/18 08:00 MPV 9.3 fl (7.5-11.1) 02/17/18 08:00 Sodium 141 mmol/L (136-145) 02/17/18 07:50 Potassium 4.1 mmol/L (3.5-5.1) 02/17/18 07:50 Chloride 105 mmol/L (98-107) 02/17/18 07:50 Carbon Dioxide 29 mmol/L (21-32) 02/17/18 07:50 Anion Gap 7 MMOL/L (8-16) L 02/17/18 07:50 BUN 27 mg/dL (7-18) H 02/17/18 07:50 Creatinine 1.5 mg/dL (0.55-1.3) H 02/17/18 07:50 Creat Clearance w eGFR 49.15 (>60) 02/17/18 07:50 Random Glucose 109 mg/dL (74-106) H 02/17/18 07:50 Calcium 8.4 mg/dL (8.5-10.1) L 02/17/18 07:50 Total Bilirubin 0.2 mg/dL (0.2-1) 02/17/18 07:50 AST 23 U/L (15-37) 02/17/18 07:50 ALT 28 U/L (13-61) 02/17/18 07:50 Alkaline Phosphatase 77 U/L (45-117) 02/17/18 07:50 Total Protein 5.5 g/dl (6.4-8.2) L 02/17/18 07:50 Albumin 2.4 g/dl (3.4-5.0) L 02/17/18 07:50 Urine Color Ltyellow 02/16/18 22:00 Urine Appearance Clear 02/16/18 22:00 Urine pH 5.0 (5.0-8.0) 02/16/18 22:00 Ur Specific [place] 1.019 (1.010-1.035) 02/16/18 22:00 Urine Protein 3+ (NEGATIVE) H 02/16/18 22:00 Urine Glucose (UA) Negative (NEGATIVE) 02/16/18 22:00 Urine Ketones Negative (NEGATIVE) 02/16/18 22:00 Urine Blood Negative (NEGATIVE) 02/16/18 22:00 Urine Nitrite Negative (NEGATIVE) 02/16/18 22:00 Urine Bilirubin Negative (<2.0 mg/dL) 02/16/18 22:00 Urine Urobilinogen Negative mg/dL (0.2-1.0) 02/16/18 22:00 Ur Leukocyte Esterase Negative (NEGATIVE) 02/16/18 22:00 Urine WBC (Auto) 6 /hpf (3-5) 02/16/18 22:00 Urine RBC (Auto) <1 /hpf (0-3) 02/16/18 22:00 Ur Epithelial Cells Rare /HPF (FEW) 02/16/18 22:00 Granular Casts 76 /lpf 02/16/18 22:00 Urine Mucus Rare 02/16/18 22:00 RPR Titer Nonreactive (NONREACTIVE) 02/17/18 07:50 labs noted Abnormal urine result Assessment: 02/17/18 15:58 Withdrawal sx Abnormal urinalysis Plan: Continue detox
[2018-02-17] MEDS: THIAMINE HCL 100 MG TABLET (FP) PO SCH (22:31)
[2018-02-17] MEDS: ATORVASTATIN CA 20 MG TABLET (FP) PO SCH (22:31)
[2018-02-17] MEDS: chlordiazePOXIDE 5 MG CAPSULE PO SCH (22:33)
[2018-02-17] MEDS: MELATONIN 5 MG TABLETS PO PRN (22:33)
[2018-02-18] MEDS: chlordiazePOXIDE 5 MG CAPSULE PO SCH ×4 (05:38→22:28)
[2018-02-18] MEDS: LISINOPRIL 20 MG TABLET (FP) PO SCH (10:18)
[2018-02-18] MEDS: ASPIRIN 81 MG CHEWABLE TABLETS PO SCH (10:18)
[2018-02-18] MEDS: HYDROCHLOROTHIAZIDE 25 MG TABLET (FP) PO SCH (10:18)
[2018-02-18] MEDS: PRENATAL VITAMINS W/ FOLIC ACID TABLET (FP) PO SCH (10:18)
[2018-02-18] MEDS: RANITIDINE HCL 150 MG TABLET (FP) PO SCH ×2 (10:18→22:28)
--- NOTE | 2018-02-18 15:05 | PN ---
[facility] CIWA - CIWA Score Nausea/Vomitin-Mild Nausea/No Vomiting Muscle Tremors: 3 Anxiety: 3 Agitation: 3 Paroxysmal Sweats: 3 Orientation: 0-Oriented Tacttile Disturbances: 0-None Auditory Disturbances: 0-None Visual Disturbances: 0-None Headache: 1-Very Mild CIWA-Ar Total Score: 14 [facility] Progress Note (SOAP) Subjective: Sweating, headache, diarrhea, interrupted sleep Objective: 02/18/18 15:02 Last Vital Signs Temp Pulse Resp BP Pulse Ox 98.2 F 79 16 146/89 02/18/18 13:41 02/18/18 13:41 02/18/18 13:41 02/18/18 13:41 Elevated b/p noted (h/o htn, on meds) Laboratory Tests 02/16/18 02/17/18 02/17/18 22:00 07:50 07:50 WBC RBC Hgb Hct MCV MCH MCHC RDW Plt Count MPV Sodium 141 Potassium 4.1 Chloride 105 Carbon Dioxide 29 Anion Gap 7 L BUN 27 H Creatinine 1.5 H Creat Clearance w eGFR 49.15 Random Glucose 109 H Calcium 8.4 L Total Bilirubin 0.2 AST 23 ALT 28 Alkaline Phosphatase 77 Total Protein 5.5 L Albumin 2.4 L Urine Color Ltyellow Urine Appearance Clear Urine pH 5.0 Ur Specific [place] 1.019 Urine Protein 3+ H Urine Glucose (UA) Negative Urine Ketones Negative Urine Blood Negative Urine Nitrite Negative Urine Bilirubin Negative Urine Urobilinogen Negative Ur Leukocyte Esterase Negative Urine WBC (Auto) 6 Urine RBC (Auto) <1 Ur Epithelial Cells Rare Granular Casts 76 Urine Mucus Rare RPR Titer Nonreactive 02/17/18 08:00 WBC 7.7 RBC 4.85 Hgb 12.7 Hct 40.1 MCV 82.6 MCH 26.1 MCHC 31.6 L RDW 15.9 Plt Count 209 MPV 9.3 Sodium Potassium Chloride Carbon Dioxide Anion Gap BUN Creatinine Creat Clearance w eGFR Random Glucose Calcium Total Bilirubin AST ALT Alkaline Phosphatase Total Protein Albumin Urine Color Urine Appearance Urine pH Ur Specific [place] Urine Protein Urine Glucose (UA) Urine Ketones Urine Blood Urine Nitrite Urine Bilirubin Urine Urobilinogen Ur Leukocyte Esterase Urine WBC (Auto) Urine RBC (Auto) Ur Epithelial Cells Granular Casts Urine Mucus RPR Titer Labs reviewed: ADRIANA and abnormal UA noted Assessment: 02/18/18 15:03 Withdrawal symptoms Noted with ADRIANA and abnormal UA Plan: Continue detox ADRIANA: encouraged PO water intake, repeat BMP Abnormal UA: repeat UA
[2018-02-18] MEDS: ATORVASTATIN CA 20 MG TABLET (FP) PO SCH (22:28)
[2018-02-18] MEDS: THIAMINE HCL 100 MG TABLET (FP) PO SCH (22:28)
[2018-02-18] MEDS: MELATONIN 5 MG TABLETS PO PRN (22:29)
[2018-02-19] MEDS: chlordiazePOXIDE 5 MG CAPSULE PO SCH ×3 (06:24→17:14)
[2018-02-19] MEDS: HYDROCHLOROTHIAZIDE 25 MG TABLET (FP) PO SCH (10:16)
[2018-02-19] MEDS: RANITIDINE HCL 150 MG TABLET (FP) PO SCH ×2 (10:16→22:20)
[2018-02-19] MEDS: ASPIRIN 81 MG CHEWABLE TABLETS PO SCH (10:16)
[2018-02-19] MEDS: LISINOPRIL 20 MG TABLET (FP) PO SCH (10:16)
[2018-02-19] MEDS: PRENATAL VITAMINS W/ FOLIC ACID TABLET (FP) PO SCH (10:16)
--- NOTE | 2018-02-19 10:31 | PN ---
[facility] Progress Note (SOAP) Subjective: feeling better no tremor less sweat no gi distress sleep better at night Objective: 02/19/18 10:30 Vital Signs Temperature 97.8 F 02/19/18 09:12 Pulse Rate 76 02/19/18 09:12 Respiratory Rate 18 02/19/18 09:12 Blood Pressure 115/69 02/19/18 09:12 O2 Sat by Pulse Oximetry (%) Laboratory Last Values WBC 7.7 K/mm3 (4.0-10.0) 02/17/18 08:00 RBC 4.85 M/mm3 (4.00-5.60) 02/17/18 08:00 Hgb 12.7 GM/dL (11.7-16.9) 02/17/18 08:00 Hct 40.1 % (35.4-49) 02/17/18 08:00 MCV 82.6 fl (80-96) 02/17/18 08:00 MCH 26.1 pg (25.7-33.7) 02/17/18 08:00 MCHC 31.6 g/dl (32.0-35.9) L 02/17/18 08:00 RDW 15.9 % (11.9-15.9) 02/17/18 08:00 Plt Count 209 K/MM3 (134-434) 02/17/18 08:00 MPV 9.3 fl (7.5-11.1) 02/17/18 08:00 Sodium 141 mmol/L (136-145) 02/17/18 07:50 Potassium 4.1 mmol/L (3.5-5.1) 02/17/18 07:50 Chloride 105 mmol/L (98-107) 02/17/18 07:50 Carbon Dioxide 29 mmol/L (21-32) 02/17/18 07:50 Anion Gap 7 MMOL/L (8-16) L 02/17/18 07:50 BUN 27 mg/dL (7-18) H 02/17/18 07:50 Creatinine 1.5 mg/dL (0.55-1.3) H 02/17/18 07:50 Creat Clearance w eGFR 49.15 (>60) 02/17/18 07:50 Random Glucose 109 mg/dL (74-106) H 02/17/18 07:50 Calcium 8.4 mg/dL (8.5-10.1) L 02/17/18 07:50 Total Bilirubin 0.2 mg/dL (0.2-1) 02/17/18 07:50 AST 23 U/L (15-37) 02/17/18 07:50 ALT 28 U/L (13-61) 02/17/18 07:50 Alkaline Phosphatase 77 U/L (45-117) 02/17/18 07:50 Total Protein 5.5 g/dl (6.4-8.2) L 02/17/18 07:50 Albumin 2.4 g/dl (3.4-5.0) L 02/17/18 07:50 Urine Color Ltyellow 02/16/18 22:00 Urine Appearance Clear 02/16/18 22:00 Urine pH 5.0 (5.0-8.0) 02/16/18 22:00 Ur Specific [place] 1.019 (1.010-1.035) 02/16/18 22:00 Urine Protein 3+ (NEGATIVE) H 02/16/18 22:00 Urine Glucose (UA) Negative (NEGATIVE) 02/16/18 22:00 Urine Ketones Negative (NEGATIVE) 02/16/18 22:00 Urine Blood Negative (NEGATIVE) 02/16/18 22:00 Urine Nitrite Negative (NEGATIVE) 02/16/18 22:00 Urine Bilirubin Negative (<2.0 mg/dL) 02/16/18 22:00 Urine Urobilinogen Negative mg/dL (0.2-1.0) 02/16/18 22:00 Ur Leukocyte Esterase Negative (NEGATIVE) 02/16/18 22:00 Urine WBC (Auto) 6 /hpf (3-5) 02/16/18 22:00 Urine RBC (Auto) <1 /hpf (0-3) 02/16/18 22:00 Ur Epithelial Cells Rare /HPF (FEW) 02/16/18 22:00 Granular Casts 76 /lpf 02/16/18 22:00 Urine Mucus Rare 02/16/18 22:00 RPR Titer Nonreactive (NONREACTIVE) 02/17/18 07:50 lab noted Assessment: 02/19/18 10:30 mild withdrawal sx Plan: medically supervised detox
[2018-02-19 15:06] LABS: URINE APPEARANCE CLEAR; URINE BILIRUBIN NEGATIVE (<2.0 mg/dL); URINE COLOR STRAW; URINE GLUCOSE (UA) NEGATIVE (NEGATIVE); URINE KETONE NEGATIVE (NEGATIVE); URINE LEUK ESTERASE NEGATIVE (NEGATIVE); URINE NITRITE NEGATIVE (NEGATIVE); URINE PROTEIN 3+ (NEGATIVE); URINE UROBILINOGEN NEGATIVE mg/dL (0.2-1.0)
[2018-02-19] MEDS: THIAMINE HCL 100 MG TABLET (FP) PO SCH (22:20)
[2018-02-19] MEDS: ATORVASTATIN CA 20 MG TABLET (FP) PO SCH (22:20)
[2018-02-20 09:19] VITALS: BP 144/85; PULSE 97; TEMP 97
--- NOTE | 2018-02-20 11:20 | DS ---
[facility] Detox Discharge Summary Admission Date: 02/16/18 Discharge Date: 02/20/18 - History Present History: Alcohol Dependence Additional Comments: Patient completed detox successfully. Instructed to follow up with his PCP within 1-2 weeks. Pertinent Past History: Alcohol dependence HTN Nicotine dependence HLD GERD Obesity - Physical Exam Results Vital Signs: Vital Signs Temperature 97.0 F L 02/20/18 09:17 Pulse Rate 97 H 02/20/18 09:17 Respiratory Rate 20 02/20/18 09:17 Blood Pressure 144/85 02/20/18 09:17 O2 Sat by Pulse Oximetry (%) Pertinent Admission Physical Exam Findings: Withdrawal symptoms Laboratory Tests 02/16/18 02/17/18 02/17/18 22:00 07:50 07:50 WBC RBC Hgb Hct MCV MCH MCHC RDW Plt Count MPV Sodium 141 Potassium 4.1 Chloride 105 Carbon Dioxide 29 Anion Gap 7 L BUN 27 H Creatinine 1.5 H Creat Clearance w eGFR 49.15 Random Glucose 109 H Calcium 8.4 L Total Bilirubin 0.2 AST 23 ALT 28 Alkaline Phosphatase 77 Total Protein 5.5 L Albumin 2.4 L Urine Color Ltyellow Urine Appearance Clear Urine pH 5.0 Ur Specific [place] 1.019 Urine Protein 3+ H Urine Glucose (UA) Negative Urine Ketones Negative Urine Blood Negative Urine Nitrite Negative Urine Bilirubin Negative Urine Urobilinogen Negative Ur Leukocyte Esterase Negative Urine WBC (Auto) 6 Urine RBC (Auto) <1 Ur Epithelial Cells Rare Granular Casts 76 Urine Mucus Rare RPR Titer Nonreactive 02/17/18 02/19/18 08:00 10:30 WBC 7.7 RBC 4.85 Hgb 12.7 Hct 40.1 MCV 82.6 MCH 26.1 MCHC 31.6 L RDW 15.9 Plt Count 209 MPV 9.3 Sodium Potassium Chloride Carbon Dioxide Anion Gap BUN Creatinine Creat Clearance w eGFR Random Glucose Calcium Total Bilirubin AST ALT Alkaline Phosphatase Total Protein Albumin Urine Color Straw Urine Appearance Clear Urine pH 7.0 D Ur Specific [place] 1.014 Urine Protein 3+ H Urine Glucose (UA) Negative Urine Ketones Negative Urine Blood Negative Urine Nitrite Negative Urine Bilirubin Negative Urine Urobilinogen Negative Ur Leukocyte Esterase Negative Urine WBC (Auto) 1 Urine RBC (Auto) 2 Ur Epithelial Cells Granular Casts Urine Mucus RPR Titer Labs reviewed: ADRIANA noted, repeat BMP ordered but patient refused. ADRIANA most likely due to dehydration. Persistent proteinuria noted. Encouraged PO water intake and to follow up with PCP within 1-2 weeks. - Treatment Hospital Course: Detox Protocol Followed, Detoxed Safely, Responded well, Discharged Condition Good - Medication Discharge Medications: Ambulatory Orders Aspirin [ASA -] 81 mg PO DAILY #30 tab 05/10/17 Multivitamins [Multivit ([facility] Formulary)] 1 tab PO DAILY 12/06/17 Ranitidine [Zantac -] 150 mg PO BID #60 tablet 12/10/17 Ibuprofen 800 mg PO QID PRN 01/30/18 Atorvastatin Ca [Lipitor] 40 mg PO HS #14 tablet 02/19/18 Hydrochlorothiazide [Hctz -] 50 mg PO DAILY #14 tablet 02/19/18 Lisinopril [Prinivil -] 40 mg PO DAILY #14 tablet 02/19/18 - Diagnosis (1) ADRIANA (acute kidney injury) Status: Acute (2) Abnormal finding on urinalysis Status: Acute (3) Alcohol dependence with uncomplicated withdrawal Status: Acute (4) Acid reflux disease Status: Chronic Qualifiers: Esophagitis presence: esophagitis presence not specified Qualified Code(s) : K21.9 - Gastro-esophageal reflux disease without esophagitis (5) Hypercholesteremia Status: Chronic (6) Hypertension Status: Chronic Qualifiers: Hypertension type: essential hypertension Qualified Code(s): I10 - Essential (primary) hypertension (7) Nicotine dependence Status: Chronic Qualifiers: Nicotine product type: cigarettes Substance use status: in withdrawal Qualified Code(s): F17.213 - Nicotine dependence, cigarettes, with withdrawal (8) Obesities, morbid Status: Chronic - AMA Did Patient Leave Against Medical Advice: No (F/U with PCP within 1-2 weeks)
== END 2018-02-20 09:23 | disposition home or self-care (01) | DRG 774 ==
LOC: YASAS 14:47 → Y3N 17:11
PROVIDERS: ADMIT Neuromusculoskeletal Medicine & OMM; ATTEND Neuromusculoskeletal Medicine & OMM
PROC: HZ2ZZZZ Detoxification Services for Substance Abuse Treatment (ICD-10-PCS; principal; 2018-02-16)
DX: F10.230 Alcohol dependence with withdrawal, uncomplicated (principal); F14.20 Cocaine dependence, uncomplicated; F12.20 Cannabis dependence, uncomplicated; F17.210 Nicotine dependence, cigarettes, uncomplicated; F19.24 Other psychoactive substance dependence with psychoactive substance-induced mood disorder; F19.282 Other psychoactive substance dependence with psychoactive substance-induced sleep disorder; F32.9 Major depressive disorder, single episode, unspecified; I10 Essential (primary) hypertension; N17.9 Acute kidney failure, unspecified; R82.90 Unspecified abnormal findings in urine; K21.9 Gastro-esophageal reflux disease without esophagitis; E78.00 Pure hypercholesterolemia, unspecified; E11.9 Type 2 diabetes mellitus without complications; E66.01 Morbid (severe) obesity due to excess calories; Z68.38 Body mass index [BMI] 38.0-38.9, adult; Z59.0 Homelessness
CPT/HCPCS: 36415; 80053; 81003; 81015; 85027; 86593

== ENCOUNTER 2018-10-20 09:08 | Inpatient (IN) | payer OTHER | END 2018-10-23 10:15 | disposition home or self-care (01) | LOC: YASAS 09:08 → Y6N 11:45 ==

== ENCOUNTER 2018-12-19 09:02 | Inpatient (IN) | payer OTHER ==
--- NOTE | 2018-12-19 09:44 | HP ---
CIWA Score Nausea/Vomitin (appropriate for admission to alcohol detox) Muscle Tremors: 1-None Visible, but Weed Anxiety: 4-Mod. Anxious/Guarded Agitation: 4-Moderately Restless Paroxysmal Sweats: 4-Forehead w/Sweat Beads Orientation: 0-Oriented Tacttile Disturbances: 0-None Auditory Disturbances: 0-None Visual Disturbances: 0-None Headache: 3-Moderate (appropriate for alcohol detox) CIWA-Ar Total Score: 19 - Admission Criteria OASAS Guidelines: Admission for Medically Managed Detox: Requires at least one of the followin. CIWA greater than 12 2. Seizures within the past 24 hours 3. Delirium tremens within the past 24 hours 4. Hallucinations within the past 24 hours 5. Acute intervention needed for co occurring medical disorder 6. Acute intervention needed for co occurring psychiatric disorder 7. Severe withdrawal that cannot be handled at a lower level of care (continued vomiting, continued diarrhea, abnormal vital signs) requiring intravenous medication and/or fluids 8. Admission ROS S - HPI Chief Complaint: "I want to stop drinking and maybe I can stop drinking this time." Allergies/Adverse Reactions: Allergies Allergy/AdvReac Type Severity Reaction Status Date / Time No Known Allergies Allergy Verified 12/19/18 09:45 History of Present Illness: Patient is 53 year old black male with history of alcohol dependence with withdrawals. He is drinking 3 6packs of beer daily. he is not using any other substances of abuse. He smokes 5 ciggs per day for many years. PMH: HTN Psurg: None Psych: None - Ebola screening Have you traveled outside of the country in the last 21 days: No Have you had contact with anyone from an Ebola affected area: No Do you have a fever: No Patient History - Patient Medical History Hx Anemia: No Hx Asthma: No Hx Chronic Obstructive Pulmonary Disease (COPD): No Hx Cancer: No Hx Cardiac Disorders: No Hx Congestive Heart Failure: No Hx Hypertension: No Hx Hypercholesterolemia: No Hx Pacemaker: No HX Cerebrovascular Accident: No Hx Seizures: No Hx Dementia: No Hx Diabetes: No Hx Gastrointestinal Disorders: No Hx Liver Disease: No Hx Genitourinary Disorders: No Hx Sexually Transmitted Disorders: No Hx Renal Disease (ESRD): No Hx Thyroid Disease: No Hx Human Immunodeficiency Virus (HIV): No ( NEGATIVE HX ) Hx Hepatitis C: No (NEGATIVE HX.) Hx Depression: Yes (no meds) Hx Suicide Attempt: No Hx Bipolar Disorder: No Hx Schizophrenia: No - Patient Surgical History Past Surgical History: No Hx Neurologic Surgery: No Hx Cataract Extraction: No Hx Cardiac Surgery: No Hx Lung Surgery: No Hx Breast Surgery: No Hx Breast Biopsy: No Hx Abdominal Surgery: No Hx Appendectomy: No Hx Cholecystectomy: No Hx Genitourinary Surgery: No Hx Section: No Hx Orthopedic Surgery: No Anesthesia Reaction: No - PPD History Previous Implant?: Yes Documented Results: Negative w/proof Implanted On Prior [facility] Admission?: Yes Date: 10/08/17 Results: 0 mm PPD to be Administered?: Yes - Smoking Cessation Smoking history: Current every day smoker Have you smoked in the past 12 months: Yes Aproximately how many cigarettes per day: 5 Cigars Per Day: 0 Hx Chewing Tobacco Use: No Initiated information on smoking cessation: Yes 'Breaking Loose' booklet given: 12/19/18 - Substances abused Alcohol Substance route: Oral Frequency: Daily Amount used: 24 OUNCES OF [place]ARIT[place], 1 PINT OF VODKA, A COUPLE OF 6 PACKS Age of first use: 15 Date of last use: 10/19/18 Cocaine Substance route: Smoking Frequency: 1-3 times last 30 days Amount used: $200 Age of first use: 23 Date of last use: 10/19/18 Admission Physical Exam S - Physical General Appearance: Yes: Mild Distress HEENTM: Yes: EOMI, Hearing grossly Normal, Normocephalic, Normal Voice, BIB, Tm 's normal Respiratory: Yes: Chest Non-Tender, Lungs Clear, Normal Breath Sounds, No Respiratory Distress, No Accessory Muscle Use Neck: Yes: No masses,lesions,Nodules, Supple, Trachea in good position Breast: Yes: Within Normal Limits Cardiology: Yes: Within Normal Limits, Regular Rhythm, Regular Rate, S1, S2 Abdominal: Yes: Normal Bowel Sounds, Non Tender, Protuberent Genitourinary: Yes: Within Normal Limits Back: Yes: Normal Inspection Musculoskeletal: Yes: full range of Motion, Gait Steady, Pelvis Stable Extremities: Yes: Normal Capillary Refill, Normal Inspection, Normal Range of Motion, Non-Tender Neurological: Yes: last greaser II-XII NML intact, Fully Oriented, Alert, Motor Strength 5/5, Normal Mood/Affect, Normal Response Integumentary: Yes: Normal Color, Warm Lymphatic: Yes: Within Normal Limits - Diagnostic (1) Alcohol dependence with uncomplicated withdrawal Current Visit: Yes Status: Chronic (2) Chronic renal insufficiency, stage III (moderate) Current Visit: Yes Status: Chronic (3) Hypertension Current Visit: Yes Status: Chronic Qualifiers: Hypertension type: essential hypertension Qualified Code(s): I10 - Essential (primary) hypertension (4) Nicotine dependence Current Visit: Yes Status: Chronic Qualifiers: Nicotine product type: cigarettes Substance use status: uncomplicated Qualified Code(s): F17.210 - Nicotine dependence, cigarettes, uncomplicated (5) Obesities, morbid Current Visit: Yes Status: Chronic (6) Sleep apnea Current Visit: Yes Status: Chronic Qualifiers: Sleep apnea type: obstructive Qualified Code(s): G47.33 - Obstructive sleep apnea (adult) (pediatric) Comment: no CPAP machine (7) Drug-induced mood disorder Current Visit: Yes Status: Suspected Cleared for Admission [facility] - Detox or Rehab [facility] Level of Care: Medically Managed Detox Regimen/Protocol: Librium Claeared for Rehab Admission: No Breathalyzer - Breathalyzer Breathalyzer: 0 (last drank yesterday) Vital Signs - Vital Signs Vital signs refused: No Temperature: 97.7 F Temperature source: Oral Pulse Rate: 77 Respiratory Rate: 20 Blood Pressure: 147/91 BP Location: Left Arm Blood Pressure position: Sitting - Height Height: 5 ft 8 in - Weight Weight: 260 lb Weight measurement method: Standing scale - BMI Body Mass Index (BMI): 39.5 - Bowel Function Bowel Movement: Yes Urine Drug Screen - Test Device Lot number: [id number] Expiration date: 07/25/19 - Control Is test valid?: Yes - Results Drug screen NEGATIVE: Yes Inpatient Rehab Admission - Rehab Decision to Admit Inpatient rehab admission?: No - Initial Determination Are CD services needed?: No Free of communicable disease: No Not in need of hospitalization: No - Rehab Admission Criteria Previous failed treatment: No Poor recovery environment: No Comorbidities: No Lacks judgement: No Patient is meeting Inpatient Rehab admission criteria:: No
[2018-12-19 09:54] VITALS: BMI 39.5
[2018-12-19] MEDS ORDERED: ACETAMINOPHEN 325 MG TABLET (FP) PO PRN ×2 (10:23)
[2018-12-19] MEDS ORDERED: chlordiazePOXIDE HCL 10 MG CAPSULE PO PRN (10:23)
[2018-12-19] MEDS ORDERED: BISMUTH SUBSALICYLATE 262 MG/15 ML BTL PO PRN (10:23)
[2018-12-19] MEDS ORDERED: MAGNESIUM HYDROX 2400MG/30ML ORAL SUSPENSION 30 ML CUP PO PRN (10:23)
[2018-12-19] MEDS ORDERED: hydrOXYzine PAMOATE 25 MG CAPSULE (FP) PO PRN (10:23)
[2018-12-19] MEDS ORDERED: MAGNESIUM CITRATE 300 ML BOTTLE PO PRN (10:23)
[2018-12-19] MEDS ORDERED: METHOCARBAMOL 500 MG TABLET PO PRN (10:23)
[2018-12-19] MEDS ORDERED: MENTHOL/PHENOL 1 EACH UD MM PRN (10:23)
[2018-12-19] MEDS ORDERED: MAG HYDROX/AL HYDROX/SIMETH 30 ML UNIT-DOSE CUP PO PRN (10:23)
[2018-12-19 12:25] LABS: HEMATOCRIT 43.9 % (35.4-49); HEMOGLOBIN 14.4 GM/dL (11.7-16.9); MCH 27.4 pg (25.7-33.7); MCHC 32.9 g/dl (32.0-35.9); MEAN CELL VOLUME 83.3 fl (80-96); MEAN PLT VOLUME 9.2 fl (7.5-11.1); PLATELET COUNT 237 K/MM3 (134-434); RBC 5.27 M/mm3 (4.00-5.60); RDW 15.9 % (11.9-15.9); WHITE BLOOD COUNT 8.2 K/mm3 (4.0-10.0)
[2018-12-19 12:39] LABS: ALBUMIN 2.5 g/dl (3.4-5.0); BILIRUBIN,TOTAL 0.2 mg/dL (0.2-1); BLOOD UREA NITROGEN 25.4 mg/dL (7-18); CALCIUM 8.8 mg/dL (8.5-10.1); CREATININE 1.6 mg/dL (0.55-1.3); POTASSIUM 3.9 mmol/L (3.5-5.1); TOT PROT 5.9 g/dl (6.4-8.2)
[2018-12-19] MEDS: chlordiazePOXIDE HCL 25 MG CAPSULE PO SCH ×2 (12:39→21:18)
[2018-12-19] MEDS: THIAMINE HCL 100 MG TABLET (FP) PO SCH (22:18)
[2018-12-19] MEDS: MELATONIN 5 MG TABLETS PO PRN (22:18)
[2018-12-20] MEDS: chlordiazePOXIDE HCL 25 MG CAPSULE PO SCH ×3 (06:19→22:33)
[2018-12-20] MEDS: PRENATAL VITAMINS W/ FOLIC ACID TABLET (FP) PO SCH (10:22)
[2018-12-20] MEDS: HYDROCHLOROTHIAZIDE 25 MG TABLET (FP) PO SCH (10:22)
[2018-12-20] MEDS: ASPIRIN 81 MG CHEWABLE TABLETS PO SCH (10:22)
[2018-12-20] MEDS: LISINOPRIL 20 MG TABLET (FP) PO SCH (10:22)
[2018-12-20] MEDS: NICOTINE 7 MG/24 HOURS TOPICAL PATCH TD SCH (10:23)
[2018-12-20] MEDS: PANTOPRAZOLE 40 MG TABLET (FP) PO SCH (10:23)
--- NOTE | 2018-12-20 12:46 | PN ---
S CIWA - CIWA Score Nausea/Vomitin-Mild Nausea/No Vomiting Muscle Tremors: 2 Anxiety: 2 Agitation: 2 Paroxysmal Sweats: 1-Minimal Palms Moist Orientation: 0-Oriented Tacttile Disturbances: 1-Very Mild Itch/Numbness Auditory Disturbances: 0-None Visual Disturbances: 0-None Headache: 2-Mild CIWA-Ar Total Score: 11 S Progress Note (SOAP) Subjective: alert,irritable,anxious,interrupted sleep.pain in the body Objective: 12/20/18 12:44 Vital Signs Temperature 98.1 F 12/20/18 09:29 Pulse Rate 78 12/20/18 09:29 Respiratory Rate 18 12/20/18 09:29 Blood Pressure 158/89 12/20/18 09:29 O2 Sat by Pulse Oximetry (%) Laboratory Last Values WBC 8.2 K/mm3 (4.0-10.0) 12/19/18 10:35 RBC 5.27 M/mm3 (4.00-5.60) 12/19/18 10:35 Hgb 14.4 GM/dL (11.7-16.9) 12/19/18 10:35 Hct 43.9 % (35.4-49) 12/19/18 10:35 MCV 83.3 fl (80-96) 12/19/18 10:35 MCH 27.4 pg (25.7-33.7) 12/19/18 10:35 MCHC 32.9 g/dl (32.0-35.9) 12/19/18 10:35 RDW 15.9 % (11.9-15.9) 12/19/18 10:35 Plt Count 237 K/MM3 (134-434) 12/19/18 10:35 MPV 9.2 fl (7.5-11.1) 12/19/18 10:35 Sodium 139 mmol/L (136-145) 12/19/18 10:35 Potassium 3.9 mmol/L (3.5-5.1) 12/19/18 10:35 Chloride 106 mmol/L (98-107) 12/19/18 10:35 Carbon Dioxide 26 mmol/L (21-32) 12/19/18 10:35 Anion Gap 7 MMOL/L (8-16) L 12/19/18 10:35 BUN 25.4 mg/dL (7-18) H 12/19/18 10:35 Creatinine 1.6 mg/dL (0.55-1.3) H 12/19/18 10:35 Est GFR (CKD-EPI)AfAm 56.17 12/19/18 10:35 Est GFR (CKD-EPI)NonAf 48.46 12/19/18 10:35 POC Glucometer 117 UNITS (80-120) 12/20/18 06:22 Random Glucose 98 mg/dL (74-106) 12/19/18 10:35 Calcium 8.8 mg/dL (8.5-10.1) 12/19/18 10:35 Total Bilirubin 0.2 mg/dL (0.2-1) 12/19/18 10:35 AST 21 U/L (15-37) 12/19/18 10:35 ALT 28 U/L (13-61) 12/19/18 10:35 Alkaline Phosphatase 110 U/L (45-117) 12/19/18 10:35 Total Protein 5.9 g/dl (6.4-8.2) L 12/19/18 10:35 Albumin 2.5 g/dl (3.4-5.0) L 12/19/18 10:35 RPR Titer Nonreactive (NONREACTIVE) 12/19/18 10:35 Assessment: 12/20/18 12:45 withdrawal symptom,continue detox librium regimen,history of chronic renal insufficiency
[2018-12-20] MEDS: THIAMINE HCL 100 MG TABLET (FP) PO SCH (22:32)
[2018-12-20] MEDS: MELATONIN 5 MG TABLETS PO PRN (22:32)
[2018-12-21] MEDS: chlordiazePOXIDE 5 MG CAPSULE PO SCH ×3 (06:19→21:15)
[2018-12-21] MEDS: ASPIRIN 81 MG CHEWABLE TABLETS PO SCH (10:57)
[2018-12-21] MEDS: LISINOPRIL 20 MG TABLET (FP) PO SCH (10:57)
[2018-12-21] MEDS: HYDROCHLOROTHIAZIDE 25 MG TABLET (FP) PO SCH (10:57)
[2018-12-21] MEDS: PRENATAL VITAMINS W/ FOLIC ACID TABLET (FP) PO SCH (10:58)
[2018-12-21] MEDS: PANTOPRAZOLE 40 MG TABLET (FP) PO SCH (10:58)
[2018-12-21] MEDS: NICOTINE 7 MG/24 HOURS TOPICAL PATCH TD SCH (10:58)
--- NOTE | 2018-12-21 11:59 | PN ---
[facility] CIWA - CIWA Score Nausea/Vomitin-No Nausea/No Vomiting Muscle Tremors: 2 Anxiety: 2 Agitation: 0-Normal Activity Paroxysmal Sweats: 2 Orientation: 0-Oriented Tacttile Disturbances: 1-Very Mild Itch/Numbness Auditory Disturbances: 0-None Visual Disturbances: 0-None Headache: 1-Very Mild CIWA-Ar Total Score: 8 S Progress Note (SOAP) Subjective: c/o chills, interrupted sleep, sweats Objective: 12/21/18 11:59 Vital Signs Temperature 96.8 F L 12/21/18 09:21 Pulse Rate 76 12/21/18 09:21 Respiratory Rate 18 12/21/18 09:21 Blood Pressure 142/68 12/21/18 09:21 O2 Sat by Pulse Oximetry (%) Laboratory Last Values WBC 8.2 K/mm3 (4.0-10.0) 12/19/18 10:35 RBC 5.27 M/mm3 (4.00-5.60) 12/19/18 10:35 Hgb 14.4 GM/dL (11.7-16.9) 12/19/18 10:35 Hct 43.9 % (35.4-49) 12/19/18 10:35 MCV 83.3 fl (80-96) 12/19/18 10:35 MCH 27.4 pg (25.7-33.7) 12/19/18 10:35 MCHC 32.9 g/dl (32.0-35.9) 12/19/18 10:35 RDW 15.9 % (11.9-15.9) 12/19/18 10:35 Plt Count 237 K/MM3 (134-434) 12/19/18 10:35 MPV 9.2 fl (7.5-11.1) 12/19/18 10:35 Sodium 139 mmol/L (136-145) 12/19/18 10:35 Potassium 3.9 mmol/L (3.5-5.1) 12/19/18 10:35 Chloride 106 mmol/L (98-107) 12/19/18 10:35 Carbon Dioxide 26 mmol/L (21-32) 12/19/18 10:35 Anion Gap 7 MMOL/L (8-16) L 12/19/18 10:35 BUN 25.4 mg/dL (7-18) H 12/19/18 10:35 Creatinine 1.6 mg/dL (0.55-1.3) H 12/19/18 10:35 Est GFR (CKD-EPI)AfAm 56.17 12/19/18 10:35 Est GFR (CKD-EPI)NonAf 48.46 12/19/18 10:35 POC Glucometer 143 UNITS (80-120) 12/21/18 07:38 Random Glucose 98 mg/dL (74-106) 12/19/18 10:35 Calcium 8.8 mg/dL (8.5-10.1) 12/19/18 10:35 Total Bilirubin 0.2 mg/dL (0.2-1) 12/19/18 10:35 AST 21 U/L (15-37) 12/19/18 10:35 ALT 28 U/L (13-61) 12/19/18 10:35 Alkaline Phosphatase 110 U/L (45-117) 12/19/18 10:35 Total Protein 5.9 g/dl (6.4-8.2) L 12/19/18 10:35 Albumin 2.5 g/dl (3.4-5.0) L 12/19/18 10:35 RPR Titer Nonreactive (NONREACTIVE) 12/19/18 10:35 labs reviewed, d/c mag medications repeat CMP Assessment: 12/21/18 12:00 AOx3 no acute distress no adventitious breath sounds full ROM no gait abnormality no edema or erythema Plan: increase PO fluids repeat CMP continue detox
[2018-12-21] MEDS: THIAMINE HCL 100 MG TABLET (FP) PO SCH (22:15)
[2018-12-21] MEDS: MELATONIN 5 MG TABLETS PO PRN (22:15)
[2018-12-22] MEDS ORDERED: chlordiazePOXIDE HCL 10 MG CAPSULE PO PRN
[2018-12-22] MEDS: chlordiazePOXIDE HCL 10 MG CAPSULE PO SCH ×3 (05:32→21:51)
[2018-12-22] MEDS: LISINOPRIL 20 MG TABLET (FP) PO SCH (10:55)
[2018-12-22] MEDS: HYDROCHLOROTHIAZIDE 25 MG TABLET (FP) PO SCH (10:55)
[2018-12-22] MEDS: PANTOPRAZOLE 40 MG TABLET (FP) PO SCH (10:55)
[2018-12-22] MEDS: PRENATAL VITAMINS W/ FOLIC ACID TABLET (FP) PO SCH (10:55)
[2018-12-22] MEDS: ASPIRIN 81 MG CHEWABLE TABLETS PO SCH (10:55)
[2018-12-22] MEDS: NICOTINE 7 MG/24 HOURS TOPICAL PATCH TD SCH (11:03)
--- NOTE | 2018-12-22 11:09 | PN ---
S CIWA - CIWA Score Nausea/Vomitin-No Nausea/No Vomiting Muscle Tremors: None Anxiety: 2 Agitation: 0-Normal Activity Paroxysmal Sweats: 2 Orientation: 0-Oriented Tacttile Disturbances: 0-None Auditory Disturbances: 0-None Visual Disturbances: 0-None Headache: 0-None Present CIWA-Ar Total Score: 4 S Progress Note (SOAP) Subjective: c/o mild sweats and anxiety. Objective: 12/22/18 11:05 Vital Signs 12/22/18 12/22/18 07:13 09:44 Temperature 97.2 F L 97.2 F L Pulse Rate 67 87 Respiratory 20 20 Rate Blood Pressure 125/73 140/83 Lab Results WBC 8.2 K/mm3 (4.0-10.0) 12/19/18 10:35 RBC 5.27 M/mm3 (4.00-5.60) 12/19/18 10:35 Hgb 14.4 GM/dL (11.7-16.9) 12/19/18 10:35 Hct 43.9 % (35.4-49) 12/19/18 10:35 MCV 83.3 fl (80-96) 12/19/18 10:35 MCHC 32.9 g/dl (32.0-35.9) 12/19/18 10:35 RDW 15.9 % (11.9-15.9) 12/19/18 10:35 Plt Count 237 K/MM3 (134-434) 12/19/18 10:35 Sodium 139 mmol/L (136-145) 12/19/18 10:35 Potassium 3.9 mmol/L (3.5-5.1) 12/19/18 10:35 Chloride 106 mmol/L (98-107) 12/19/18 10:35 Carbon Dioxide 26 mmol/L (21-32) 12/19/18 10:35 Anion Gap 7 MMOL/L (8-16) L 12/19/18 10:35 BUN 25.4 mg/dL (7-18) H 12/19/18 10:35 Creatinine 1.6 mg/dL (0.55-1.3) H 12/19/18 10:35 Random Glucose 98 mg/dL (74-106) 12/19/18 10:35 Calcium 8.8 mg/dL (8.5-10.1) 12/19/18 10:35 Labs noted. Assessment: 12/22/18 11:05 AOX3, in no acute respiratory distress. Full ROM, ambulating in the unit. Mild withdrawal symptoms. Pt is for discharge in AM. As per counselor's notes, Pt continues to be motivated to attend rehab [facility]. Plan: continue detox. D/C in AM.
[2018-12-22] MEDS: MELATONIN 5 MG TABLETS PO PRN (21:51)
[2018-12-22] MEDS: THIAMINE HCL 100 MG TABLET (FP) PO SCH (21:51)
[2018-12-23] MEDS ORDERED: chlordiazePOXIDE HCL 10 MG CAPSULE PO ONE (05:00)
[2018-12-23 10:04] VITALS: BP 138/85; PULSE 92; TEMP 97.7
[2018-12-23] MEDS: LISINOPRIL 20 MG TABLET (FP) PO SCH (10:40)
[2018-12-23] MEDS: HYDROCHLOROTHIAZIDE 25 MG TABLET (FP) PO SCH (10:41)
[2018-12-23] MEDS: PRENATAL VITAMINS W/ FOLIC ACID TABLET (FP) PO SCH (10:41)
[2018-12-23] MEDS: ASPIRIN 81 MG CHEWABLE TABLETS PO SCH (10:41)
[2018-12-23] MEDS: PANTOPRAZOLE 40 MG TABLET (FP) PO SCH (10:41)
[2018-12-23] MEDS: NICOTINE 7 MG/24 HOURS TOPICAL PATCH TD SCH (11:19)
--- NOTE | 2018-12-23 16:11 | DS ---
[facility] Detox Discharge Summary Admission Date: 12/19/18 Discharge Date: 12/23/18 - History Present History: Alcohol Dependence, Cocaine Dependence Additional Comments: Patient completed detox successfully and accepted admission to [facility]. Patient noted with ADRIANA, encouraged PO water intake, will repeat BMP in AM. Pertinent Past History: Obesity HTN Nicotine dependence Alcohol dependence Cocaine dependence Depression - Physical Exam Results Vital Signs: Vital Signs Temperature 97.7 F 12/23/18 10:03 Pulse Rate 92 H 12/23/18 10:03 Respiratory Rate 20 12/23/18 10:03 Blood Pressure 138/85 12/23/18 10:03 O2 Sat by Pulse Oximetry (%) Pertinent Admission Physical Exam Findings: Withdrawal sxs Laboratory Tests 12/19/18 12/19/18 12/19/18 10:35 10:35 10:35 WBC 8.2 RBC 5.27 Hgb 14.4 Hct 43.9 MCV 83.3 MCH 27.4 MCHC 32.9 RDW 15.9 Plt Count 237 MPV 9.2 Sodium 139 Potassium 3.9 Chloride 106 Carbon Dioxide 26 Anion Gap 7 L BUN 25.4 H Creatinine 1.6 H Est GFR (CKD-EPI)AfAm 56.17 Est GFR (CKD-EPI)NonAf 48.46 POC Glucometer Random Glucose 98 Calcium 8.8 Total Bilirubin 0.2 AST 21 ALT 28 Alkaline Phosphatase 110 Total Protein 5.9 L Albumin 2.5 L RPR Titer Nonreactive 12/20/18 12/21/18 12/21/18 06:22 07:38 16:32 WBC RBC Hgb Hct MCV MCH MCHC RDW Plt Count MPV Sodium Potassium Chloride Carbon Dioxide Anion Gap BUN Creatinine Est GFR (CKD-EPI)AfAm Est GFR (CKD-EPI)NonAf POC Glucometer 117 143 176 Random Glucose Calcium Total Bilirubin AST ALT Alkaline Phosphatase Total Protein Albumin RPR Titer 12/22/18 06:58 WBC RBC Hgb Hct MCV MCH MCHC RDW Plt Count MPV Sodium Potassium Chloride Carbon Dioxide Anion Gap BUN Creatinine Est GFR (CKD-EPI)AfAm Est GFR (CKD-EPI)NonAf POC Glucometer 168 Random Glucose Calcium Total Bilirubin AST ALT Alkaline Phosphatase Total Protein Albumin RPR Titer Labs reviewed: ADRIANA noted - Treatment Hospital Course: Detox Protocol Followed, Detoxed Safely, Responded well, Discharged Condition Good, Rehab Referral Accepted - Medication Discharge Medications: Ambulatory Orders Aspirin [ASA -] 81 mg PO DAILY #30 tab 05/10/17 Lisinopril [Prinivil -] 40 mg PO DAILY #14 tablet 02/19/18 Hydrochlorothiazide [Hctz -] 25 mg PO DAILY 12/19/18 Ibuprofen 400 mg PO PRN 12/19/18 Omeprazole 20 mg PO DAILY 12/19/18 - Diagnosis (1) ADRIANA (acute kidney injury) Status: Acute (2) Cocaine dependence, uncomplicated Status: Acute (3) Alcohol dependence with uncomplicated withdrawal Status: Chronic (4) Hypertension Status: Chronic Qualifiers: Hypertension type: essential hypertension Qualified Code(s): I10 - Essential (primary) hypertension (5) Nicotine dependence Status: Chronic Qualifiers: Nicotine product type: cigarettes Substance use status: uncomplicated Qualified Code(s): F17.210 - Nicotine dependence, cigarettes, uncomplicated (6) Obesities, morbid Status: Chronic (7) Depression Status: Chronic Qualifiers: Depression Type: unspecified Qualified Code(s): F32.9 - Major depressive disorder, single episode, unspecified - AMA Did Patient Leave Against Medical Advice: No (Patient accepted admission to [facility])
== END 2018-12-23 12:18 | disposition other institution (70) | DRG 775 ==
LOC: YASAS 09:02 → Y6N 10:45
PROVIDERS: ADMIT Surgery; ATTEND Surgery
PROC: HZ2ZZZZ Detoxification Services for Substance Abuse Treatment (ICD-10-PCS; principal; 2018-12-19)
DX: F10.230 Alcohol dependence with withdrawal, uncomplicated (principal); F17.210 Nicotine dependence, cigarettes, uncomplicated; F32.9 Major depressive disorder, single episode, unspecified; F19.24 Other psychoactive substance dependence with psychoactive substance-induced mood disorder; I12.9 Hypertensive chronic kidney disease with stage 1 through stage 4 chronic kidney disease, or unspecified chronic kidney disease; N18.3 Chronic kidney disease, stage 3 (moderate); N17.9 Acute kidney failure, unspecified; G47.33 Obstructive sleep apnea (adult) (pediatric); E66.01 Morbid (severe) obesity due to excess calories; Z68.39 Body mass index [BMI] 39.0-39.9, adult; Z59.0 Homelessness
CPT/HCPCS: 36415; 80053; 82962; 85027; 86593

== ENCOUNTER 2018-12-23 12:31 | Inpatient (IN) | payer OTHER ==
[2018-12-23] MEDS ORDERED: FLU VACCINE QUAD 60 MCG/0.5 ML (MDV 19-20) IM ONE (13:31)
[2018-12-23] MEDS ORDERED: MAGNESIUM HYDROX 2400MG/30ML ORAL SUSPENSION 30 ML CUP PO PRN (14:01)
[2018-12-23] MEDS ORDERED: ACETAMINOPHEN 325 MG TABLET (FP) PO PRN (14:01)
[2018-12-23] MEDS ORDERED: MENTHOL/PHENOL 1 EACH UD MM PRN (14:01)
[2018-12-23] MEDS ORDERED: LOPERAMIDE HCL 2 MG CAPSULE PO PRN (14:01)
[2018-12-23] MEDS ORDERED: MAGNESIUM CITRATE 300 ML BOTTLE PO PRN (14:01)
[2018-12-23] MEDS ORDERED: IBUPROFEN 400 MG TABLET (FP) PO PRN (14:01)
[2018-12-23] MEDS ORDERED: MAG HYDROX/AL HYDROX/SIMETH 30 ML UNIT-DOSE CUP PO PRN (14:01)
[2018-12-23] MEDS ORDERED: NICOTINE POLACRILEX 2 MG GUM BUC PRN (14:01)
[2018-12-23] MEDS ORDERED: P-EPHED 60MG/TRIPROLIDI 2.5MG TABLET PO PRN (14:01)
--- NOTE | 2018-12-23 14:01 | HP ---
[facility] Rehab Assess/Revision - Admission History Admitted to Rehab from: [facility] Date of Admission to Rehab: 12/23/18 - Vital signs Vital Signs: Vital Signs Period Temp Pulse Resp BP Sys/Light Pulse Ox Last 24 Hr 98.4 F 91 18 132/83 - Findings Detox History & Physical reviewed: Yes Concur with findings: Yes Inpatient Rehab Admission - Rehab Decision to Admit Inpatient rehab admission?: Yes - Initial Determination Are CD services needed?: No Free of communicable disease: Yes Not in need of hospitalization: Yes - Rehab Admission Criteria Previous failed treatment: Yes Poor recovery environment: Yes Comorbidities: Yes Lacks judgement: Yes Patient is meeting Inpatient Rehab admission criteria:: Yes
[2018-12-23] MEDS: THIAMINE HCL 100 MG TABLET (FP) PO SCH (21:23)
[2018-12-23] MEDS: MELATONIN 5 MG TABLETS PO PRN (21:23)
[2018-12-24] MEDS: PRENATAL VITAMINS W/ FOLIC ACID TABLET (FP) PO SCH (09:55)
[2018-12-24] MEDS: HYDROCHLOROTHIAZIDE 25 MG TABLET (FP) PO SCH (09:55)
[2018-12-24] MEDS: ASPIRIN COATED 81 MG TABLET.EC PO SCH (09:55)
[2018-12-24] MEDS: PANTOPRAZOLE 40 MG TABLET (FP) PO SCH (09:55)
[2018-12-24] MEDS: LISINOPRIL 20 MG TABLET (FP) PO SCH (09:55)
[2018-12-24] MEDS: MELATONIN 5 MG TABLETS PO PRN (21:30)
[2018-12-24] MEDS: THIAMINE HCL 100 MG TABLET (FP) PO SCH (21:30)
[2018-12-25] MEDS: LISINOPRIL 20 MG TABLET (FP) PO SCH (09:55)
[2018-12-25] MEDS: PRENATAL VITAMINS W/ FOLIC ACID TABLET (FP) PO SCH (09:55)
[2018-12-25] MEDS: HYDROCHLOROTHIAZIDE 25 MG TABLET (FP) PO SCH (09:55)
[2018-12-25] MEDS: ASPIRIN COATED 81 MG TABLET.EC PO SCH (09:55)
[2018-12-25] MEDS: PANTOPRAZOLE 40 MG TABLET (FP) PO SCH (09:56)
[2018-12-25] MEDS: MELATONIN 5 MG TABLETS PO PRN (21:17)
[2018-12-25] MEDS: THIAMINE HCL 100 MG TABLET (FP) PO SCH (21:17)
[2018-12-26] MEDS: PRENATAL VITAMINS W/ FOLIC ACID TABLET (FP) PO SCH (10:09)
[2018-12-26] MEDS: ASPIRIN COATED 81 MG TABLET.EC PO SCH (10:09)
[2018-12-26] MEDS: PANTOPRAZOLE 40 MG TABLET (FP) PO SCH (10:09)
[2018-12-26] MEDS: HYDROCHLOROTHIAZIDE 25 MG TABLET (FP) PO SCH (10:09)
[2018-12-26] MEDS: LISINOPRIL 20 MG TABLET (FP) PO SCH (10:09)
[2018-12-26] MEDS: THIAMINE HCL 100 MG TABLET (FP) PO SCH (21:25)
[2018-12-26] MEDS: MELATONIN 5 MG TABLETS PO PRN (21:25)
[2018-12-27] MEDS: PRENATAL VITAMINS W/ FOLIC ACID TABLET (FP) PO SCH (10:06)
[2018-12-27] MEDS: PANTOPRAZOLE 40 MG TABLET (FP) PO SCH (10:06)
[2018-12-27] MEDS: ASPIRIN COATED 81 MG TABLET.EC PO SCH (10:06)
[2018-12-27] MEDS: HYDROCHLOROTHIAZIDE 25 MG TABLET (FP) PO SCH (10:06)
[2018-12-27] MEDS: LISINOPRIL 20 MG TABLET (FP) PO SCH (10:06)
[2018-12-27] MEDS: MELATONIN 5 MG TABLETS PO PRN (21:20)
[2018-12-27] MEDS: guaiFENesin 200 MG/10 ML 10 ML UNIT-DOSE CUPS PO PRN (21:20)
[2018-12-27] MEDS: THIAMINE HCL 100 MG TABLET (FP) PO SCH (21:21)
[2018-12-28] MEDS: PANTOPRAZOLE 40 MG TABLET (FP) PO SCH (10:19)
[2018-12-28] MEDS: ASPIRIN COATED 81 MG TABLET.EC PO SCH (10:19)
[2018-12-28] MEDS: LISINOPRIL 20 MG TABLET (FP) PO SCH (10:19)
[2018-12-28] MEDS: HYDROCHLOROTHIAZIDE 25 MG TABLET (FP) PO SCH (10:19)
[2018-12-28] MEDS: PRENATAL VITAMINS W/ FOLIC ACID TABLET (FP) PO SCH (10:19)
[2018-12-28] MEDS: THIAMINE HCL 100 MG TABLET (FP) PO SCH (21:22)
[2018-12-28] MEDS: MELATONIN 5 MG TABLETS PO PRN (21:23)
[2018-12-28] MEDS: hydrOXYzine PAMOATE 25 MG CAPSULE (FP) PO PRN (21:23)
[2018-12-28] MEDS: guaiFENesin 200 MG/10 ML 10 ML UNIT-DOSE CUPS PO PRN (23:03)
[2018-12-29] MEDS: guaiFENesin 200 MG/10 ML 10 ML UNIT-DOSE CUPS PO PRN ×2 (09:58→21:14)
[2018-12-29] MEDS: PANTOPRAZOLE 40 MG TABLET (FP) PO SCH (09:59)
[2018-12-29] MEDS: ASPIRIN COATED 81 MG TABLET.EC PO SCH (09:59)
[2018-12-29] MEDS: HYDROCHLOROTHIAZIDE 25 MG TABLET (FP) PO SCH (09:59)
[2018-12-29] MEDS: PRENATAL VITAMINS W/ FOLIC ACID TABLET (FP) PO SCH (09:59)
[2018-12-29] MEDS: LISINOPRIL 20 MG TABLET (FP) PO SCH (09:59)
[2018-12-29] MEDS: THIAMINE HCL 100 MG TABLET (FP) PO SCH (21:13)
[2018-12-29] MEDS: MELATONIN 5 MG TABLETS PO PRN (21:13)
[2018-12-29] MEDS: hydrOXYzine PAMOATE 25 MG CAPSULE (FP) PO PRN (21:14)
[2018-12-30] MEDS ORDERED: PT OWN MED DRAWER 7, Y5N ONE ×2 (08:31→09:42)
[2018-12-30] MEDS: HYDROCHLOROTHIAZIDE 25 MG TABLET (FP) PO SCH (09:41)
[2018-12-30] MEDS: PRENATAL VITAMINS W/ FOLIC ACID TABLET (FP) PO SCH (09:41)
[2018-12-30] MEDS: ASPIRIN COATED 81 MG TABLET.EC PO SCH (09:41)
[2018-12-30] MEDS: LISINOPRIL 20 MG TABLET (FP) PO SCH (09:42)
[2018-12-30] MEDS: PANTOPRAZOLE 40 MG TABLET (FP) PO SCH (09:42)
[2018-12-30] MEDS: THIAMINE HCL 100 MG TABLET (FP) PO SCH (21:22)
[2018-12-30] MEDS: guaiFENesin 200 MG/10 ML 10 ML UNIT-DOSE CUPS PO PRN (21:22)
[2018-12-30] MEDS: hydrOXYzine PAMOATE 25 MG CAPSULE (FP) PO PRN (21:22)
[2018-12-30] MEDS: MELATONIN 5 MG TABLETS PO PRN (21:23)
[2018-12-31] MEDS ORDERED: PT OWN MED DRAWER 7, Y5N ONE (08:34)
[2018-12-31] MEDS: PRENATAL VITAMINS W/ FOLIC ACID TABLET (FP) PO SCH (09:54)
[2018-12-31] MEDS: HYDROCHLOROTHIAZIDE 25 MG TABLET (FP) PO SCH (09:54)
[2018-12-31] MEDS: ASPIRIN COATED 81 MG TABLET.EC PO SCH (09:55)
[2018-12-31] MEDS: LISINOPRIL 20 MG TABLET (FP) PO SCH (09:56)
[2018-12-31] MEDS: PANTOPRAZOLE 40 MG TABLET (FP) PO SCH (09:57)
[2018-12-31] MEDS: MELATONIN 5 MG TABLETS PO PRN (21:08)
[2018-12-31] MEDS: THIAMINE HCL 100 MG TABLET (FP) PO SCH (21:08)
[2018-12-31] MEDS: guaiFENesin 200 MG/10 ML 10 ML UNIT-DOSE CUPS PO PRN (21:10)
[2018-12-31] MEDS: hydrOXYzine PAMOATE 25 MG CAPSULE (FP) PO PRN (21:10)
[2019-01-01 06:51] VITALS: BP 158/87; PULSE 71; TEMP 98.4
--- NOTE | 2019-01-01 08:34 | DS ---
[facility] Rehab Discharge Summary - [facility] Rehab Discharge Summary Admission Date: 12/23/18 Discharge Date: 01/01/19 - History Present History: Alcohol dependence, Cannabis dependence, Cocaine dependence Pertinent Past History: PMHx of ETOH, cocaine, use. - Discharge Physical Exam Vital Signs: Vital Signs Temperature 98.4 F 01/01/19 06:50 Pulse Rate 71 01/01/19 06:50 Respiratory Rate 18 01/01/19 06:50 Blood Pressure 158/87 01/01/19 06:50 O2 Sat by Pulse Oximetry (%) Pertinent Admission Physical Exam Findings: Physical exam; General: no apparent distress HEENTM: normocephalic, PERRLA Neck: supple Lungs: clear Heart: s1 s2 audible ABD: soft, non-tender, non-distended MSK: Full weight bearing, full ROM, steady gait NeuroL: CN 2-12 intact, muscle strength 5/5, no neurological deficits noted Skin: warm, dry, good turgor, color consistent throughout trunk and extremities. - Treatment Discharge Condition: Outpatient referral accepted (Medically stable for discharge. Pt [facility] to [facility] Hospital Course: patient attended groups, had 1:1 meetings with counselor, and was adherent to the treatment plan and medication regimen. - Medication Discharge Medications: Ambulatory Orders Aspirin [ASA -] 81 mg PO DAILY #30 tab 12/31/18 Hydrochlorothiazide [Hctz -] 25 mg PO DAILY #14 tablet 12/31/18 Lisinopril [Prinivil -] 40 mg PO DAILY #14 tablet 12/31/18 Hydrochlorothiazide [Hctz -] 25 mg PO DAILY #14 tablet 01/01/19 Ibuprofen 400 mg PO PRN #14 tablet 01/01/19 Lisinopril [Prinivil] 40 mg PO DAILY #14 tablet 01/01/19 Omeprazole 20 mg PO DAILY #14 capsule. 01/01/19 - Medication-Assisted Treatment (MAT) Medication-Assisted Treatment (MAT): No - Discharge Instructions Diet, activity, other medical instructions: Diet: as tolerated Activity: as tolerated Other medical instructions: as tolerated - Diagnosis (1) Cannabis dependence, uncomplicated Status: Acute (2) Cocaine dependence, uncomplicated Status: Acute - Follow-up Referral Minutes to complete discharge: 20 - AMA Did Patient Leave Against Medical Advice: No
[2019-01-01] MEDS: LISINOPRIL 20 MG TABLET (FP) PO SCH (09:00)
[2019-01-01] MEDS: PANTOPRAZOLE 40 MG TABLET (FP) PO SCH (09:00)
[2019-01-01] MEDS: ASPIRIN COATED 81 MG TABLET.EC PO SCH (09:00)
[2019-01-01] MEDS: PRENATAL VITAMINS W/ FOLIC ACID TABLET (FP) PO SCH (09:00)
[2019-01-01] MEDS: HYDROCHLOROTHIAZIDE 25 MG TABLET (FP) PO SCH (09:00)
[2019-01-01] MEDS ORDERED: PT OWN MED DRAWER 7, Y5N ONE (09:02)
== END 2019-01-01 09:05 | disposition home or self-care (01) | DRG 772 ==
LOC: YASAS 12:31 → Y3W 12:32
PROVIDERS: ADMIT Neuromusculoskeletal Medicine & OMM; ATTEND Neuromusculoskeletal Medicine & OMM
PROC: HZ42ZZZ Group Counseling for Substance Abuse Treatment, Cognitive-Behavioral (ICD-10-PCS; principal; 2018-12-23)
DX: F10.20 Alcohol dependence, uncomplicated (principal); F14.20 Cocaine dependence, uncomplicated; F12.20 Cannabis dependence, uncomplicated; F17.210 Nicotine dependence, cigarettes, uncomplicated; F19.24 Other psychoactive substance dependence with psychoactive substance-induced mood disorder; I12.9 Hypertensive chronic kidney disease with stage 1 through stage 4 chronic kidney disease, or unspecified chronic kidney disease; N18.3 Chronic kidney disease, stage 3 (moderate); E66.01 Morbid (severe) obesity due to excess calories; Z68.39 Body mass index [BMI] 39.0-39.9, adult; Z59.0 Homelessness
CPT/HCPCS: G0008; Q2036

== ENCOUNTER 2019-01-26 16:45 | Inpatient (IN) | payer OTHER ==
[2019-01-26 18:55] VITALS: BMI 40.8
--- NOTE | 2019-01-26 22:23 | HP ---
CIWA Score Nausea/Vomitin-Mild Nausea/No Vomiting Muscle Tremors: None Anxiety: 1-Mildly Anxious Agitation: 1-Slight > Activity Paroxysmal Sweats: No Perspiration Orientation: 0-Oriented Tacttile Disturbances: 3-Moderate Itch/Numb/Burn Auditory Disturbances: 3-Moderate Harsh/Frighten (noise) Visual Disturbances: 0-None Headache: 3-Moderate CIWA-Ar Total Score: 12 - Admission Criteria OASAS Guidelines: Admission for Medically Managed Detox: Requires at least one of the followin. CIWA greater than 12 2. Seizures within the past 24 hours 3. Delirium tremens within the past 24 hours 4. Hallucinations within the past 24 hours 5. Acute intervention needed for co occurring medical disorder 6. Acute intervention needed for co occurring psychiatric disorder 7. Severe withdrawal that cannot be handled at a lower level of care (continued vomiting, continued diarrhea, abnormal vital signs) requiring intravenous medication and/or fluids 8. Patient presents the following: CIWA greater than 12 Admission Criteria Met: Admission criteria met Admitting History and Physical - Smoking History Smoking history: Current every day smoker Have you smoked in the past 12 months: Yes Aproximately how many cigarettes per day: 5 - Alcohol/Substance Use Hx Alcohol Use: Yes Admission ROS S - HPI Chief Complaint: C/O WITHDRAWAL SX'S Allergies/Adverse Reactions: Allergies Allergy/AdvReac Type Severity Reaction Status Date / Time No Known Allergies Allergy Verified 01/26/19 18:46 History of Present Illness: HERE FOR ALCOHOL DETOX. SELF REFERRED, KNOWN TO PROGRAM. LAST DC 01/01/2019 AFTER COMPLETING DETOX AND 1 WEEK OF REHAB. CLIENT REPORTS RELAPSING SHORTLY AFTER DC. PRESENTS TODAY WITH C/O WITHDRAWAL SXS'. LAST USE 1 DAY AGO. STATES DRINKS 2 PINTS OF VODKA ABOUT 4 X A WEEK. SOMETIMES ORE IF HE HAS THE MONEY. HX/ O BLACK OUTS. DENIES SEIZURES. LONGEST CLEAN TIME 20 YEARS. DENIES ANY THIS PAST YEAR. HOMELESS, UNEMPLOYED, DENIES LEGALS Exam Limitations: No Limitations - Ebola screening Have you traveled outside of the country in the last 21 days: No Have you had contact with anyone from an Ebola affected area: No Do you have a fever: No - Review of Systems Constitutional: Chills, Night Sweats, Changes in sleep EENT: reports: No Symptoms Reported Respiratory: reports: Shortness of Breath Cardiac: reports: No Symptoms Reported GI: reports: Nausea, Poor Fluid Intake : reports: No Symptoms Reported Musculoskeletal: reports: No Symptoms Reported Integumentary: reports: Pruritus (FROM WITHDRAWAL) Neuro: reports: Headache, Other (HX/O BLACKOUTS) Endocrine: reports: Other (HX/O DM) Hematology: reports: No Symptoms Reported Psychiatric: reports: Orientated x3, Agitated (IRRITABLE), Depressed (DENIES SI) Other Systems: Reviewed and Negative Patient History - Patient Medical History Hx Anemia: No Hx Asthma: No Hx Chronic Obstructive Pulmonary Disease (COPD): No Hx Cancer: No Hx Cardiac Disorders: No Hx Congestive Heart Failure: No Hx Hypertension: Yes Hx Hypercholesterolemia: No Hx Pacemaker: No HX Cerebrovascular Accident: No Hx Seizures: No Hx Dementia: No Hx Diabetes: No Hx Gastrointestinal Disorders: Yes (GERD) Hx Liver Disease: No Hx Genitourinary Disorders: Yes (PROTEIN IN URINE) Hx Sexually Transmitted Disorders: No Hx Renal Disease (ESRD): No Hx Thyroid Disease: No Hx Human Immunodeficiency Virus (HIV): No Hx Hepatitis C: No Hx Depression: No Hx Suicide Attempt: No Hx Bipolar Disorder: No Hx Schizophrenia: No Other Medical History: DENIES - Patient Surgical History Past Surgical History: No Hx Neurologic Surgery: No Hx Cataract Extraction: No Hx Cardiac Surgery: No Hx Lung Surgery: No Hx Breast Surgery: No Hx Breast Biopsy: No Hx Abdominal Surgery: No Hx Appendectomy: No Hx Cholecystectomy: No Hx Genitourinary Surgery: No Hx Section: No Hx Orthopedic Surgery: No Anesthesia Reaction: No - PPD History Previous Implant?: Yes Documented Results: Negative w/proof Implanted On Prior [facility] Admission?: Yes Date: 12/21/18 Results: 0 mm PPD to be Administered?: No - Smoking Cessation Smoking history: Current every day smoker Have you smoked in the past 12 months: Yes Aproximately how many cigarettes per day: 5 Cigars Per Day: 0 Hx Chewing Tobacco Use: No Initiated information on smoking cessation: Yes 'Breaking Loose' booklet given: 01/26/19 - Substance & Tx. History Hx Alcohol Use: Yes Hx Substance Use: Yes Substance Use Type: Alcohol Hx Substance Use Treatment: Yes ([facility]) - Substances abused Alcohol Substance route: Oral Frequency: Daily Amount used: 24 OUNCES OF MARGARITAS, 1 PINT OF VODKA, A COUPLE OF 6 PACKS Age of first use: 15 Date of last use: 01/25/19 Cocaine Substance route: Smoking Frequency: 1-3 times last 30 days Amount used: $200 Age of first use: 23 Date of last use: 10/19/18 Admission Physical Exam [facility] - Vital Signs Vital Signs: Vital Signs - 24 hr 01/26/19 18:52 Temperature 97.9 F Pulse Rate 86 Respiratory 16 Rate Blood Pressure 137/84 - Physical General Appearance: Yes: Mild Distress, Obese, Irritable HEENTM: Yes: EOMI, Normocephalic, Normal Voice, BIB, Pharynx Normal Respiratory: Yes: Chest Non-Tender, Lungs Clear, Normal Breath Sounds, No Respiratory Distress, No Accessory Muscle Use Neck: Yes: No masses,lesions,Nodules, Supple, Trachea in good position Breast: Yes: Breasts Symetrical Cardiology: Yes: Regular Rhythm, Regular Rate, S1, S2 Abdominal: Yes: Normal Bowel Sounds, Non Tender, Soft, Protuberent Genitourinary: Yes: Within Normal Limits Back: Yes: Normal Inspection Musculoskeletal: Yes: full range of Motion, Gait Steady Extremities: Yes: Normal Range of Motion, Non-Tender Neurological: Yes: Fully Oriented, Alert, Motor Strength 5/5, Depressed Affect ( DENIES I) Integumentary: Yes: Dry, Warm Lymphatic: Yes: Within Normal Limits - Diagnostic (1) Substance induced mood disorder Current Visit: Yes Status: Acute (2) Substance-induced sleep disorder Current Visit: Yes Status: Acute (3) Alcohol dependence with uncomplicated withdrawal Current Visit: Yes Status: Acute (4) Depression Current Visit: Yes Status: Acute Qualifiers: Depression Type: unspecified Qualified Code(s): F32.9 - Major depressive disorder, single episode, unspecified (5) Hypercholesteremia Current Visit: Yes Status: Chronic (6) Hypertension Current Visit: Yes Status: Chronic Qualifiers: Hypertension type: essential hypertension Qualified Code(s): I10 - Essential (primary) hypertension (7) Nicotine dependence Current Visit: Yes Status: Chronic Qualifiers: Nicotine product type: cigarettes Substance use status: uncomplicated Qualified Code(s): F17.210 - Nicotine dependence, cigarettes, uncomplicated (8) Obesities, morbid Current Visit: Yes Status: Chronic (9) Drug-induced mood disorder Current Visit: Yes Status: Suspected Cleared for Admission [facility] - Detox or Rehab [facility] Level of Care: Medically Managed Detox Regimen/Protocol: Librium Claeared for Rehab Admission: No Breathalyzer - Breathalyzer Breathalyzer: 0 Urine Drug Screen - Test Device Lot number: [id number] Expiration date: 07/25/19 - Control Is test valid?: Yes - Results Drug screen NEGATIVE: Yes Urine drug screen results: [facility]-Cocaine Inpatient Rehab Admission - Rehab Decision to Admit Inpatient rehab admission?: No
[2019-01-26] MEDS ORDERED: chlordiazePOXIDE HCL 10 MG CAPSULE PO PRN (22:27)
[2019-01-26] MEDS ORDERED: DICYCLOMINE HCL 10 MG CAPSULE PO PRN (22:27)
[2019-01-26] MEDS ORDERED: ACETAMINOPHEN 325 MG TABLET (FP) PO PRN ×2 (22:27)
[2019-01-26] MEDS ORDERED: MAGNESIUM CITRATE 300 ML BOTTLE PO PRN (22:27)
[2019-01-26] MEDS ORDERED: MAGNESIUM HYDROX 2400MG/30ML ORAL SUSPENSION 30 ML CUP PO PRN (22:27)
[2019-01-26] MEDS ORDERED: IBUPROFEN 400 MG TABLET (FP) PO PRN (22:27)
[2019-01-26] MEDS ORDERED: METHOCARBAMOL 500 MG TABLET PO PRN (22:27)
[2019-01-26] MEDS ORDERED: BISMUTH SUBSALICYLATE 524 MG/30 ML UD PO PRN (22:27)
[2019-01-26] MEDS ORDERED: hydrOXYzine PAMOATE 25 MG CAPSULE (FP) PO PRN (22:27)
[2019-01-26] MEDS ORDERED: P-EPHED 60MG/TRIPROLIDI 2.5MG TABLET PO PRN (22:27)
[2019-01-26] MEDS ORDERED: MAG HYDROX/AL HYDROX/SIMETH 30 ML UNIT-DOSE CUP PO PRN (22:27)
[2019-01-26] MEDS ORDERED: MENTHOL/PHENOL 1 EACH UD MM PRN (22:27)
[2019-01-26] MEDS ORDERED: ONDANSETRON *ODT* 4 MG TABLET SL PRN (22:27)
[2019-01-26] MEDS ORDERED: guaiFENesin 200 MG/10 ML 10 ML UNIT-DOSE CUPS PO PRN (22:27)
[2019-01-26] MEDS ORDERED: NICOTINE POLACRILEX 2 MG GUM BUC PRN (22:27)
[2019-01-26] MEDS: MELATONIN 5 MG TABLETS PO PRN (23:39)
[2019-01-26] MEDS: chlordiazePOXIDE HCL 25 MG CAPSULE PO SCH (23:42)
[2019-01-27] MEDS: chlordiazePOXIDE HCL 25 MG CAPSULE PO SCH ×3 (05:50→22:36)
[2019-01-27 09:16] LABS: HEMATOCRIT 39.8 % (35.4-49); HEMOGLOBIN 13.5 GM/dL (11.7-16.9); MCH 28.6 pg (25.7-33.7); MEAN CELL VOLUME 84.2 fl (80-96); MEAN PLT VOLUME 9.4 fl (7.5-11.1); PLATELET COUNT 228 K/MM3 (134-434); RBC 4.73 M/mm3 (4.00-5.60); RDW 16.3 % (11.9-15.9); WHITE BLOOD COUNT 7.6 K/mm3 (4.0-10.0)
--- NOTE | 2019-01-27 09:55 | PN ---
[facility] CIWA - CIWA Score Nausea/Vomitin-Mild Nausea/No Vomiting Muscle Tremors: 4-Moderate,w/Arms Extend Anxiety: 3 Agitation: 2 Paroxysmal Sweats: 2 Orientation: 0-Oriented Tacttile Disturbances: 0-None Auditory Disturbances: 0-None Visual Disturbances: 0-None Headache: 1-Very Mild CIWA-Ar Total Score: 13 S Progress Note (SOAP) Subjective: 53 years old male admitted on 01/26/19 for alcohol withdrawal sx management treated with librium detox regimen patient tolerate well ate breakfast no trouble chewing no trouble swallowing patient tolerate food and fluid well Objective: 01/27/19 09:54 Vital Signs Temperature 98.4 F 01/27/19 09:17 Pulse Rate 89 01/27/19 09:17 Respiratory Rate 18 01/27/19 09:17 Blood Pressure 130/68 01/27/19 09:17 O2 Sat by Pulse Oximetry (%) Laboratory Last Values WBC 7.6 K/mm3 (4.0-10.0) 01/27/19 07:50 RBC 4.73 M/mm3 (4.00-5.60) 01/27/19 07:50 Hgb 13.5 GM/dL (11.7-16.9) 01/27/19 07:50 Hct 39.8 % (35.4-49) 01/27/19 07:50 MCV 84.2 fl (80-96) 01/27/19 07:50 MCH 28.6 pg (25.7-33.7) 01/27/19 07:50 MCHC 34.0 g/dl (32.0-35.9) 01/27/19 07:50 RDW 16.3 % (11.9-15.9) H 01/27/19 07:50 Plt Count 228 K/MM3 (134-434) 01/27/19 07:50 MPV 9.4 fl (7.5-11.1) 01/27/19 07:50 lab noted Assessment: 01/27/19 09:54 alcohol withdrawal sx Plan: continue librium detox regimen
[2019-01-27 09:58] LABS: ALBUMIN 2.4 g/dl (3.4-5.0); BILIRUBIN,TOTAL 0.2 mg/dL (0.2-1); BLOOD UREA NITROGEN 30.1 mg/dL (7-18); CALCIUM 8.3 mg/dL (8.5-10.1); CREATININE 1.8 mg/dL (0.55-1.3); POTASSIUM 4.5 mmol/L (3.5-5.1); TOT PROT 5.3 g/dl (6.4-8.2)
[2019-01-27] MEDS ORDERED: PANTOPRAZOLE 20 MG TABLET (FP) PO SCH (10:00)
[2019-01-27] MEDS ORDERED: HYDROCHLOROTHIAZIDE 25 MG TABLET (FP) PO SCH (10:00)
[2019-01-27] MEDS ORDERED: LISINOPRIL 20 MG TABLET (FP) PO SCH (10:00)
[2019-01-27] MEDS ORDERED: NICOTINE 14 MG/24 HOURS TOPICAL PATCH TD SCH (10:00)
[2019-01-27] MEDS ORDERED: PRENATAL VITAMINS W/ FOLIC ACID TABLET (FP) PO SCH (10:00)
[2019-01-27] MEDS ORDERED: ASPIRIN 81 MG CHEWABLE TABLETS PO SCH (10:00)
[2019-01-27 16:33] LABS: EPI CELLS 1.3 /HPF (0-5/HPF); HYALINE CASTS 2 /lpf (0-8); URINE APPEARANCE CLEAR; URINE BACTERIA 0.7 /hpf (NEGATIVE); URINE BILIRUBIN NEGATIVE (NEGATIVE); URINE COLOR YELLOW; URINE GLUCOSE (UA) NEGATIVE (NEGATIVE); URINE KETONE NEGATIVE (NEGATIVE); URINE LEUK ESTERASE NEGATIVE (NEGATIVE); URINE NITRITE NEGATIVE (NEGATIVE); URINE PROTEIN 3+ (NEGATIVE); URINE RBC 3 /hpf (0-4); URINE UROBILINOGEN 0.2 mg/dL (0.2-1.0); URINE WBC 1 /hpf (0-5)
[2019-01-27 21:03] VITALS: PULSE 79
[2019-01-27] MEDS ORDERED: THIAMINE HCL 100 MG TABLET (FP) PO SCH (22:00)
[2019-01-27] MEDS: MELATONIN 5 MG TABLETS PO PRN (22:36)
[2019-01-28] MEDS ORDERED: chlordiazePOXIDE 5 MG CAPSULE PO SCH (05:00)
[2019-01-28 06:28] VITALS: BP 134/84; TEMP 97
--- NOTE | 2019-01-28 07:21 | DS ---
[facility] Detox Discharge Summary Admission Date: 01/26/19 Discharge Date: 01/28/19 - History Present History: Alcohol Dependence Additional Comments: CLIENT SIGN OUT AMA. STATES HE NEEDS TO GET TO [facility] TO ENSURE A BED. DID NOT WANT TO DISCUSS ANY FURTHER WITH PROVIDER NOR WAS HE OPEN TO ANY DISCUSSION ABOUT CONTINUATION OF TXMENT. CLIENT ACCEPTS RISKS OF WITHDRAWAL, SEIZURE, AND POSSIBLE . HE IS AWARE TO CALL 911 FOR ANY ACUTE DISTRESS. Pertinent Past History: HTN HLD NICOTINE DEP - Physical Exam Results Vital Signs: Vital Signs Temperature 97.0 F L 01/28/19 06:27 Pulse Rate 79 01/28/19 06:27 Respiratory Rate 18 01/28/19 06:27 Blood Pressure 134/84 01/28/19 06:27 O2 Sat by Pulse Oximetry (%) - Treatment Hospital Course: Discharged Condition Good Patient has Accepted a Rehab Referral to: [facility] STATES HE IS GOING TO [facility] - Medication Discharge Medications: Ambulatory Orders Aspirin [ASA -] 81 mg PO DAILY #30 tab 12/31/18 Hydrochlorothiazide [Hctz -] 25 mg PO DAILY #14 tablet 12/31/18 Lisinopril [Prinivil -] 40 mg PO DAILY #14 tablet 12/31/18 Hydrochlorothiazide [Hctz -] 25 mg PO DAILY #14 tablet 01/01/19 Lisinopril [Prinivil] 40 mg PO DAILY #14 tablet 01/01/19 Omeprazole 20 mg PO DAILY #14 capsule. 01/01/19 - Diagnosis (1) Substance induced mood disorder Current Visit: Yes Status: Suspected (2) Substance-induced sleep disorder Current Visit: Yes Status: Suspected (3) Alcohol dependence with uncomplicated withdrawal Current Visit: Yes Status: Acute (4) Depression Current Visit: Yes Status: Acute Qualifiers: Depression Type: unspecified Qualified Code(s): F32.9 - Major depressive disorder, single episode, unspecified (5) Hypercholesteremia Current Visit: Yes Status: Chronic (6) Hypertension Current Visit: Yes Status: Chronic Qualifiers: Hypertension type: essential hypertension Qualified Code(s): I10 - Essential (primary) hypertension (7) Nicotine dependence Current Visit: Yes Status: Chronic Qualifiers: Nicotine product type: cigarettes Substance use status: uncomplicated Qualified Code(s): F17.210 - Nicotine dependence, cigarettes, uncomplicated (8) Obesities, morbid Current Visit: Yes Status: Chronic (9) Drug-induced mood disorder Current Visit: Yes Status: Suspected - AMA Did Patient Leave Against Medical Advice: Yes
--- NOTE | 2019-01-28 11:04 | EKG ---
Test Reason : Blood Pressure : / mmHG Vent. Rate : 087 BPM Atrial Rate : 087 BPM P-R Int : 144 ms QRS Dur : 084 ms QT Int : 358 ms P-R-T Axes : 043 026 -55 degrees QTc Int : 430 ms NORMAL SINUS RHYTHM T WAVE ABNORMALITY, CONSIDER INFERIOR ISCHEMIA ABNORMAL ECG WHEN COMPARED WITH ECG OF 11-DEC-2017 17:47, T WAVE VARIATION Confirmed by CHARLIE PAULINO MD ([id number]) on 01/28/2019 11:04:01 AM Referred By: Confirmed By:CHARLIE PAULINO MD
[2019-01-29] MEDS ORDERED: chlordiazePOXIDE HCL 10 MG CAPSULE PO PRN
[2019-01-29] MEDS ORDERED: chlordiazePOXIDE HCL 10 MG CAPSULE PO SCH (05:00)
[2019-01-30] MEDS ORDERED: chlordiazePOXIDE HCL 10 MG CAPSULE PO ONE (05:00)
== END 2019-01-28 06:58 | disposition left against medical advice (07) | DRG 770 ==
LOC: YASAS 16:45 → Y3N 22:57
PROVIDERS: ADMIT Allergy & Immunology; ATTEND Allergy & Immunology
PROC: HZ2ZZZZ Detoxification Services for Substance Abuse Treatment (ICD-10-PCS; principal; 2019-01-26)
DX: F10.230 Alcohol dependence with withdrawal, uncomplicated (principal); F17.210 Nicotine dependence, cigarettes, uncomplicated; F19.24 Other psychoactive substance dependence with psychoactive substance-induced mood disorder; F19.282 Other psychoactive substance dependence with psychoactive substance-induced sleep disorder; F32.9 Major depressive disorder, single episode, unspecified; I10 Essential (primary) hypertension; E78.00 Pure hypercholesterolemia, unspecified; K21.9 Gastro-esophageal reflux disease without esophagitis; E66.01 Morbid (severe) obesity due to excess calories; Z68.41 Body mass index [BMI] 40.0-44.9, adult; Z56.0 Unemployment, unspecified; Z59.0 Homelessness
CPT/HCPCS: 36415; 80053; 81003; 85027; 93005; 93010

== ENCOUNTER 2019-02-26 09:17 | Inpatient (IN) | payer OTHER ==
[2019-02-26 09:50] VITALS: BMI 41.3
--- NOTE | 2019-02-26 11:40 | HP ---
CIWA Score Nausea/Vomitin Muscle Tremors: 1-None Visible, but [place] Anxiety: 2 Agitation: 0-Normal Activity Paroxysmal Sweats: No Perspiration Orientation: 0-Oriented Tacttile Disturbances: 0-None Auditory Disturbances: 0-None Visual Disturbances: 2-Mild Sensitivity Headache: 3-Moderate CIWA-Ar Total Score: 10 - Admission Criteria OASAS Guidelines: Admission for Medically Managed Detox: Requires at least one of the followin. CIWA greater than 12 2. Seizures within the past 24 hours 3. Delirium tremens within the past 24 hours 4. Hallucinations within the past 24 hours 5. Acute intervention needed for co occurring medical disorder 6. Acute intervention needed for co occurring psychiatric disorder 7. Severe withdrawal that cannot be handled at a lower level of care (continued vomiting, continued diarrhea, abnormal vital signs) requiring intravenous medication and/or fluids 8. Admitting History and Physical - Smoking History Smoking history: Current every day smoker Have you smoked in the past 12 months: Yes Aproximately how many cigarettes per day: 5 - Alcohol/Substance Use Hx Alcohol Use: Yes Admission ROS BHS - HPI Allergies/Adverse Reactions: Allergies Allergy/AdvReac Type Severity Reaction Status Date / Time No Known Allergies Allergy Verified 02/26/19 09:44 History of Present Illness: patient here requesting detox from etoh use , reports has been drinking since age 15 , currently 6 cans of beer , 8 cans beer since leaving detox , denies h/o seizures , + blackouts, denies falls . PMHX : HTN , HLD , DM PSHx : denies PSych denies tobacco - 1/4 ppd , denies nrt Exam Limitations: Clinical Condition - Ebola screening Have you traveled outside of the country in the last 21 days: No (N) Have you had contact with anyone from an Ebola affected area: No Do you have a fever: No - Review of Systems Constitutional: No Symptoms Reported EENT: reports: No Symptoms Reported Respiratory: reports: No Symptoms reported Cardiac: reports: No Symptoms Reported GI: reports: See HPI, Diarrhea, Nausea, Vomiting : reports: No Symptoms Reported Musculoskeletal: reports: No Symptoms Reported Integumentary: reports: No Symptoms Reported Neuro: reports: Headache Endocrine: reports: See HPI Hematology: reports: No Symptoms Reported Psychiatric: reports: Orientated x3 Patient History - Patient Medical History Hx Anemia: No Hx Asthma: No Hx Chronic Obstructive Pulmonary Disease (COPD): No Hx Cancer: No Hx Cardiac Disorders: No Hx Congestive Heart Failure: No Hx Hypertension: Yes Hx Hypercholesterolemia: No Hx Pacemaker: No HX Cerebrovascular Accident: No Hx Seizures: No Hx Dementia: No Hx Diabetes: Yes Hx Gastrointestinal Disorders: No Hx Liver Disease: No Hx Genitourinary Disorders: No Hx Sexually Transmitted Disorders: No Hx Renal Disease (ESRD): No Hx Thyroid Disease: No Hx Human Immunodeficiency Virus (HIV): No Hx Hepatitis C: No Hx Depression: No Hx Suicide Attempt: No Hx Bipolar Disorder: No Hx Schizophrenia: No - Patient Surgical History Past Surgical History: No Hx Neurologic Surgery: No Hx Cataract Extraction: No Hx Cardiac Surgery: No Hx Lung Surgery: No Hx Breast Surgery: No Hx Breast Biopsy: No Hx Abdominal Surgery: No Hx Appendectomy: No Hx Cholecystectomy: No Hx Genitourinary Surgery: No Hx Section: No Hx Orthopedic Surgery: No Anesthesia Reaction: No - PPD History Date: 12/21/18 Results: 0 mm - Smoking Cessation Smoking history: Current every day smoker Have you smoked in the past 12 months: Yes Aproximately how many cigarettes per day: 5 Cigars Per Day: 0 Hx Chewing Tobacco Use: No Initiated information on smoking cessation: Yes 'Breaking Loose' booklet given: 02/26/19 - Substances abused Alcohol Substance route: Oral Frequency: Daily Amount used: 6-8 cans of beer Age of first use: 15 Date of last use: 02/26/19 Cocaine Substance route: Smoking Frequency: 1-3 times last 30 days Amount used: $200 Age of first use: 23 Date of last use: 02/25/19 Crack Substance route: Smoking Frequency: Daily Amount used: $100 Age of first use: 24 Date of last use: 02/25/19 Admission Physical Exam BHS - Vital Signs Vital Signs: Vital Signs - 24 hr 02/26/19 09:45 Temperature 98.8 F Pulse Rate 93 H Respiratory 20 Rate Blood Pressure 154/90 - Physical General Appearance: Yes: Mild Distress, Anxious HEENTM: Yes: EOMI, Hearing grossly Normal, Normocephalic, Normal Voice Respiratory: Yes: Chest Non-Tender, Lungs Clear, Normal Breath Sounds, No Respiratory Distress, No Accessory Muscle Use Neck: Yes: No masses,lesions,Nodules, Trachea in good position Cardiology: Yes: Regular Rhythm, Regular Rate, S1, S2, Tachycardia Abdominal: Yes: Non Tender, Protuberent Musculoskeletal: Yes: Gait Steady Extremities: Yes: Normal Range of Motion, Non-Tender Neurological: Yes: Fully Oriented, Alert, Motor Strength 5/5, Normal Mood/Affect Integumentary: Yes: Warm - Addiitonal Findings: pt aware of BW results, agreeable to f/up w/ PMD - Diagnostic (1) Alcohol dependence with uncomplicated withdrawal Current Visit: Yes Status: Chronic (2) Nicotine dependence Current Visit: Yes Status: Chronic Qualifiers: Nicotine product type: cigarettes Substance use status: uncomplicated Qualified Code(s): F17.210 - Nicotine dependence, cigarettes, uncomplicated Breathalyzer - Breathalyzer Breathalyzer: 0 Urine Drug Screen - Test Device Lot number: [id number] Expiration date: 10/24/20 - Control Is test valid?: Yes - Results Drug screen NEGATIVE: No Urine drug screen results: BINH-Cocaine, BZO-Benzodiazepines Inpatient Rehab Admission - Rehab Decision to Admit Inpatient rehab admission?: No
[2019-02-26] MEDS ORDERED: MAG HYDROX/AL HYDROX/SIMETH 30 ML UNIT-DOSE CUP PO PRN (11:50)
[2019-02-26] MEDS ORDERED: MAGNESIUM HYDROX 2400MG/30ML ORAL SUSPENSION 30 ML CUP PO PRN (11:50)
[2019-02-26] MEDS ORDERED: BISMUTH SUBSALICYLATE 262 MG/15 ML BTL PO PRN (11:50)
[2019-02-26] MEDS ORDERED: hydrOXYzine PAMOATE 25 MG CAPSULE (FP) PO PRN (11:50)
[2019-02-26] MEDS ORDERED: MAGNESIUM CITRATE 300 ML BOTTLE PO PRN (11:50)
[2019-02-26] MEDS ORDERED: ACETAMINOPHEN 325 MG TABLET (FP) PO PRN ×2 (11:50)
[2019-02-26] MEDS ORDERED: IBUPROFEN 400 MG TABLET (FP) PO PRN (11:50)
[2019-02-26] MEDS ORDERED: MENTHOL/PHENOL 1 EACH UD MM PRN (11:50)
[2019-02-26] MEDS ORDERED: diazePAM 5 MG TABLET PO PRN (11:55)
[2019-02-26] MEDS ORDERED: diazePAM 5 MG TABLET PO ONE (12:30)
[2019-02-26] MEDS: PANTOPRAZOLE 20 MG TABLET (FP) PO SCH (12:46)
[2019-02-26] MEDS: diazePAM 5 MG TABLET PO SCH ×2 (14:50→21:29)
[2019-02-26] MEDS: MELATONIN 5 MG TABLETS PO PRN (21:29)
[2019-02-26] MEDS: THIAMINE HCL 100 MG TABLET (FP) PO SCH (21:29)
[2019-02-27] MEDS: diazePAM 5 MG TABLET PO SCH ×3 (06:09→22:16)
--- NOTE | 2019-02-27 10:01 | PN ---
S CIWA - CIWA Score Nausea/Vomitin Muscle Tremors: 2 Anxiety: 2 Agitation: 2 Paroxysmal Sweats: No Perspiration Orientation: 0-Oriented Tacttile Disturbances: 1-Very Mild Itch/Numbness Auditory Disturbances: 0-None Visual Disturbances: 0-None Headache: 2-Mild CIWA-Ar Total Score: 11 BHS Progress Note (SOAP) Subjective: ALERT,IRRITABLE,ANXIOUS,INTERRUPTED SLEEP Objective: 02/27/19 09:59 Vital Signs Temperature 97.9 F 02/27/19 09:17 Pulse Rate 68 02/27/19 09:17 Respiratory Rate 18 02/27/19 09:17 Blood Pressure 122/74 02/27/19 09:17 O2 Sat by Pulse Oximetry (%) Assessment: 02/27/19 10:00 WITHDRAWAL SYMPTOM Plan: CONTINUE DETOX VALIUM REGIMEN
[2019-02-27] MEDS: HYDROCHLOROTHIAZIDE 25 MG TABLET (FP) PO SCH (10:30)
[2019-02-27] MEDS: PANTOPRAZOLE 20 MG TABLET (FP) PO SCH (10:30)
[2019-02-27] MEDS: PRENATAL VITAMINS W/ FOLIC ACID TABLET (FP) PO SCH (10:30)
[2019-02-27] MEDS: LISINOPRIL 20 MG TABLET (FP) PO SCH (10:30)
[2019-02-27] MEDS: ASPIRIN 81 MG CHEWABLE TABLETS PO SCH (10:30)
[2019-02-27 17:45] LABS: HEMATOCRIT 40.4 % (35.4-49); HEMOGLOBIN 12.9 GM/dL (11.7-16.9); MEAN CELL VOLUME 84.5 fl (80-96); MEAN PLT VOLUME 9.3 fl (7.5-11.1); PLATELET COUNT 213 K/MM3 (134-434); RBC 4.78 M/mm3 (4.00-5.60); RDW 17.1 % (11.9-15.9); WHITE BLOOD COUNT 6.9 K/mm3 (4.0-10.0)
[2019-02-27 18:00] LABS: BILIRUBIN,TOTAL 0.2 mg/dL (0.2-1); BLOOD UREA NITROGEN 19.9 mg/dL (7-18); CALCIUM 8.4 mg/dL (8.5-10.1); CREATININE 1.7 mg/dL (0.55-1.3); POTASSIUM 4.3 mmol/L (3.5-5.1); TOT PROT 4.8 g/dl (6.4-8.2)
[2019-02-27] MEDS: guaiFENesin 200 MG/10 ML 10 ML UNIT-DOSE CUPS PO PRN (19:46)
[2019-02-27] MEDS: THIAMINE HCL 100 MG TABLET (FP) PO SCH (22:17)
[2019-02-27] MEDS: MELATONIN 5 MG TABLETS PO PRN (22:17)
[2019-02-28] MEDS: guaiFENesin 200 MG/10 ML 10 ML UNIT-DOSE CUPS PO PRN (04:44)
[2019-02-28] MEDS: diazePAM 5 MG TABLET PO SCH ×2 (06:20→17:46)
[2019-02-28] MEDS: ASPIRIN 81 MG CHEWABLE TABLETS PO SCH (09:44)
[2019-02-28] MEDS: PRENATAL VITAMINS W/ FOLIC ACID TABLET (FP) PO SCH (09:44)
[2019-02-28] MEDS: HYDROCHLOROTHIAZIDE 25 MG TABLET (FP) PO SCH (09:44)
[2019-02-28] MEDS: PANTOPRAZOLE 20 MG TABLET (FP) PO SCH (09:44)
[2019-02-28] MEDS: LISINOPRIL 20 MG TABLET (FP) PO SCH (09:44)
--- NOTE | 2019-02-28 11:52 | PN ---
[facility] CIWA - CIWA Score Nausea/Vomitin-Mild Nausea/No Vomiting Muscle Tremors: 1-None Visible, but [place] Anxiety: 2 Agitation: 2 Paroxysmal Sweats: No Perspiration Orientation: 0-Oriented Tacttile Disturbances: 0-None Auditory Disturbances: 0-None Visual Disturbances: 0-None Headache: 1-Very Mild CIWA-Ar Total Score: 7 S Progress Note (SOAP) Subjective: alert,irritable,anxious,interrupted sleep Objective: 02/28/19 11:52 Vital Signs Temperature 98.1 F 02/28/19 09:33 Pulse Rate 69 02/28/19 09:33 Respiratory Rate 18 02/28/19 09:33 Blood Pressure 128/62 02/28/19 09:33 O2 Sat by Pulse Oximetry (%) 02/28/19 11:54 Laboratory Last Values WBC 6.9 K/mm3 (4.0-10.0) 02/27/19 10:10 RBC 4.78 M/mm3 (4.00-5.60) 02/27/19 10:10 Hgb 12.9 GM/dL (11.7-16.9) 02/27/19 10:10 Hct 40.4 % (35.4-49) 02/27/19 10:10 MCV 84.5 fl (80-96) 02/27/19 10:10 MCH 27.0 pg (25.7-33.7) 02/27/19 10:10 MCHC 32.0 g/dl (32.0-35.9) 02/27/19 10:10 RDW 17.1 % (11.9-15.9) H 02/27/19 10:10 Plt Count 213 K/MM3 (134-434) 02/27/19 10:10 MPV 9.3 fl (7.5-11.1) 02/27/19 10:10 Sodium 144 mmol/L (136-145) 02/27/19 10:10 Potassium 4.3 mmol/L (3.5-5.1) 02/27/19 10:10 Chloride 112 mmol/L (98-107) H 02/27/19 10:10 Carbon Dioxide 27 mmol/L (21-32) 02/27/19 10:10 Anion Gap 5 MMOL/L (8-16) L 02/27/19 10:10 BUN 19.9 mg/dL (7-18) H 02/27/19 10:10 Creatinine 1.7 mg/dL (0.55-1.3) H 02/27/19 10:10 Est GFR (CKD-EPI)AfAm 51.84 02/27/19 10:10 Est GFR (CKD-EPI)NonAf 44.72 02/27/19 10:10 POC Glucometer 128 UNITS (80-120) 02/28/19 06:18 Random Glucose 115 mg/dL (74-106) H 02/27/19 10:10 Calcium 8.4 mg/dL (8.5-10.1) L 02/27/19 10:10 Total Bilirubin 0.2 mg/dL (0.2-1) 02/27/19 10:10 AST 24 U/L (15-37) 02/27/19 10:10 ALT 32 U/L (13-61) 02/27/19 10:10 Alkaline Phosphatase 70 U/L (45-117) 02/27/19 10:10 Total Protein 4.8 g/dl (6.4-8.2) L 02/27/19 10:10 Albumin 2.0 g/dl (3.4-5.0) L 02/27/19 10:10 RPR Titer Nonreactive (NONREACTIVE) 02/27/19 10:10 HIV 1&2 Antibody Screen Negative 02/27/19 10:10 HIV P24 Antigen Negative 02/27/19 10:10 Assessment: 02/28/19 11:55 withdrawal symptom Plan: continue detox valium regimen,diet modification,bgm is 128,discharge in am
[2019-02-28] MEDS: THIAMINE HCL 100 MG TABLET (FP) PO SCH (22:50)
[2019-02-28] MEDS: MELATONIN 5 MG TABLETS PO PRN (23:07)
[2019-03-01] MEDS ORDERED: diazePAM 5 MG TABLET PO ONE (06:00)
--- NOTE | 2019-03-01 08:32 | DS ---
[facility] Detox Discharge Summary Admission Date: 02/26/19 Discharge Date: 03/01/19 - History Present History: Alcohol Dependence, Cannabis Dependence, Cocaine Dependence - Physical Exam Results Vital Signs: Vital Signs Temperature 97.7 F 03/01/19 05:58 Pulse Rate 66 03/01/19 05:58 Respiratory Rate 18 03/01/19 05:58 Blood Pressure 142/78 03/01/19 05:58 O2 Sat by Pulse Oximetry (%) Pertinent Admission Physical Exam Findings: pt arrived in withdrawals Vital Signs Temperature 97.7 F 03/01/19 05:58 Pulse Rate 66 03/01/19 05:58 Respiratory Rate 18 03/01/19 05:58 Blood Pressure 142/78 03/01/19 05:58 O2 Sat by Pulse Oximetry (%) Laboratory Tests 02/26/19 02/27/19 02/27/19 12:31 06:07 10:10 WBC RBC Hgb Hct MCV MCH MCHC RDW Plt Count MPV Sodium Potassium Chloride Carbon Dioxide Anion Gap BUN Creatinine Est GFR (CKD-EPI)AfAm Est GFR (CKD-EPI)NonAf POC Glucometer 106 113 Random Glucose Calcium Total Bilirubin AST ALT Alkaline Phosphatase Total Protein Albumin RPR Titer HIV 1&2 Antibody Screen Negative HIV P24 Antigen Negative 02/27/19 02/27/19 02/27/19 10:10 10:10 10:10 WBC 6.9 RBC 4.78 Hgb 12.9 Hct 40.4 MCV 84.5 MCH 27.0 MCHC 32.0 RDW 17.1 H Plt Count 213 MPV 9.3 Sodium 144 Potassium 4.3 Chloride 112 H Carbon Dioxide 27 Anion Gap 5 L BUN 19.9 H Creatinine 1.7 H Est GFR (CKD-EPI)AfAm 51.84 Est GFR (CKD-EPI)NonAf 44.72 POC Glucometer Random Glucose 115 H Calcium 8.4 L Total Bilirubin 0.2 AST 24 ALT 32 Alkaline Phosphatase 70 Total Protein 4.8 L Albumin 2.0 L RPR Titer Nonreactive HIV 1&2 Antibody Screen HIV P24 Antigen 02/28/19 03/01/19 06:18 06:19 WBC RBC Hgb Hct MCV MCH MCHC RDW Plt Count MPV Sodium Potassium Chloride Carbon Dioxide Anion Gap BUN Creatinine Est GFR (CKD-EPI)AfAm Est GFR (CKD-EPI)NonAf POC Glucometer 128 117 Random Glucose Calcium Total Bilirubin AST ALT Alkaline Phosphatase Total Protein Albumin RPR Titer HIV 1&2 Antibody Screen HIV P24 Antigen pt aaox3 ambulating no acute distress - Treatment Hospital Course: Detox Protocol Followed, Detoxed Safely, Responded well, Discharged Condition Good, Rehab Referral Accepted Patient has Accepted a Rehab Referral to: [facility] - Medication Discharge Medications: Ambulatory Orders Aspirin [ASA -] 81 mg PO DAILY #30 tab 12/31/18 Hydrochlorothiazide [Hctz -] 25 mg PO DAILY #14 tablet 12/31/18 Lisinopril [Prinivil] 40 mg PO DAILY #14 tablet 01/01/19 Omeprazole 20 mg PO DAILY #14 capsule.dr 01/01/19 - Diagnosis (1) Alcohol dependence with uncomplicated withdrawal Current Visit: Yes Status: Chronic (2) Nicotine dependence Current Visit: Yes Status: Chronic Qualifiers: Nicotine product type: cigarettes Substance use status: uncomplicated Qualified Code(s): F17.210 - Nicotine dependence, cigarettes, uncomplicated (3) ADRIANA (acute kidney injury) Current Visit: No Status: Acute (4) Cannabis dependence, uncomplicated Current Visit: Yes Status: Chronic (5) Cocaine dependence, uncomplicated Current Visit: Yes Status: Chronic (6) Depression Current Visit: No Status: Acute Qualifiers: Depression Type: unspecified Qualified Code(s): F32.9 - Major depressive disorder, single episode, unspecified (7) Insomnia Current Visit: No Status: Acute (8) Chronic renal insufficiency, stage III (moderate) Current Visit: No Status: Chronic (9) Cocaine dependence Current Visit: Yes Status: Chronic Qualifiers: Substance use status: uncomplicated Qualified Code(s): F14.20 - Cocaine dependence, uncomplicated (10) Hypercholesteremia Current Visit: Yes Status: Chronic (11) Hypertension Current Visit: Yes Status: Chronic Qualifiers: Hypertension type: essential hypertension Qualified Code(s): I10 - Essential (primary) hypertension (12) Obesities, morbid Current Visit: No Status: Chronic (13) Sleep apnea Current Visit: No Status: Chronic Qualifiers: Sleep apnea type: obstructive Qualified Code(s): G47.33 - Obstructive sleep apnea (adult) (pediatric) (14) Drug-induced mood disorder Current Visit: No Status: Suspected (15) Substance induced mood disorder Current Visit: No Status: Suspected (16) Substance-induced sleep disorder Current Visit: No Status: Suspected - AMA Did Patient Leave Against Medical Advice: No
[2019-03-01] MEDS: PANTOPRAZOLE 20 MG TABLET (FP) PO SCH (10:30)
[2019-03-01] MEDS: LISINOPRIL 20 MG TABLET (FP) PO SCH (10:30)
[2019-03-01] MEDS: PRENATAL VITAMINS W/ FOLIC ACID TABLET (FP) PO SCH (10:30)
[2019-03-01] MEDS: HYDROCHLOROTHIAZIDE 25 MG TABLET (FP) PO SCH (10:30)
[2019-03-01] MEDS: ASPIRIN 81 MG CHEWABLE TABLETS PO SCH (10:30)
[2019-03-01 16:58] VITALS: BP 153/85; PULSE 69; TEMP 97.7
== END 2019-03-01 17:41 | disposition other institution (70) | DRG 774 ==
LOC: YASAS 09:17 → Y6N 12:25
PROVIDERS: ADMIT Allergy & Immunology; ATTEND Allergy & Immunology
PROC: HZ2ZZZZ Detoxification Services for Substance Abuse Treatment (ICD-10-PCS; principal; 2019-02-26)
DX: F10.230 Alcohol dependence with withdrawal, uncomplicated (principal); F14.20 Cocaine dependence, uncomplicated; F12.20 Cannabis dependence, uncomplicated; F17.210 Nicotine dependence, cigarettes, uncomplicated; F19.280 Other psychoactive substance dependence with psychoactive substance-induced anxiety disorder; F19.282 Other psychoactive substance dependence with psychoactive substance-induced sleep disorder; F19.24 Other psychoactive substance dependence with psychoactive substance-induced mood disorder; G47.00 Insomnia, unspecified; I12.9 Hypertensive chronic kidney disease with stage 1 through stage 4 chronic kidney disease, or unspecified chronic kidney disease; N18.3 Chronic kidney disease, stage 3 (moderate); N17.9 Acute kidney failure, unspecified; E78.00 Pure hypercholesterolemia, unspecified; E66.01 Morbid (severe) obesity due to excess calories; Z68.41 Body mass index [BMI] 40.0-44.9, adult; Z79.82 Long term (current) use of aspirin; Z59.0 Homelessness
CPT/HCPCS: 36415; 80053; 82962; 85027; 86593; 87389

== ENCOUNTER 2019-03-01 18:10 | Inpatient (IN) | payer OTHER ==
--- NOTE | 2019-03-01 10:38 | HP ---
[facility] Rehab Assess/Revision - Admission History Admitted to Rehab [facility] - Findings Detox History & Physical reviewed: Yes Concur with findings: Yes Inpatient Rehab Admission - Rehab Decision to Admit Inpatient rehab admission?: Yes - Initial Determination Are CD services needed?: Yes Free of communicable disease: Yes Not in need of hospitalization: Yes - Rehab Admission Criteria Previous failed treatment: Yes Poor recovery environment: Yes Comorbidities: Yes Lacks judgement: Yes Patient is meeting Inpatient Rehab admission criteria:: Yes
[~2019-03-01 18:10] MED LIST: IBUPROFEN 400 MG TABLET (FP) PO PRN; LOPERAMIDE HCL 2 MG CAPSULE PO PRN; MAGNESIUM CITRATE 300 ML BOTTLE PO PRN; MAGNESIUM HYDROX 2400MG/30ML ORAL SUSPENSION 30 ML CUP PO PRN; MENTHOL/PHENOL 1 EACH UD MM PRN; NICOTINE POLACRILEX 4 MG GUM BUC PRN; P-EPHED 60MG/TRIPROLIDI 2.5MG TABLET PO PRN
[2019-03-01] MEDS: MAG HYDROX/AL HYDROX/SIMETH 30 ML UNIT-DOSE CUP PO PRN (20:46)
[2019-03-01] MEDS: MELATONIN 5 MG TABLETS PO PRN (21:43)
[2019-03-01] MEDS: ACETAMINOPHEN 325 MG TABLET (FP) PO PRN (21:43)
[2019-03-01] MEDS: THIAMINE HCL 100 MG TABLET (FP) PO SCH (21:43)
[2019-03-01] MEDS: guaiFENesin 200 MG/10 ML 10 ML UNIT-DOSE CUPS PO PRN (23:11)
[2019-03-02] MEDS: MAG HYDROX/AL HYDROX/SIMETH 30 ML UNIT-DOSE CUP PO PRN (03:14)
[2019-03-02] MEDS: NICOTINE 21 MG/24 HOURS TOPICAL PATCH TD SCH (10:32)
[2019-03-02] MEDS: PANTOPRAZOLE 20 MG TABLET (FP) PO SCH (10:33)
[2019-03-02] MEDS: LISINOPRIL 20 MG TABLET (FP) PO SCH (10:33)
[2019-03-02] MEDS: ASPIRIN 81 MG CHEWABLE TABLETS PO SCH (10:33)
[2019-03-02] MEDS: HYDROCHLOROTHIAZIDE 25 MG TABLET (FP) PO SCH (10:33)
[2019-03-02] MEDS: PRENATAL VITAMINS W/ FOLIC ACID TABLET (FP) PO SCH (10:33)
[2019-03-02] MEDS: THIAMINE HCL 100 MG TABLET (FP) PO SCH (21:30)
[2019-03-02] MEDS: MELATONIN 5 MG TABLETS PO PRN (21:30)
[2019-03-02] MEDS: guaiFENesin 200 MG/10 ML 10 ML UNIT-DOSE CUPS PO PRN (21:30)
[2019-03-03] MEDS: ASPIRIN 81 MG CHEWABLE TABLETS PO SCH (10:24)
[2019-03-03] MEDS: PRENATAL VITAMINS W/ FOLIC ACID TABLET (FP) PO SCH (10:24)
[2019-03-03] MEDS: HYDROCHLOROTHIAZIDE 25 MG TABLET (FP) PO SCH (10:24)
[2019-03-03] MEDS: NICOTINE 21 MG/24 HOURS TOPICAL PATCH TD SCH (10:25)
[2019-03-03] MEDS: LISINOPRIL 20 MG TABLET (FP) PO SCH (10:25)
[2019-03-03] MEDS: PANTOPRAZOLE 20 MG TABLET (FP) PO SCH (10:25)
[2019-03-03] MEDS: guaiFENesin 200 MG/10 ML 10 ML UNIT-DOSE CUPS PO PRN (21:22)
[2019-03-03] MEDS: MELATONIN 5 MG TABLETS PO PRN (21:22)
[2019-03-03] MEDS: THIAMINE HCL 100 MG TABLET (FP) PO SCH (21:22)
[2019-03-04] MEDS: PRENATAL VITAMINS W/ FOLIC ACID TABLET (FP) PO SCH (10:09)
[2019-03-04] MEDS: LISINOPRIL 20 MG TABLET (FP) PO SCH (10:09)
[2019-03-04] MEDS: HYDROCHLOROTHIAZIDE 25 MG TABLET (FP) PO SCH (10:09)
[2019-03-04] MEDS: ASPIRIN 81 MG CHEWABLE TABLETS PO SCH (10:09)
[2019-03-04] MEDS: PANTOPRAZOLE 20 MG TABLET (FP) PO SCH (10:09)
[2019-03-04] MEDS: NICOTINE 21 MG/24 HOURS TOPICAL PATCH TD SCH (10:10)
[2019-03-04] MEDS: guaiFENesin 200 MG/10 ML 10 ML UNIT-DOSE CUPS PO PRN ×2 (10:10→21:32)
--- NOTE | 2019-03-04 13:44 | PN ---
S Progress Note Note: Pt is a 54 y/o male with a hx of RAFAEL admitted to rehab from [address] [place] [address]. OOb participating in unit activities. Vital Signs - 24 hr 03/04/19 03/04/19 03/04/19 00:30 03:30 07:18 Temperature 97.7 F Pulse Rate 64 Respiratory 18 18 18 Rate Blood Pressure 139/78 03/04/19 09:36 Temperature Pulse Rate 83 Respiratory Rate Blood Pressure 141/81 Laboratory Tests 03/04/19 07:23 POC Glucometer 116 Alert o x 3 nad oob ambulating with steady gait. A/P New Rehab patient s/p detox Maintain safety Increase po fluids as tolerated.
[2019-03-04] MEDS: THIAMINE HCL 100 MG TABLET (FP) PO SCH (21:31)
[2019-03-04] MEDS: MELATONIN 5 MG TABLETS PO PRN (21:31)
[2019-03-04] MEDS: hydrOXYzine PAMOATE 50 MG CAPSULE (FP) PO PRN (21:31)
[2019-03-05] MEDS: HYDROCHLOROTHIAZIDE 25 MG TABLET (FP) PO SCH (10:57)
[2019-03-05] MEDS: LISINOPRIL 20 MG TABLET (FP) PO SCH (10:57)
[2019-03-05] MEDS: NICOTINE 21 MG/24 HOURS TOPICAL PATCH TD SCH (10:57)
[2019-03-05] MEDS: ASPIRIN 81 MG CHEWABLE TABLETS PO SCH (10:57)
[2019-03-05] MEDS: PANTOPRAZOLE 20 MG TABLET (FP) PO SCH (10:57)
[2019-03-05] MEDS: PRENATAL VITAMINS W/ FOLIC ACID TABLET (FP) PO SCH (10:57)
[2019-03-05] MEDS: hydrOXYzine PAMOATE 50 MG CAPSULE (FP) PO PRN ×2 (10:58→21:34)
[2019-03-05] MEDS: THIAMINE HCL 100 MG TABLET (FP) PO SCH (21:32)
[2019-03-05] MEDS: MELATONIN 5 MG TABLETS PO PRN (21:32)
[2019-03-05] MEDS: guaiFENesin 200 MG/10 ML 10 ML UNIT-DOSE CUPS PO PRN (21:32)
[2019-03-06] MEDS: PANTOPRAZOLE 20 MG TABLET (FP) PO SCH (10:49)
[2019-03-06] MEDS: PRENATAL VITAMINS W/ FOLIC ACID TABLET (FP) PO SCH (10:49)
[2019-03-06] MEDS: LISINOPRIL 20 MG TABLET (FP) PO SCH (10:49)
[2019-03-06] MEDS: ASPIRIN 81 MG CHEWABLE TABLETS PO SCH (10:50)
[2019-03-06] MEDS: HYDROCHLOROTHIAZIDE 25 MG TABLET (FP) PO SCH (10:50)
[2019-03-06] MEDS: NICOTINE 21 MG/24 HOURS TOPICAL PATCH TD SCH (10:51)
[2019-03-06] MEDS: guaiFENesin 200 MG/10 ML 10 ML UNIT-DOSE CUPS PO PRN ×2 (10:51→21:37)
[2019-03-06] MEDS: MELATONIN 5 MG TABLETS PO PRN (21:36)
[2019-03-06] MEDS: THIAMINE HCL 100 MG TABLET (FP) PO SCH (21:36)
[2019-03-06] MEDS: hydrOXYzine PAMOATE 50 MG CAPSULE (FP) PO PRN (21:37)
[2019-03-07] MEDS: PRENATAL VITAMINS W/ FOLIC ACID TABLET (FP) PO SCH (11:02)
[2019-03-07] MEDS: PANTOPRAZOLE 20 MG TABLET (FP) PO SCH (11:02)
[2019-03-07] MEDS: NICOTINE 21 MG/24 HOURS TOPICAL PATCH TD SCH (11:02)
[2019-03-07] MEDS: HYDROCHLOROTHIAZIDE 25 MG TABLET (FP) PO SCH (11:02)
[2019-03-07] MEDS: ASPIRIN 81 MG CHEWABLE TABLETS PO SCH (11:02)
[2019-03-07] MEDS: LISINOPRIL 20 MG TABLET (FP) PO SCH (11:02)
[2019-03-07] MEDS: THIAMINE HCL 100 MG TABLET (FP) PO SCH (21:46)
[2019-03-07] MEDS: MELATONIN 5 MG TABLETS PO PRN (21:46)
[2019-03-07] MEDS: guaiFENesin 200 MG/10 ML 10 ML UNIT-DOSE CUPS PO PRN (21:46)
[2019-03-08] MEDS: NICOTINE 21 MG/24 HOURS TOPICAL PATCH TD SCH (10:25)
[2019-03-08] MEDS: PRENATAL VITAMINS W/ FOLIC ACID TABLET (FP) PO SCH (10:25)
[2019-03-08] MEDS: LISINOPRIL 20 MG TABLET (FP) PO SCH (10:25)
[2019-03-08] MEDS: ASPIRIN 81 MG CHEWABLE TABLETS PO SCH (10:25)
[2019-03-08] MEDS: HYDROCHLOROTHIAZIDE 25 MG TABLET (FP) PO SCH (10:25)
[2019-03-08] MEDS: PANTOPRAZOLE 20 MG TABLET (FP) PO SCH (10:25)
[2019-03-08] MEDS: MAG HYDROX/AL HYDROX/SIMETH 30 ML UNIT-DOSE CUP PO PRN (19:34)
[2019-03-08] MEDS: MELATONIN 5 MG TABLETS PO PRN (21:37)
[2019-03-08] MEDS: guaiFENesin 200 MG/10 ML 10 ML UNIT-DOSE CUPS PO PRN (21:37)
[2019-03-08] MEDS: THIAMINE HCL 100 MG TABLET (FP) PO SCH (21:37)
[2019-03-08] MEDS: hydrOXYzine PAMOATE 50 MG CAPSULE (FP) PO PRN (21:39)
[2019-03-09] MEDS: PANTOPRAZOLE 20 MG TABLET (FP) PO SCH (09:56)
[2019-03-09] MEDS: NICOTINE 21 MG/24 HOURS TOPICAL PATCH TD SCH (09:56)
[2019-03-09] MEDS: HYDROCHLOROTHIAZIDE 25 MG TABLET (FP) PO SCH (09:56)
[2019-03-09] MEDS: LISINOPRIL 20 MG TABLET (FP) PO SCH (09:56)
[2019-03-09] MEDS: ASPIRIN 81 MG CHEWABLE TABLETS PO SCH (09:56)
[2019-03-09] MEDS: PRENATAL VITAMINS W/ FOLIC ACID TABLET (FP) PO SCH (09:56)
[2019-03-09] MEDS: THIAMINE HCL 100 MG TABLET (FP) PO SCH (23:22)
[2019-03-10] MEDS: HYDROCHLOROTHIAZIDE 25 MG TABLET (FP) PO SCH (10:09)
[2019-03-10] MEDS: PANTOPRAZOLE 20 MG TABLET (FP) PO SCH (10:09)
[2019-03-10] MEDS: ASPIRIN 81 MG CHEWABLE TABLETS PO SCH (10:09)
[2019-03-10] MEDS: PRENATAL VITAMINS W/ FOLIC ACID TABLET (FP) PO SCH (10:09)
[2019-03-10] MEDS: LISINOPRIL 20 MG TABLET (FP) PO SCH (10:10)
[2019-03-10] MEDS: NICOTINE 21 MG/24 HOURS TOPICAL PATCH TD SCH (10:10)
[2019-03-10] MEDS: THIAMINE HCL 100 MG TABLET (FP) PO SCH (21:35)
[2019-03-10] MEDS: MELATONIN 5 MG TABLETS PO PRN (21:35)
[2019-03-10] MEDS: hydrOXYzine PAMOATE 50 MG CAPSULE (FP) PO PRN (21:36)
[2019-03-10] MEDS: guaiFENesin 200 MG/10 ML 10 ML UNIT-DOSE CUPS PO PRN (21:36)
[2019-03-11] MEDS: ACETAMINOPHEN 325 MG TABLET (FP) PO PRN ×2 (08:06→21:27)
[2019-03-11] MEDS: HYDROCHLOROTHIAZIDE 25 MG TABLET (FP) PO SCH (10:46)
[2019-03-11] MEDS: ASPIRIN 81 MG CHEWABLE TABLETS PO SCH (10:46)
[2019-03-11] MEDS: NICOTINE 21 MG/24 HOURS TOPICAL PATCH TD SCH (10:47)
[2019-03-11] MEDS: PANTOPRAZOLE 20 MG TABLET (FP) PO SCH (10:47)
[2019-03-11] MEDS: PRENATAL VITAMINS W/ FOLIC ACID TABLET (FP) PO SCH (10:47)
[2019-03-11] MEDS: LISINOPRIL 20 MG TABLET (FP) PO SCH (10:47)
[2019-03-11] MEDS: THIAMINE HCL 100 MG TABLET (FP) PO SCH (21:27)
[2019-03-11] MEDS: MELATONIN 5 MG TABLETS PO PRN (21:27)
[2019-03-11] MEDS: guaiFENesin 200 MG/10 ML 10 ML UNIT-DOSE CUPS PO PRN (21:28)
[2019-03-11] MEDS: hydrOXYzine PAMOATE 50 MG CAPSULE (FP) PO PRN (21:29)
[2019-03-12] MEDS: LISINOPRIL 20 MG TABLET (FP) PO SCH (10:24)
[2019-03-12] MEDS: PANTOPRAZOLE 20 MG TABLET (FP) PO SCH (10:24)
[2019-03-12] MEDS: HYDROCHLOROTHIAZIDE 25 MG TABLET (FP) PO SCH (10:24)
[2019-03-12] MEDS: ASPIRIN 81 MG CHEWABLE TABLETS PO SCH (10:25)
[2019-03-12] MEDS: PRENATAL VITAMINS W/ FOLIC ACID TABLET (FP) PO SCH (10:25)
[2019-03-12] MEDS: NICOTINE 21 MG/24 HOURS TOPICAL PATCH TD SCH (10:25)
[2019-03-12] MEDS: THIAMINE HCL 100 MG TABLET (FP) PO SCH (21:35)
[2019-03-12] MEDS: MELATONIN 5 MG TABLETS PO PRN (21:35)
[2019-03-12] MEDS: hydrOXYzine PAMOATE 50 MG CAPSULE (FP) PO PRN (21:35)
[2019-03-12] MEDS: ACETAMINOPHEN 325 MG TABLET (FP) PO PRN (21:36)
[2019-03-13] MEDS: HYDROCHLOROTHIAZIDE 25 MG TABLET (FP) PO SCH (10:34)
[2019-03-13] MEDS: ASPIRIN 81 MG CHEWABLE TABLETS PO SCH (10:34)
[2019-03-13] MEDS: LISINOPRIL 20 MG TABLET (FP) PO SCH (10:34)
[2019-03-13] MEDS: PANTOPRAZOLE 20 MG TABLET (FP) PO SCH (10:34)
[2019-03-13] MEDS: NICOTINE 21 MG/24 HOURS TOPICAL PATCH TD SCH (10:35)
[2019-03-13] MEDS: PRENATAL VITAMINS W/ FOLIC ACID TABLET (FP) PO SCH (10:35)
[2019-03-13] MEDS: MELATONIN 5 MG TABLETS PO PRN (21:37)
[2019-03-13] MEDS: THIAMINE HCL 100 MG TABLET (FP) PO SCH (21:37)
[2019-03-13] MEDS: hydrOXYzine PAMOATE 50 MG CAPSULE (FP) PO PRN (21:38)
[2019-03-14] MEDS: PANTOPRAZOLE 20 MG TABLET (FP) PO SCH (10:46)
[2019-03-14] MEDS: LISINOPRIL 20 MG TABLET (FP) PO SCH (10:46)
[2019-03-14] MEDS: PRENATAL VITAMINS W/ FOLIC ACID TABLET (FP) PO SCH (10:46)
[2019-03-14] MEDS: HYDROCHLOROTHIAZIDE 25 MG TABLET (FP) PO SCH (10:46)
[2019-03-14] MEDS: ASPIRIN 81 MG CHEWABLE TABLETS PO SCH (10:46)
[2019-03-14] MEDS: NICOTINE 21 MG/24 HOURS TOPICAL PATCH TD SCH (10:46)
--- NOTE | 2019-03-14 15:38 | DS ---
[facility] Rehab Discharge Summary - [facility] Rehab Discharge Summary Admission Date: 03/01/19 Discharge Date: 03/15/19 - History Present History: Alcohol dependence, Cannabis dependence, Cocaine dependence Additional Comments: Pt is a 54 y/o male with a hx of RAFAEL admitted to rehab and scheduled to discharge on 03/15/19. Pt completed detox on [place] before referral to [address] [place] [address] rehab. Pt met with his counselor and has been referred to [facility]. Pt reports he has a primary care provider on [address] and has his own medications in his property. Pertinent Past History: HTN Type 2 DM HLD Renal Insufficiency Left Shoulder Pain Morbid Obesity - Discharge Physical Exam Vital Signs: Vital Signs Temperature 97.9 F 03/14/19 07:11 Pulse Rate 67 03/14/19 07:11 Respiratory Rate 18 03/14/19 07:11 Blood Pressure 153/75 03/14/19 07:11 O2 Sat by Pulse Oximetry (%) Alert o x 3,denies s/h/i nad oob ambulating with steady gait cardiac:s1 s2, rrr lungs:cta,kirstin. abdomen:soft,+bs,nt,++fatty extremities/skin:no edema,full ROM/weight bearing;skin intact. Pertinent Admission Physical Exam Findings: Laboratory Tests 03/04/19 07:23 POC Glucometer 116 unremarkable - Treatment Discharge Condition: Discharge condition good Hospital Course: Rehabilitated safely and responded well CD aftercare referral accepted. - Medication-Assisted Treatment (MAT) Medication-Assisted Treatment (MAT): No - Discharge Instructions Diet, activity, other medical instructions: Diet:VINITA/NCS Activity: oob ad sujata Other medical instructions:follow up with primary care provider for medical management within 1 week after discharge. follow up with CD aftercare recommendation as scheduled. - Diagnosis (1) Obesity, morbid, BMI 40.0-49.9 Status: Chronic (2) Cocaine dependence Status: Chronic Qualifiers: Substance use status: uncomplicated Qualified Code(s): F14.20 - Cocaine dependence, uncomplicated (3) Hypercholesteremia Status: Chronic (4) Hypertension Status: Chronic Qualifiers: Hypertension type: essential hypertension Qualified Code(s): I10 - Essential (primary) hypertension (5) Nicotine dependence Status: Chronic Qualifiers: Nicotine product type: cigarettes Substance use status: uncomplicated Qualified Code(s): F17.210 - Nicotine dependence, cigarettes, uncomplicated (6) Alcohol use disorder Status: Chronic - Follow-up Referral Minutes to complete discharge: 20 - AMA Did Patient Leave Against Medical Advice: No Additional Comments: Pt reports he has own medications and no need for courtesy Rx.
[2019-03-14] MEDS: MELATONIN 5 MG TABLETS PO PRN (21:36)
[2019-03-14] MEDS: THIAMINE HCL 100 MG TABLET (FP) PO SCH (21:36)
[2019-03-14] MEDS: hydrOXYzine PAMOATE 50 MG CAPSULE (FP) PO PRN (21:36)
[2019-03-15 07:12] VITALS: TEMP 98
[2019-03-15] MEDS: PANTOPRAZOLE 20 MG TABLET (FP) PO SCH (09:08)
[2019-03-15] MEDS: NICOTINE 21 MG/24 HOURS TOPICAL PATCH TD SCH (09:08)
[2019-03-15] MEDS: ASPIRIN 81 MG CHEWABLE TABLETS PO SCH (09:08)
[2019-03-15] MEDS: HYDROCHLOROTHIAZIDE 25 MG TABLET (FP) PO SCH (09:08)
[2019-03-15] MEDS: PRENATAL VITAMINS W/ FOLIC ACID TABLET (FP) PO SCH (09:08)
[2019-03-15] MEDS: LISINOPRIL 20 MG TABLET (FP) PO SCH (09:08)
--- NOTE | 2019-03-15 09:55 | PN ---
S Progress Note Note: Pt was discharged as scheduled today and has been instructed to follow up with aftercare and primary care. Vital Signs - 24 hr 03/15/19 03/15/19 03/15/19 00:30 03:30 07:11 Temperature 98.0 F Pulse Rate 71 Respiratory 18 18 18 Rate Blood Pressure 134/82 Alert o x 3,denies s/h/i nad oob ambulating with steady gait cardiac:s1 s2 lungs:cta,kirstin. neuro:intact extremities:no edema A/P Medically stable D/c pt today.
[2019-03-15 11:07] VITALS: BP 130/80; PULSE 87
== END 2019-03-15 09:30 | disposition home or self-care (01) | DRG 772 ==
LOC: YASAS 18:10 → Y5N 18:16
PROVIDERS: ADMIT Neuromusculoskeletal Medicine & OMM; ATTEND Neuromusculoskeletal Medicine & OMM
PROC: HZ42ZZZ Group Counseling for Substance Abuse Treatment, Cognitive-Behavioral (ICD-10-PCS; principal; 2019-03-01)
DX: F10.20 Alcohol dependence, uncomplicated (principal); F14.20 Cocaine dependence, uncomplicated; F12.20 Cannabis dependence, uncomplicated; F17.210 Nicotine dependence, cigarettes, uncomplicated; F32.9 Major depressive disorder, single episode, unspecified; F19.24 Other psychoactive substance dependence with psychoactive substance-induced mood disorder; F19.282 Other psychoactive substance dependence with psychoactive substance-induced sleep disorder; I10 Essential (primary) hypertension; E78.00 Pure hypercholesterolemia, unspecified; E11.9 Type 2 diabetes mellitus without complications; N17.9 Acute kidney failure, unspecified; G47.00 Insomnia, unspecified; N28.9 Disorder of kidney and ureter, unspecified; E66.01 Morbid (severe) obesity due to excess calories; Z68.41 Body mass index [BMI] 40.0-44.9, adult; Z59.0 Homelessness
CPT/HCPCS: 82962

== ENCOUNTER 2019-04-09 08:56 | Inpatient (IN) | payer OTHER ==
[2019-04-09 09:25] VITALS: BMI 42.8
--- NOTE | 2019-04-09 10:38 | HP ---
CIWA Score Nausea/Vomitin-Mild Nausea/No Vomiting Muscle Tremors: None Anxiety: 1-Mildly Anxious Agitation: 0-Normal Activity Paroxysmal Sweats: No Perspiration Orientation: 2-Disoriented Date<2 days Tacttile Disturbances: 0-None Auditory Disturbances: 0-None Visual Disturbances: 0-None Headache: 3-Moderate CIWA-Ar Total Score: 7 - Admission Criteria OASAS Guidelines: Admission for Medically Managed Detox: Requires at least one of the followin. CIWA greater than 12 2. Seizures within the past 24 hours 3. Delirium tremens within the past 24 hours 4. Hallucinations within the past 24 hours 5. Acute intervention needed for co occurring medical disorder 6. Acute intervention needed for co occurring psychiatric disorder 7. Severe withdrawal that cannot be handled at a lower level of care (continued vomiting, continued diarrhea, abnormal vital signs) requiring intravenous medication and/or fluids 8. Admitting History and Physical - Smoking History Smoking history: Current every day smoker Have you smoked in the past 12 months: Yes Aproximately how many cigarettes per day: 5 - Alcohol/Substance Use Hx Alcohol Use: Yes Admission ROS [facility] - HPI Allergies/Adverse Reactions: Allergies Allergy/AdvReac Type Severity Reaction Status Date / Time No Known Allergies Allergy Verified 04/09/19 09:17 History of Present Illness: patient here requesting detox from etoh use , reports has been drinking since age 15 , currently 8 cans beer since leaving rehab 03/15/19 , denies h/o seizures , + blackouts, denies falls , latest use yesterday . PMHX : HTN , HLD , DM PSHx : denies PSych denies tobacco - 1/4 ppd , denies nrt Social hx : unemployed , no current legal issues . Exam Limitations: No Limitations - Ebola screening Have you traveled outside of the country in the last 21 days: No Have you had contact with anyone from an Ebola affected area: No - Review of Systems Constitutional: No Symptoms Reported EENT: reports: Ear Pain (reports saw PCP dx w/ ear infx and was given abx), Other (glasses-myopia) Respiratory: reports: No Symptoms reported Cardiac: reports: No Symptoms Reported GI: reports: See HPI, Diarrhea : reports: No Symptoms Reported Musculoskeletal: reports: No Symptoms Reported Integumentary: reports: No Symptoms Reported Neuro: reports: Headache Endocrine: reports: See HPI Hematology: reports: No Symptoms Reported Psychiatric: reports: Anxious Patient History - Patient Medical History Hx Anemia: No Hx Asthma: No Hx Chronic Obstructive Pulmonary Disease (COPD): No Hx Cancer: No Hx Cardiac Disorders: No Hx Congestive Heart Failure: No Hx Hypertension: Yes Hx Hypercholesterolemia: No Hx Pacemaker: No HX Cerebrovascular Accident: No Hx Seizures: No Hx Dementia: No Hx Diabetes: Yes (no meds) Hx Gastrointestinal Disorders: No Hx Liver Disease: No Hx Genitourinary Disorders: No Hx Sexually Transmitted Disorders: No Hx Renal Disease (ESRD): No Hx Thyroid Disease: No Hx Human Immunodeficiency Virus (HIV): No Hx Hepatitis C: No Hx Depression: No Hx Suicide Attempt: No Hx Bipolar Disorder: No Hx Schizophrenia: No - Patient Surgical History Past Surgical History: No Hx Neurologic Surgery: No Hx Cataract Extraction: No Hx Cardiac Surgery: No Hx Lung Surgery: No Hx Breast Surgery: No Hx Breast Biopsy: No Hx Abdominal Surgery: No Hx Appendectomy: No Hx Cholecystectomy: No Hx Genitourinary Surgery: No Hx Section: No Hx Orthopedic Surgery: No Anesthesia Reaction: No - PPD History Date: 12/21/18 Results: 0 mm - Smoking Cessation Smoking history: Current every day smoker Have you smoked in the past 12 months: Yes Aproximately how many cigarettes per day: 5 Cigars Per Day: 0 Hx Chewing Tobacco Use: No Initiated information on smoking cessation: Yes 'Breaking Loose' booklet given: 04/09/19 - Substances abused Alcohol Substance route: Oral Frequency: Daily Amount used: 8 cans of beer (24OZ) Age of first use: 16 Date of last use: 04/08/19 Cocaine Age of first use: 23 Date of last use: 02/25/19 Crack Substance route: Smoking Frequency: Daily Amount used: $50 Age of first use: 24 Date of last use: 04/08/19 Admission Physical Exam BHS - Vital Signs Vital Signs: Vital Signs - 24 hr 04/09/19 09:15 Temperature 98 F Pulse Rate 73 Respiratory 20 Rate Blood Pressure 171/90 H - Physical General Appearance: Yes: No Apparent Distress HEENTM: Yes: EOMI, Hearing grossly Normal, Normocephalic, Normal Voice Respiratory: Yes: Chest Non-Tender, Lungs Clear, Normal Breath Sounds, No Respiratory Distress, No Accessory Muscle Use Neck: Yes: No masses,lesions,Nodules, Trachea in good position Cardiology: Yes: Regular Rhythm, Regular Rate, S1, S2 Abdominal: Yes: Non Tender, Soft, Protuberent Musculoskeletal: Yes: Gait Steady Extremities: Yes: Normal Range of Motion, Non-Tender Neurological: Yes: Fully Oriented, Alert, Motor Strength 5/5, Normal Mood/Affect Integumentary: Yes: Warm - Diagnostic (1) Alcohol dependence with uncomplicated withdrawal Current Visit: Yes Status: Chronic (2) Cocaine dependence Current Visit: Yes Status: Chronic Qualifiers: Substance use status: uncomplicated Qualified Code(s): F14.20 - Cocaine dependence, uncomplicated Breathalyzer - Breathalyzer Breathalyzer: 0 Urine Drug Screen - Test Device Lot number: [id number] Expiration date: 10/24/20 - Control Is test valid?: Yes - Results Drug screen NEGATIVE: No Urine drug screen results: BINH-Cocaine, BZO-Benzodiazepines Inpatient Rehab Admission - Rehab Decision to Admit Inpatient rehab admission?: No
[2019-04-09] MEDS ORDERED: MENTHOL/PHENOL 1 EACH UD MM PRN (11:01)
[2019-04-09] MEDS ORDERED: BISMUTH SUBSALICYLATE 262 MG/15 ML BTL PO PRN (11:01)
[2019-04-09] MEDS ORDERED: PROCHLORPERAZINE MALEATE 5 MG TABLET PO PRN (11:01)
[2019-04-09] MEDS ORDERED: ACETAMINOPHEN 325 MG TABLET (FP) PO PRN ×2 (11:01)
[2019-04-09] MEDS ORDERED: MAGNESIUM CITRATE 300 ML BOTTLE PO PRN (11:01)
[2019-04-09] MEDS ORDERED: hydrOXYzine PAMOATE 25 MG CAPSULE (FP) PO PRN (11:01)
[2019-04-09] MEDS ORDERED: MAGNESIUM HYDROX 2400MG/30ML ORAL SUSPENSION 30 ML CUP PO PRN (11:01)
[2019-04-09] MEDS ORDERED: MAG HYDROX/AL HYDROX/SIMETH 30 ML UNIT-DOSE CUP PO PRN (11:01)
[2019-04-09] MEDS ORDERED: diazePAM 5 MG TABLET PO PRN (11:03)
[2019-04-09] MEDS: cloNIDine HCL 0.1 MG TABLET PO SCH ×2 (11:59→22:48)
[2019-04-09] MEDS: AMOXICILLIN 500 MG PO SCH ×2 (14:51→22:48)
[2019-04-09] MEDS: diazePAM 5 MG TABLET PO SCH ×2 (14:51→22:48)
[2019-04-09] MEDS: INSULIN SLIDING SCALE (NOVOLOG) 1 VIAL SQ SCH (16:59)
[2019-04-09] MEDS: MELATONIN 5 MG TABLETS PO PRN (22:48)
[2019-04-09] MEDS: THIAMINE HCL 100 MG TABLET (FP) PO SCH (22:48)
[2019-04-10] MEDS: AMOXICILLIN 500 MG PO SCH ×3 (07:27→22:34)
[2019-04-10] MEDS: diazePAM 5 MG TABLET PO SCH ×3 (07:28→22:34)
[2019-04-10] MEDS: INSULIN SLIDING SCALE (NOVOLOG) 1 VIAL SQ SCH ×2 (07:28→17:57)
[2019-04-10] MEDS: cloNIDine HCL 0.1 MG TABLET PO SCH ×2 (10:28→22:34)
[2019-04-10] MEDS: PRENATAL VITAMINS W/ FOLIC ACID TABLET (FP) PO SCH (10:28)
[2019-04-10] MEDS: LISINOPRIL 20 MG TABLET (FP) PO SCH (10:29)
--- NOTE | 2019-04-10 14:41 | PN ---
S CIWA - CIWA Score Nausea/Vomitin Muscle Tremors: 2 Anxiety: 2 Agitation: 2 Paroxysmal Sweats: No Perspiration Orientation: 0-Oriented Tacttile Disturbances: 1-Very Mild Itch/Numbness Auditory Disturbances: 0-None Visual Disturbances: 0-None Headache: 1-Very Mild CIWA-Ar Total Score: 10 BHS Progress Note (SOAP) Subjective: alert,irritable,anxious,interrupted sleep,tremor Objective: 04/10/19 14:40 Vital Signs Temperature 99.1 F 04/10/19 10:00 Pulse Rate 81 04/10/19 10:00 Respiratory Rate 04/10/19 10:00 Blood Pressure 150/82 04/10/19 10:00 O2 Sat by Pulse Oximetry (%) 04/10/19 14:40 Vital Signs Temperature 99.1 F 04/10/19 10:00 Pulse Rate 81 04/10/19 10:00 Respiratory Rate 04/10/19 10:00 Blood Pressure 150/82 04/10/19 10:00 O2 Sat by Pulse Oximetry (%) Assessment: 04/10/19 14:41 withdrawal symptom Plan: continue detox,bgm monitoring,valium regimen
[2019-04-10] MEDS: THIAMINE HCL 100 MG TABLET (FP) PO SCH (22:34)
[2019-04-11] MEDS: AMOXICILLIN 500 MG PO SCH ×3 (07:28→22:16)
[2019-04-11] MEDS: diazePAM 5 MG TABLET PO SCH ×2 (07:28→17:30)
[2019-04-11] MEDS: INSULIN SLIDING SCALE (NOVOLOG) 1 VIAL SQ SCH ×2 (08:02→17:21)
[2019-04-11] MEDS: LISINOPRIL 20 MG TABLET (FP) PO SCH (10:30)
[2019-04-11] MEDS: PRENATAL VITAMINS W/ FOLIC ACID TABLET (FP) PO SCH (10:30)
[2019-04-11] MEDS: cloNIDine HCL 0.1 MG TABLET PO SCH ×2 (10:30→22:16)
--- NOTE | 2019-04-11 11:23 | PN ---
BHS CIWA - CIWA Score Nausea/Vomitin-No Nausea/No Vomiting Muscle Tremors: 2 Anxiety: 1-Mildly Anxious Agitation: 1-Slight > Activity Paroxysmal Sweats: No Perspiration Orientation: 0-Oriented Tacttile Disturbances: 0-None Auditory Disturbances: 0-None Visual Disturbances: 0-None Headache: 0-None Present CIWA-Ar Total Score: 4 BHS Progress Note (SOAP) Subjective: feeling better anxiety Objective: 04/11/19 11:22 Vital Signs Temperature 97.7 F 04/11/19 07:39 Pulse Rate 55 L 04/11/19 07:39 Respiratory Rate 18 04/11/19 07:39 Blood Pressure 147/76 04/11/19 07:39 O2 Sat by Pulse Oximetry (%) Laboratory Tests 04/09/19 04/09/19 04/10/19 11:10 16:39 07:27 POC Glucometer 138 110 114 aaox3 ambulating no acute distress Assessment: 04/11/19 11:23 mild withdrawals Plan: continue and complete detox d/c in am
[2019-04-11 22:06] VITALS: BP 155/88; PULSE 84; TEMP 98.2
[2019-04-11] MEDS: MELATONIN 5 MG TABLETS PO PRN (22:16)
[2019-04-11] MEDS: THIAMINE HCL 100 MG TABLET (FP) PO SCH (22:16)
[2019-04-12] MEDS ORDERED: diazePAM 5 MG TABLET PO ONE (06:00)
[2019-04-12] MEDS: AMOXICILLIN 500 MG PO SCH (06:29)
[2019-04-12] MEDS: INSULIN SLIDING SCALE (NOVOLOG) 1 VIAL SQ SCH (06:46)
--- NOTE | 2019-04-12 08:20 | DS ---
[facility] Detox Discharge Summary Admission Date: 04/09/19 Discharge Date: 04/12/19 - History Present History: Alcohol Dependence, Cannabis Dependence, Cocaine Dependence - Physical Exam Results Vital Signs: Vital Signs Temperature 98.2 F 04/11/19 22:05 Pulse Rate 84 04/11/19 22:05 Respiratory Rate 18 04/12/19 03:30 Blood Pressure 155/88 04/11/19 22:05 O2 Sat by Pulse Oximetry (%) Pertinent Admission Physical Exam Findings: Vital Signs Temperature 98.2 F 04/11/19 22:05 Pulse Rate 84 04/11/19 22:05 Respiratory Rate 18 04/12/19 03:30 Blood Pressure 155/88 04/11/19 22:05 O2 Sat by Pulse Oximetry (%) Laboratory Tests 04/09/19 04/09/19 04/10/19 11:10 16:39 07:27 POC Glucometer 138 110 114 04/11/19 16:40 POC Glucometer 118 aaox3 ambulating no acute distress - Treatment Hospital Course: Detox Protocol Followed, Detoxed Safely, Responded well, Discharged Condition Good, Rehab Referral Accepted - Medication Discharge Medications: Ambulatory Orders Amoxicillin - [Amoxicillin 500mg Capsule -] 500 mg PO TID MDD 7days 04/09/19 Lisinopril [Prinivil -] 40 mg PO DAILY 04/09/19 - Diagnosis (1) ADRIANA (acute kidney injury) Status: Acute (2) Depression Status: Acute Qualifiers: Depression Type: unspecified Qualified Code(s): F32.9 - Major depressive disorder, single episode, unspecified (3) Insomnia Status: Acute (4) Alcohol dependence with uncomplicated withdrawal Status: Chronic (5) Alcohol use disorder Status: Chronic (6) Cannabis dependence, uncomplicated Status: Chronic (7) Chronic renal insufficiency, stage III (moderate) Status: Chronic (8) Cocaine dependence Status: Chronic Qualifiers: Substance use status: uncomplicated Qualified Code(s): F14.20 - Cocaine dependence, uncomplicated (9) Cocaine dependence, uncomplicated Status: Chronic (10) Hypercholesteremia Status: Chronic (11) Hypertension Status: Chronic Qualifiers: Hypertension type: essential hypertension Qualified Code(s): I10 - Essential (primary) hypertension (12) Nicotine dependence Status: Chronic Qualifiers: Nicotine product type: cigarettes Substance use status: uncomplicated Qualified Code(s): F17.210 - Nicotine dependence, cigarettes, uncomplicated (13) Obesity, morbid, BMI 40.0-49.9 Status: Chronic (14) Sleep apnea Status: Chronic Qualifiers: Sleep apnea type: obstructive Qualified Code(s): G47.33 - Obstructive sleep apnea (adult) (pediatric) (15) Drug-induced mood disorder Status: Suspected (16) Substance induced mood disorder Status: Suspected (17) Substance-induced sleep disorder Status: Suspected - AMA Did Patient Leave Against Medical Advice: No
== END 2019-04-12 06:36 | disposition home or self-care (01) | DRG 774 ==
LOC: YASAS 08:56 → Y6N 11:15
PROVIDERS: ADMIT Allergy & Immunology; ATTEND Allergy & Immunology
PROC: HZ2ZZZZ Detoxification Services for Substance Abuse Treatment (ICD-10-PCS; principal; 2019-04-09)
DX: F10.230 Alcohol dependence with withdrawal, uncomplicated (principal); F14.20 Cocaine dependence, uncomplicated; F12.20 Cannabis dependence, uncomplicated; F17.210 Nicotine dependence, cigarettes, uncomplicated; F19.282 Other psychoactive substance dependence with psychoactive substance-induced sleep disorder; F19.24 Other psychoactive substance dependence with psychoactive substance-induced mood disorder; F32.9 Major depressive disorder, single episode, unspecified; G47.33 Obstructive sleep apnea (adult) (pediatric); G47.00 Insomnia, unspecified; I12.9 Hypertensive chronic kidney disease with stage 1 through stage 4 chronic kidney disease, or unspecified chronic kidney disease; N18.3 Chronic kidney disease, stage 3 (moderate); N17.9 Acute kidney failure, unspecified; E78.00 Pure hypercholesterolemia, unspecified; E66.01 Morbid (severe) obesity due to excess calories; Z68.41 Body mass index [BMI] 40.0-44.9, adult; Z59.0 Homelessness
CPT/HCPCS: 82962; J0735

== ENCOUNTER 2019-10-17 09:23 | Inpatient (IN) | payer OTHER ==
--- NOTE | 2019-10-17 09:42 | BHS.RME ---
Substance Use & Tx History - Substance Use History Alcohol Substance amount: 3 pints Vodka Frequency of use: Daily Substance route: Oral Date of Last Use: 10/17/19 (First use age 16 y. No mervinanne. Smtiha 8 mos ago. 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) Nicotine Substance amount: 4 cigs Frequency of use: Daily Substance route: Smoking Date of Last Use: 10/17/19 (Began age 16 y) - Last Treatment Date of last treatment: 09/08 to 09/10 Treatment type: Substance Use Disorder (RAFAEL) Where was last treatment: Detox Physical/Psych/Mental Status - Behavior General Behavior: Increased activity (restlessness, agitation) Eye Contact: Normal - Cooperativeness Cooperativeness: Cooperative - Thinking Thought Processes: Tight Thought content: Future oriented - Physical Health Problems Is patient presently having any pain?: No Does patient presently have any injuries (include location): No Does patient currently have a fever: No CIWA Nausea/Vomitin Muscle Tremors: None Anxiety: 3 Agitation: 1-Slight > Activity Paroxysmal Sweats: No Perspiration Orientation: 1-Uncertain about Date Tacttile Disturbances: 0-None Auditory Disturbances: 1-Very Mild Visual Disturbances: 2-Mild Sensitivity Headache: 5-Severe CIWA-Ar Total Score: 16
--- NOTE | 2019-10-17 10:13 | HP ---
CIWA Score Nausea/Vomitin Muscle Tremors: None Anxiety: 3 Agitation: 1-Slight > Activity Paroxysmal Sweats: No Perspiration Orientation: 1-Uncertain about Date Tacttile Disturbances: 0-None Auditory Disturbances: 1-Very Mild Visual Disturbances: 2-Mild Sensitivity Headache: 5-Severe CIWA-Ar Total Score: 16 - Admission Criteria OASAS Guidelines: Admission for Medically Managed Detox: Requires at least one of the followin. CIWA greater than 12 2. Seizures within the past 24 hours 3. Delirium tremens within the past 24 hours 4. Hallucinations within the past 24 hours 5. Acute intervention needed for co occurring medical disorder 6. Acute intervention needed for co occurring psychiatric disorder 7. Severe withdrawal that cannot be handled at a lower level of care (continued vomiting, continued diarrhea, abnormal vital signs) requiring intravenous medication and/or fluids 8. Admitting History and Physical - Admission Chief Complaint: Mr. Ugarte is a 54 yo gentleman who presents to [facility] requesting detox from alcohol. He was last here in August and left after 2 days. History of Present Illness: Mr. Ugarte is a 54 yo gentleman who presents to [facility] requesting detox from alcohol. He was last here in August and left after 2 days. PMH: HTN, HLD, DM PSH/Psych/Legal: none SOC: Correction - Substance Use History Alcohol Substance amount: 3 pints Vodka Frequency of use: Daily Substance route: Oral Date of Last Use: 10/17/19 (First use age 16 y. No seizurs. Blackou 8 mos ago. 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) Nicotine Substance amount: 4 cigs Frequency of use: Daily Substance route: Smoking Date of Last Use: 10/17/19 (Began age 16 y) Cocaine: 2/mos, $120, last use 2 weeks ago - Last Treatment Date of last treatment: 09/08 to 09/10 Treatment type: Substance Use Disorder (RAFAEL) Where was last treatment: Detox History Source: Patient Limitations to Obtaining History: No Limitations - Past Medical History Cardiovascular: Yes: HTN, Hyperlipdemia Endocrine: Yes: Diabetes Mellitus - Past Surgical History Past Surgical History: Yes: None - Smoking History Smoking history: Current every day smoker Have you smoked in the past 12 months: Yes Aproximately how many cigarettes per day: 4 - Alcohol/Substance Use Hx Alcohol Use: Yes History of Substance Use: reports: Cocaine - Social History ADL: Independent Occupation: unemployed History of Recent Travel: No Admission ROS BHS - HPI Allergies/Adverse Reactions: Allergies Allergy/AdvReac Type Severity Reaction Status Date / Time No Known Allergies Allergy Verified 10/17/19 10:15 Exam Limitations: No Limitations - Ebola screening Have you traveled outside of the country in the last 21 days: No Have you been sick,other than usual withdrawal symptoms: No Do you have a fever: No - Review of Systems Constitutional: Other (Working out lately, lost 10 lbs) EENT: reports: No Symptoms Reported Respiratory: reports: No Symptoms reported Cardiac: reports: No Symptoms Reported GI: reports: Nausea : reports: No Symptoms Reported Musculoskeletal: reports: No Symptoms Reported Integumentary: reports: No Symptoms Reported Neuro: reports: Headache Endocrine: reports: Other (ran out of medications for DM) Hematology: reports: No Symptoms Reported Psychiatric: reports: Anxious Patient History - Patient Medical History Hx Anemia: No Hx Asthma: No Hx Chronic Obstructive Pulmonary Disease (COPD): No Hx Cancer: No Hx Cardiac Disorders: No Hx Congestive Heart Failure: No Hx Hypertension: Yes Hx Hypercholesterolemia: No Hx Pacemaker: No HX Cerebrovascular Accident: No Hx Seizures: No Hx Dementia: No Hx Diabetes: Yes (Type II not on meds.) Hx Gastrointestinal Disorders: No Hx Liver Disease: No Hx Genitourinary Disorders: No Hx Sexually Transmitted Disorders: No Hx Renal Disease (ESRD): No Hx Thyroid Disease: No Hx Human Immunodeficiency Virus (HIV): No Hx Hepatitis C: No Hx Depression: No Hx Suicide Attempt: No Hx Bipolar Disorder: No Hx Schizophrenia: No - Patient Surgical History Past Surgical History: No Hx Neurologic Surgery: No Hx Cataract Extraction: No Hx Cardiac Surgery: No Hx Lung Surgery: No Hx Breast Surgery: No Hx Breast Biopsy: No Hx Abdominal Surgery: No Hx Appendectomy: No Hx Cholecystectomy: No Hx Genitourinary Surgery: No Hx Section: No Hx Orthopedic Surgery: No Anesthesia Reaction: No - PPD History Date: 09/11/19 Results: 0 MM - Smoking Cessation Smoking history: Current every day smoker Have you smoked in the past 12 months: Yes Aproximately how many cigarettes per day: 4 Cigars Per Day: 0 Hx Chewing Tobacco Use: No Initiated information on smoking cessation: Yes 'Breaking Loose' booklet given: 10/17/19 Admission Physical Exam BHS - Physical General Appearance: Yes: No Apparent Distress, Nourished, Appropriately Dressed, Irritable, Anxious HEENTM: Yes: EOMI, Hearing grossly Normal, Normocephalic, Normal Voice Respiratory: Yes: Lungs Clear, Normal Breath Sounds, No Accessory Muscle Use Neck: Yes: Within Normal Limits, Supple Breast: Yes: Breast Exam Deferred Cardiology: Yes: Regular Rhythm, Regular Rate, S1, S2 Abdominal: Yes: Non Tender, Soft, Decreased BS, Protuberent Genitourinary: Yes: Other (deferred) Back: Yes: Normal Inspection Musculoskeletal: Yes: Gait Steady Extremities: Yes: Normal Inspection, Non-Tender Neurological: Yes: Alert, Normal Response Integumentary: Yes: Normal Color, Dry, Warm - Diagnostic (1) Alcohol dependence with uncomplicated withdrawal Current Visit: Yes Status: Acute (2) Hypercholesteremia Current Visit: No Status: Chronic (3) Hypertension Current Visit: Yes Status: Chronic Qualifiers: Hypertension type: essential hypertension Qualified Code(s): I10 - Essential (primary) hypertension (4) Type 2 diabetes mellitus Current Visit: Yes Status: Chronic Cleared for Admission [facility] - Detox or Rehab [facility] Level of Care: Medically Managed Detox Regimen/Protocol: Librium Breathalyzer - Breathalyzer Breathalyzer: 0.025 Urine Drug Screen - Test Device Lot number: [id number] Expiration date: 11/24/20 - Control Is test valid?: Yes - Results Drug screen NEGATIVE: Yes Urine drug screen results: [facility]-Cocaine Inpatient Rehab Admission - Rehab Decision to Admit Inpatient rehab admission?: No
[2019-10-17] MEDS ORDERED: MENTHOL/PHENOL 1 EACH UD MM PRN (10:28)
[2019-10-17] MEDS ORDERED: IBUPROFEN 400 MG TABLET (FP) PO PRN (10:28)
[2019-10-17] MEDS ORDERED: ACETAMINOPHEN 325 MG TABLET (FP) PO PRN (10:28)
[2019-10-17] MEDS ORDERED: MAGNESIUM HYDROX 2400MG/30ML ORAL SUSPENSION 30 ML CUP PO PRN (10:28)
[2019-10-17] MEDS ORDERED: MAGNESIUM CITRATE 300 ML BOTTLE PO PRN (10:28)
[2019-10-17] MEDS ORDERED: BISMUTH SUBSALICYLATE 524 MG/30 ML UD PO PRN (10:28)
[2019-10-17] MEDS ORDERED: MAG HYDROX/AL HYDROX/SIMETH 30 ML UNIT-DOSE CUP PO PRN (10:28)
[2019-10-17] MEDS ORDERED: chlordiazePOXIDE HCL 25 MG CAPSULE PO PRN (10:28)
[2019-10-17] MEDS ORDERED: NICOTINE POLACRILEX 2 MG GUM BUC PRN (10:28)
[2019-10-17] MEDS ORDERED: ONDANSETRON *ODT* 4 MG TABLET SL PRN (10:28)
[2019-10-17] MEDS ORDERED: METHOCARBAMOL 500 MG TABLET PO PRN (10:28)
[2019-10-17 10:39] VITALS: BMI 41.0
[2019-10-17] MEDS: LISINOPRIL 20 MG TABLET (FP) PO SCH (12:07)
[2019-10-17] MEDS: amLODIPine BESYLATE 5 MG TABLET (FP) PO SCH (12:07)
[2019-10-17] MEDS: ASPIRIN 81 MG CHEWABLE TABLETS PO SCH (12:07)
[2019-10-17] MEDS: FAMOTIDINE 20 MG TABLET PO SCH ×2 (12:08→22:41)
[2019-10-17] MEDS: ACETAMINOPHEN 325 MG TABLET (FP) PO PRN (12:11)
[2019-10-17 14:27] LABS: HEMATOCRIT 43.6 % (35.4-49); MCH 27.2 pg (25.7-33.7); MCHC 32.1 g/dl (32.0-35.9); MEAN CELL VOLUME 84.5 fl (80-96); MEAN PLT VOLUME 9.8 fl (7.5-11.1); PLATELET COUNT 205 K/MM3 (134-434); RBC 5.16 M/mm3 (4.00-5.60); RDW 17.2 % (11.9-15.9); WHITE BLOOD COUNT 7.9 K/mm3 (4.0-10.0)
[2019-10-17] MEDS: hydrOXYzine PAMOATE 25 MG CAPSULE (FP) PO SCH ×3 (14:38→22:43)
[2019-10-17 14:41] LABS: POTASSIUM 3.7 mmol/L (3.5-5.1)
[2019-10-17 14:53] LABS: ALBUMIN 2.2 g/dl (3.4-5.0); BILIRUBIN,TOTAL 0.4 mg/dL (0.2-1); BLOOD UREA NITROGEN 18.3 mg/dL (7-18); CALCIUM 8.5 mg/dL (8.5-10.1); CREATININE 1.6 mg/dL (0.55-1.3); TOT PROT 5.7 g/dl (6.4-8.2)
[2019-10-17] MEDS: chlordiazePOXIDE HCL 25 MG CAPSULE PO SCH ×2 (17:32→22:41)
[2019-10-17] MEDS: THIAMINE HCL 100 MG TABLET (FP) PO SCH (22:41)
[2019-10-17] MEDS: ATORVASTATIN CA 20 MG TABLET (FP) PO SCH (22:41)
[2019-10-17] MEDS: MELATONIN 5 MG TABLETS PO SCH (22:41)
[2019-10-18] MEDS: chlordiazePOXIDE HCL 25 MG CAPSULE PO SCH ×4 (06:09→22:32)
[2019-10-18] MEDS: hydrOXYzine PAMOATE 25 MG CAPSULE (FP) PO SCH ×5 (06:09→22:32)
[2019-10-18] MEDS: LISINOPRIL 20 MG TABLET (FP) PO SCH (10:44)
[2019-10-18] MEDS: amLODIPine BESYLATE 5 MG TABLET (FP) PO SCH (10:45)
[2019-10-18] MEDS: NICOTINE 7 MG/24 HOURS TOPICAL PATCH TD SCH (10:45)
[2019-10-18] MEDS: PRENATAL VITAMINS W/ FOLIC ACID TABLET (FP) PO SCH (10:45)
[2019-10-18] MEDS: FAMOTIDINE 20 MG TABLET PO SCH ×2 (10:45→22:32)
[2019-10-18] MEDS: ASPIRIN 81 MG CHEWABLE TABLETS PO SCH (10:45)
--- NOTE | 2019-10-18 14:24 | PN ---
S CIWA - CIWA Score Nausea/Vomitin-No Nausea/No Vomiting Muscle Tremors: 3 Anxiety: 4-Mod. Anxious/Guarded Agitation: 3 Paroxysmal Sweats: 1-Minimal Palms Moist Orientation: 0-Oriented Tacttile Disturbances: 0-None Auditory Disturbances: 0-None Visual Disturbances: 0-None Headache: 0-None Present CIWA-Ar Total Score: 11 BHS Progress Note (SOAP) Subjective: c/o anxiety sweats intermittent sleep Objective: 10/18/19 14:24 Vital Signs - 24 hr 10/17/19 10/17/19 10/18/19 16:52 20:46 08:03 Temperature 97.8 F 97.3 F L 97.1 F L Pulse Rate 69 71 70 Respiratory 18 16 18 Rate Blood Pressure 143/84 139/78 150/101 H O2 Sat by Pulse 96 97 Oximetry (%) Laboratory Tests 10/17/19 10/17/19 10/17/19 10:25 10:25 10:25 WBC 7.9 RBC 5.16 Hgb 14.0 Hct 43.6 MCV 84.5 MCH 27.2 MCHC 32.1 RDW 17.2 H Plt Count 205 MPV 9.8 Sodium 144 Potassium 3.7 Chloride 109 H Carbon Dioxide 26 Anion Gap 9 BUN 18.3 H Creatinine 1.6 H Est GFR (CKD-EPI)AfAm 55.78 Est GFR (CKD-EPI)NonAf 48.13 POC Glucometer Random Glucose 121 H Calcium 8.5 Total Bilirubin 0.4 AST 22 ALT 22 Alkaline Phosphatase 92 Total Protein 5.7 L Albumin 2.2 L Syphilis Serology Non-reactive 10/17/19 10/18/19 10:26 06:59 WBC RBC Hgb Hct MCV MCH MCHC RDW Plt Count MPV Sodium Potassium Chloride Carbon Dioxide Anion Gap BUN Creatinine Est GFR (CKD-EPI)AfAm Est GFR (CKD-EPI)NonAf POC Glucometer 132 124 Random Glucose Calcium Total Bilirubin AST ALT Alkaline Phosphatase Total Protein Albumin Syphilis Serology alert o x 3 nad saw pt laying in bed during rounds but responded/ communicating needs coherently. Assessment: 10/18/19 14:25 withdrawal sx Plan: cont detox increase po fluids maintain safety
[2019-10-18] MEDS: MELATONIN 5 MG TABLETS PO SCH (22:31)
[2019-10-18] MEDS: ATORVASTATIN CA 20 MG TABLET (FP) PO SCH (22:32)
[2019-10-18] MEDS: THIAMINE HCL 100 MG TABLET (FP) PO SCH (22:32)
[2019-10-19] MEDS: chlordiazePOXIDE HCL 25 MG CAPSULE PO SCH ×4 (07:18→22:44)
[2019-10-19] MEDS: hydrOXYzine PAMOATE 25 MG CAPSULE (FP) PO SCH ×5 (07:19→22:44)
[2019-10-19] MEDS: LISINOPRIL 20 MG TABLET (FP) PO SCH (10:24)
[2019-10-19] MEDS: ASPIRIN 81 MG CHEWABLE TABLETS PO SCH (10:24)
[2019-10-19] MEDS: amLODIPine BESYLATE 5 MG TABLET (FP) PO SCH (10:24)
[2019-10-19] MEDS: FAMOTIDINE 20 MG TABLET PO SCH ×2 (10:25→22:43)
[2019-10-19] MEDS: PRENATAL VITAMINS W/ FOLIC ACID TABLET (FP) PO SCH (10:25)
[2019-10-19] MEDS: NICOTINE 7 MG/24 HOURS TOPICAL PATCH TD SCH (10:25)
--- NOTE | 2019-10-19 17:37 | PN ---
S CIWA - CIWA Score Nausea/Vomitin-No Nausea/No Vomiting Muscle Tremors: None Anxiety: 4-Mod. Anxious/Guarded Agitation: 2 Paroxysmal Sweats: 2 Orientation: 0-Oriented Tacttile Disturbances: 0-None Auditory Disturbances: 2-Mild Harshness/Frighten Visual Disturbances: 0-None Headache: 0-None Present CIWA-Ar Total Score: 10 BHS Progress Note (SOAP) Subjective: Sweating, Anxious, Body Aches. Objective: Patient A & O X 3, Observed Ambulating on Detox Unit Unassisted. In No Acute Distress. 10/19/19 17:43 Vital Signs Temperature 97.5 F L 10/19/19 13:05 Pulse Rate 80 10/19/19 13:05 Respiratory Rate 20 10/19/19 13:05 Blood Pressure 157/97 10/19/19 13:05 O2 Sat by Pulse Oximetry (%) 95 10/19/19 09:20 Laboratory Tests 10/17/19 10/17/19 10/17/19 10:25 10:25 10:25 WBC 7.9 RBC 5.16 Hgb 14.0 Hct 43.6 MCV 84.5 MCH 27.2 MCHC 32.1 RDW 17.2 H Plt Count 205 MPV 9.8 Sodium 144 Potassium 3.7 Chloride 109 H Carbon Dioxide 26 Anion Gap 9 BUN 18.3 H Creatinine 1.6 H Est GFR (CKD-EPI)AfAm 55.78 Est GFR (CKD-EPI)NonAf 48.13 POC Glucometer Random Glucose 121 H Calcium 8.5 Total Bilirubin 0.4 AST 22 ALT 22 Alkaline Phosphatase 92 Total Protein 5.7 L Albumin 2.2 L Syphilis Serology Non-reactive COVID-19 (JOLENE) 10/17/19 10/17/19 10/18/19 10:26 14:30 06:59 WBC RBC Hgb Hct MCV MCH MCHC RDW Plt Count MPV Sodium Potassium Chloride Carbon Dioxide Anion Gap BUN Creatinine Est GFR (CKD-EPI)AfAm Est GFR (CKD-EPI)NonAf POC Glucometer 132 124 Random Glucose Calcium Total Bilirubin AST ALT Alkaline Phosphatase Total Protein Albumin Syphilis Serology COVID-19 (JOLENE) Not detected 10/19/19 07:18 WBC RBC Hgb Hct MCV MCH MCHC RDW Plt Count MPV Sodium Potassium Chloride Carbon Dioxide Anion Gap BUN Creatinine Est GFR (CKD-EPI)AfAm Est GFR (CKD-EPI)NonAf POC Glucometer 137 Random Glucose Calcium Total Bilirubin AST ALT Alkaline Phosphatase Total Protein Albumin Syphilis Serology COVID-19 (JOLENE) Lab Result noted. Assessment: 10/19/19 17:55 WITHDRAWAL SYMPTOMS. AZOTEMIA. 10/19/19 17:56 Plan: Continue Detox. Continue to monitor blood pressure.
[2019-10-19] MEDS: MELATONIN 5 MG TABLETS PO SCH (22:43)
[2019-10-19] MEDS: ATORVASTATIN CA 20 MG TABLET (FP) PO SCH (22:44)
[2019-10-19] MEDS: THIAMINE HCL 100 MG TABLET (FP) PO SCH (22:48)
[2019-10-20] MEDS ORDERED: chlordiazePOXIDE HCL 10 MG CAPSULE PO PRN
[2019-10-20] MEDS: chlordiazePOXIDE HCL 10 MG CAPSULE PO SCH ×4 (07:14→22:27)
[2019-10-20] MEDS: hydrOXYzine PAMOATE 25 MG CAPSULE (FP) PO SCH ×5 (07:14→22:25)
[2019-10-20] MEDS: ASPIRIN 81 MG CHEWABLE TABLETS PO SCH (10:28)
[2019-10-20] MEDS: LISINOPRIL 20 MG TABLET (FP) PO SCH (10:28)
[2019-10-20] MEDS: amLODIPine BESYLATE 5 MG TABLET (FP) PO SCH (10:28)
[2019-10-20] MEDS: NICOTINE 7 MG/24 HOURS TOPICAL PATCH TD SCH (10:28)
[2019-10-20] MEDS: FAMOTIDINE 20 MG TABLET PO SCH ×2 (10:29→22:25)
[2019-10-20] MEDS: PRENATAL VITAMINS W/ FOLIC ACID TABLET (FP) PO SCH (10:29)
--- NOTE | 2019-10-20 16:11 | PN ---
S CIWA - CIWA Score Nausea/Vomitin-No Nausea/No Vomiting Muscle Tremors: 2 Anxiety: 2 Agitation: 2 Paroxysmal Sweats: 2 Orientation: 0-Oriented Tacttile Disturbances: 0-None Auditory Disturbances: 0-None Visual Disturbances: 0-None Headache: 0-None Present CIWA-Ar Total Score: 8 BHS Progress Note (SOAP) Subjective: Feels ok Objective: 10/20/19 16:08 Last Vital Signs Temp Pulse Resp BP Pulse Ox 98.2 F 90 18 136/82 97 10/20/19 12:35 10/20/19 12:35 10/20/19 12:35 10/20/19 12:35 10/20/19 12:35 Elevated b/p noted: has htn, on med Laboratory Tests 10/17/19 10/17/19 10/17/19 10:25 10:25 10:25 WBC 7.9 RBC 5.16 Hgb 14.0 Hct 43.6 MCV 84.5 MCH 27.2 MCHC 32.1 RDW 17.2 H Plt Count 205 MPV 9.8 Sodium 144 Potassium 3.7 Chloride 109 H Carbon Dioxide 26 Anion Gap 9 BUN 18.3 H Creatinine 1.6 H Est GFR (CKD-EPI)AfAm 55.78 Est GFR (CKD-EPI)NonAf 48.13 POC Glucometer Random Glucose 121 H Calcium 8.5 Total Bilirubin 0.4 AST 22 ALT 22 Alkaline Phosphatase 92 Total Protein 5.7 L Albumin 2.2 L Syphilis Serology Non-reactive COVID-19 (JOLENE) 10/17/19 10/17/19 10/18/19 10:26 14:30 06:59 WBC RBC Hgb Hct MCV MCH MCHC RDW Plt Count MPV Sodium Potassium Chloride Carbon Dioxide Anion Gap BUN Creatinine Est GFR (CKD-EPI)AfAm Est GFR (CKD-EPI)NonAf POC Glucometer 132 124 Random Glucose Calcium Total Bilirubin AST ALT Alkaline Phosphatase Total Protein Albumin Syphilis Serology COVID-19 (JOLENE) Not detected 10/19/19 10/20/19 07:18 07:13 WBC RBC Hgb Hct MCV MCH MCHC RDW Plt Count MPV Sodium Potassium Chloride Carbon Dioxide Anion Gap BUN Creatinine Est GFR (CKD-EPI)AfAm Est GFR (CKD-EPI)NonAf POC Glucometer 137 107 Random Glucose Calcium Total Bilirubin AST ALT Alkaline Phosphatase Total Protein Albumin Syphilis Serology COVID-19 (JOLENE) Labs reviewed: abnormal CMP Assessment: 10/20/19 16:09 Withdrawal sxs Noted with abnormal labs (CMP) Plan: Continue detox Encourage PO water intake HTN: continue antihypertensive med Abnormal lab results (CMP): repeat CMP
[2019-10-20] MEDS ORDERED: MASKS NR ONE (16:33)
[2019-10-20] MEDS ORDERED: cloNIDine HCL 0.1 MG TABLET PO ONE (17:21)
[2019-10-20] MEDS: ACETAMINOPHEN 325 MG TABLET (FP) PO PRN (17:24)
[2019-10-20] MEDS: ATORVASTATIN CA 20 MG TABLET (FP) PO SCH (22:25)
[2019-10-20] MEDS: THIAMINE HCL 100 MG TABLET (FP) PO SCH (22:25)
[2019-10-20] MEDS: MELATONIN 5 MG TABLETS PO SCH (22:25)
[2019-10-21] MEDS: chlordiazePOXIDE HCL 10 MG CAPSULE PO SCH ×2 (05:08→17:32)
[2019-10-21] MEDS: hydrOXYzine PAMOATE 25 MG CAPSULE (FP) PO SCH ×5 (05:09→22:03)
[2019-10-21] MEDS: ASPIRIN 81 MG CHEWABLE TABLETS PO SCH (10:19)
[2019-10-21] MEDS: LISINOPRIL 20 MG TABLET (FP) PO SCH (10:20)
[2019-10-21] MEDS: amLODIPine BESYLATE 5 MG TABLET (FP) PO SCH (10:20)
[2019-10-21] MEDS: NICOTINE 7 MG/24 HOURS TOPICAL PATCH TD SCH (10:20)
[2019-10-21] MEDS: PRENATAL VITAMINS W/ FOLIC ACID TABLET (FP) PO SCH (10:20)
[2019-10-21] MEDS: FAMOTIDINE 20 MG TABLET PO SCH ×2 (10:20→22:03)
--- NOTE | 2019-10-21 12:03 | PN ---
S CIWA - CIWA Score Nausea/Vomitin-No Nausea/No Vomiting Muscle Tremors: 1-None Visible, but [place] Anxiety: 4-Mod. Anxious/Guarded Agitation: 2 Paroxysmal Sweats: No Perspiration Orientation: 0-Oriented Tacttile Disturbances: 0-None Auditory Disturbances: 0-None Visual Disturbances: 0-None Headache: 0-None Present CIWA-Ar Total Score: 7 BHS Progress Note (SOAP) Subjective: Pt was rounded on while in day room watching TV. Pt is eager to go to Rehab after detox. Pt was reminded to meet with his counselor today to arrange for aftercare. last dose of Librium 10mg in the morning. Objective: 10/21/19 12:01 Vital Signs - 24 hr 10/20/19 10/20/19 10/20/19 12:35 17:11 20:42 Temperature 98.2 F 98.4 F 97.8 F Pulse Rate 90 93 H 69 Respiratory 18 18 18 Rate Blood Pressure 136/82 150/95 132/78 O2 Sat by Pulse 97 95 Oximetry (%) 10/21/19 10/21/19 05:54 07:27 Temperature 97.3 F L Pulse Rate 60 63 Respiratory 18 18 Rate Blood Pressure 173/99 H 141/83 O2 Sat by Pulse 97 Oximetry (%) Laboratory Tests 10/17/19 10/17/19 10/17/19 10:25 10:25 10:25 WBC 7.9 RBC 5.16 Hgb 14.0 Hct 43.6 MCV 84.5 MCH 27.2 MCHC 32.1 RDW 17.2 H Plt Count 205 MPV 9.8 Sodium 144 Potassium 3.7 Chloride 109 H Carbon Dioxide 26 Anion Gap 9 BUN 18.3 H Creatinine 1.6 H Est GFR (CKD-EPI)AfAm 55.78 Est GFR (CKD-EPI)NonAf 48.13 POC Glucometer Random Glucose 121 H Calcium 8.5 Total Bilirubin 0.4 AST 22 ALT 22 Alkaline Phosphatase 92 Total Protein 5.7 L Albumin 2.2 L Syphilis Serology Non-reactive COVID-19 (JOLENE) 10/17/19 10/17/19 10/17/19 10:25 10:26 14:30 WBC RBC Hgb Hct MCV MCH MCHC RDW Plt Count MPV Sodium Potassium Chloride Carbon Dioxide Anion Gap BUN Creatinine Est GFR (CKD-EPI)AfAm Est GFR (CKD-EPI)NonAf POC Glucometer 132 Random Glucose Calcium Total Bilirubin AST ALT Alkaline Phosphatase Total Protein Albumin Syphilis Serology COVID-19 (JOLENE) Not detected Not detected 10/18/19 10/19/19 10/20/19 06:59 07:18 07:13 WBC RBC Hgb Hct MCV MCH MCHC RDW Plt Count MPV Sodium Potassium Chloride Carbon Dioxide Anion Gap BUN Creatinine Est GFR (CKD-EPI)AfAm Est GFR (CKD-EPI)NonAf POC Glucometer 124 137 107 Random Glucose Calcium Total Bilirubin AST ALT Alkaline Phosphatase Total Protein Albumin Syphilis Serology COVID-19 (JOLENE) 10/21/19 05:07 WBC RBC Hgb Hct MCV MCH MCHC RDW Plt Count MPV Sodium Potassium Chloride Carbon Dioxide Anion Gap BUN Creatinine Est GFR (CKD-EPI)AfAm Est GFR (CKD-EPI)NonAf POC Glucometer 102 Random Glucose Calcium Total Bilirubin AST ALT Alkaline Phosphatase Total Protein Albumin Syphilis Serology COVID-19 (JOLENE) Covid-19 result not detected alert o x 3 nad oob ambulating with steady gait Assessment: 10/21/19 12:02 withdrawal sx Plan: continue detox increase po fluids maintain safety f/u with the counselor today for CD referral aftercare.
[2019-10-21] MEDS: MELATONIN 5 MG TABLETS PO SCH (22:02)
[2019-10-21] MEDS: THIAMINE HCL 100 MG TABLET (FP) PO SCH (22:03)
[2019-10-21] MEDS: ATORVASTATIN CA 20 MG TABLET (FP) PO SCH (22:03)
[2019-10-22] MEDS ORDERED: chlordiazePOXIDE HCL 10 MG CAPSULE PO ONE (05:00)
[2019-10-22] MEDS: hydrOXYzine PAMOATE 25 MG CAPSULE (FP) PO SCH ×2 (06:33→09:35)
[2019-10-22] MEDS: PRENATAL VITAMINS W/ FOLIC ACID TABLET (FP) PO SCH (09:34)
[2019-10-22] MEDS: LISINOPRIL 20 MG TABLET (FP) PO SCH (09:34)
[2019-10-22] MEDS: FAMOTIDINE 20 MG TABLET PO SCH (09:35)
[2019-10-22] MEDS: ASPIRIN 81 MG CHEWABLE TABLETS PO SCH (09:35)
[2019-10-22] MEDS: NICOTINE 7 MG/24 HOURS TOPICAL PATCH TD SCH (09:35)
[2019-10-22] MEDS: amLODIPine BESYLATE 5 MG TABLET (FP) PO SCH (09:35)
[2019-10-22 09:55] VITALS: BP 168/106; PULSE 79; TEMP 97.8
--- NOTE | 2019-10-22 10:41 | DS ---
[facility] Detox Discharge Summary Admission Date: 10/17/19 Discharge Date: 10/22/19 - History Present History: Alcohol Dependence, Cocaine Dependence Additional Comments: Pt reports he has primary care at [facility], [address] [place] [address]. Pt encouraged to follow up with primary care provider for medical management. Courtesy home medications as below were electronically sent to [facility] for pt to picking tech after discharge. Pt was reminded to follow through with pharmacy picking tech. Pertinent Past History: HTN HLD GERD T2DM(no current med taking in detox) Obesity - Physical Exam Results Vital Signs: Vital Signs Temperature 97.8 F 10/22/19 09:54 Pulse Rate 79 10/22/19 09:54 Respiratory Rate 18 10/22/19 09:54 Blood Pressure 168/106 H 10/22/19 09:54 O2 Sat by Pulse Oximetry (%) 97 10/22/19 05:54 alert o x 3 nad oob ambulating with steady gait cardiac:s1 s2, rrr lungs:ctab abdomen:soft,+bs,nt,+++fatty extremities:no edema;skin intact. Pertinent Admission Physical Exam Findings: Laboratory Tests 10/17/19 10/17/19 10/17/19 10:25 10:25 10:25 WBC 7.9 RBC 5.16 Hgb 14.0 Hct 43.6 MCV 84.5 MCH 27.2 MCHC 32.1 RDW 17.2 H Plt Count 205 MPV 9.8 Sodium 144 Potassium 3.7 Chloride 109 H Carbon Dioxide 26 Anion Gap 9 BUN 18.3 H Creatinine 1.6 H Est GFR (CKD-EPI)AfAm 55.78 Est GFR (CKD-EPI)NonAf 48.13 POC Glucometer Random Glucose 121 H Calcium 8.5 Total Bilirubin 0.4 AST 22 ALT 22 Alkaline Phosphatase 92 Total Protein 5.7 L Albumin 2.2 L Syphilis Serology Non-reactive COVID-19 (JOLENE) 10/17/19 10/17/19 10/17/19 10:25 10:26 14:30 WBC RBC Hgb Hct MCV MCH MCHC RDW Plt Count MPV Sodium Potassium Chloride Carbon Dioxide Anion Gap BUN Creatinine Est GFR (CKD-EPI)AfAm Est GFR (CKD-EPI)NonAf POC Glucometer 132 Random Glucose Calcium Total Bilirubin AST ALT Alkaline Phosphatase Total Protein Albumin Syphilis Serology COVID-19 (JOLENE) Not detected Not detected 10/18/19 10/19/19 10/20/19 06:59 07:18 07:13 WBC RBC Hgb Hct MCV MCH MCHC RDW Plt Count MPV Sodium Potassium Chloride Carbon Dioxide Anion Gap BUN Creatinine Est GFR (CKD-EPI)AfAm Est GFR (CKD-EPI)NonAf POC Glucometer 124 137 107 Random Glucose Calcium Total Bilirubin AST ALT Alkaline Phosphatase Total Protein Albumin Syphilis Serology COVID-19 (JOLENE) 10/21/19 10/22/19 05:07 06:32 WBC RBC Hgb Hct MCV MCH MCHC RDW Plt Count MPV Sodium Potassium Chloride Carbon Dioxide Anion Gap BUN Creatinine Est GFR (CKD-EPI)AfAm Est GFR (CKD-EPI)NonAf POC Glucometer 102 127 Random Glucose Calcium Total Bilirubin AST ALT Alkaline Phosphatase Total Protein Albumin Syphilis Serology COVID-19 (JOLENE) - Treatment Hospital Course: Detox Protocol Followed, Detoxed Safely, Responded well, Disch arged Condition Good, Rehab Referral Accepted Patient has Accepted a Rehab Referral to: [facility] - Medication Discharge Medications: Ambulatory Orders Amlodipine Besylate 5 mg PO DAILY #30 tablet 10/22/19 Aspirin [ASA -] 81 mg PO DAILY #30 tab.chew 10/22/19 Atorvastatin Ca [Lipitor] 20 mg PO HS #30 tablet 10/22/19 Famotidine [Pepcid -] 20 mg PO BID #30 tablet 10/22/19 Hydrochlorothiazide [Hctz -] 25 mg PO DAILY 10/22/19 Lisinopril [Prinivil -] 40 mg PO DAILY #30 tablet 10/22/19 - Diagnosis (1) Alcohol dependence with uncomplicated withdrawal Status: Acute (2) Cocaine dependence, uncomplicated Status: Chronic (3) GERD (gastroesophageal reflux disease) Status: Chronic Qualifiers: Esophagitis presence: esophagitis presence not specified Qualified Code(s): K21.9 - Gastro-esophageal reflux disease without esophagitis (4) Hypercholesteremia Status: Chronic (5) Hypertension Status: Chronic Qualifiers: Hypertension type: essential hypertension Qualified Code(s): I10 - Ess ential (primary) hypertension (6) Nicotine dependence Status: Acute Qualifiers: Nicotine product type: cigarettes Substance use status: in withdrawal Qualified Code(s): F17.213 - Nicotine dependence, cigarettes, with withdrawal (7) Obesity, morbid, BMI 40.0-49.9 Status: Chronic (8) Type 2 diabetes mellitus Status: Chronic (9) Cocaine dependence Status: Acute Qualifiers: Substance use status: uncomplicated Qualified Code(s): F14.20 - Cocaine dependence, uncomplicated - AMA Did Patient Leave Against Medical Advice: No
== END 2019-10-22 11:29 | disposition other institution (70) | DRG 774 ==
LOC: YASAS 09:23 → Y5N DETOX 10:32
PROVIDERS: ADMIT Allergy & Immunology; ATTEND Allergy & Immunology
PROC: HZ2ZZZZ Detoxification Services for Substance Abuse Treatment (ICD-10-PCS; principal; 2019-10-17)
DX: F10.230 Alcohol dependence with withdrawal, uncomplicated (principal); F14.20 Cocaine dependence, uncomplicated; F17.210 Nicotine dependence, cigarettes, uncomplicated; E78.5 Hyperlipidemia, unspecified; E11.9 Type 2 diabetes mellitus without complications; I10 Essential (primary) hypertension; K21.9 Gastro-esophageal reflux disease without esophagitis; R79.89 Other specified abnormal findings of blood chemistry; E66.01 Morbid (severe) obesity due to excess calories; Z68.41 Body mass index [BMI] 40.0-44.9, adult
CPT/HCPCS: 36415; 80053; 82962; 85027; 86780; J0735; U0003

== ENCOUNTER 2019-10-22 11:11 | Inpatient (IN) | payer OTHER ==
--- NOTE | 2019-10-22 11:57 | HP ---
[facility] Rehab Assess/Revision - Vital signs Vital Signs: Vital Signs Period Temp Pulse Resp BP Sys/Light Pulse Ox Last 24 Hr 97.1 F 74 18 155/88 - Findings Detox History & Physical reviewed: Yes Concur with findings: Yes Comments/Additional Findings: Pt completed detoxed [facility] [address] and referred to [facility] today. Alert o x 3. nad. oob ambulating with steady gait. Inpatient Rehab Admission - Rehab Decision to Admit Inpatient rehab admission?: Yes - Initial Determination Are CD services needed?: Yes Free of communicable disease: Yes Not in need of hospitalization: Yes - Rehab Admission Criteria Previous failed treatment: Yes Poor recovery environment: Yes Comorbidities: Yes Lacks judgement: Yes Patient is meeting Inpatient Rehab admission criteria:: Yes
[2019-10-22] MEDS: HYDROCHLOROTHIAZIDE 25 MG TABLET (FP) PO SCH (13:34)
[2019-10-22] MEDS ORDERED: guaiFENesin 200 MG/10 ML 10 ML UNIT-DOSE CUPS PO PRN (13:48)
[2019-10-22] MEDS ORDERED: hydrOXYzine PAMOATE 25 MG CAPSULE (FP) PO PRN (13:48)
[2019-10-22] MEDS ORDERED: P-EPHED 60MG/TRIPROLIDI 2.5MG TABLET PO PRN (13:48)
[2019-10-22] MEDS ORDERED: ACETAMINOPHEN 325 MG TABLET (FP) PO PRN (13:48)
[2019-10-22] MEDS ORDERED: MENTHOL/PHENOL 1 EACH UD MM PRN (13:48)
[2019-10-22] MEDS ORDERED: LOPERAMIDE HCL 2 MG CAPSULE PO PRN (13:48)
[2019-10-22] MEDS ORDERED: MAGNESIUM HYDROX 2400MG/30ML ORAL SUSPENSION 30 ML CUP PO PRN (13:48)
[2019-10-22] MEDS ORDERED: MAG HYDROX/AL HYDROX/SIMETH 30 ML UNIT-DOSE CUP PO PRN (13:48)
[2019-10-22] MEDS ORDERED: IBUPROFEN 400 MG TABLET (FP) PO PRN (13:48)
[2019-10-22] MEDS ORDERED: MAGNESIUM CITRATE 300 ML BOTTLE PO PRN (13:48)
[2019-10-22] MEDS ORDERED: NICOTINE POLACRILEX 2 MG GUM BUC PRN (13:48)
--- NOTE | 2019-10-22 15:03 | CONSULT ---
[facility] Psychiatric Consult - Data Date of interview: 10/22/19 Admission source: Transfer from [address] [place] [address]. Identifying data: Detoxification completed at [address] [place] [address] (reconverted for detox services). Patient is now entering rehabilitation for preservation of sobriety and management of insomnia. Mr Ugarte is a 54 y/o AA male with serious RAFAEL issues (alcohol, crack/cocaine, cannabis, nicotine), single, no dependents, domiciled (lives with a female friend), unemployed and supported on welfare. Substance Abuse History: Discussed with the patient. RAFAEL profile as follows : Alcohol. Substance amount: 3 pints Vodka. Frequency of use: Daily. Substance route: Oral. Date of Last Use: 10/17/19 (First use age 16 y. No seizures. Blackouts 8 mos ago. 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 Nicotine. Substance amount: 4 cigs. Frequency of use: Daily. Substance route: Smoking. Date of Last Use: 10/17/19 (Began age 16 y). Cocaine: 2/mos, $120, last use 2 weeks ago. - Last Treatment. Date of last treatment: 09/08 to 09/10. Treatment type: Substance Use Disorder (RAFAEL). Where was last treatment: Detox. History Source: Patient. Limitations to Obtaining History: No Limitations. History of multiple treatment failures. Medical History: Medical profile is remarkable for obesity, diabetes mellitus, hypertension and hypercholesterolemia. No allergies. Psychiatric History: Patient denies history of psychiatric hospitalizations, OPD care or suicide attempts. Physical/Sexual Abuse/Trauma History: Patient denies. Additional Comment: Urine drug screen results: BINH-Cocaine. Noted. Mental Status Exam - Mental Status Exam Alert and Oriented to: Time, Place, Person Cognitive Function: Good Patient Appearance: Well Groomed (obese) Mood: Withdrawn, Hopeful Affect: Appropriate, Normal Range Patient Behavior: Fatigued, Appropriate, Cooperative Speech Pattern: Clear, Appropriate Voice Loudness: Normal Thought Process: Intact, Goal Oriented Thought Disorder: Not Present Hallucinations: Denies Suicidal Ideation: Denies Homicidal Ideation: Denies Insight/Judgement: Fair Sleep: Poorly, Difficulty falling asleep Appetite: Good Gait/Station: Normal Psychiatric Findings - Problem List ([place] 1, 2,3) (1) Alcohol dependence Current Visit: Yes Status: Chronic (2) Cocaine dependence Current Visit: Yes Status: Chronic Qualifiers: Substance use status: uncomplicated Qualified Code(s): F14.20 - Cocaine dependence, uncomplicated (3) Nicotine dependence Current Visit: Yes Status: Chronic Qualifiers: Nicotine product type: cigarettes Substance use status: in withdrawal Qualified Code(s): F17.213 - Nicotine dependence, cigarettes, with withdrawal (4) Insomnia Current Visit: Yes Status: Chronic - Initial Treatment Plan Initial Treatment Plan: Rehabilitation initiated. Psychoeducation. Support. Motivational counseling. Insomnia is addressed with advice on sleep hygiene and medication (belsomra 10 mg po hs prn). Side effects/benefits discussed with the patient. Informed consent (verbal) granted by Mr Ugarte to MD. Truong.
[2019-10-22] MEDS: MELATONIN 5 MG TABLETS PO SCH (21:30)
[2019-10-22] MEDS: THIAMINE HCL 100 MG TABLET (FP) PO SCH (21:30)
[2019-10-22] MEDS: SUVOREXANT 10 MG TABLET PO PRN (21:32)
[2019-10-22] MEDS: ATORVASTATIN CA 20 MG TABLET (FP) PO SCH (21:32)
[2019-10-22] MEDS: FAMOTIDINE 20 MG TABLET PO SCH (21:33)
[2019-10-23] MEDS: FAMOTIDINE 20 MG TABLET PO SCH ×2 (09:47→21:27)
[2019-10-23] MEDS: PRENATAL VITAMINS W/ FOLIC ACID TABLET (FP) PO SCH (09:47)
[2019-10-23] MEDS: ASPIRIN 81 MG CHEWABLE TABLETS PO SCH (09:47)
[2019-10-23] MEDS: amLODIPine BESYLATE 5 MG TABLET (FP) PO SCH (09:47)
[2019-10-23] MEDS: LISINOPRIL 20 MG TABLET (FP) PO SCH (09:48)
[2019-10-23] MEDS: NICOTINE 7 MG/24 HOURS TOPICAL PATCH TD SCH (09:48)
[2019-10-23] MEDS: HYDROCHLOROTHIAZIDE 25 MG TABLET (FP) PO SCH (09:48)
[2019-10-23] MEDS: MELATONIN 5 MG TABLETS PO SCH (21:26)
[2019-10-23] MEDS: THIAMINE HCL 100 MG TABLET (FP) PO SCH (21:26)
[2019-10-23] MEDS: ATORVASTATIN CA 20 MG TABLET (FP) PO SCH (21:26)
[2019-10-23] MEDS: SUVOREXANT 10 MG TABLET PO PRN (21:27)
[2019-10-24] MEDS: LISINOPRIL 20 MG TABLET (FP) PO SCH (09:40)
[2019-10-24] MEDS: NICOTINE 7 MG/24 HOURS TOPICAL PATCH TD SCH (09:40)
[2019-10-24] MEDS: FAMOTIDINE 20 MG TABLET PO SCH ×2 (09:40→21:29)
[2019-10-24] MEDS: ASPIRIN 81 MG CHEWABLE TABLETS PO SCH (09:41)
[2019-10-24] MEDS: HYDROCHLOROTHIAZIDE 25 MG TABLET (FP) PO SCH (09:41)
[2019-10-24] MEDS: PRENATAL VITAMINS W/ FOLIC ACID TABLET (FP) PO SCH (09:41)
[2019-10-24] MEDS: amLODIPine BESYLATE 5 MG TABLET (FP) PO SCH (09:41)
--- NOTE | 2019-10-24 10:25 | PN ---
[facility] Progress Note Note: Patient admitted to [place]. Stable. No complaints at this time. Labs reviewed, BUN, creatinine elevated. A1c is 6.9; DM2 is listed in on his problem list, but he does not have any medications listed in his home medications. FS indicate blood glucose within appropriate range for patients with DM. Protein and albumin are low. Vital Signs Period Temp Pulse Resp BP Sys/Light Pulse Ox Last 24 Hr 97.8 F 73-77 16-18 137-138/77-88 96-97 Laboratory Tests 10/23/19 10/24/19 06:24 06:23 POC Glucometer 121 127 P/E: General: no apparent distress HEENTM: normocephalic NEck: supple MSK: full weight bearing Ext: slight edema, Plan: Continue rehab maintain safety Nutrition and Hydration-to treat lower extremity edema
[2019-10-24] MEDS: THIAMINE HCL 100 MG TABLET (FP) PO SCH (21:28)
[2019-10-24] MEDS: MELATONIN 5 MG TABLETS PO SCH (21:28)
[2019-10-24] MEDS: ATORVASTATIN CA 20 MG TABLET (FP) PO SCH (21:29)
[2019-10-24] MEDS: SUVOREXANT 10 MG TABLET PO PRN (21:29)
[2019-10-25] MEDS: ASPIRIN 81 MG CHEWABLE TABLETS PO SCH (09:19)
[2019-10-25] MEDS: HYDROCHLOROTHIAZIDE 25 MG TABLET (FP) PO SCH (09:19)
[2019-10-25] MEDS: PRENATAL VITAMINS W/ FOLIC ACID TABLET (FP) PO SCH (09:20)
[2019-10-25] MEDS: FAMOTIDINE 20 MG TABLET PO SCH ×2 (09:20→21:41)
[2019-10-25] MEDS: LISINOPRIL 20 MG TABLET (FP) PO SCH (09:20)
[2019-10-25] MEDS: amLODIPine BESYLATE 5 MG TABLET (FP) PO SCH (09:20)
[2019-10-25] MEDS: NICOTINE 7 MG/24 HOURS TOPICAL PATCH TD SCH (09:20)
--- NOTE | 2019-10-25 18:09 | PN ---
[facility] Progress Note Note: Psychiatry Attending's note : Called for renewal of suvorexant. 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 Medication is confirmed. Belsomra 10 mg po hs prn. Re-ordered for continuity of care. With the patient's informed consent.
[2019-10-25] MEDS: MELATONIN 5 MG TABLETS PO SCH (21:40)
[2019-10-25] MEDS: ATORVASTATIN CA 20 MG TABLET (FP) PO SCH (21:42)
[2019-10-25] MEDS: SUVOREXANT 10 MG TABLET PO PRN (21:43)
[2019-10-25] MEDS: THIAMINE HCL 100 MG TABLET (FP) PO SCH (22:00)
[2019-10-26] MEDS: FAMOTIDINE 20 MG TABLET PO SCH ×2 (09:47→21:35)
[2019-10-26] MEDS: ASPIRIN 81 MG CHEWABLE TABLETS PO SCH (09:47)
[2019-10-26] MEDS: PRENATAL VITAMINS W/ FOLIC ACID TABLET (FP) PO SCH (09:47)
[2019-10-26] MEDS: HYDROCHLOROTHIAZIDE 25 MG TABLET (FP) PO SCH (09:47)
[2019-10-26] MEDS: amLODIPine BESYLATE 5 MG TABLET (FP) PO SCH (09:47)
[2019-10-26] MEDS: NICOTINE 7 MG/24 HOURS TOPICAL PATCH TD SCH (09:48)
[2019-10-26] MEDS: LISINOPRIL 20 MG TABLET (FP) PO SCH (09:48)
[2019-10-26] MEDS: ATORVASTATIN CA 20 MG TABLET (FP) PO SCH (21:34)
[2019-10-26] MEDS: THIAMINE HCL 100 MG TABLET (FP) PO SCH (21:34)
[2019-10-26] MEDS: MELATONIN 5 MG TABLETS PO SCH (21:34)
[2019-10-26] MEDS: SUVOREXANT 10 MG TABLET PO PRN (21:35)
[2019-10-27] MEDS: ASPIRIN 81 MG CHEWABLE TABLETS PO SCH (10:00)
[2019-10-27] MEDS: PRENATAL VITAMINS W/ FOLIC ACID TABLET (FP) PO SCH (10:00)
[2019-10-27] MEDS: HYDROCHLOROTHIAZIDE 25 MG TABLET (FP) PO SCH (10:01)
[2019-10-27] MEDS: NICOTINE 7 MG/24 HOURS TOPICAL PATCH TD SCH (10:01)
[2019-10-27] MEDS: amLODIPine BESYLATE 5 MG TABLET (FP) PO SCH (10:01)
[2019-10-27] MEDS: LISINOPRIL 20 MG TABLET (FP) PO SCH (10:01)
[2019-10-27] MEDS: FAMOTIDINE 20 MG TABLET PO SCH ×2 (10:01→21:23)
[2019-10-27] MEDS: MELATONIN 5 MG TABLETS PO SCH (21:22)
[2019-10-27] MEDS: THIAMINE HCL 100 MG TABLET (FP) PO SCH (21:22)
[2019-10-27] MEDS: ATORVASTATIN CA 20 MG TABLET (FP) PO SCH (21:23)
[2019-10-27] MEDS: SUVOREXANT 10 MG TABLET PO PRN (21:23)
[2019-10-28] MEDS: LISINOPRIL 20 MG TABLET (FP) PO SCH (09:40)
[2019-10-28] MEDS: PRENATAL VITAMINS W/ FOLIC ACID TABLET (FP) PO SCH (09:40)
[2019-10-28] MEDS: ASPIRIN 81 MG CHEWABLE TABLETS PO SCH (09:40)
[2019-10-28] MEDS: HYDROCHLOROTHIAZIDE 25 MG TABLET (FP) PO SCH (09:40)
[2019-10-28] MEDS: amLODIPine BESYLATE 5 MG TABLET (FP) PO SCH (09:40)
[2019-10-28] MEDS: NICOTINE 7 MG/24 HOURS TOPICAL PATCH TD SCH (09:40)
[2019-10-28] MEDS: FAMOTIDINE 20 MG TABLET PO SCH ×2 (09:41→21:31)
[2019-10-28] MEDS: MELATONIN 5 MG TABLETS PO SCH (21:30)
[2019-10-28] MEDS: ATORVASTATIN CA 20 MG TABLET (FP) PO SCH (21:30)
[2019-10-28] MEDS: THIAMINE HCL 100 MG TABLET (FP) PO SCH (21:30)
[2019-10-28] MEDS ORDERED: SUVOREXANT 10 MG TABLET PO PRN (22:00)
[2019-10-29 06:41] VITALS: BP 135/86; PULSE 75; TEMP 97.8
--- NOTE | 2019-10-29 08:08 | DS ---
[facility] Rehab Discharge Summary - [facility] Rehab Discharge Summary Admission Date: 10/22/19 Discharge Date: 10/29/19 - History Present History: Alcohol dependence, Cannabis dependence, Cocaine dependence Pertinent Past History: Mr. Ugarte is a 54 yo gentleman who presents to [facility] with alcohol use disorder. He was last here in August and left after 2 days. - Discharge Physical Exam Vital Signs: Vital Signs Temperature 97.8 F 10/29/19 06:41 Pulse Rate 75 10/29/19 06:41 Respiratory Rate 16 10/29/19 06:41 Blood Pressure 135/86 10/29/19 06:41 O2 Sat by Pulse Oximetry (%) 98 10/28/19 20:38 Pertinent Admission Physical Exam Findings: Physical General Appearance: No Apparent Distress, HEENTM:EOMI, Normocephalic, Respiratory: No Accessory Muscle Use Neck: Supple Cardiology: S1, S2 Abdominal: + BS, Protuberent Musculoskeletal: Gait Steady Neurological: CN 2-12 intact - Treatment Discharge Condition: Outpatient referral accepted (medically stable for discharge. go[facility]8ng to [facility]) Hospital Course: Patient attended groups, had 1:1 with his counselor, was seen by the psychiatric service. He had not acute or urgent medical problems while in rehab. - Medication Discharge Medications: Ambulatory Orders Amlodipine Besylate 5 mg PO DAILY #30 tablet 10/22/19 Aspirin [ASA -] 81 mg PO DAILY #30 tab.chew 10/22/19 Atorvastatin Ca [Lipitor] 20 mg PO HS #30 tablet 10/22/19 Famotidine [Pepcid -] 20 mg PO BID #30 tablet 10/22/19 Hydrochlorothiazide [Hctz -] 25 mg PO DAILY 10/22/19 Lisinopril [Prinivil -] 40 mg PO DAILY #30 tablet 10/22/19 - Medication-Assisted Treatment (MAT) Medication-Assisted Treatment (MAT): No - Discharge Instructions Diet, activity, other medical instructions: Diet: as tolerated Activity: as tolerated Other medical instructions: Please follow up with after care referral. - Diagnosis (1) Alcohol dependence Current Visit: Yes Status: Chronic (2) Cannabis dependence, uncomplicated Current Visit: Yes Status: Chronic (3) Cocaine dependence Current Visit: Yes Status: Chronic Qualifiers: Substance use status: uncomplicated Qualified Code(s): F14.20 - Cocaine dependence, uncomplicated - Follow-up Referral Minutes to complete discharge: 15 - AMA Did Patient Leave Against Medical Advice: No
[2019-10-29] MEDS: HYDROCHLOROTHIAZIDE 25 MG TABLET (FP) PO SCH (09:00)
[2019-10-29] MEDS: ASPIRIN 81 MG CHEWABLE TABLETS PO SCH (09:00)
[2019-10-29] MEDS: amLODIPine BESYLATE 5 MG TABLET (FP) PO SCH (09:00)
[2019-10-29] MEDS: PRENATAL VITAMINS W/ FOLIC ACID TABLET (FP) PO SCH (09:01)
[2019-10-29] MEDS: LISINOPRIL 20 MG TABLET (FP) PO SCH (09:01)
[2019-10-29] MEDS: FAMOTIDINE 20 MG TABLET PO SCH (09:01)
[2019-10-29] MEDS: NICOTINE 7 MG/24 HOURS TOPICAL PATCH TD SCH (09:02)
== END 2019-10-29 09:04 | disposition home or self-care (01) | DRG 772 ==
LOC: YASAS 11:11 → Y3E 11:12
PROVIDERS: ADMIT Allergy & Immunology; ATTEND Allergy & Immunology
PROC: HZ42ZZZ Group Counseling for Substance Abuse Treatment, Cognitive-Behavioral (ICD-10-PCS; principal; 2019-10-22)
DX: F10.20 Alcohol dependence, uncomplicated (principal); F14.20 Cocaine dependence, uncomplicated; F12.20 Cannabis dependence, uncomplicated; F17.213 Nicotine dependence, cigarettes, with withdrawal; I10 Essential (primary) hypertension; E78.00 Pure hypercholesterolemia, unspecified; E11.9 Type 2 diabetes mellitus without complications; G47.00 Insomnia, unspecified; E66.9 Obesity, unspecified; Z68.39 Body mass index [BMI] 39.0-39.9, adult
CPT/HCPCS: 82962

== ENCOUNTER 2020-06-29 09:29 | Inpatient (IN) | payer OTHER ==
[2020-06-29 09:58] VITALS: BMI 38.1
[2020-06-29] MEDS ORDERED: hydrOXYzine PAMOATE 25 MG CAPSULE (FP) PO PRN (15:01)
[2020-06-29] MEDS ORDERED: MAG HYDROX/AL HYDROX/SIMETH 30 ML UNIT-DOSE CUP PO PRN (15:01)
[2020-06-29] MEDS ORDERED: ACETAMINOPHEN 325 MG TABLET (FP) PO PRN ×2 (15:01)
[2020-06-29] MEDS ORDERED: IBUPROFEN 400 MG TABLET (FP) PO PRN (15:01)
[2020-06-29] MEDS ORDERED: MENTHOL/PHENOL 1 EACH UD MM PRN (15:01)
[2020-06-29] MEDS ORDERED: ONDANSETRON *ODT* 4 MG TABLET SL PRN (15:01)
[2020-06-29] MEDS ORDERED: MAGNESIUM CITRATE 300 ML BOTTLE PO PRN (15:01)
[2020-06-29] MEDS ORDERED: MAGNESIUM HYDROX 2400MG/30ML ORAL SUSPENSION 30 ML CUP PO PRN (15:01)
[2020-06-29] MEDS ORDERED: BISMUTH SUBSALICYLATE 524 MG/30 ML UD PO PRN (15:01)
[2020-06-29] MEDS ORDERED: diazePAM 5 MG TABLET PO PRN (15:03)
[2020-06-29] MEDS: diazePAM 5 MG TABLET PO SCH ×2 (16:05→22:00)
[2020-06-29] MEDS: HYDROCHLOROTHIAZIDE 25 MG TABLET (FP) PO SCH (16:06)
[2020-06-29] MEDS: ASPIRIN 81 MG CHEWABLE TABLETS PO SCH (16:06)
[2020-06-29] MEDS: amLODIPine BESYLATE 5 MG TABLET (FP) PO SCH (16:06)
[2020-06-29] MEDS: LISINOPRIL 20 MG TABLET PO SCH (16:07)
[2020-06-29] MEDS: ATORVASTATIN CA 20 MG TABLET (FP) PO SCH (22:00)
[2020-06-29] MEDS: FAMOTIDINE 20 MG TABLET PO SCH (22:00)
[2020-06-29] MEDS: THIAMINE HCL 100 MG TABLET (FP) PO SCH (22:00)
[2020-06-29] MEDS: MELATONIN 5 MG TABLETS PO SCH (22:02)
[2020-06-30] MEDS: diazePAM 5 MG TABLET PO SCH ×4 (05:53→22:28)
[2020-06-30] MEDS: amLODIPine BESYLATE 5 MG TABLET (FP) PO SCH (09:53)
[2020-06-30] MEDS: HYDROCHLOROTHIAZIDE 25 MG TABLET (FP) PO SCH (09:53)
[2020-06-30] MEDS: FAMOTIDINE 20 MG TABLET PO SCH ×2 (09:53→22:27)
[2020-06-30] MEDS: LISINOPRIL 20 MG TABLET PO SCH (09:54)
[2020-06-30] MEDS: PRENATAL VITAMINS W/ FOLIC ACID TABLET (FP) PO SCH (09:54)
[2020-06-30] MEDS: ASPIRIN 81 MG CHEWABLE TABLETS PO SCH (09:54)
[2020-06-30 10:09] LABS: HEMATOCRIT 41.4 % (35.4-49); HEMOGLOBIN 13.8 GM/dL (11.7-16.9); MCH 27.8 pg (25.7-33.7); MCHC 33.4 g/dl (32.0-35.9); MEAN CELL VOLUME 83.1 fl (80-96); MEAN PLT VOLUME 9.6 fl (7.5-11.1); PLATELET COUNT 231 K/MM3 (134-434); RBC 4.98 M/mm3 (4.00-5.60); RDW 15.5 % (11.9-15.9); WHITE BLOOD COUNT 7.3 K/mm3 (4.0-10.0)
[2020-06-30 10:11] LABS: POTASSIUM 3.9 mmol/L (3.5-5.1)
[2020-06-30 10:24] LABS: BLOOD UREA NITROGEN 13.7 mg/dL (7-18); CALCIUM 8.1 mg/dL (8.5-10.1)
[2020-06-30 10:25] LABS: ALBUMIN 1.9 g/dl (3.4-5.0)
[2020-06-30 10:27] LABS: CREATININE 1.5 mg/dL (0.55-1.3)
[2020-06-30 10:28] LABS: BILIRUBIN,TOTAL 0.5 mg/dL (0.2-1)
[2020-06-30] MEDS: THIAMINE HCL 100 MG TABLET (FP) PO SCH (22:27)
[2020-06-30] MEDS: ATORVASTATIN CA 20 MG TABLET (FP) PO SCH (22:27)
[2020-06-30] MEDS: MELATONIN 5 MG TABLETS PO SCH (22:27)
[2020-07-01] MEDS: diazePAM 5 MG TABLET PO SCH ×3 (06:30→22:22)
[2020-07-01] MEDS: HYDROCHLOROTHIAZIDE 25 MG TABLET (FP) PO SCH ×2 (10:52→11:12)
[2020-07-01] MEDS: ASPIRIN 81 MG CHEWABLE TABLETS PO SCH ×2 (10:52→11:11)
[2020-07-01] MEDS: PRENATAL VITAMINS W/ FOLIC ACID TABLET (FP) PO SCH (10:53)
[2020-07-01] MEDS: FAMOTIDINE 20 MG TABLET PO SCH ×4 (10:53→22:22)
[2020-07-01] MEDS: amLODIPine BESYLATE 10 MG TABLET (FP) PO SCH ×3 (10:53→11:15)
[2020-07-01] MEDS: LISINOPRIL 20 MG TABLET PO SCH (10:53)
[2020-07-01] MEDS ORDERED: cloNIDine HCL 0.1 MG TABLET PO ONE (13:00)
[2020-07-01] MEDS: THIAMINE HCL 100 MG TABLET (FP) PO SCH (22:22)
[2020-07-01] MEDS: MELATONIN 5 MG TABLETS PO SCH (22:22)
[2020-07-01] MEDS: ATORVASTATIN CA 20 MG TABLET (FP) PO SCH (22:22)
[2020-07-02] MEDS ORDERED: diazePAM 5 MG TABLET PO ONE (06:00)
[2020-07-02 08:09] LABS: SARS-CoV-2 NAA Not Detected (Not Detected)
[2020-07-02 09:34] VITALS: BP 148/85; PULSE 83; TEMP 98
[2020-07-02] MEDS: FAMOTIDINE 20 MG TABLET PO SCH (10:10)
[2020-07-02] MEDS: ASPIRIN 81 MG CHEWABLE TABLETS PO SCH (10:10)
[2020-07-02] MEDS: LISINOPRIL 20 MG TABLET PO SCH (10:10)
[2020-07-02] MEDS: amLODIPine BESYLATE 10 MG TABLET (FP) PO SCH (10:10)
[2020-07-02] MEDS: HYDROCHLOROTHIAZIDE 25 MG TABLET (FP) PO SCH (10:10)
[2020-07-02] MEDS: PRENATAL VITAMINS W/ FOLIC ACID TABLET (FP) PO SCH (10:10)
== END 2020-07-02 10:42 | disposition other institution (70) | DRG 774 ==
LOC: YASAS 09:29 → Y6N 15:03
PROVIDERS: ADMIT Allergy & Immunology; ATTEND Allergy & Immunology
PROC: HZ2ZZZZ Detoxification Services for Substance Abuse Treatment (ICD-10-PCS; principal; 2020-06-29)
DX: F10.230 Alcohol dependence with withdrawal, uncomplicated (principal); F14.20 Cocaine dependence, uncomplicated; F17.210 Nicotine dependence, cigarettes, uncomplicated; E11.9 Type 2 diabetes mellitus without complications; E78.5 Hyperlipidemia, unspecified; I10 Essential (primary) hypertension
CPT/HCPCS: 36415; 80053; 82962; 85027; 86780; C9803; J0735; U0003; U0005

== ENCOUNTER 2020-07-02 10:58 | Inpatient (IN) | payer OTHER ==
[2020-07-02] MEDS ORDERED: MENTHOL/PHENOL 1 EACH UD MM PRN (13:29)
[2020-07-02] MEDS ORDERED: MAGNESIUM CITRATE 300 ML BOTTLE PO PRN (13:29)
[2020-07-02] MEDS ORDERED: MAGNESIUM HYDROX 2400MG/30ML ORAL SUSPENSION 30 ML CUP PO PRN (13:29)
[2020-07-02] MEDS ORDERED: MAG HYDROX/AL HYDROX/SIMETH 30 ML UNIT-DOSE CUP PO PRN (13:29)
[2020-07-02] MEDS ORDERED: guaiFENesin 200 MG/10 ML 10 ML UNIT-DOSE CUPS PO PRN (13:29)
[2020-07-02] MEDS ORDERED: P-EPHED 60MG/TRIPROLIDI 2.5MG TABLET PO PRN (13:29)
[2020-07-02] MEDS ORDERED: IBUPROFEN 400 MG TABLET (FP) PO PRN (13:29)
[2020-07-02] MEDS ORDERED: hydrOXYzine PAMOATE 25 MG CAPSULE (FP) PO PRN (13:29)
[2020-07-02] MEDS ORDERED: LOPERAMIDE HCL 2 MG CAPSULE PO PRN (13:29)
[2020-07-02] MEDS ORDERED: TUBERCULIN PPD 5 TU/0.1ML VIAL ID ONE ×2 (14:22→14:25)
[2020-07-02] MEDS: FAMOTIDINE 20 MG TABLET PO SCH (21:05)
[2020-07-02] MEDS: ATORVASTATIN CA 20 MG TABLET (FP) PO SCH (21:05)
[2020-07-02] MEDS: THIAMINE HCL 100 MG TABLET (FP) PO SCH (21:06)
[2020-07-02] MEDS: MELATONIN 5 MG TABLETS PO SCH (21:06)
[2020-07-03] MEDS: HYDROCHLOROTHIAZIDE 25 MG TABLET (FP) PO SCH (10:32)
[2020-07-03] MEDS: ASPIRIN 81 MG CHEWABLE TABLETS PO SCH (10:33)
[2020-07-03] MEDS: FAMOTIDINE 20 MG TABLET PO SCH ×2 (10:33→21:20)
[2020-07-03] MEDS: LISINOPRIL 20 MG TABLET PO SCH (10:33)
[2020-07-03] MEDS: PRENATAL VITAMINS W/ FOLIC ACID TABLET (FP) PO SCH (10:33)
[2020-07-03] MEDS: amLODIPine BESYLATE 10 MG TABLET (FP) PO SCH (10:33)
[2020-07-03] MEDS: cloNIDine HCL 0.1 MG TABLET PO SCH ×2 (12:24→21:19)
[2020-07-03] MEDS: MELATONIN 5 MG TABLETS PO SCH (21:19)
[2020-07-03] MEDS: THIAMINE HCL 100 MG TABLET (FP) PO SCH (21:19)
[2020-07-03] MEDS: ATORVASTATIN CA 20 MG TABLET (FP) PO SCH (21:19)
[2020-07-04] MEDS: amLODIPine BESYLATE 10 MG TABLET (FP) PO SCH (10:10)
[2020-07-04] MEDS: HYDROCHLOROTHIAZIDE 25 MG TABLET (FP) PO SCH (10:10)
[2020-07-04] MEDS: ASPIRIN 81 MG CHEWABLE TABLETS PO SCH (10:10)
[2020-07-04] MEDS: FAMOTIDINE 20 MG TABLET PO SCH ×2 (10:10→21:14)
[2020-07-04] MEDS: PRENATAL VITAMINS W/ FOLIC ACID TABLET (FP) PO SCH (10:10)
[2020-07-04] MEDS: LISINOPRIL 20 MG TABLET PO SCH (10:10)
[2020-07-04] MEDS: cloNIDine HCL 0.1 MG TABLET PO SCH ×2 (10:10→21:14)
[2020-07-04] MEDS: ATORVASTATIN CA 20 MG TABLET (FP) PO SCH (21:13)
[2020-07-04] MEDS: THIAMINE HCL 100 MG TABLET (FP) PO SCH (21:14)
[2020-07-04] MEDS: MELATONIN 5 MG TABLETS PO SCH (21:14)
[2020-07-05] MEDS: cloNIDine HCL 0.1 MG TABLET PO SCH ×2 (10:53→21:37)
[2020-07-05] MEDS: HYDROCHLOROTHIAZIDE 25 MG TABLET (FP) PO SCH (10:53)
[2020-07-05] MEDS: PRENATAL VITAMINS W/ FOLIC ACID TABLET (FP) PO SCH (10:53)
[2020-07-05] MEDS: LISINOPRIL 20 MG TABLET PO SCH (10:53)
[2020-07-05] MEDS: ASPIRIN 81 MG CHEWABLE TABLETS PO SCH (10:53)
[2020-07-05] MEDS: amLODIPine BESYLATE 10 MG TABLET (FP) PO SCH (10:53)
[2020-07-05] MEDS: FAMOTIDINE 20 MG TABLET PO SCH ×2 (10:54→21:37)
[2020-07-05] MEDS: ATORVASTATIN CA 20 MG TABLET (FP) PO SCH (21:38)
[2020-07-05] MEDS: MELATONIN 5 MG TABLETS PO SCH (21:38)
[2020-07-05] MEDS: THIAMINE HCL 100 MG TABLET (FP) PO SCH (21:38)
[2020-07-06] MEDS ORDERED: PT OWN MED DRAWER 7, Y5N ONE (08:51)
[2020-07-06] MEDS: LISINOPRIL 20 MG TABLET PO SCH (10:03)
[2020-07-06] MEDS: amLODIPine BESYLATE 10 MG TABLET (FP) PO SCH (10:03)
[2020-07-06] MEDS: cloNIDine HCL 0.1 MG TABLET PO SCH ×2 (10:03→21:18)
[2020-07-06] MEDS: HYDROCHLOROTHIAZIDE 25 MG TABLET (FP) PO SCH (10:03)
[2020-07-06] MEDS: FAMOTIDINE 20 MG TABLET PO SCH ×2 (10:03→21:18)
[2020-07-06] MEDS: PRENATAL VITAMINS W/ FOLIC ACID TABLET (FP) PO SCH (10:04)
[2020-07-06] MEDS: ASPIRIN 81 MG CHEWABLE TABLETS PO SCH (10:04)
[2020-07-06] MEDS: MELATONIN 5 MG TABLETS PO SCH (21:18)
[2020-07-06] MEDS: THIAMINE HCL 100 MG TABLET (FP) PO SCH (21:18)
[2020-07-06] MEDS: ATORVASTATIN CA 20 MG TABLET (FP) PO SCH (21:18)
[2020-07-06] MEDS: ACETAMINOPHEN 325 MG TABLET (FP) PO PRN (21:19)
[2020-07-07] MEDS: cloNIDine HCL 0.1 MG TABLET PO SCH ×2 (09:45→21:17)
[2020-07-07] MEDS: HYDROCHLOROTHIAZIDE 25 MG TABLET (FP) PO SCH (09:45)
[2020-07-07] MEDS: amLODIPine BESYLATE 10 MG TABLET (FP) PO SCH (09:45)
[2020-07-07] MEDS: LISINOPRIL 20 MG TABLET PO SCH (09:45)
[2020-07-07] MEDS: PRENATAL VITAMINS W/ FOLIC ACID TABLET (FP) PO SCH (09:45)
[2020-07-07] MEDS: FAMOTIDINE 20 MG TABLET PO SCH ×2 (09:45→21:17)
[2020-07-07] MEDS: ASPIRIN 81 MG CHEWABLE TABLETS PO SCH (09:45)
[2020-07-07 10:07] LABS: SARS-CoV-2 NAA Not Detected (Not Detected)
[2020-07-07] MEDS: THIAMINE HCL 100 MG TABLET (FP) PO SCH (21:17)
[2020-07-07] MEDS: MELATONIN 5 MG TABLETS PO SCH (21:17)
[2020-07-07] MEDS: ATORVASTATIN CA 20 MG TABLET (FP) PO SCH (21:17)
[2020-07-08] MEDS: HYDROCHLOROTHIAZIDE 25 MG TABLET (FP) PO SCH (10:01)
[2020-07-08] MEDS: FAMOTIDINE 20 MG TABLET PO SCH ×2 (10:01→21:10)
[2020-07-08] MEDS: amLODIPine BESYLATE 10 MG TABLET (FP) PO SCH (10:01)
[2020-07-08] MEDS: PRENATAL VITAMINS W/ FOLIC ACID TABLET (FP) PO SCH (10:01)
[2020-07-08] MEDS: LISINOPRIL 20 MG TABLET PO SCH (10:01)
[2020-07-08] MEDS: cloNIDine HCL 0.1 MG TABLET PO SCH ×2 (10:01→21:10)
[2020-07-08] MEDS: ASPIRIN 81 MG CHEWABLE TABLETS PO SCH (10:01)
[2020-07-08] MEDS: MELATONIN 5 MG TABLETS PO SCH (21:10)
[2020-07-08] MEDS: ATORVASTATIN CA 20 MG TABLET (FP) PO SCH (21:10)
[2020-07-08] MEDS: THIAMINE HCL 100 MG TABLET (FP) PO SCH (21:10)
[2020-07-09] MEDS: cloNIDine HCL 0.1 MG TABLET PO SCH ×2 (10:06→21:30)
[2020-07-09] MEDS: ASPIRIN 81 MG CHEWABLE TABLETS PO SCH (10:06)
[2020-07-09] MEDS: PRENATAL VITAMINS W/ FOLIC ACID TABLET (FP) PO SCH (10:06)
[2020-07-09] MEDS: LISINOPRIL 20 MG TABLET PO SCH (10:06)
[2020-07-09] MEDS: amLODIPine BESYLATE 10 MG TABLET (FP) PO SCH (10:06)
[2020-07-09] MEDS: HYDROCHLOROTHIAZIDE 25 MG TABLET (FP) PO SCH (10:06)
[2020-07-09] MEDS: FAMOTIDINE 20 MG TABLET PO SCH ×2 (10:06→21:30)
[2020-07-09] MEDS: ATORVASTATIN CA 20 MG TABLET (FP) PO SCH (21:29)
[2020-07-09] MEDS: THIAMINE HCL 100 MG TABLET (FP) PO SCH (21:30)
[2020-07-09] MEDS: MELATONIN 5 MG TABLETS PO SCH (21:30)
[2020-07-10] MEDS: FAMOTIDINE 20 MG TABLET PO SCH ×2 (10:13→21:15)
[2020-07-10] MEDS: ASPIRIN 81 MG CHEWABLE TABLETS PO SCH (10:13)
[2020-07-10] MEDS: cloNIDine HCL 0.1 MG TABLET PO SCH ×2 (10:13→21:16)
[2020-07-10] MEDS: HYDROCHLOROTHIAZIDE 25 MG TABLET (FP) PO SCH (10:13)
[2020-07-10] MEDS: LISINOPRIL 20 MG TABLET PO SCH (10:13)
[2020-07-10] MEDS: amLODIPine BESYLATE 10 MG TABLET (FP) PO SCH (10:13)
[2020-07-10] MEDS: PRENATAL VITAMINS W/ FOLIC ACID TABLET (FP) PO SCH (10:14)
[2020-07-10] MEDS: ATORVASTATIN CA 20 MG TABLET (FP) PO SCH (21:15)
[2020-07-10] MEDS: MELATONIN 5 MG TABLETS PO SCH (21:16)
[2020-07-10] MEDS: THIAMINE HCL 100 MG TABLET (FP) PO SCH (21:16)
[2020-07-11] MEDS: PRENATAL VITAMINS W/ FOLIC ACID TABLET (FP) PO SCH (09:38)
[2020-07-11] MEDS: LISINOPRIL 20 MG TABLET PO SCH (09:38)
[2020-07-11] MEDS: cloNIDine HCL 0.1 MG TABLET PO SCH ×2 (09:38→21:27)
[2020-07-11] MEDS: ASPIRIN 81 MG CHEWABLE TABLETS PO SCH (09:38)
[2020-07-11] MEDS: HYDROCHLOROTHIAZIDE 25 MG TABLET (FP) PO SCH (09:38)
[2020-07-11] MEDS: FAMOTIDINE 20 MG TABLET PO SCH ×2 (09:39→21:26)
[2020-07-11] MEDS: amLODIPine BESYLATE 10 MG TABLET (FP) PO SCH (09:39)
[2020-07-11] MEDS: MELATONIN 5 MG TABLETS PO SCH (21:25)
[2020-07-11] MEDS: ATORVASTATIN CA 20 MG TABLET (FP) PO SCH (21:25)
[2020-07-11] MEDS: THIAMINE HCL 100 MG TABLET (FP) PO SCH (21:25)
[2020-07-12] MEDS: FAMOTIDINE 20 MG TABLET PO SCH ×2 (09:28→21:14)
[2020-07-12] MEDS: ASPIRIN 81 MG CHEWABLE TABLETS PO SCH (09:28)
[2020-07-12] MEDS: amLODIPine BESYLATE 10 MG TABLET (FP) PO SCH (09:28)
[2020-07-12] MEDS: LISINOPRIL 20 MG TABLET PO SCH (09:28)
[2020-07-12] MEDS: PRENATAL VITAMINS W/ FOLIC ACID TABLET (FP) PO SCH (09:28)
[2020-07-12] MEDS: cloNIDine HCL 0.1 MG TABLET PO SCH ×2 (09:28→21:14)
[2020-07-12] MEDS: HYDROCHLOROTHIAZIDE 25 MG TABLET (FP) PO SCH (09:28)
[2020-07-12] MEDS: ATORVASTATIN CA 20 MG TABLET (FP) PO SCH (21:14)
[2020-07-12] MEDS: MELATONIN 5 MG TABLETS PO SCH (21:14)
[2020-07-12] MEDS: THIAMINE HCL 100 MG TABLET (FP) PO SCH (21:14)
[2020-07-13] MEDS: LISINOPRIL 20 MG TABLET PO SCH (10:18)
[2020-07-13] MEDS: PRENATAL VITAMINS W/ FOLIC ACID TABLET (FP) PO SCH (10:18)
[2020-07-13] MEDS: ASPIRIN 81 MG CHEWABLE TABLETS PO SCH (10:18)
[2020-07-13] MEDS: cloNIDine HCL 0.1 MG TABLET PO SCH ×2 (10:19→21:48)
[2020-07-13] MEDS: HYDROCHLOROTHIAZIDE 25 MG TABLET (FP) PO SCH (10:19)
[2020-07-13] MEDS: FAMOTIDINE 20 MG TABLET PO SCH ×2 (10:19→21:48)
[2020-07-13] MEDS: amLODIPine BESYLATE 10 MG TABLET (FP) PO SCH (10:19)
[2020-07-13] MEDS: ATORVASTATIN CA 20 MG TABLET (FP) PO SCH (21:48)
[2020-07-13] MEDS: THIAMINE HCL 100 MG TABLET (FP) PO SCH (21:48)
[2020-07-13] MEDS: MELATONIN 5 MG TABLETS PO SCH (21:48)
[2020-07-14] MEDS: amLODIPine BESYLATE 10 MG TABLET (FP) PO SCH (10:25)
[2020-07-14] MEDS: HYDROCHLOROTHIAZIDE 25 MG TABLET (FP) PO SCH (10:25)
[2020-07-14] MEDS: FAMOTIDINE 20 MG TABLET PO SCH ×2 (10:25→21:14)
[2020-07-14] MEDS: cloNIDine HCL 0.1 MG TABLET PO SCH ×2 (10:25→21:14)
[2020-07-14] MEDS: LISINOPRIL 20 MG TABLET PO SCH (10:25)
[2020-07-14] MEDS: PRENATAL VITAMINS W/ FOLIC ACID TABLET (FP) PO SCH (10:25)
[2020-07-14] MEDS: ASPIRIN 81 MG CHEWABLE TABLETS PO SCH (10:25)
[2020-07-14] MEDS: THIAMINE HCL 100 MG TABLET (FP) PO SCH (21:14)
[2020-07-14] MEDS: ACETAMINOPHEN 325 MG TABLET (FP) PO PRN (21:14)
[2020-07-14] MEDS: ATORVASTATIN CA 20 MG TABLET (FP) PO SCH (21:14)
[2020-07-14] MEDS: MELATONIN 5 MG TABLETS PO SCH (21:14)
[2020-07-15] MEDS: HYDROCHLOROTHIAZIDE 25 MG TABLET (FP) PO SCH (10:33)
[2020-07-15] MEDS: PRENATAL VITAMINS W/ FOLIC ACID TABLET (FP) PO SCH (10:33)
[2020-07-15] MEDS: FAMOTIDINE 20 MG TABLET PO SCH ×2 (10:33→21:48)
[2020-07-15] MEDS: amLODIPine BESYLATE 10 MG TABLET (FP) PO SCH (10:33)
[2020-07-15] MEDS: ASPIRIN 81 MG CHEWABLE TABLETS PO SCH (10:33)
[2020-07-15] MEDS: cloNIDine HCL 0.1 MG TABLET PO SCH ×2 (10:33→21:48)
[2020-07-15] MEDS: LISINOPRIL 20 MG TABLET PO SCH (10:33)
[2020-07-15] MEDS: ATORVASTATIN CA 20 MG TABLET (FP) PO SCH (21:48)
[2020-07-15] MEDS: MELATONIN 5 MG TABLETS PO SCH (21:48)
[2020-07-15] MEDS: THIAMINE HCL 100 MG TABLET (FP) PO SCH (21:48)
[2020-07-16] MEDS: PRENATAL VITAMINS W/ FOLIC ACID TABLET (FP) PO SCH (10:23)
[2020-07-16] MEDS: LISINOPRIL 20 MG TABLET PO SCH (10:24)
[2020-07-16] MEDS: amLODIPine BESYLATE 10 MG TABLET (FP) PO SCH (10:24)
[2020-07-16] MEDS: HYDROCHLOROTHIAZIDE 25 MG TABLET (FP) PO SCH (10:24)
[2020-07-16] MEDS: FAMOTIDINE 20 MG TABLET PO SCH ×2 (10:24→21:07)
[2020-07-16] MEDS: ASPIRIN 81 MG CHEWABLE TABLETS PO SCH (10:24)
[2020-07-16] MEDS: cloNIDine HCL 0.1 MG TABLET PO SCH ×2 (10:24→21:07)
[2020-07-16] MEDS: THIAMINE HCL 100 MG TABLET (FP) PO SCH (21:06)
[2020-07-16] MEDS: MELATONIN 5 MG TABLETS PO SCH (21:07)
[2020-07-16] MEDS: ACETAMINOPHEN 325 MG TABLET (FP) PO PRN (21:07)
[2020-07-16] MEDS: ATORVASTATIN CA 20 MG TABLET (FP) PO SCH (21:07)
[2020-07-17] MEDS: cloNIDine HCL 0.1 MG TABLET PO SCH ×2 (10:12→21:18)
[2020-07-17] MEDS: PRENATAL VITAMINS W/ FOLIC ACID TABLET (FP) PO SCH (10:12)
[2020-07-17] MEDS: ASPIRIN 81 MG CHEWABLE TABLETS PO SCH (10:12)
[2020-07-17] MEDS: HYDROCHLOROTHIAZIDE 25 MG TABLET (FP) PO SCH (10:13)
[2020-07-17] MEDS: FAMOTIDINE 20 MG TABLET PO SCH ×2 (10:13→21:18)
[2020-07-17] MEDS: amLODIPine BESYLATE 10 MG TABLET (FP) PO SCH (10:13)
[2020-07-17] MEDS: LISINOPRIL 20 MG TABLET PO SCH (10:13)
[2020-07-17] MEDS: THIAMINE HCL 100 MG TABLET (FP) PO SCH (21:18)
[2020-07-17] MEDS: MELATONIN 5 MG TABLETS PO SCH (21:18)
[2020-07-17] MEDS: ATORVASTATIN CA 20 MG TABLET (FP) PO SCH (21:18)
[2020-07-18] MEDS: ASPIRIN 81 MG CHEWABLE TABLETS PO SCH (10:21)
[2020-07-18] MEDS: LISINOPRIL 20 MG TABLET PO SCH (10:21)
[2020-07-18] MEDS: HYDROCHLOROTHIAZIDE 25 MG TABLET (FP) PO SCH (10:21)
[2020-07-18] MEDS: amLODIPine BESYLATE 10 MG TABLET (FP) PO SCH (10:21)
[2020-07-18] MEDS: FAMOTIDINE 20 MG TABLET PO SCH ×2 (10:21→21:44)
[2020-07-18] MEDS: cloNIDine HCL 0.1 MG TABLET PO SCH ×2 (10:21→21:44)
[2020-07-18] MEDS: PRENATAL VITAMINS W/ FOLIC ACID TABLET (FP) PO SCH (10:21)
[2020-07-18] MEDS: TETRAHYDROZOLINE HCL EYE DROPS OU PRN (10:22)
[2020-07-18] MEDS: THIAMINE HCL 100 MG TABLET (FP) PO SCH (21:44)
[2020-07-18] MEDS: ATORVASTATIN CA 20 MG TABLET (FP) PO SCH (21:44)
[2020-07-18] MEDS: MELATONIN 5 MG TABLETS PO SCH (21:44)
[2020-07-19] MEDS: ASPIRIN 81 MG CHEWABLE TABLETS PO SCH (10:07)
[2020-07-19] MEDS: LISINOPRIL 20 MG TABLET PO SCH (10:07)
[2020-07-19] MEDS: HYDROCHLOROTHIAZIDE 25 MG TABLET (FP) PO SCH (10:07)
[2020-07-19] MEDS: FAMOTIDINE 20 MG TABLET PO SCH ×2 (10:07→21:47)
[2020-07-19] MEDS: amLODIPine BESYLATE 10 MG TABLET (FP) PO SCH (10:07)
[2020-07-19] MEDS: PRENATAL VITAMINS W/ FOLIC ACID TABLET (FP) PO SCH (10:07)
[2020-07-19] MEDS: cloNIDine HCL 0.1 MG TABLET PO SCH ×2 (10:07→21:46)
[2020-07-19] MEDS: THIAMINE HCL 100 MG TABLET (FP) PO SCH (21:47)
[2020-07-19] MEDS: MELATONIN 5 MG TABLETS PO SCH (21:47)
[2020-07-19] MEDS: ATORVASTATIN CA 20 MG TABLET (FP) PO SCH (21:47)
[2020-07-19] MEDS: ACETAMINOPHEN 325 MG TABLET (FP) PO PRN (21:48)
[2020-07-20] MEDS: FAMOTIDINE 20 MG TABLET PO SCH ×2 (09:50→21:30)
[2020-07-20] MEDS: HYDROCHLOROTHIAZIDE 25 MG TABLET (FP) PO SCH (09:50)
[2020-07-20] MEDS: ASPIRIN 81 MG CHEWABLE TABLETS PO SCH (09:50)
[2020-07-20] MEDS: LISINOPRIL 20 MG TABLET PO SCH (09:50)
[2020-07-20] MEDS: amLODIPine BESYLATE 10 MG TABLET (FP) PO SCH (09:50)
[2020-07-20] MEDS: PRENATAL VITAMINS W/ FOLIC ACID TABLET (FP) PO SCH (09:50)
[2020-07-20] MEDS: cloNIDine HCL 0.1 MG TABLET PO SCH ×2 (09:50→21:30)
[2020-07-20] MEDS: TETRAHYDROZOLINE HCL EYE DROPS OU PRN ×2 (10:53→21:33)
[2020-07-20] MEDS: MELATONIN 5 MG TABLETS PO SCH (21:30)
[2020-07-20] MEDS: ATORVASTATIN CA 20 MG TABLET (FP) PO SCH (21:30)
[2020-07-20] MEDS: THIAMINE HCL 100 MG TABLET (FP) PO SCH (21:30)
[2020-07-20] MEDS: ACETAMINOPHEN 325 MG TABLET (FP) PO PRN (21:32)
[2020-07-21] MEDS: PRENATAL VITAMINS W/ FOLIC ACID TABLET (FP) PO SCH (09:59)
[2020-07-21] MEDS: ASPIRIN 81 MG CHEWABLE TABLETS PO SCH (10:00)
[2020-07-21] MEDS: cloNIDine HCL 0.1 MG TABLET PO SCH ×2 (10:00→21:09)
[2020-07-21] MEDS: LISINOPRIL 20 MG TABLET PO SCH (10:00)
[2020-07-21] MEDS: amLODIPine BESYLATE 10 MG TABLET (FP) PO SCH (10:00)
[2020-07-21] MEDS: HYDROCHLOROTHIAZIDE 25 MG TABLET (FP) PO SCH (10:00)
[2020-07-21] MEDS: FAMOTIDINE 20 MG TABLET PO SCH ×2 (10:00→21:09)
[2020-07-21] MEDS: ACETAMINOPHEN 325 MG TABLET (FP) PO PRN ×2 (10:01→21:10)
[2020-07-21] MEDS: TETRAHYDROZOLINE HCL EYE DROPS OU PRN (10:24)
[2020-07-21] MEDS: THIAMINE HCL 100 MG TABLET (FP) PO SCH (21:08)
[2020-07-21] MEDS: ATORVASTATIN CA 20 MG TABLET (FP) PO SCH (21:09)
[2020-07-21] MEDS: MELATONIN 5 MG TABLETS PO SCH (21:09)
[2020-07-22] MEDS: ASPIRIN 81 MG CHEWABLE TABLETS PO SCH (10:03)
[2020-07-22] MEDS: amLODIPine BESYLATE 10 MG TABLET (FP) PO SCH (10:03)
[2020-07-22] MEDS: HYDROCHLOROTHIAZIDE 25 MG TABLET (FP) PO SCH (10:03)
[2020-07-22] MEDS: PRENATAL VITAMINS W/ FOLIC ACID TABLET (FP) PO SCH (10:03)
[2020-07-22] MEDS: cloNIDine HCL 0.1 MG TABLET PO SCH ×2 (10:03→21:22)
[2020-07-22] MEDS: FAMOTIDINE 20 MG TABLET PO SCH ×2 (10:03→21:21)
[2020-07-22] MEDS: LISINOPRIL 20 MG TABLET PO SCH (10:03)
[2020-07-22] MEDS: TETRAHYDROZOLINE HCL EYE DROPS OU PRN (10:04)
[2020-07-22] MEDS: MELATONIN 5 MG TABLETS PO SCH (21:21)
[2020-07-22] MEDS: THIAMINE HCL 100 MG TABLET (FP) PO SCH (21:21)
[2020-07-22] MEDS: ACETAMINOPHEN 325 MG TABLET (FP) PO PRN (21:22)
[2020-07-22] MEDS: ATORVASTATIN CA 20 MG TABLET (FP) PO SCH (21:22)
[2020-07-23] MEDS: ASPIRIN 81 MG CHEWABLE TABLETS PO SCH (10:00)
[2020-07-23] MEDS: cloNIDine HCL 0.1 MG TABLET PO SCH ×2 (10:00→21:38)
[2020-07-23] MEDS: HYDROCHLOROTHIAZIDE 25 MG TABLET (FP) PO SCH (10:00)
[2020-07-23] MEDS: PRENATAL VITAMINS W/ FOLIC ACID TABLET (FP) PO SCH (10:00)
[2020-07-23] MEDS: amLODIPine BESYLATE 10 MG TABLET (FP) PO SCH (10:00)
[2020-07-23] MEDS: LISINOPRIL 20 MG TABLET PO SCH (10:01)
[2020-07-23] MEDS: FAMOTIDINE 20 MG TABLET PO SCH ×2 (10:01→21:38)
[2020-07-23] MEDS: TETRAHYDROZOLINE HCL EYE DROPS OU PRN (10:02)
[2020-07-23] MEDS: MELATONIN 5 MG TABLETS PO SCH (21:38)
[2020-07-23] MEDS: ATORVASTATIN CA 20 MG TABLET (FP) PO SCH (21:38)
[2020-07-23] MEDS: THIAMINE HCL 100 MG TABLET (FP) PO SCH (21:38)
[2020-07-23] MEDS: ACETAMINOPHEN 325 MG TABLET (FP) PO PRN (21:39)
[2020-07-24 06:49] VITALS: BP 150/83; PULSE 69; TEMP 97.5
[2020-07-24] MEDS: cloNIDine HCL 0.1 MG TABLET PO SCH (09:12)
[2020-07-24] MEDS: LISINOPRIL 20 MG TABLET PO SCH (09:12)
[2020-07-24] MEDS: PRENATAL VITAMINS W/ FOLIC ACID TABLET (FP) PO SCH (09:12)
[2020-07-24] MEDS: FAMOTIDINE 20 MG TABLET PO SCH (09:12)
[2020-07-24] MEDS: amLODIPine BESYLATE 10 MG TABLET (FP) PO SCH (09:12)
[2020-07-24] MEDS: HYDROCHLOROTHIAZIDE 25 MG TABLET (FP) PO SCH (09:12)
[2020-07-24] MEDS: ASPIRIN 81 MG CHEWABLE TABLETS PO SCH (09:12)
[2020-07-24] MEDS: TETRAHYDROZOLINE HCL EYE DROPS OU PRN (09:12)
== END 2020-07-24 09:40 | disposition home or self-care (01) | DRG 772 ==
LOC: YASAS 10:58 → Y3W 10:59
PROVIDERS: ADMIT Allergy & Immunology; ATTEND Allergy & Immunology
PROC: HZ42ZZZ Group Counseling for Substance Abuse Treatment, Cognitive-Behavioral (ICD-10-PCS; principal; 2020-07-02)
DX: F10.20 Alcohol dependence, uncomplicated (principal); F14.20 Cocaine dependence, uncomplicated; F12.20 Cannabis dependence, uncomplicated; E78.5 Hyperlipidemia, unspecified; E11.9 Type 2 diabetes mellitus without complications; I10 Essential (primary) hypertension; H04.123 Dry eye syndrome of bilateral lacrimal glands
CPT/HCPCS: C9803; J0735; U0003; U0005

== ENCOUNTER 2020-09-03 10:53 | Inpatient (IN) | payer OTHER ==
[2020-09-03 11:33] VITALS: BMI 39.5
[2020-09-03] MEDS ORDERED: IBUPROFEN 400 MG TABLET (FP) PO PRN (12:26)
[2020-09-03] MEDS ORDERED: NICOTINE POLACRILEX 2 MG GUM BUC PRN (12:26)
[2020-09-03] MEDS ORDERED: ONDANSETRON *ODT* 4 MG TABLET SL PRN (12:26)
[2020-09-03] MEDS ORDERED: LORazepam 1 MG TABLET PO PRN (12:26)
[2020-09-03] MEDS ORDERED: ACETAMINOPHEN 325 MG TABLET (FP) PO PRN ×2 (12:26)
[2020-09-03] MEDS ORDERED: MAGNESIUM CITRATE 300 ML BOTTLE PO PRN (12:26)
[2020-09-03] MEDS ORDERED: BISMUTH SUBSALICYLATE 262 MG/15 ML BTL PO PRN (12:26)
[2020-09-03] MEDS ORDERED: METHOCARBAMOL 500 MG TABLET PO PRN (12:26)
[2020-09-03] MEDS ORDERED: MAG HYDROX/AL HYDROX/SIMETH 30 ML UNIT-DOSE CUP PO PRN (12:26)
[2020-09-03] MEDS ORDERED: MAGNESIUM HYDROX 2400MG/30ML ORAL SUSPENSION 30 ML CUP PO PRN (12:26)
[2020-09-03] MEDS ORDERED: MENTHOL/PHENOL 1 EACH UD MM PRN (12:26)
[2020-09-03] MEDS: amLODIPine BESYLATE 10 MG TABLET (FP) PO SCH (13:29)
[2020-09-03] MEDS: PRENATAL VITAMINS W/ FOLIC ACID TABLET (FP) PO SCH (13:29)
[2020-09-03] MEDS: NICOTINE 7 MG/24 HOURS TOPICAL PATCH TD SCH (13:29)
[2020-09-03] MEDS: HYDROCHLOROTHIAZIDE 25 MG TABLET (FP) PO SCH (13:29)
[2020-09-03] MEDS: ASPIRIN 81 MG CHEWABLE TABLETS PO SCH (13:29)
[2020-09-03] MEDS: FAMOTIDINE 20 MG TABLET PO SCH ×2 (13:29→22:39)
[2020-09-03] MEDS: hydrOXYzine PAMOATE 25 MG CAPSULE (FP) PO SCH ×3 (13:29→22:53)
[2020-09-03] MEDS: LISINOPRIL 20 MG TABLET PO SCH (13:52)
[2020-09-03 15:27] LABS: HEMATOCRIT 43.6 % (35.4-49); HEMOGLOBIN 14.4 GM/dL (11.7-16.9); MCH 27.1 pg (25.7-33.7); MCHC 32.9 g/dl (32.0-35.9); MEAN CELL VOLUME 82.2 fl (80-96); MEAN PLT VOLUME 9.1 fl (7.5-11.1); PLATELET COUNT 223 K/MM3 (134-434); RBC 5.31 M/mm3 (4.00-5.60); RDW 16.4 % (11.9-15.9); WHITE BLOOD COUNT 7.8 K/mm3 (4.0-10.0)
[2020-09-03 15:31] LABS: CALCIUM 8.2 mg/dL (8.5-10.1)
[2020-09-03 15:32] LABS: ALBUMIN 2.3 g/dl (3.4-5.0); BLOOD UREA NITROGEN 13.6 mg/dL (7-18)
[2020-09-03 15:35] LABS: CREATININE 1.6 mg/dL (0.55-1.3)
[2020-09-03 15:36] LABS: BILIRUBIN,TOTAL 0.2 mg/dL (0.2-1); TOT PROT 5.7 g/dl (6.4-8.2)
[2020-09-03] MEDS: LORazepam 2 MG TABLET PO SCH ×2 (18:00→22:40)
[2020-09-03] MEDS ORDERED: MELATONIN 5 MG TABLETS PO SCH (22:00)
[2020-09-03] MEDS ORDERED: SUVOREXANT 10 MG TABLET PO PRN (22:00)
[2020-09-03] MEDS: ATORVASTATIN CA 20 MG TABLET (FP) PO SCH (22:40)
[2020-09-03] MEDS: THIAMINE HCL 100 MG TABLET (FP) PO SCH (22:40)
[2020-09-04] MEDS: LORazepam 2 MG TABLET PO SCH ×4 (05:44→22:47)
[2020-09-04] MEDS: hydrOXYzine PAMOATE 25 MG CAPSULE (FP) PO SCH ×5 (05:44→22:48)
[2020-09-04] MEDS ORDERED: LISINOPRIL 20 MG TABLET PO SCH (10:00)
[2020-09-04] MEDS: PRENATAL VITAMINS W/ FOLIC ACID TABLET (FP) PO SCH (10:51)
[2020-09-04] MEDS: LISINOPRIL 20 MG TABLET PO SCH (10:51)
[2020-09-04] MEDS: amLODIPine BESYLATE 10 MG TABLET (FP) PO SCH (10:51)
[2020-09-04] MEDS: ASPIRIN 81 MG CHEWABLE TABLETS PO SCH (10:52)
[2020-09-04] MEDS: FAMOTIDINE 20 MG TABLET PO SCH ×2 (10:52→22:47)
[2020-09-04] MEDS: NICOTINE 7 MG/24 HOURS TOPICAL PATCH TD SCH (10:52)
[2020-09-04] MEDS: HYDROCHLOROTHIAZIDE 25 MG TABLET (FP) PO SCH (10:52)
[2020-09-04] MEDS: ATORVASTATIN CA 20 MG TABLET (FP) PO SCH (22:47)
[2020-09-04] MEDS: THIAMINE HCL 100 MG TABLET (FP) PO SCH (22:47)
[2020-09-05] MEDS: LORazepam 1 MG TABLET PO SCH ×4 (06:46→22:26)
[2020-09-05] MEDS: hydrOXYzine PAMOATE 25 MG CAPSULE (FP) PO SCH ×5 (06:47→22:27)
[2020-09-05] MEDS: LISINOPRIL 20 MG TABLET PO SCH (10:37)
[2020-09-05] MEDS: ASPIRIN 81 MG CHEWABLE TABLETS PO SCH (10:37)
[2020-09-05] MEDS: PRENATAL VITAMINS W/ FOLIC ACID TABLET (FP) PO SCH (10:37)
[2020-09-05] MEDS: FAMOTIDINE 20 MG TABLET PO SCH ×2 (10:37→22:27)
[2020-09-05] MEDS: HYDROCHLOROTHIAZIDE 25 MG TABLET (FP) PO SCH (10:37)
[2020-09-05] MEDS: amLODIPine BESYLATE 10 MG TABLET (FP) PO SCH (10:37)
[2020-09-05] MEDS: NICOTINE 7 MG/24 HOURS TOPICAL PATCH TD SCH (10:53)
[2020-09-05] MEDS: ATORVASTATIN CA 20 MG TABLET (FP) PO SCH (22:27)
[2020-09-05] MEDS: THIAMINE HCL 100 MG TABLET (FP) PO SCH (22:27)
[2020-09-06] MEDS ORDERED: LORazepam 0.5 MG TABLET PO PRN
[2020-09-06] MEDS: hydrOXYzine PAMOATE 25 MG CAPSULE (FP) PO SCH ×5 (05:24→22:24)
[2020-09-06] MEDS: LORazepam 0.5 MG TABLET PO SCH ×4 (05:24→22:23)
[2020-09-06] MEDS: FAMOTIDINE 20 MG TABLET PO SCH ×2 (10:36→22:24)
[2020-09-06] MEDS: amLODIPine BESYLATE 10 MG TABLET (FP) PO SCH (10:36)
[2020-09-06] MEDS: ASPIRIN 81 MG CHEWABLE TABLETS PO SCH (10:36)
[2020-09-06] MEDS: LISINOPRIL 20 MG TABLET PO SCH (10:36)
[2020-09-06] MEDS: PRENATAL VITAMINS W/ FOLIC ACID TABLET (FP) PO SCH (10:37)
[2020-09-06] MEDS: HYDROCHLOROTHIAZIDE 25 MG TABLET (FP) PO SCH (10:37)
[2020-09-06] MEDS: NICOTINE 7 MG/24 HOURS TOPICAL PATCH TD SCH (10:57)
[2020-09-06] MEDS: THIAMINE HCL 100 MG TABLET (FP) PO SCH (22:23)
[2020-09-06] MEDS: ATORVASTATIN CA 20 MG TABLET (FP) PO SCH (22:24)
[2020-09-07] MEDS ORDERED: LORazepam 0.5 MG TABLET PO ONE (05:00)
[2020-09-07] MEDS: hydrOXYzine PAMOATE 25 MG CAPSULE (FP) PO SCH ×2 (05:50→10:12)
[2020-09-07 09:25] VITALS: BP 146/71; PULSE 77; TEMP 98.1
[2020-09-07] MEDS: NICOTINE 7 MG/24 HOURS TOPICAL PATCH TD SCH (10:12)
[2020-09-07] MEDS: HYDROCHLOROTHIAZIDE 25 MG TABLET (FP) PO SCH (10:12)
[2020-09-07] MEDS: FAMOTIDINE 20 MG TABLET PO SCH (10:12)
[2020-09-07] MEDS: LISINOPRIL 20 MG TABLET PO SCH (10:12)
[2020-09-07] MEDS: PRENATAL VITAMINS W/ FOLIC ACID TABLET (FP) PO SCH (10:12)
[2020-09-07] MEDS: ASPIRIN 81 MG CHEWABLE TABLETS PO SCH (10:12)
[2020-09-07] MEDS: amLODIPine BESYLATE 10 MG TABLET (FP) PO SCH (10:12)
== END 2020-09-07 11:54 | disposition home or self-care (01) | DRG 774 ==
LOC: YASAS 10:53 → Y6N 11:49
PROVIDERS: ADMIT Allergy & Immunology; ATTEND Allergy & Immunology
PROC: HZ2ZZZZ Detoxification Services for Substance Abuse Treatment (ICD-10-PCS; principal; 2020-09-03)
DX: F10.230 Alcohol dependence with withdrawal, uncomplicated (principal); F14.20 Cocaine dependence, uncomplicated; F17.210 Nicotine dependence, cigarettes, uncomplicated; F19.282 Other psychoactive substance dependence with psychoactive substance-induced sleep disorder; F19.24 Other psychoactive substance dependence with psychoactive substance-induced mood disorder; I10 Essential (primary) hypertension; K21.9 Gastro-esophageal reflux disease without esophagitis; E78.00 Pure hypercholesterolemia, unspecified; E11.9 Type 2 diabetes mellitus without complications; Z79.84 Long term (current) use of oral hypoglycemic drugs; E66.9 Obesity, unspecified; Z68.39 Body mass index [BMI] 39.0-39.9, adult; R79.89 Other specified abnormal findings of blood chemistry
CPT/HCPCS: 36415; 80053; 82962; 85027; 86780; C9803; U0003; U0005

== ENCOUNTER 2021-05-14 10:55 | Inpatient (IN) | payer OTHER ==
[2021-05-14] MEDS ORDERED: BISMUTH SUBSALICYLATE 262 MG/15 ML BTL PO PRN (11:24)
[2021-05-14] MEDS ORDERED: LOPERAMIDE HCL 2 MG CAPSULE PO PRN (11:24)
[2021-05-14] MEDS ORDERED: ACETAMINOPHEN 325 MG TABLET (FP) PO PRN (11:24)
[2021-05-14] MEDS ORDERED: IBUPROFEN 400 MG TABLET (FP) PO PRN (11:24)
[2021-05-14] MEDS ORDERED: chlordiazePOXIDE HCL 25 MG CAPSULE PO PRN (11:24)
[2021-05-14] MEDS ORDERED: METHOCARBAMOL 500 MG TABLET PO PRN (11:24)
[2021-05-14] MEDS ORDERED: MAG HYDROX/AL HYDROX/SIMETH 30 ML UNIT-DOSE CUP PO PRN (11:24)
[2021-05-14] MEDS ORDERED: MENTHOL/PHENOL 1 EACH UD MM PRN (11:24)
[2021-05-14] MEDS ORDERED: MAGNESIUM HYDROX 2400MG/30ML ORAL SUSPENSION 30 ML CUP PO PRN (11:24)
[2021-05-14] MEDS ORDERED: MAGNESIUM CITRATE 300 ML BOTTLE PO PRN (11:24)
[2021-05-14] MEDS ORDERED: ONDANSETRON *ODT* 4 MG TABLET SL PRN (11:24)
[2021-05-14] MEDS ORDERED: amLODIPine BESYLATE 10 MG TABLET (FP) PO SCH (11:30)
[2021-05-14 11:47] VITALS: BMI 38.7
[2021-05-14] MEDS ORDERED: hydrOXYzine PAMOATE 25 MG CAPSULE (FP) PO PRN (12:02)
[2021-05-14] MEDS: chlordiazePOXIDE HCL 25 MG CAPSULE PO SCH ×3 (13:20→22:27)
[2021-05-14] MEDS: amLODIPine BESYLATE 10 MG TABLET (FP) PO SCH (13:20)
[2021-05-14] MEDS: PRENATAL VITAMINS W/ FOLIC ACID TABLET (FP) PO SCH (13:22)
[2021-05-14] MEDS ORDERED: hydrOXYzine PAMOATE 25 MG CAPSULE (FP) PO SCH (14:00)
[2021-05-14 16:11] LABS: BLOOD UREA NITROGEN 32.1 mg/dL (7-18); CALCIUM 8.6 mg/dL (8.5-10.1); HEMATOCRIT 40.7 % (35.4-49); HEMOGLOBIN 13.4 GM/dL (11.7-16.9); MEAN CELL VOLUME 81.8 fl (80-96); PLATELET COUNT 223 10^3/uL (134-434); RBC 4.98 M/mm3 (4.00-5.60); RDW 15.9 % (11.9-15.9); WHITE BLOOD COUNT 10.4 K/mm3 (4.0-10.0)
[2021-05-14 16:15] LABS: CREATININE 1.8 mg/dL (0.55-1.3)
[2021-05-14 16:16] LABS: BILIRUBIN,TOTAL 0.3 mg/dL (0.2-1); TOT PROT 6.4 g/dl (6.4-8.2)
[2021-05-14] MEDS ORDERED: MELATONIN 5 MG TABLETS PO SCH (22:00)
[2021-05-14] MEDS: ATORVASTATIN CA 20 MG TABLET (FP) PO SCH (22:27)
[2021-05-14] MEDS: traZODone HCL 50 MG TABLET (FP) PO SCH (22:27)
[2021-05-14] MEDS: FAMOTIDINE 20 MG TABLET PO SCH (22:27)
[2021-05-14] MEDS: THIAMINE HCL 100 MG TABLET (FP) PO SCH (22:27)
[2021-05-15] MEDS: chlordiazePOXIDE HCL 25 MG CAPSULE PO SCH ×4 (05:26→22:45)
[2021-05-15] MEDS: FAMOTIDINE 20 MG TABLET PO SCH ×2 (10:47→22:45)
[2021-05-15] MEDS: LISINOPRIL 20 MG TABLET PO SCH (10:47)
[2021-05-15] MEDS: PRENATAL VITAMINS W/ FOLIC ACID TABLET (FP) PO SCH (10:47)
[2021-05-15] MEDS: ASPIRIN 81 MG CHEWABLE TABLETS PO SCH (10:47)
[2021-05-15] MEDS: amLODIPine BESYLATE 10 MG TABLET (FP) PO SCH (10:47)
[2021-05-15] MEDS: HYDROCHLOROTHIAZIDE 25 MG TABLET (FP) PO SCH (13:26)
[2021-05-15] MEDS: NICOTINE 10 MG CARTRIDGE (INHALER) IH PRN (19:51)
[2021-05-15] MEDS: THIAMINE HCL 100 MG TABLET (FP) PO SCH (22:45)
[2021-05-15] MEDS: ATORVASTATIN CA 20 MG TABLET (FP) PO SCH (22:45)
[2021-05-15] MEDS: traZODone HCL 50 MG TABLET (FP) PO SCH (22:45)
[2021-05-16] MEDS: chlordiazePOXIDE HCL 25 MG CAPSULE PO SCH ×4 (05:23→23:16)
[2021-05-16] MEDS: NICOTINE 10 MG CARTRIDGE (INHALER) IH PRN (06:43)
[2021-05-16] MEDS: amLODIPine BESYLATE 10 MG TABLET (FP) PO SCH (10:43)
[2021-05-16] MEDS: LISINOPRIL 20 MG TABLET PO SCH (10:43)
[2021-05-16] MEDS: HYDROCHLOROTHIAZIDE 25 MG TABLET (FP) PO SCH (10:43)
[2021-05-16] MEDS: ASPIRIN 81 MG CHEWABLE TABLETS PO SCH (10:43)
[2021-05-16] MEDS: PRENATAL VITAMINS W/ FOLIC ACID TABLET (FP) PO SCH (10:43)
[2021-05-16] MEDS: FAMOTIDINE 20 MG TABLET PO SCH ×2 (10:43→23:16)
[2021-05-16] MEDS: ACETAMINOPHEN 325 MG TABLET (FP) PO PRN (18:32)
[2021-05-16] MEDS: traZODone HCL 50 MG TABLET (FP) PO SCH (23:16)
[2021-05-16] MEDS: ATORVASTATIN CA 20 MG TABLET (FP) PO SCH (23:16)
[2021-05-16] MEDS: THIAMINE HCL 100 MG TABLET (FP) PO SCH (23:16)
[2021-05-17] MEDS ORDERED: chlordiazePOXIDE HCL 10 MG CAPSULE PO PRN
[2021-05-17] MEDS ORDERED: FAMOTIDINE 20 MG TABLET PO ONE (03:14)
[2021-05-17] MEDS: chlordiazePOXIDE HCL 10 MG CAPSULE PO SCH ×4 (07:59→22:17)
[2021-05-17] MEDS: PRENATAL VITAMINS W/ FOLIC ACID TABLET (FP) PO SCH (10:17)
[2021-05-17] MEDS: ASPIRIN 81 MG CHEWABLE TABLETS PO SCH (10:17)
[2021-05-17] MEDS: amLODIPine BESYLATE 10 MG TABLET (FP) PO SCH (10:17)
[2021-05-17] MEDS: FAMOTIDINE 20 MG TABLET PO SCH ×2 (10:17→22:16)
[2021-05-17] MEDS: LISINOPRIL 20 MG TABLET PO SCH (10:17)
[2021-05-17] MEDS: HYDROCHLOROTHIAZIDE 25 MG TABLET (FP) PO SCH (10:23)
[2021-05-17] MEDS: traZODone HCL 50 MG TABLET (FP) PO SCH (22:16)
[2021-05-17] MEDS: THIAMINE HCL 100 MG TABLET (FP) PO SCH (22:16)
[2021-05-17] MEDS: ATORVASTATIN CA 20 MG TABLET (FP) PO SCH (22:16)
[2021-05-17] MEDS: ACETAMINOPHEN 325 MG TABLET (FP) PO PRN (22:18)
[2021-05-18] MEDS: chlordiazePOXIDE HCL 10 MG CAPSULE PO SCH ×2 (05:54→18:00)
[2021-05-18] MEDS: PRENATAL VITAMINS W/ FOLIC ACID TABLET (FP) PO SCH (09:52)
[2021-05-18] MEDS: FAMOTIDINE 20 MG TABLET PO SCH ×2 (09:52→21:10)
[2021-05-18] MEDS: LISINOPRIL 20 MG TABLET PO SCH (09:52)
[2021-05-18] MEDS: HYDROCHLOROTHIAZIDE 25 MG TABLET (FP) PO SCH (09:53)
[2021-05-18] MEDS: amLODIPine BESYLATE 10 MG TABLET (FP) PO SCH (09:53)
[2021-05-18] MEDS: ASPIRIN 81 MG CHEWABLE TABLETS PO SCH (09:56)
[2021-05-18] MEDS: traZODone HCL 50 MG TABLET (FP) PO SCH (22:29)
[2021-05-18] MEDS: ATORVASTATIN CA 20 MG TABLET (FP) PO SCH (22:30)
[2021-05-18] MEDS: THIAMINE HCL 100 MG TABLET (FP) PO SCH (22:30)
[2021-05-19] MEDS ORDERED: chlordiazePOXIDE HCL 10 MG CAPSULE PO ONE (05:00)
[2021-05-19 08:56] VITALS: BP 141/88; PULSE 77; TEMP 97.9
[2021-05-19] MEDS: HYDROCHLOROTHIAZIDE 25 MG TABLET (FP) PO SCH (10:45)
[2021-05-19] MEDS: PRENATAL VITAMINS W/ FOLIC ACID TABLET (FP) PO SCH (10:45)
[2021-05-19] MEDS: LISINOPRIL 20 MG TABLET PO SCH (10:45)
[2021-05-19] MEDS: amLODIPine BESYLATE 10 MG TABLET (FP) PO SCH (10:45)
[2021-05-19] MEDS: FAMOTIDINE 20 MG TABLET PO SCH (10:45)
== END 2021-05-19 11:38 | disposition other institution (70) | DRG 774 ==
LOC: YASAS 10:55 → Y3N 11:43
PROVIDERS: ADMIT Allergy & Immunology; ATTEND Allergy & Immunology
PROC: HZ2ZZZZ Detoxification Services for Substance Abuse Treatment (ICD-10-PCS; principal; 2021-05-14)
DX: F10.230 Alcohol dependence with withdrawal, uncomplicated (principal); F14.20 Cocaine dependence, uncomplicated; F17.210 Nicotine dependence, cigarettes, uncomplicated; F19.282 Other psychoactive substance dependence with psychoactive substance-induced sleep disorder; F32.A Depression, unspecified; G47.00 Insomnia, unspecified; I10 Essential (primary) hypertension; K21.9 Gastro-esophageal reflux disease without esophagitis; E11.9 Type 2 diabetes mellitus without complications; E66.9 Obesity, unspecified; Z68.38 Body mass index [BMI] 38.0-38.9, adult; Z59.01 Sheltered homelessness; Z56.0 Unemployment, unspecified
CPT/HCPCS: 36415; 80053; 82962; 85027; 86780; 93005; 93010; C9803; U0003; U0005

== ENCOUNTER 2021-05-19 11:53 | Inpatient (IN) | payer OTHER ==
[2021-05-19] MEDS ORDERED: guaiFENesin 200 MG/10 ML 10 ML UNIT-DOSE CUPS PO PRN (13:37)
[2021-05-19] MEDS ORDERED: hydrOXYzine PAMOATE 25 MG CAPSULE (FP) PO PRN (13:37)
[2021-05-19] MEDS ORDERED: IBUPROFEN 400 MG TABLET (FP) PO PRN (13:37)
[2021-05-19] MEDS ORDERED: MENTHOL/PHENOL 1 EACH UD MM PRN (13:37)
[2021-05-19] MEDS ORDERED: ACETAMINOPHEN 325 MG TABLET (FP) PO PRN (13:37)
[2021-05-19] MEDS ORDERED: P-EPHED 60MG/TRIPROLIDI 2.5MG TABLET PO PRN (13:37)
[2021-05-19] MEDS ORDERED: LOPERAMIDE HCL 2 MG CAPSULE PO PRN (13:37)
[2021-05-19] MEDS ORDERED: MAGNESIUM CITRATE 300 ML BOTTLE PO PRN (13:37)
[2021-05-19] MEDS ORDERED: FAMOTIDINE 20 MG TABLET PO ONE (14:45)
[2021-05-19] MEDS: METHOCARBAMOL 500 MG TABLET PO SCH ×3 (14:50→21:28)
[2021-05-19] MEDS: NICOTINE 10 MG CARTRIDGE (INHALER) IH PRN (19:23)
[2021-05-19] MEDS: ATORVASTATIN CA 20 MG TABLET (FP) PO SCH (21:13)
[2021-05-19] MEDS: traZODone HCL 50 MG TABLET (FP) PO SCH (21:14)
[2021-05-19] MEDS: THIAMINE HCL 100 MG TABLET (FP) PO SCH (21:14)
[2021-05-19] MEDS: MELATONIN 5 MG TABLETS PO SCH (21:14)
[2021-05-20] MEDS: HYDROCHLOROTHIAZIDE 25 MG TABLET (FP) PO SCH (09:41)
[2021-05-20] MEDS: amLODIPine BESYLATE 10 MG TABLET (FP) PO SCH (09:41)
[2021-05-20] MEDS: FAMOTIDINE 20 MG TABLET PO SCH (09:41)
[2021-05-20] MEDS: METHOCARBAMOL 500 MG TABLET PO SCH ×4 (09:41→21:28)
[2021-05-20] MEDS: ASPIRIN 81 MG CHEWABLE TABLETS PO SCH (09:41)
[2021-05-20] MEDS: PRENATAL VITAMINS W/ FOLIC ACID TABLET (FP) PO SCH (09:42)
[2021-05-20] MEDS: LISINOPRIL 20 MG TABLET PO SCH (09:42)
[2021-05-20] MEDS: NICOTINE 10 MG CARTRIDGE (INHALER) IH PRN (09:46)
[2021-05-20] MEDS ORDERED: ASPIRIN 81 MG CHEWABLE TABLETS PO SCH (10:00)
[2021-05-20] MEDS: NICOTINE 7 MG/24 HOURS TOPICAL PATCH TD SCH (10:54)
[2021-05-20] MEDS: THIAMINE HCL 100 MG TABLET (FP) PO SCH (21:27)
[2021-05-20] MEDS: ATORVASTATIN CA 20 MG TABLET (FP) PO SCH (21:27)
[2021-05-20] MEDS: MELATONIN 5 MG TABLETS PO SCH (21:27)
[2021-05-20] MEDS: traZODone HCL 50 MG TABLET (FP) PO SCH (21:28)
[2021-05-21] MEDS: PRENATAL VITAMINS W/ FOLIC ACID TABLET (FP) PO SCH (10:15)
[2021-05-21] MEDS: FAMOTIDINE 20 MG TABLET PO SCH (10:15)
[2021-05-21] MEDS: LISINOPRIL 20 MG TABLET PO SCH (10:16)
[2021-05-21] MEDS: amLODIPine BESYLATE 10 MG TABLET (FP) PO SCH (10:16)
[2021-05-21] MEDS: HYDROCHLOROTHIAZIDE 25 MG TABLET (FP) PO SCH (10:16)
[2021-05-21] MEDS: ASPIRIN 81 MG CHEWABLE TABLETS PO SCH (10:16)
[2021-05-21] MEDS: NICOTINE 7 MG/24 HOURS TOPICAL PATCH TD SCH (10:17)
[2021-05-21] MEDS: METHOCARBAMOL 500 MG TABLET PO SCH ×4 (10:17→21:22)
[2021-05-21] MEDS: NICOTINE 10 MG CARTRIDGE (INHALER) IH PRN (13:57)
[2021-05-21 16:09] LABS: SARS-CoV-2 NAA Not Detected (Not Detected)
[2021-05-21] MEDS: traZODone HCL 50 MG TABLET (FP) PO SCH (21:22)
[2021-05-21] MEDS: ATORVASTATIN CA 20 MG TABLET (FP) PO SCH (21:22)
[2021-05-21] MEDS: MELATONIN 5 MG TABLETS PO SCH (21:22)
[2021-05-21] MEDS: THIAMINE HCL 100 MG TABLET (FP) PO SCH (21:22)
[2021-05-22] MEDS: MAG HYDROX/AL HYDROX/SIMETH 30 ML UNIT-DOSE CUP PO PRN ×2 (00:33→21:31)
[2021-05-22] MEDS: PRENATAL VITAMINS W/ FOLIC ACID TABLET (FP) PO SCH (10:01)
[2021-05-22] MEDS: MAGNESIUM HYDROX 2400MG/30ML ORAL SUSPENSION 30 ML CUP PO PRN (10:02)
[2021-05-22] MEDS: LISINOPRIL 20 MG TABLET PO SCH (10:03)
[2021-05-22] MEDS: ASPIRIN 81 MG CHEWABLE TABLETS PO SCH (10:03)
[2021-05-22] MEDS: METHOCARBAMOL 500 MG TABLET PO SCH ×4 (10:04→21:30)
[2021-05-22] MEDS: HYDROCHLOROTHIAZIDE 25 MG TABLET (FP) PO SCH (10:04)
[2021-05-22] MEDS: FAMOTIDINE 20 MG TABLET PO SCH (10:04)
[2021-05-22] MEDS: amLODIPine BESYLATE 10 MG TABLET (FP) PO SCH (10:04)
[2021-05-22] MEDS: NICOTINE 7 MG/24 HOURS TOPICAL PATCH TD SCH (10:05)
[2021-05-22] MEDS: THIAMINE HCL 100 MG TABLET (FP) PO SCH (21:30)
[2021-05-22] MEDS: ATORVASTATIN CA 20 MG TABLET (FP) PO SCH (21:30)
[2021-05-22] MEDS: traZODone HCL 50 MG TABLET (FP) PO SCH (21:30)
[2021-05-22] MEDS: MELATONIN 5 MG TABLETS PO SCH (21:31)
[2021-05-23] MEDS: MAG HYDROX/AL HYDROX/SIMETH 30 ML UNIT-DOSE CUP PO PRN (04:38)
[2021-05-23] MEDS: METHOCARBAMOL 500 MG TABLET PO SCH ×5 (09:57→21:31)
[2021-05-23] MEDS: HYDROCHLOROTHIAZIDE 25 MG TABLET (FP) PO SCH (09:57)
[2021-05-23] MEDS: PRENATAL VITAMINS W/ FOLIC ACID TABLET (FP) PO SCH (09:57)
[2021-05-23] MEDS: amLODIPine BESYLATE 10 MG TABLET (FP) PO SCH (09:57)
[2021-05-23] MEDS: LISINOPRIL 20 MG TABLET PO SCH (09:57)
[2021-05-23] MEDS: ASPIRIN 81 MG CHEWABLE TABLETS PO SCH (09:57)
[2021-05-23] MEDS: FAMOTIDINE 20 MG TABLET PO SCH (09:58)
[2021-05-23] MEDS: NICOTINE 7 MG/24 HOURS TOPICAL PATCH TD SCH (09:58)
[2021-05-23] MEDS: MAGNESIUM HYDROX 2400MG/30ML ORAL SUSPENSION 30 ML CUP PO PRN (10:00)
[2021-05-23] MEDS: NICOTINE 10 MG CARTRIDGE (INHALER) IH PRN (10:53)
[2021-05-23] MEDS: ATORVASTATIN CA 20 MG TABLET (FP) PO SCH (21:31)
[2021-05-23] MEDS: THIAMINE HCL 100 MG TABLET (FP) PO SCH (21:31)
[2021-05-23] MEDS: traZODone HCL 50 MG TABLET (FP) PO SCH (21:32)
[2021-05-23] MEDS: MELATONIN 5 MG TABLETS PO SCH (21:32)
[2021-05-24] MEDS: PRENATAL VITAMINS W/ FOLIC ACID TABLET (FP) PO SCH (10:28)
[2021-05-24] MEDS: amLODIPine BESYLATE 10 MG TABLET (FP) PO SCH (10:28)
[2021-05-24] MEDS: FAMOTIDINE 20 MG TABLET PO SCH (10:28)
[2021-05-24] MEDS: NICOTINE 7 MG/24 HOURS TOPICAL PATCH TD SCH (10:28)
[2021-05-24] MEDS: ASPIRIN 81 MG CHEWABLE TABLETS PO SCH (10:28)
[2021-05-24] MEDS: MAGNESIUM HYDROX 2400MG/30ML ORAL SUSPENSION 30 ML CUP PO PRN (10:29)
[2021-05-24] MEDS: HYDROCHLOROTHIAZIDE 25 MG TABLET (FP) PO SCH (10:29)
[2021-05-24] MEDS: LISINOPRIL 20 MG TABLET PO SCH (10:31)
[2021-05-24] MEDS: METHOCARBAMOL 500 MG TABLET PO SCH ×4 (10:33→21:33)
[2021-05-24] MEDS: NICOTINE 10 MG CARTRIDGE (INHALER) IH PRN (14:53)
[2021-05-24] MEDS: traZODone HCL 50 MG TABLET (FP) PO SCH (21:32)
[2021-05-24] MEDS: ATORVASTATIN CA 20 MG TABLET (FP) PO SCH (21:33)
[2021-05-24] MEDS: MELATONIN 5 MG TABLETS PO SCH (21:33)
[2021-05-24] MEDS: THIAMINE HCL 100 MG TABLET (FP) PO SCH (21:33)
[2021-05-24] MEDS: DOCUSATE SODIUM 100 MG CAPSULE (FP) PO SCH (21:59)
[2021-05-25 10:04] LABS: CALCIUM 9.2 mg/dL (8.5-10.1)
[2021-05-25 10:05] LABS: ALBUMIN 3.1 g/dl (3.4-5.0); BLOOD UREA NITROGEN 24.4 mg/dL (7-18)
[2021-05-25 10:08] LABS: CREATININE 1.5 mg/dL (0.55-1.3)
[2021-05-25 10:09] LABS: BILIRUBIN,TOTAL 0.6 mg/dL (0.2-1); TOT PROT 6.8 g/dl (6.4-8.2)
[2021-05-25] MEDS: NICOTINE 7 MG/24 HOURS TOPICAL PATCH TD SCH (10:23)
[2021-05-25] MEDS: LISINOPRIL 20 MG TABLET PO SCH (10:23)
[2021-05-25] MEDS: ASPIRIN 81 MG CHEWABLE TABLETS PO SCH (10:23)
[2021-05-25] MEDS: METHOCARBAMOL 500 MG TABLET PO SCH ×4 (10:23→21:19)
[2021-05-25] MEDS: FAMOTIDINE 20 MG TABLET PO SCH (10:24)
[2021-05-25] MEDS: HYDROCHLOROTHIAZIDE 25 MG TABLET (FP) PO SCH (10:24)
[2021-05-25] MEDS: PRENATAL VITAMINS W/ FOLIC ACID TABLET (FP) PO SCH (10:24)
[2021-05-25] MEDS: amLODIPine BESYLATE 10 MG TABLET (FP) PO SCH (10:24)
[2021-05-25 14:07] LABS: SARS-CoV-2 NAA Not Detected (Not Detected)
[2021-05-25] MEDS: ATORVASTATIN CA 20 MG TABLET (FP) PO SCH (21:19)
[2021-05-25] MEDS: DOCUSATE SODIUM 100 MG CAPSULE (FP) PO SCH (21:19)
[2021-05-25] MEDS: MELATONIN 5 MG TABLETS PO SCH (21:21)
[2021-05-25] MEDS: THIAMINE HCL 100 MG TABLET (FP) PO SCH (21:21)
[2021-05-25] MEDS: traZODone HCL 50 MG TABLET (FP) PO SCH (22:51)
[2021-05-26] MEDS: MAG HYDROX/AL HYDROX/SIMETH 30 ML UNIT-DOSE CUP PO PRN ×2 (00:10→21:21)
[2021-05-26] MEDS: PRENATAL VITAMINS W/ FOLIC ACID TABLET (FP) PO SCH (10:02)
[2021-05-26] MEDS: amLODIPine BESYLATE 10 MG TABLET (FP) PO SCH (10:03)
[2021-05-26] MEDS: FAMOTIDINE 20 MG TABLET PO SCH (10:03)
[2021-05-26] MEDS: HYDROCHLOROTHIAZIDE 25 MG TABLET (FP) PO SCH (10:03)
[2021-05-26] MEDS: ASPIRIN 81 MG CHEWABLE TABLETS PO SCH (10:03)
[2021-05-26] MEDS: METHOCARBAMOL 500 MG TABLET PO SCH ×4 (10:03→21:21)
[2021-05-26] MEDS: LISINOPRIL 20 MG TABLET PO SCH (10:03)
[2021-05-26] MEDS: NICOTINE 7 MG/24 HOURS TOPICAL PATCH TD SCH (10:04)
[2021-05-26] MEDS: NICOTINE 10 MG CARTRIDGE (INHALER) IH PRN (15:58)
[2021-05-26] MEDS: THIAMINE HCL 100 MG TABLET (FP) PO SCH (21:21)
[2021-05-26] MEDS: ATORVASTATIN CA 20 MG TABLET (FP) PO SCH (21:21)
[2021-05-26] MEDS: DOCUSATE SODIUM 100 MG CAPSULE (FP) PO SCH (21:21)
[2021-05-26] MEDS: MELATONIN 5 MG TABLETS PO SCH (21:22)
[2021-05-26] MEDS: traZODone HCL 50 MG TABLET (FP) PO SCH (23:46)
[2021-05-27] MEDS: PRENATAL VITAMINS W/ FOLIC ACID TABLET (FP) PO SCH (09:00)
[2021-05-27] MEDS: amLODIPine BESYLATE 10 MG TABLET (FP) PO SCH (09:01)
[2021-05-27] MEDS: LISINOPRIL 20 MG TABLET PO SCH (09:01)
[2021-05-27] MEDS: METHOCARBAMOL 500 MG TABLET PO SCH ×4 (09:01→21:28)
[2021-05-27] MEDS: FAMOTIDINE 20 MG TABLET PO SCH (09:01)
[2021-05-27] MEDS: NICOTINE 7 MG/24 HOURS TOPICAL PATCH TD SCH (09:01)
[2021-05-27] MEDS: HYDROCHLOROTHIAZIDE 25 MG TABLET (FP) PO SCH (09:02)
[2021-05-27] MEDS: ASPIRIN 81 MG CHEWABLE TABLETS PO SCH (09:02)
[2021-05-27] MEDS: traZODone HCL 50 MG TABLET (FP) PO SCH (21:28)
[2021-05-27] MEDS: DOCUSATE SODIUM 100 MG CAPSULE (FP) PO SCH (21:28)
[2021-05-27] MEDS: MELATONIN 5 MG TABLETS PO SCH (21:29)
[2021-05-27] MEDS: ATORVASTATIN CA 20 MG TABLET (FP) PO SCH (21:29)
[2021-05-27] MEDS: THIAMINE HCL 100 MG TABLET (FP) PO SCH (21:29)
[2021-05-28] MEDS: NICOTINE 10 MG CARTRIDGE (INHALER) IH PRN (07:47)
[2021-05-28] MEDS: HYDROCHLOROTHIAZIDE 25 MG TABLET (FP) PO SCH (10:43)
[2021-05-28] MEDS: amLODIPine BESYLATE 10 MG TABLET (FP) PO SCH (10:43)
[2021-05-28] MEDS: LISINOPRIL 20 MG TABLET PO SCH (10:43)
[2021-05-28] MEDS: METHOCARBAMOL 500 MG TABLET PO SCH ×4 (10:43→21:30)
[2021-05-28] MEDS: ASPIRIN 81 MG CHEWABLE TABLETS PO SCH (10:43)
[2021-05-28] MEDS: FAMOTIDINE 20 MG TABLET PO SCH (10:43)
[2021-05-28] MEDS: NICOTINE 7 MG/24 HOURS TOPICAL PATCH TD SCH (10:44)
[2021-05-28] MEDS: PRENATAL VITAMINS W/ FOLIC ACID TABLET (FP) PO SCH (10:44)
[2021-05-28] MEDS: traZODone HCL 50 MG TABLET (FP) PO SCH (21:30)
[2021-05-28] MEDS: DOCUSATE SODIUM 100 MG CAPSULE (FP) PO SCH (21:30)
[2021-05-28] MEDS: ATORVASTATIN CA 20 MG TABLET (FP) PO SCH (21:30)
[2021-05-28] MEDS: MELATONIN 5 MG TABLETS PO SCH (21:31)
[2021-05-28] MEDS: THIAMINE HCL 100 MG TABLET (FP) PO SCH (21:31)
[2021-05-29] MEDS: PRENATAL VITAMINS W/ FOLIC ACID TABLET (FP) PO SCH (10:12)
[2021-05-29] MEDS: HYDROCHLOROTHIAZIDE 25 MG TABLET (FP) PO SCH (10:12)
[2021-05-29] MEDS: ASPIRIN 81 MG CHEWABLE TABLETS PO SCH (10:12)
[2021-05-29] MEDS: METHOCARBAMOL 500 MG TABLET PO SCH ×4 (10:12→21:25)
[2021-05-29] MEDS: amLODIPine BESYLATE 10 MG TABLET (FP) PO SCH (10:12)
[2021-05-29] MEDS: LISINOPRIL 20 MG TABLET PO SCH (10:12)
[2021-05-29] MEDS: FAMOTIDINE 20 MG TABLET PO SCH (10:12)
[2021-05-29] MEDS: NICOTINE 7 MG/24 HOURS TOPICAL PATCH TD SCH (10:39)
[2021-05-29] MEDS: MAG HYDROX/AL HYDROX/SIMETH 30 ML UNIT-DOSE CUP PO PRN ×2 (12:24→21:25)
[2021-05-29] MEDS: MELATONIN 5 MG TABLETS PO SCH (21:23)
[2021-05-29] MEDS: DOCUSATE SODIUM 100 MG CAPSULE (FP) PO SCH (21:23)
[2021-05-29] MEDS: ATORVASTATIN CA 20 MG TABLET (FP) PO SCH (21:23)
[2021-05-29] MEDS: THIAMINE HCL 100 MG TABLET (FP) PO SCH (21:23)
[2021-05-29] MEDS: traZODone HCL 50 MG TABLET (FP) PO SCH (21:24)
[2021-05-30] MEDS: PRENATAL VITAMINS W/ FOLIC ACID TABLET (FP) PO SCH (09:49)
[2021-05-30] MEDS: METHOCARBAMOL 500 MG TABLET PO SCH ×4 (09:49→21:22)
[2021-05-30] MEDS: NICOTINE 7 MG/24 HOURS TOPICAL PATCH TD SCH (09:49)
[2021-05-30] MEDS: FAMOTIDINE 20 MG TABLET PO SCH (09:49)
[2021-05-30] MEDS: amLODIPine BESYLATE 10 MG TABLET (FP) PO SCH (09:49)
[2021-05-30] MEDS: HYDROCHLOROTHIAZIDE 25 MG TABLET (FP) PO SCH (09:49)
[2021-05-30] MEDS: ASPIRIN 81 MG CHEWABLE TABLETS PO SCH (09:50)
[2021-05-30] MEDS: LISINOPRIL 20 MG TABLET PO SCH (09:50)
[2021-05-30] MEDS: ATORVASTATIN CA 20 MG TABLET (FP) PO SCH (21:22)
[2021-05-30] MEDS: traZODone HCL 50 MG TABLET (FP) PO SCH (21:22)
[2021-05-30] MEDS: THIAMINE HCL 100 MG TABLET (FP) PO SCH (21:22)
[2021-05-30] MEDS: DOCUSATE SODIUM 100 MG CAPSULE (FP) PO SCH (21:22)
[2021-05-30] MEDS: MELATONIN 5 MG TABLETS PO SCH (21:22)
[2021-05-31] MEDS: FAMOTIDINE 20 MG TABLET PO SCH (10:47)
[2021-05-31] MEDS: HYDROCHLOROTHIAZIDE 25 MG TABLET (FP) PO SCH (10:48)
[2021-05-31] MEDS: NICOTINE 7 MG/24 HOURS TOPICAL PATCH TD SCH (10:48)
[2021-05-31] MEDS: amLODIPine BESYLATE 10 MG TABLET (FP) PO SCH (10:48)
[2021-05-31] MEDS: PRENATAL VITAMINS W/ FOLIC ACID TABLET (FP) PO SCH (10:48)
[2021-05-31] MEDS: METHOCARBAMOL 500 MG TABLET PO SCH ×4 (10:49→23:08)
[2021-05-31] MEDS: ASPIRIN 81 MG CHEWABLE TABLETS PO SCH (11:01)
[2021-05-31] MEDS: LISINOPRIL 20 MG TABLET PO SCH (11:01)
[2021-05-31] MEDS: MELATONIN 5 MG TABLETS PO SCH (23:08)
[2021-05-31] MEDS: ATORVASTATIN CA 20 MG TABLET (FP) PO SCH (23:08)
[2021-05-31] MEDS: DOCUSATE SODIUM 100 MG CAPSULE (FP) PO SCH (23:08)
[2021-05-31] MEDS: traZODone HCL 50 MG TABLET (FP) PO SCH (23:08)
[2021-05-31] MEDS: THIAMINE HCL 100 MG TABLET (FP) PO SCH (23:09)
[2021-06-01] MEDS: PRENATAL VITAMINS W/ FOLIC ACID TABLET (FP) PO SCH (10:32)
[2021-06-01] MEDS: LISINOPRIL 20 MG TABLET PO SCH (10:32)
[2021-06-01] MEDS: FAMOTIDINE 20 MG TABLET PO SCH (10:32)
[2021-06-01] MEDS: HYDROCHLOROTHIAZIDE 25 MG TABLET (FP) PO SCH (10:33)
[2021-06-01] MEDS: METHOCARBAMOL 500 MG TABLET PO SCH ×4 (10:33→21:11)
[2021-06-01] MEDS: amLODIPine BESYLATE 10 MG TABLET (FP) PO SCH (10:33)
[2021-06-01] MEDS: ASPIRIN 81 MG CHEWABLE TABLETS PO SCH (10:33)
[2021-06-01] MEDS: NICOTINE 7 MG/24 HOURS TOPICAL PATCH TD SCH (10:34)
[2021-06-01] MEDS: traZODone HCL 50 MG TABLET (FP) PO SCH (21:11)
[2021-06-01] MEDS: THIAMINE HCL 100 MG TABLET (FP) PO SCH (21:11)
[2021-06-01] MEDS: DOCUSATE SODIUM 100 MG CAPSULE (FP) PO SCH (21:11)
[2021-06-01] MEDS: ATORVASTATIN CA 20 MG TABLET (FP) PO SCH (21:11)
[2021-06-01] MEDS: MELATONIN 5 MG TABLETS PO SCH (21:11)
[2021-06-02 07:32] VITALS: TEMP 98.2
[2021-06-02] MEDS: amLODIPine BESYLATE 10 MG TABLET (FP) PO SCH (09:27)
[2021-06-02] MEDS: ASPIRIN 81 MG CHEWABLE TABLETS PO SCH (09:27)
[2021-06-02] MEDS: FAMOTIDINE 20 MG TABLET PO SCH (09:27)
[2021-06-02] MEDS: PRENATAL VITAMINS W/ FOLIC ACID TABLET (FP) PO SCH (09:27)
[2021-06-02] MEDS: LISINOPRIL 20 MG TABLET PO SCH (09:27)
[2021-06-02] MEDS: METHOCARBAMOL 500 MG TABLET PO SCH (09:27)
[2021-06-02] MEDS: HYDROCHLOROTHIAZIDE 25 MG TABLET (FP) PO SCH (09:27)
[2021-06-02] MEDS: NICOTINE 7 MG/24 HOURS TOPICAL PATCH TD SCH (09:28)
[2021-06-02 15:01] VITALS: BP 127/83; PULSE 82
== END 2021-06-02 09:35 | disposition home or self-care (01) | DRG 772 ==
LOC: YASAS 11:53 → Y3W 11:54
PROVIDERS: ADMIT Allergy & Immunology; ATTEND Allergy & Immunology
PROC: HZ42ZZZ Group Counseling for Substance Abuse Treatment, Cognitive-Behavioral (ICD-10-PCS; principal; 2021-05-19)
DX: F10.20 Alcohol dependence, uncomplicated (principal); F14.20 Cocaine dependence, uncomplicated; F17.210 Nicotine dependence, cigarettes, uncomplicated; I10 Essential (primary) hypertension; E11.9 Type 2 diabetes mellitus without complications; R79.89 Other specified abnormal findings of blood chemistry; E78.5 Hyperlipidemia, unspecified; K21.9 Gastro-esophageal reflux disease without esophagitis
CPT/HCPCS: 36415; 80053; 82962; C9803; U0003; U0005

== ENCOUNTER 2021-09-04 08:29 | Inpatient (IN) | payer OTHER ==
[2021-09-04 09:24] VITALS: BMI 38.6
[2021-09-04] MEDS ORDERED: BISMUTH SUBSALICYLATE 524 MG/30 ML PO PRN (09:59)
[2021-09-04] MEDS ORDERED: LOPERAMIDE HCL 2 MG CAPSULE PO PRN (09:59)
[2021-09-04] MEDS ORDERED: LORazepam 2 MG TABLET PO ONE (09:59)
[2021-09-04] MEDS ORDERED: MAGNESIUM CITRATE 300 ML BOTTLE PO PRN (09:59)
[2021-09-04] MEDS ORDERED: ACETAMINOPHEN 325 MG TABLET (FP) PO PRN ×2 (09:59)
[2021-09-04] MEDS ORDERED: BENZOCAINE/MENTHOL (CHLORASEPTIC ) LOZENGE MM PRN (09:59)
[2021-09-04] MEDS ORDERED: MAG HYDROX/AL HYDROX/SIMETH 30 ML UNIT-DOSE CUP PO PRN (09:59)
[2021-09-04] MEDS ORDERED: LORazepam 1 MG TABLET PO PRN (09:59)
[2021-09-04] MEDS ORDERED: ONDANSETRON *ODT* 4 MG TABLET SL PRN (09:59)
[2021-09-04] MEDS ORDERED: MAGNESIUM HYDROX 2400MG/30ML ORAL SUSPENSION 30 ML CUP PO PRN (09:59)
[2021-09-04] MEDS ORDERED: DICYCLOMINE HCL 10 MG CAPSULE PO PRN (09:59)
[2021-09-04] MEDS: hydrOXYzine PAMOATE 25 MG CAPSULE (FP) PO SCH ×4 (11:29→23:00)
[2021-09-04] MEDS: PRENATAL VITAMINS W/ FOLIC ACID TABLET (FP) PO SCH (11:29)
[2021-09-04] MEDS: LORazepam 2 MG TABLET PO SCH ×2 (18:10→23:00)
[2021-09-04] MEDS: NICOTINE 10 MG CARTRIDGE (INHALER) IH PRN (20:46)
[2021-09-04] MEDS: MELATONIN 5 MG TABLETS PO SCH (23:00)
[2021-09-04] MEDS: THIAMINE HCL 100 MG TABLET (FP) PO SCH (23:00)
[2021-09-04] MEDS: METHOCARBAMOL 500 MG TABLET PO PRN (23:03)
[2021-09-05] MEDS: METHOCARBAMOL 500 MG TABLET PO PRN (06:35)
[2021-09-05] MEDS: LORazepam 2 MG TABLET PO SCH ×4 (06:35→23:17)
[2021-09-05] MEDS: hydrOXYzine PAMOATE 25 MG CAPSULE (FP) PO SCH ×5 (06:39→23:14)
[2021-09-05] MEDS: HYDROCHLOROTHIAZIDE 25 MG TABLET (FP) PO SCH (09:29)
[2021-09-05] MEDS: amLODIPine BESYLATE 10 MG TABLET (FP) PO SCH (09:29)
[2021-09-05] MEDS ORDERED: LISINOPRIL 20 MG TABLET PO ONE (10:00)
[2021-09-05] MEDS: PRENATAL VITAMINS W/ FOLIC ACID TABLET (FP) PO SCH (10:34)
[2021-09-05] MEDS: ASPIRIN 81 MG CHEWABLE TABLETS PO SCH (10:34)
[2021-09-05] MEDS: FAMOTIDINE 20 MG TABLET PO SCH (10:34)
[2021-09-05 11:57] LABS: HEMOGLOBIN 14.3 GM/dL (11.7-16.9); MCH 26.3 pg (25.7-33.7); MCHC 32.5 g/dl (32.0-35.9); MEAN CELL VOLUME 80.7 fl (80-96); MEAN PLT VOLUME 9.2 fl (7.5-11.1); PLATELET COUNT 209 10^3/uL (134-434); RBC 5.46 M/mm3 (4.00-5.60); RDW 16.2 % (11.9-15.9)
[2021-09-05 12:01] LABS: ALBUMIN 2.9 g/dl (3.4-5.0); BLOOD UREA NITROGEN 30.7 mg/dL (7-18)
[2021-09-05 12:04] LABS: CREATININE 1.7 mg/dL (0.55-1.3)
[2021-09-05 12:05] LABS: TOT PROT 6.2 g/dl (6.4-8.2)
[2021-09-05 12:06] LABS: BILIRUBIN,TOTAL 0.1 mg/dL (0.2-1)
[2021-09-05] MEDS: NICOTINE 10 MG CARTRIDGE (INHALER) IH PRN (17:54)
[2021-09-05] MEDS ORDERED: amLODIPine BESYLATE 10 MG TABLET (FP) PO ONE (22:36)
[2021-09-05] MEDS ORDERED: HYDROCHLOROTHIAZIDE 25 MG TABLET (FP) PO ONE (22:37)
[2021-09-05] MEDS: ATORVASTATIN CA 20 MG TABLET (FP) PO SCH (23:14)
[2021-09-05] MEDS: THIAMINE HCL 100 MG TABLET (FP) PO SCH (23:14)
[2021-09-05] MEDS: MELATONIN 5 MG TABLETS PO SCH (23:14)
[2021-09-06] MEDS: hydrOXYzine PAMOATE 25 MG CAPSULE (FP) PO SCH ×5 (05:20→22:10)
[2021-09-06] MEDS: LORazepam 1 MG TABLET PO SCH ×4 (05:20→22:10)
[2021-09-06] MEDS: PRENATAL VITAMINS W/ FOLIC ACID TABLET (FP) PO SCH ×2 (10:19→12:09)
[2021-09-06] MEDS: ASPIRIN 81 MG CHEWABLE TABLETS PO SCH ×2 (10:19→12:10)
[2021-09-06] MEDS: FAMOTIDINE 20 MG TABLET PO SCH ×2 (10:19→12:10)
[2021-09-06] MEDS: amLODIPine BESYLATE 10 MG TABLET (FP) PO SCH ×2 (10:20→12:10)
[2021-09-06] MEDS: HYDROCHLOROTHIAZIDE 25 MG TABLET (FP) PO SCH ×2 (10:20→12:10)
[2021-09-06] MEDS: LISINOPRIL 20 MG TABLET PO SCH (12:11)
[2021-09-06] MEDS: NICOTINE 10 MG CARTRIDGE (INHALER) IH PRN (13:13)
[2021-09-06] MEDS: ATORVASTATIN CA 20 MG TABLET (FP) PO SCH (22:10)
[2021-09-06] MEDS: MELATONIN 5 MG TABLETS PO SCH (22:10)
[2021-09-06] MEDS: THIAMINE HCL 100 MG TABLET (FP) PO SCH (22:11)
[2021-09-07] MEDS ORDERED: LORazepam 0.5 MG TABLET PO PRN
[2021-09-07] MEDS: LORazepam 0.5 MG TABLET PO SCH ×4 (07:02→22:25)
[2021-09-07] MEDS: hydrOXYzine PAMOATE 25 MG CAPSULE (FP) PO SCH ×5 (07:02→22:24)
[2021-09-07 10:17] LABS: CREATININE 1.7 mg/dL (0.55-1.3)
[2021-09-07] MEDS: LISINOPRIL 20 MG TABLET PO SCH (10:21)
[2021-09-07] MEDS: ASPIRIN 81 MG CHEWABLE TABLETS PO SCH (10:21)
[2021-09-07] MEDS: HYDROCHLOROTHIAZIDE 25 MG TABLET (FP) PO SCH (10:21)
[2021-09-07] MEDS: PRENATAL VITAMINS W/ FOLIC ACID TABLET (FP) PO SCH (10:21)
[2021-09-07] MEDS: amLODIPine BESYLATE 10 MG TABLET (FP) PO SCH (10:21)
[2021-09-07] MEDS: FAMOTIDINE 20 MG TABLET PO SCH (10:21)
[2021-09-07] MEDS: THIAMINE HCL 100 MG TABLET (FP) PO SCH (22:24)
[2021-09-07] MEDS: MELATONIN 5 MG TABLETS PO SCH (22:25)
[2021-09-07] MEDS: ATORVASTATIN CA 20 MG TABLET (FP) PO SCH (22:25)
[2021-09-08] MEDS ORDERED: LORazepam 0.5 MG TABLET PO ONE (05:00)
[2021-09-08] MEDS: hydrOXYzine PAMOATE 25 MG CAPSULE (FP) PO SCH ×2 (06:16→10:19)
[2021-09-08 09:30] VITALS: BP 120/58; PULSE 68; TEMP 97.3
[2021-09-08] MEDS: FAMOTIDINE 20 MG TABLET PO SCH (10:19)
[2021-09-08] MEDS: PRENATAL VITAMINS W/ FOLIC ACID TABLET (FP) PO SCH (10:19)
[2021-09-08] MEDS: ASPIRIN 81 MG CHEWABLE TABLETS PO SCH (10:19)
[2021-09-08] MEDS: amLODIPine BESYLATE 10 MG TABLET (FP) PO SCH (10:20)
[2021-09-08] MEDS: LISINOPRIL 20 MG TABLET PO SCH (10:20)
[2021-09-08] MEDS: HYDROCHLOROTHIAZIDE 25 MG TABLET (FP) PO SCH (10:20)
== END 2021-09-08 11:30 | disposition home or self-care (01) | DRG 774 ==
LOC: YASAS 08:29 → Y3N 10:53
PROVIDERS: ADMIT Allergy & Immunology; ATTEND Surgery
PROC: HZ2ZZZZ Detoxification Services for Substance Abuse Treatment (ICD-10-PCS; principal; 2021-09-04)
DX: F10.230 Alcohol dependence with withdrawal, uncomplicated (principal); F14.20 Cocaine dependence, uncomplicated; F12.20 Cannabis dependence, uncomplicated; F17.210 Nicotine dependence, cigarettes, uncomplicated; E13.22 Other specified diabetes mellitus with diabetic chronic kidney disease; I12.9 Hypertensive chronic kidney disease with stage 1 through stage 4 chronic kidney disease, or unspecified chronic kidney disease; N18.31 Chronic kidney disease, stage 3a; K21.9 Gastro-esophageal reflux disease without esophagitis; E11.9 Type 2 diabetes mellitus without complications; E78.5 Hyperlipidemia, unspecified; G47.33 Obstructive sleep apnea (adult) (pediatric); E66.01 Morbid (severe) obesity due to excess calories; Z68.38 Body mass index [BMI] 38.0-38.9, adult
CPT/HCPCS: 36415; 80053; 82565; 82947; 82962; 84520; 85027; 86780; C9803-CS; U0003; U0005

== ENCOUNTER 2021-11-11 09:14 | Inpatient (IN) | payer OTHER ==
[2021-11-11 09:35] VITALS: BMI 37.7
[2021-11-11] MEDS ORDERED: BISMUTH SUBSALICYLATE 262 MG/15 ML BTL PO PRN (10:49)
[2021-11-11] MEDS ORDERED: LOPERAMIDE HCL 2 MG CAPSULE PO PRN (10:49)
[2021-11-11] MEDS ORDERED: BENZOCAINE/MENTHOL (CHLORASEPTIC ) LOZENGE MM PRN (10:49)
[2021-11-11] MEDS ORDERED: ACETAMINOPHEN 325 MG TABLET (FP) PO PRN ×2 (10:49)
[2021-11-11] MEDS ORDERED: IBUPROFEN 600 MG TABLET (FP) PO PRN (10:49)
[2021-11-11] MEDS ORDERED: MAG HYDROX/AL HYDROX/SIMETH 30 ML UNIT-DOSE CUP PO PRN (10:49)
[2021-11-11] MEDS ORDERED: MAGNESIUM CITRATE 300 ML BOTTLE PO PRN (10:49)
[2021-11-11] MEDS ORDERED: chlordiazePOXIDE HCL 25 MG CAPSULE PO PRN (10:49)
[2021-11-11] MEDS ORDERED: ONDANSETRON *ODT* 4 MG TABLET SL PRN (10:49)
[2021-11-11] MEDS ORDERED: IBUPROFEN 400 MG TABLET (FP) PO PRN (10:49)
[2021-11-11] MEDS ORDERED: DICYCLOMINE HCL 10 MG CAPSULE PO PRN (10:49)
[2021-11-11] MEDS: PRENATAL VITAMINS W/ FOLIC ACID TABLET (FP) PO SCH (12:32)
[2021-11-11] MEDS: hydrOXYzine PAMOATE 25 MG CAPSULE (FP) PO SCH ×3 (14:44→23:04)
[2021-11-11 15:46] LABS: HEMATOCRIT 42.6 % (35.4-49); HEMOGLOBIN 13.9 GM/dL (11.7-16.9); MCHC 32.6 g/dl (32.0-35.9); MEAN CELL VOLUME 79.6 fl (80-96); MEAN PLT VOLUME 9.3 fl (7.5-11.1); PLATELET COUNT 221 10^3/uL (134-434); RBC 5.35 M/mm3 (4.00-5.60); RDW 16.8 % (11.9-15.9); WHITE BLOOD COUNT 9.7 K/mm3 (4.0-10.0)
[2021-11-11 16:58] LABS: BLOOD UREA NITROGEN 29.5 mg/dL (7-18); CALCIUM 8.8 mg/dL (8.5-10.1)
[2021-11-11 17:01] LABS: CREATININE 1.8 mg/dL (0.55-1.3)
[2021-11-11 17:03] LABS: BILIRUBIN,TOTAL 0.2 mg/dL (0.2-1); TOT PROT 6.5 g/dl (6.4-8.2)
[2021-11-11] MEDS: chlordiazePOXIDE HCL 25 MG CAPSULE PO SCH ×2 (18:33→23:05)
[2021-11-11] MEDS: METHOCARBAMOL 500 MG TABLET PO PRN (18:33)
[2021-11-11] MEDS: MAGNESIUM HYDROX 2400MG/30ML ORAL SUSPENSION 30 ML CUP PO PRN (18:37)
[2021-11-11] MEDS: guaiFENesin 200 MG/10 ML 10 ML UNIT-DOSE CUPS PO PRN (18:37)
[2021-11-11] MEDS: THIAMINE HCL 100 MG TABLET (FP) PO SCH (23:04)
[2021-11-11] MEDS: ATORVASTATIN CA 20 MG TABLET (FP) PO SCH (23:04)
[2021-11-11] MEDS: MELATONIN 5 MG TABLETS PO SCH (23:04)
[2021-11-12] MEDS: chlordiazePOXIDE HCL 25 MG CAPSULE PO SCH ×4 (07:22→23:27)
[2021-11-12] MEDS: hydrOXYzine PAMOATE 25 MG CAPSULE (FP) PO SCH ×5 (07:23→23:27)
[2021-11-12] MEDS: metFORMIN HCL 500 MG TABLET (FP) PO SCH (07:32)
[2021-11-12] MEDS: ASPIRIN 81 MG CHEWABLE TABLETS PO SCH (10:41)
[2021-11-12] MEDS: amLODIPine BESYLATE 10 MG TABLET (FP) PO SCH (10:41)
[2021-11-12] MEDS: PRENATAL VITAMINS W/ FOLIC ACID TABLET (FP) PO SCH (10:41)
[2021-11-12] MEDS: HYDROCHLOROTHIAZIDE 25 MG TABLET (FP) PO SCH (10:42)
[2021-11-12] MEDS: LISINOPRIL 20 MG TABLET PO SCH (10:42)
[2021-11-12] MEDS: FAMOTIDINE 20 MG TABLET PO SCH (10:43)
[2021-11-12 13:11] LABS: HIV INTERPRETATION NEGATIVE (NEGATIVE)
[2021-11-12] MEDS: ATORVASTATIN CA 20 MG TABLET (FP) PO SCH (23:26)
[2021-11-12] MEDS: MELATONIN 5 MG TABLETS PO SCH (23:26)
[2021-11-12] MEDS: THIAMINE HCL 100 MG TABLET (FP) PO SCH (23:27)
[2021-11-13] MEDS: chlordiazePOXIDE HCL 25 MG CAPSULE PO SCH ×4 (05:32→22:49)
[2021-11-13] MEDS: hydrOXYzine PAMOATE 25 MG CAPSULE (FP) PO SCH ×5 (05:36→22:49)
[2021-11-13] MEDS: metFORMIN HCL 500 MG TABLET (FP) PO SCH (08:40)
[2021-11-13] MEDS: LISINOPRIL 20 MG TABLET PO SCH (10:13)
[2021-11-13] MEDS: PRENATAL VITAMINS W/ FOLIC ACID TABLET (FP) PO SCH (10:13)
[2021-11-13] MEDS: HYDROCHLOROTHIAZIDE 25 MG TABLET (FP) PO SCH (10:14)
[2021-11-13] MEDS: FAMOTIDINE 20 MG TABLET PO SCH (10:14)
[2021-11-13] MEDS: amLODIPine BESYLATE 10 MG TABLET (FP) PO SCH (10:14)
[2021-11-13] MEDS: ASPIRIN 81 MG CHEWABLE TABLETS PO SCH (10:14)
[2021-11-13] MEDS: guaiFENesin 200 MG/10 ML 10 ML UNIT-DOSE CUPS PO PRN (10:15)
[2021-11-13] MEDS: MAGNESIUM HYDROX 2400MG/30ML ORAL SUSPENSION 30 ML CUP PO PRN (10:21)
[2021-11-13] MEDS: NICOTINE 10 MG CARTRIDGE (INHALER) IH PRN (17:36)
[2021-11-13] MEDS: ATORVASTATIN CA 20 MG TABLET (FP) PO SCH (22:49)
[2021-11-13] MEDS: MELATONIN 5 MG TABLETS PO SCH (22:49)
[2021-11-13] MEDS: THIAMINE HCL 100 MG TABLET (FP) PO SCH (22:49)
[2021-11-14] MEDS ORDERED: chlordiazePOXIDE HCL 10 MG CAPSULE PO PRN
[2021-11-14] MEDS: chlordiazePOXIDE HCL 10 MG CAPSULE PO SCH ×4 (05:53→22:55)
[2021-11-14] MEDS: hydrOXYzine PAMOATE 25 MG CAPSULE (FP) PO SCH ×5 (05:54→22:55)
[2021-11-14] MEDS: metFORMIN HCL 500 MG TABLET (FP) PO SCH (07:39)
[2021-11-14] MEDS: HYDROCHLOROTHIAZIDE 25 MG TABLET (FP) PO SCH (10:48)
[2021-11-14] MEDS: amLODIPine BESYLATE 10 MG TABLET (FP) PO SCH (10:48)
[2021-11-14] MEDS: FAMOTIDINE 20 MG TABLET PO SCH (10:48)
[2021-11-14] MEDS: PRENATAL VITAMINS W/ FOLIC ACID TABLET (FP) PO SCH (10:48)
[2021-11-14] MEDS: LISINOPRIL 20 MG TABLET PO SCH (10:48)
[2021-11-14] MEDS: ASPIRIN 81 MG CHEWABLE TABLETS PO SCH (10:48)
[2021-11-14] MEDS: guaiFENesin 200 MG/10 ML 10 ML UNIT-DOSE CUPS PO PRN (10:50)
[2021-11-14] MEDS: NICOTINE 10 MG CARTRIDGE (INHALER) IH PRN ×2 (10:54→20:58)
[2021-11-14] MEDS: METHOCARBAMOL 500 MG TABLET PO PRN (18:32)
[2021-11-14] MEDS: ATORVASTATIN CA 20 MG TABLET (FP) PO SCH (22:55)
[2021-11-14] MEDS: MELATONIN 5 MG TABLETS PO SCH (22:55)
[2021-11-14] MEDS: THIAMINE HCL 100 MG TABLET (FP) PO SCH ×2 (22:55→22:58)
[2021-11-15] MEDS ORDERED: chlordiazePOXIDE HCL 10 MG CAPSULE PO SCH (05:00)
[2021-11-15 07:16] VITALS: BP 114/77; PULSE 71; RESP 18; TEMP 97.1
[2021-11-15] MEDS: metFORMIN HCL 500 MG TABLET (FP) PO SCH (07:17)
[2021-11-15] MEDS: hydrOXYzine PAMOATE 25 MG CAPSULE (FP) PO SCH (07:18)
[2021-11-16] MEDS ORDERED: chlordiazePOXIDE HCL 10 MG CAPSULE PO ONE (05:00)
== END 2021-11-15 08:53 | disposition left against medical advice (07) | DRG 774 ==
LOC: YASAS 09:14 → Y6N 11:24
PROVIDERS: ADMIT Allergy & Immunology; ATTEND Surgery
PROC: HZ2ZZZZ Detoxification Services for Substance Abuse Treatment (ICD-10-PCS; principal; 2021-11-11)
DX: F10.230 Alcohol dependence with withdrawal, uncomplicated (principal); F14.20 Cocaine dependence, uncomplicated; F17.210 Nicotine dependence, cigarettes, uncomplicated; F32.A Depression, unspecified; E78.00 Pure hypercholesterolemia, unspecified; I12.9 Hypertensive chronic kidney disease with stage 1 through stage 4 chronic kidney disease, or unspecified chronic kidney disease; E11.22 Type 2 diabetes mellitus with diabetic chronic kidney disease; N18.30 Chronic kidney disease, stage 3 unspecified; Z79.4 Long term (current) use of insulin; K21.9 Gastro-esophageal reflux disease without esophagitis; E66.9 Obesity, unspecified; Z68.37 Body mass index [BMI] 37.0-37.9, adult; Z28.311 Partially vaccinated for COVID-19; F91.8 Other conduct disorders; Z91.19 Patient's noncompliance with other medical treatment and regimen
CPT/HCPCS: 36415; 80053; 82962; 85027; 86780; 87389; C9803-CS; U0003; U0005

== ENCOUNTER 2022-01-13 10:44 | Inpatient (IN) | payer OTHER ==
[2022-01-13 12:22] VITALS: BMI 39.8
[2022-01-13] MEDS ORDERED: BISMUTH SUBSALICYLATE 524 MG/30 ML PO PRN (12:57)
[2022-01-13] MEDS ORDERED: chlordiazePOXIDE HCL 25 MG CAPSULE PO PRN (12:57)
[2022-01-13] MEDS ORDERED: IBUPROFEN 600 MG TABLET (FP) PO PRN (12:57)
[2022-01-13] MEDS ORDERED: LOPERAMIDE HCL 2 MG CAPSULE PO PRN (12:57)
[2022-01-13] MEDS ORDERED: IBUPROFEN 400 MG TABLET (FP) PO PRN (12:57)
[2022-01-13] MEDS ORDERED: ACETAMINOPHEN 325 MG TABLET (FP) PO PRN ×2 (12:57)
[2022-01-13] MEDS ORDERED: MAG HYDROX/AL HYDROX/SIMETH 30 ML UNIT-DOSE CUP PO PRN (12:57)
[2022-01-13] MEDS ORDERED: NALOXONE HCL (KLOXXADO) 8 MG SPRAY NS PRN (12:57)
[2022-01-13] MEDS ORDERED: DICYCLOMINE HCL 10 MG CAPSULE PO PRN (12:57)
[2022-01-13] MEDS ORDERED: ONDANSETRON *ODT* 4 MG TABLET SL PRN (12:57)
[2022-01-13] MEDS ORDERED: MAGNESIUM HYDROX 2400MG/30ML ORAL SUSPENSION 30 ML CUP PO PRN (12:57)
[2022-01-13] MEDS ORDERED: METHOCARBAMOL 500 MG TABLET PO PRN (12:57)
[2022-01-13] MEDS ORDERED: MAGNESIUM CITRATE 300 ML BOTTLE PO PRN (12:57)
[2022-01-13] MEDS ORDERED: BENZOCAINE/MENTHOL (CHLORASEPTIC ) LOZENGE MM PRN (12:57)
[2022-01-13] MEDS ORDERED: chlordiazePOXIDE HCL 25 MG CAPSULE ONE (13:23)
[2022-01-13] MEDS ORDERED: chlordiazePOXIDE HCL 25 MG CAPSULE PO ONE (13:30)
[2022-01-13] MEDS: NICOTINE 14 MG/24 HOURS TOPICAL PATCH TD SCH (13:45)
[2022-01-13] MEDS: PRENATAL VITAMINS W/ FOLIC ACID TABLET (FP) PO SCH (14:16)
[2022-01-13] MEDS: chlordiazePOXIDE HCL 25 MG CAPSULE PO SCH ×2 (17:17→22:22)
[2022-01-13] MEDS: MELATONIN 5 MG TABLETS PO SCH (22:22)
[2022-01-13] MEDS: hydrOXYzine PAMOATE 25 MG CAPSULE (FP) PO PRN (22:22)
[2022-01-13] MEDS: THIAMINE HCL 100 MG TABLET (FP) PO SCH (22:22)
[2022-01-14] MEDS: chlordiazePOXIDE HCL 25 MG CAPSULE PO SCH ×4 (05:49→22:25)
[2022-01-14] MEDS: hydrOXYzine PAMOATE 25 MG CAPSULE (FP) PO PRN (05:50)
[2022-01-14 09:53] LABS: HEMATOCRIT 43.5 % (35.4-49); HEMOGLOBIN 13.9 GM/dL (11.7-16.9); MCH 25.7 pg (25.7-33.7); MCHC 31.9 g/dl (32.0-35.9); MEAN CELL VOLUME 80.6 fl (80-96); MEAN PLT VOLUME 9.4 fl (7.5-11.1); PLATELET COUNT 213 10^3/uL (134-434); RBC 5.39 M/mm3 (4.00-5.60); RDW 17.7 % (11.9-15.9); WHITE BLOOD COUNT 6.1 K/mm3 (4.0-10.0)
[2022-01-14 10:14] LABS: CALCIUM 8.6 mg/dL (8.5-10.1)
[2022-01-14 10:15] LABS: ALBUMIN 2.6 g/dl (3.4-5.0); BLOOD UREA NITROGEN 21.1 mg/dL (7-18)
[2022-01-14 10:17] LABS: CREATININE 1.4 mg/dL (0.55-1.3)
[2022-01-14 10:19] LABS: TOT PROT 5.6 g/dl (6.4-8.2)
[2022-01-14 10:20] LABS: BILIRUBIN,TOTAL 0.3 mg/dL (0.2-1)
[2022-01-14] MEDS: NICOTINE 14 MG/24 HOURS TOPICAL PATCH TD SCH (10:33)
[2022-01-14] MEDS: PRENATAL VITAMINS W/ FOLIC ACID TABLET (FP) PO SCH (10:36)
[2022-01-14] MEDS: ASPIRIN 81 MG CHEWABLE TABLETS PO SCH (11:17)
[2022-01-14] MEDS: FAMOTIDINE 20 MG TABLET PO SCH (11:17)
[2022-01-14] MEDS: metFORMIN HCL 500 MG TABLET (FP) PO SCH (11:17)
[2022-01-14] MEDS: HYDROCHLOROTHIAZIDE 25 MG TABLET (FP) PO SCH (11:17)
[2022-01-14] MEDS: amLODIPine BESYLATE 10 MG TABLET (FP) PO SCH (11:17)
[2022-01-14 11:58] LABS: HIV INTERPRETATION NEGATIVE (NEGATIVE)
[2022-01-14] MEDS: THIAMINE HCL 100 MG TABLET (FP) PO SCH (22:24)
[2022-01-14] MEDS: ATORVASTATIN CA 20 MG TABLET (FP) PO SCH (22:24)
[2022-01-14] MEDS: traZODone HCL 50 MG TABLET (FP) PO SCH (22:24)
[2022-01-14] MEDS: MELATONIN 5 MG TABLETS PO SCH (22:25)
[2022-01-15] MEDS: chlordiazePOXIDE HCL 25 MG CAPSULE PO SCH ×4 (05:45→22:57)
[2022-01-15] MEDS: NICOTINE 10 MG CARTRIDGE (INHALER) IH PRN ×2 (07:14→12:23)
[2022-01-15] MEDS: HYDROCHLOROTHIAZIDE 25 MG TABLET (FP) PO SCH (12:22)
[2022-01-15] MEDS: amLODIPine BESYLATE 10 MG TABLET (FP) PO SCH (12:22)
[2022-01-15] MEDS: LISINOPRIL 20 MG TABLET PO SCH (12:22)
[2022-01-15] MEDS: ASPIRIN 81 MG CHEWABLE TABLETS PO SCH (12:23)
[2022-01-15] MEDS: FAMOTIDINE 20 MG TABLET PO SCH (12:23)
[2022-01-15] MEDS: metFORMIN HCL 500 MG TABLET (FP) PO SCH (12:23)
[2022-01-15] MEDS: NICOTINE 14 MG/24 HOURS TOPICAL PATCH TD SCH (12:23)
[2022-01-15] MEDS: PRENATAL VITAMINS W/ FOLIC ACID TABLET (FP) PO SCH (12:24)
[2022-01-15] MEDS: traZODone HCL 50 MG TABLET (FP) PO SCH (22:58)
[2022-01-15] MEDS: ATORVASTATIN CA 20 MG TABLET (FP) PO SCH (22:58)
[2022-01-15] MEDS: MELATONIN 5 MG TABLETS PO SCH (22:58)
[2022-01-15] MEDS: THIAMINE HCL 100 MG TABLET (FP) PO SCH (22:58)
[2022-01-16] MEDS ORDERED: chlordiazePOXIDE HCL 10 MG CAPSULE PO PRN
[2022-01-16] MEDS: chlordiazePOXIDE HCL 10 MG CAPSULE PO SCH ×4 (06:03→23:13)
[2022-01-16] MEDS: LISINOPRIL 20 MG TABLET PO SCH (10:43)
[2022-01-16] MEDS: ASPIRIN 81 MG CHEWABLE TABLETS PO SCH (10:43)
[2022-01-16] MEDS: amLODIPine BESYLATE 10 MG TABLET (FP) PO SCH (10:43)
[2022-01-16] MEDS: metFORMIN HCL 500 MG TABLET (FP) PO SCH (10:43)
[2022-01-16] MEDS: PRENATAL VITAMINS W/ FOLIC ACID TABLET (FP) PO SCH (10:43)
[2022-01-16] MEDS: HYDROCHLOROTHIAZIDE 25 MG TABLET (FP) PO SCH (10:43)
[2022-01-16] MEDS: FAMOTIDINE 20 MG TABLET PO SCH (10:43)
[2022-01-16] MEDS: NICOTINE 14 MG/24 HOURS TOPICAL PATCH TD SCH (10:46)
[2022-01-16] MEDS: NICOTINE 10 MG CARTRIDGE (INHALER) IH PRN (13:10)
[2022-01-16] MEDS: traZODone HCL 50 MG TABLET (FP) PO SCH (22:54)
[2022-01-16] MEDS: ATORVASTATIN CA 20 MG TABLET (FP) PO SCH (22:54)
[2022-01-16] MEDS: THIAMINE HCL 100 MG TABLET (FP) PO SCH (22:55)
[2022-01-16] MEDS: MELATONIN 5 MG TABLETS PO SCH (23:15)
[2022-01-17] MEDS: chlordiazePOXIDE HCL 10 MG CAPSULE PO SCH ×3 (05:50→18:48)
[2022-01-17] MEDS: FAMOTIDINE 20 MG TABLET PO SCH (10:34)
[2022-01-17] MEDS: amLODIPine BESYLATE 10 MG TABLET (FP) PO SCH (10:34)
[2022-01-17] MEDS: metFORMIN HCL 500 MG TABLET (FP) PO SCH (10:34)
[2022-01-17] MEDS: ASPIRIN 81 MG CHEWABLE TABLETS PO SCH (10:34)
[2022-01-17] MEDS: LISINOPRIL 20 MG TABLET PO SCH (10:34)
[2022-01-17] MEDS: PRENATAL VITAMINS W/ FOLIC ACID TABLET (FP) PO SCH (10:34)
[2022-01-17] MEDS: HYDROCHLOROTHIAZIDE 25 MG TABLET (FP) PO SCH (10:34)
[2022-01-17] MEDS: NICOTINE 14 MG/24 HOURS TOPICAL PATCH TD SCH (10:37)
[2022-01-17] MEDS ORDERED: chlordiazePOXIDE HCL 10 MG CAPSULE PO SCH (18:30)
[2022-01-17] MEDS: traZODone HCL 50 MG TABLET (FP) PO SCH (23:10)
[2022-01-17] MEDS: THIAMINE HCL 100 MG TABLET (FP) PO SCH (23:10)
[2022-01-17] MEDS: ATORVASTATIN CA 20 MG TABLET (FP) PO SCH (23:10)
[2022-01-17] MEDS: MELATONIN 5 MG TABLETS PO SCH (23:10)
[2022-01-17] MEDS: hydrOXYzine PAMOATE 25 MG CAPSULE (FP) PO PRN (23:12)
[2022-01-18] MEDS ORDERED: chlordiazePOXIDE HCL 10 MG CAPSULE PO ONE (05:00)
[2022-01-18 09:00] VITALS: BP 146/88; PULSE 92; RESP 16; TEMP 97.5
[2022-01-18] MEDS: metFORMIN HCL 500 MG TABLET (FP) PO SCH (10:22)
[2022-01-18] MEDS: amLODIPine BESYLATE 10 MG TABLET (FP) PO SCH (10:22)
[2022-01-18] MEDS: ASPIRIN 81 MG CHEWABLE TABLETS PO SCH (10:22)
[2022-01-18] MEDS: HYDROCHLOROTHIAZIDE 25 MG TABLET (FP) PO SCH (10:22)
[2022-01-18] MEDS: FAMOTIDINE 20 MG TABLET PO SCH (10:22)
[2022-01-18] MEDS: LISINOPRIL 20 MG TABLET PO SCH (10:23)
[2022-01-18] MEDS: NICOTINE 14 MG/24 HOURS TOPICAL PATCH TD SCH (10:25)
[2022-01-18] MEDS: PRENATAL VITAMINS W/ FOLIC ACID TABLET (FP) PO SCH (10:33)
== END 2022-01-18 11:55 | disposition other institution (70) | DRG 774 ==
LOC: YASAS 10:44 → Y6N 13:35
PROVIDERS: ADMIT Allergy & Immunology; ATTEND Surgery
PROC: HZ2ZZZZ Detoxification Services for Substance Abuse Treatment (ICD-10-PCS; principal; 2022-01-13)
DX: F10.230 Alcohol dependence with withdrawal, uncomplicated (principal); F14.20 Cocaine dependence, uncomplicated; F12.20 Cannabis dependence, uncomplicated; F17.210 Nicotine dependence, cigarettes, uncomplicated; F19.282 Other psychoactive substance dependence with psychoactive substance-induced sleep disorder; F19.24 Other psychoactive substance dependence with psychoactive substance-induced mood disorder; F32.A Depression, unspecified; E78.5 Hyperlipidemia, unspecified; E11.9 Type 2 diabetes mellitus without complications; G47.33 Obstructive sleep apnea (adult) (pediatric); I10 Essential (primary) hypertension; K21.9 Gastro-esophageal reflux disease without esophagitis; N17.9 Acute kidney failure, unspecified; Z62.810 Personal history of physical and sexual abuse in childhood; E66.01 Morbid (severe) obesity due to excess calories; Z68.41 Body mass index [BMI] 40.0-44.9, adult
CPT/HCPCS: 36415; 80053; 82962; 85027; 86780; 87389; C9803-CS; U0003; U0005

== ENCOUNTER 2022-01-18 12:05 | Inpatient (IN) | payer OTHER ==
[2022-01-18] MEDS ORDERED: NALOXONE HCL (KLOXXADO) 8 MG SPRAY NS PRN (13:47)
[2022-01-18] MEDS ORDERED: MAGNESIUM CITRATE 300 ML BOTTLE PO PRN (13:47)
[2022-01-18] MEDS ORDERED: NICOTINE POLACRILEX 2 MG GUM BC PRN (13:47)
[2022-01-18] MEDS ORDERED: hydrOXYzine PAMOATE 25 MG CAPSULE (FP) PO PRN (13:47)
[2022-01-18] MEDS ORDERED: P-EPHED 60MG/TRIPROLIDI 2.5MG TABLET PO PRN (13:47)
[2022-01-18] MEDS ORDERED: IBUPROFEN 400 MG TABLET (FP) PO PRN (13:47)
[2022-01-18] MEDS ORDERED: LOPERAMIDE HCL 2 MG CAPSULE PO PRN (13:47)
[2022-01-18] MEDS ORDERED: NICOTINE 7 MG/24 HOURS TOPICAL PATCH TD PRN (14:45)
[2022-01-18] MEDS: INSULIN SLIDING SCALE (NOVOLOG) 1 VIAL SQ SCH (17:03)
[2022-01-18] MEDS: NICOTINE 10 MG CARTRIDGE (INHALER) IH PRN (17:50)
[2022-01-18] MEDS: ATORVASTATIN CA 20 MG TABLET (FP) PO SCH (21:34)
[2022-01-18] MEDS: MELATONIN 5 MG TABLETS PO SCH (21:34)
[2022-01-18] MEDS: THIAMINE HCL 100 MG TABLET (FP) PO SCH (21:34)
[2022-01-18] MEDS: traZODone HCL 50 MG TABLET (FP) PO SCH (21:34)
[2022-01-19] MEDS: metFORMIN HCL 500 MG TABLET (FP) PO SCH (06:30)
[2022-01-19] MEDS: INSULIN SLIDING SCALE (NOVOLOG) 1 VIAL SQ SCH ×2 (06:31→16:37)
[2022-01-19] MEDS: PRENATAL VITAMINS W/ FOLIC ACID TABLET (FP) PO SCH (09:40)
[2022-01-19] MEDS: ASPIRIN 81 MG CHEWABLE TABLETS PO SCH (09:40)
[2022-01-19] MEDS: LISINOPRIL 20 MG TABLET PO SCH (09:40)
[2022-01-19] MEDS: HYDROCHLOROTHIAZIDE 25 MG TABLET (FP) PO SCH (09:41)
[2022-01-19] MEDS: amLODIPine BESYLATE 10 MG TABLET (FP) PO SCH (09:41)
[2022-01-19] MEDS ORDERED: FLU VACC QS2022-23(6MOS UP)/PF 60 MCG/0.5 ML SYRINGE IM ONE (12:00)
[2022-01-19] MEDS: MELATONIN 5 MG TABLETS PO SCH (21:22)
[2022-01-19] MEDS: traZODone HCL 50 MG TABLET (FP) PO SCH (21:22)
[2022-01-19] MEDS: ATORVASTATIN CA 20 MG TABLET (FP) PO SCH (21:22)
[2022-01-19] MEDS: THIAMINE HCL 100 MG TABLET (FP) PO SCH (21:22)
[2022-01-20] MEDS: MAG HYDROX/AL HYDROX/SIMETH 30 ML UNIT-DOSE CUP PO PRN ×2 (01:31→15:39)
[2022-01-20] MEDS: metFORMIN HCL 500 MG TABLET (FP) PO SCH (06:28)
[2022-01-20] MEDS: INSULIN SLIDING SCALE (NOVOLOG) 1 VIAL SQ SCH ×2 (06:29→16:33)
[2022-01-20] MEDS: PRENATAL VITAMINS W/ FOLIC ACID TABLET (FP) PO SCH (10:24)
[2022-01-20] MEDS: HYDROCHLOROTHIAZIDE 25 MG TABLET (FP) PO SCH (10:25)
[2022-01-20] MEDS: LISINOPRIL 20 MG TABLET PO SCH (10:25)
[2022-01-20] MEDS: amLODIPine BESYLATE 10 MG TABLET (FP) PO SCH (10:25)
[2022-01-20] MEDS: ASPIRIN 81 MG CHEWABLE TABLETS PO SCH (10:25)
[2022-01-20] MEDS: NICOTINE 10 MG CARTRIDGE (INHALER) IH PRN (12:06)
[2022-01-20] MEDS ORDERED: FAMOTIDINE 20 MG TABLET PO ONE (18:27)
[2022-01-20] MEDS: THIAMINE HCL 100 MG TABLET (FP) PO SCH (21:14)
[2022-01-20] MEDS: MELATONIN 5 MG TABLETS PO SCH (21:14)
[2022-01-20] MEDS: ATORVASTATIN CA 20 MG TABLET (FP) PO SCH (21:14)
[2022-01-20] MEDS: traZODone HCL 50 MG TABLET (FP) PO SCH (21:14)
[2022-01-21] MEDS: metFORMIN HCL 500 MG TABLET (FP) PO SCH (06:23)
[2022-01-21] MEDS: INSULIN SLIDING SCALE (NOVOLOG) 1 VIAL SQ SCH ×2 (06:25→17:40)
[2022-01-21] MEDS: PRENATAL VITAMINS W/ FOLIC ACID TABLET (FP) PO SCH (10:03)
[2022-01-21] MEDS: LISINOPRIL 20 MG TABLET PO SCH (10:04)
[2022-01-21] MEDS: amLODIPine BESYLATE 10 MG TABLET (FP) PO SCH (10:04)
[2022-01-21] MEDS: ASPIRIN 81 MG CHEWABLE TABLETS PO SCH (10:04)
[2022-01-21] MEDS: NICOTINE 10 MG CARTRIDGE (INHALER) IH PRN (10:04)
[2022-01-21] MEDS: HYDROCHLOROTHIAZIDE 25 MG TABLET (FP) PO SCH (10:04)
[2022-01-21] MEDS ORDERED: PANTOPRAZOLE 40 MG TABLET PO PRN (12:24)
[2022-01-21] MEDS: traZODone HCL 50 MG TABLET (FP) PO SCH (21:28)
[2022-01-21] MEDS: ATORVASTATIN CA 20 MG TABLET (FP) PO SCH (21:28)
[2022-01-21] MEDS: THIAMINE HCL 100 MG TABLET (FP) PO SCH (21:28)
[2022-01-21] MEDS: ACETAMINOPHEN 325 MG TABLET (FP) PO PRN (21:30)
[2022-01-21] MEDS: MELATONIN 5 MG TABLETS PO SCH (22:23)
[2022-01-21] MEDS: PANTOPRAZOLE 40 MG TABLET PO PRN (22:34)
[2022-01-22] MEDS: MAG HYDROX/AL HYDROX/SIMETH 30 ML UNIT-DOSE CUP PO PRN (02:42)
[2022-01-22] MEDS: metFORMIN HCL 500 MG TABLET (FP) PO SCH (06:30)
[2022-01-22] MEDS: INSULIN SLIDING SCALE (NOVOLOG) 1 VIAL SQ SCH ×2 (06:30→16:42)
[2022-01-22] MEDS: LISINOPRIL 20 MG TABLET PO SCH (10:41)
[2022-01-22] MEDS: HYDROCHLOROTHIAZIDE 25 MG TABLET (FP) PO SCH (10:41)
[2022-01-22] MEDS: PRENATAL VITAMINS W/ FOLIC ACID TABLET (FP) PO SCH (10:41)
[2022-01-22] MEDS: ASPIRIN 81 MG CHEWABLE TABLETS PO SCH (10:41)
[2022-01-22] MEDS: amLODIPine BESYLATE 10 MG TABLET (FP) PO SCH (10:42)
[2022-01-22] MEDS: PANTOPRAZOLE 40 MG TABLET PO PRN (10:44)
[2022-01-22] MEDS: NICOTINE 10 MG CARTRIDGE (INHALER) IH PRN (19:43)
[2022-01-22] MEDS: ATORVASTATIN CA 20 MG TABLET (FP) PO SCH (21:31)
[2022-01-22] MEDS: THIAMINE HCL 100 MG TABLET (FP) PO SCH (21:31)
[2022-01-22] MEDS: traZODone HCL 50 MG TABLET (FP) PO SCH (21:31)
[2022-01-22] MEDS: MELATONIN 5 MG TABLETS PO SCH (21:31)
[2022-01-22] MEDS: guaiFENesin 200 MG/10 ML 10 ML UNIT-DOSE CUPS PO PRN (21:32)
[2022-01-23] MEDS: metFORMIN HCL 500 MG TABLET (FP) PO SCH (06:40)
[2022-01-23] MEDS: INSULIN SLIDING SCALE (NOVOLOG) 1 VIAL SQ SCH ×2 (06:41→16:42)
[2022-01-23] MEDS: LISINOPRIL 20 MG TABLET PO SCH (10:28)
[2022-01-23] MEDS: PRENATAL VITAMINS W/ FOLIC ACID TABLET (FP) PO SCH (10:28)
[2022-01-23] MEDS: HYDROCHLOROTHIAZIDE 25 MG TABLET (FP) PO SCH (10:29)
[2022-01-23] MEDS: ASPIRIN 81 MG CHEWABLE TABLETS PO SCH (10:29)
[2022-01-23] MEDS: amLODIPine BESYLATE 10 MG TABLET (FP) PO SCH (10:29)
[2022-01-23] MEDS: guaiFENesin 200 MG/10 ML 10 ML UNIT-DOSE CUPS PO PRN (19:29)
[2022-01-23] MEDS: ACETAMINOPHEN 325 MG TABLET (FP) PO PRN (19:30)
[2022-01-23] MEDS: MELATONIN 5 MG TABLETS PO SCH (21:28)
[2022-01-23] MEDS: ATORVASTATIN CA 20 MG TABLET (FP) PO SCH (21:28)
[2022-01-23] MEDS: traZODone HCL 50 MG TABLET (FP) PO SCH (21:28)
[2022-01-23] MEDS: THIAMINE HCL 100 MG TABLET (FP) PO SCH (21:28)
[2022-01-24] MEDS: metFORMIN HCL 500 MG TABLET (FP) PO SCH (06:08)
[2022-01-24] MEDS: INSULIN SLIDING SCALE (NOVOLOG) 1 VIAL SQ SCH ×2 (06:10→17:05)
[2022-01-24] MEDS: LISINOPRIL 20 MG TABLET PO SCH (10:04)
[2022-01-24] MEDS: HYDROCHLOROTHIAZIDE 25 MG TABLET (FP) PO SCH (10:04)
[2022-01-24] MEDS: PRENATAL VITAMINS W/ FOLIC ACID TABLET (FP) PO SCH (10:04)
[2022-01-24] MEDS: amLODIPine BESYLATE 10 MG TABLET (FP) PO SCH (10:04)
[2022-01-24] MEDS: ASPIRIN 81 MG CHEWABLE TABLETS PO SCH (10:04)
[2022-01-24] MEDS: guaiFENesin 200 MG/10 ML 10 ML UNIT-DOSE CUPS PO PRN (18:16)
[2022-01-24] MEDS: MELATONIN 5 MG TABLETS PO SCH (21:44)
[2022-01-24] MEDS: ATORVASTATIN CA 20 MG TABLET (FP) PO SCH (21:44)
[2022-01-24] MEDS: traZODone HCL 50 MG TABLET (FP) PO SCH (21:44)
[2022-01-24] MEDS: THIAMINE HCL 100 MG TABLET (FP) PO SCH (21:44)
[2022-01-25] MEDS: metFORMIN HCL 500 MG TABLET (FP) PO SCH (06:33)
[2022-01-25] MEDS: INSULIN SLIDING SCALE (NOVOLOG) 1 VIAL SQ SCH ×2 (06:36→16:42)
[2022-01-25] MEDS: PRENATAL VITAMINS W/ FOLIC ACID TABLET (FP) PO SCH (10:08)
[2022-01-25] MEDS: LISINOPRIL 20 MG TABLET PO SCH (10:09)
[2022-01-25] MEDS: HYDROCHLOROTHIAZIDE 25 MG TABLET (FP) PO SCH (10:09)
[2022-01-25] MEDS: ASPIRIN 81 MG CHEWABLE TABLETS PO SCH (10:09)
[2022-01-25] MEDS: amLODIPine BESYLATE 10 MG TABLET (FP) PO SCH (10:09)
[2022-01-25] MEDS: PANTOPRAZOLE 40 MG TABLET PO PRN (10:10)
[2022-01-25] MEDS: NICOTINE 10 MG CARTRIDGE (INHALER) IH PRN (18:40)
[2022-01-25] MEDS: ATORVASTATIN CA 20 MG TABLET (FP) PO SCH (21:13)
[2022-01-25] MEDS: traZODone HCL 50 MG TABLET (FP) PO SCH (21:13)
[2022-01-25] MEDS: MELATONIN 5 MG TABLETS PO SCH (21:13)
[2022-01-25] MEDS: THIAMINE HCL 100 MG TABLET (FP) PO SCH (21:13)
[2022-01-25] MEDS: guaiFENesin 200 MG/10 ML 10 ML UNIT-DOSE CUPS PO PRN (21:14)
[2022-01-26] MEDS: metFORMIN HCL 500 MG TABLET (FP) PO SCH (06:46)
[2022-01-26] MEDS: INSULIN SLIDING SCALE (NOVOLOG) 1 VIAL SQ SCH ×2 (06:48→16:42)
[2022-01-26] MEDS: LISINOPRIL 20 MG TABLET PO SCH (10:21)
[2022-01-26] MEDS: ASPIRIN 81 MG CHEWABLE TABLETS PO SCH (10:21)
[2022-01-26] MEDS: amLODIPine BESYLATE 10 MG TABLET (FP) PO SCH (10:21)
[2022-01-26] MEDS: HYDROCHLOROTHIAZIDE 25 MG TABLET (FP) PO SCH (10:21)
[2022-01-26] MEDS: PRENATAL VITAMINS W/ FOLIC ACID TABLET (FP) PO SCH (10:21)
[2022-01-26] MEDS: guaiFENesin 200 MG/10 ML 10 ML UNIT-DOSE CUPS PO PRN ×2 (14:46→22:30)
[2022-01-26] MEDS: THIAMINE HCL 100 MG TABLET (FP) PO SCH (21:40)
[2022-01-26] MEDS: MELATONIN 5 MG TABLETS PO SCH (21:40)
[2022-01-26] MEDS: ATORVASTATIN CA 20 MG TABLET (FP) PO SCH (21:40)
[2022-01-26] MEDS: traZODone HCL 50 MG TABLET (FP) PO SCH (21:41)
[2022-01-26] MEDS: MAGNESIUM HYDROX 2400MG/30ML ORAL SUSPENSION 30 ML CUP PO PRN (22:36)
[2022-01-27] MEDS: metFORMIN HCL 500 MG TABLET (FP) PO SCH (06:34)
[2022-01-27] MEDS: INSULIN SLIDING SCALE (NOVOLOG) 1 VIAL SQ SCH ×2 (06:36→16:48)
[2022-01-27] MEDS: PRENATAL VITAMINS W/ FOLIC ACID TABLET (FP) PO SCH (10:14)
[2022-01-27] MEDS: ASPIRIN 81 MG CHEWABLE TABLETS PO SCH (10:14)
[2022-01-27] MEDS: amLODIPine BESYLATE 10 MG TABLET (FP) PO SCH (10:15)
[2022-01-27] MEDS: LISINOPRIL 20 MG TABLET PO SCH (10:15)
[2022-01-27] MEDS: HYDROCHLOROTHIAZIDE 25 MG TABLET (FP) PO SCH (10:15)
[2022-01-27] MEDS: guaiFENesin 200 MG/10 ML 10 ML UNIT-DOSE CUPS PO PRN ×2 (10:39→21:32)
[2022-01-27] MEDS: MELATONIN 5 MG TABLETS PO SCH (21:32)
[2022-01-27] MEDS: traZODone HCL 50 MG TABLET (FP) PO SCH (21:32)
[2022-01-27] MEDS: THIAMINE HCL 100 MG TABLET (FP) PO SCH (21:32)
[2022-01-27] MEDS: ATORVASTATIN CA 20 MG TABLET (FP) PO SCH (21:32)
[2022-01-28] MEDS: metFORMIN HCL 500 MG TABLET (FP) PO SCH (06:35)
[2022-01-28] MEDS: INSULIN SLIDING SCALE (NOVOLOG) 1 VIAL SQ SCH ×2 (06:39→16:33)
[2022-01-28] MEDS: LISINOPRIL 20 MG TABLET PO SCH (09:58)
[2022-01-28] MEDS: HYDROCHLOROTHIAZIDE 25 MG TABLET (FP) PO SCH (09:58)
[2022-01-28] MEDS: PRENATAL VITAMINS W/ FOLIC ACID TABLET (FP) PO SCH (09:58)
[2022-01-28] MEDS: amLODIPine BESYLATE 10 MG TABLET (FP) PO SCH (09:58)
[2022-01-28] MEDS: ASPIRIN 81 MG CHEWABLE TABLETS PO SCH (09:58)
[2022-01-28] MEDS: guaiFENesin 200 MG/10 ML 10 ML UNIT-DOSE CUPS PO PRN ×2 (09:59→21:04)
[2022-01-28] MEDS ORDERED: BENZOCAINE/MENTH/CETYLPYRD CL 1 EACH LOZENGE MM PRN (14:54)
[2022-01-28] MEDS: MELATONIN 5 MG TABLETS PO SCH (21:03)
[2022-01-28] MEDS: ATORVASTATIN CA 20 MG TABLET (FP) PO SCH (21:03)
[2022-01-28] MEDS: traZODone HCL 50 MG TABLET (FP) PO SCH (21:04)
[2022-01-28] MEDS: THIAMINE HCL 100 MG TABLET (FP) PO SCH (21:04)
[2022-01-28] MEDS: MAG HYDROX/AL HYDROX/SIMETH 30 ML UNIT-DOSE CUP PO PRN (21:04)
[2022-01-29] MEDS: INSULIN SLIDING SCALE (NOVOLOG) 1 VIAL SQ SCH ×2 (06:19→17:48)
[2022-01-29] MEDS: metFORMIN HCL 500 MG TABLET (FP) PO SCH (06:19)
[2022-01-29 06:55] VITALS: RESP 18
[2022-01-29] MEDS: PRENATAL VITAMINS W/ FOLIC ACID TABLET (FP) PO SCH (10:11)
[2022-01-29] MEDS: ASPIRIN 81 MG CHEWABLE TABLETS PO SCH (10:12)
[2022-01-29] MEDS: amLODIPine BESYLATE 10 MG TABLET (FP) PO SCH (10:12)
[2022-01-29] MEDS: HYDROCHLOROTHIAZIDE 25 MG TABLET (FP) PO SCH (10:12)
[2022-01-29] MEDS: LISINOPRIL 20 MG TABLET PO SCH (10:12)
[2022-01-29] MEDS: PANTOPRAZOLE 40 MG TABLET PO PRN (10:16)
[2022-01-29] MEDS: guaiFENesin 200 MG/10 ML 10 ML UNIT-DOSE CUPS PO PRN ×2 (10:16→21:37)
[2022-01-29] MEDS: MAGNESIUM HYDROX 2400MG/30ML ORAL SUSPENSION 30 ML CUP PO PRN (10:16)
[2022-01-29] MEDS: MELATONIN 5 MG TABLETS PO SCH (21:36)
[2022-01-29] MEDS: THIAMINE HCL 100 MG TABLET (FP) PO SCH (21:36)
[2022-01-29] MEDS: traZODone HCL 50 MG TABLET (FP) PO SCH (21:36)
[2022-01-29] MEDS: ATORVASTATIN CA 20 MG TABLET (FP) PO SCH (21:36)
[2022-01-29] MEDS: BENZOCAINE/MENTHOL (CHLORASEPTIC ) LOZENGE MM PRN (21:38)
[2022-01-30] MEDS: INSULIN SLIDING SCALE (NOVOLOG) 1 VIAL SQ SCH ×2 (06:39→17:01)
[2022-01-30] MEDS: metFORMIN HCL 500 MG TABLET (FP) PO SCH (06:39)
[2022-01-30] MEDS: guaiFENesin 200 MG/10 ML 10 ML UNIT-DOSE CUPS PO PRN ×3 (08:45→21:57)
[2022-01-30] MEDS: LISINOPRIL 20 MG TABLET PO SCH (10:10)
[2022-01-30] MEDS: PRENATAL VITAMINS W/ FOLIC ACID TABLET (FP) PO SCH (10:10)
[2022-01-30] MEDS: amLODIPine BESYLATE 10 MG TABLET (FP) PO SCH (10:11)
[2022-01-30] MEDS: HYDROCHLOROTHIAZIDE 25 MG TABLET (FP) PO SCH (10:11)
[2022-01-30] MEDS: ASPIRIN 81 MG CHEWABLE TABLETS PO SCH (10:11)
[2022-01-30] MEDS: BENZOCAINE/MENTHOL (CHLORASEPTIC ) LOZENGE MM PRN ×2 (10:12→21:58)
[2022-01-30] MEDS: MELATONIN 5 MG TABLETS PO SCH (21:56)
[2022-01-30] MEDS: traZODone HCL 50 MG TABLET (FP) PO SCH (21:56)
[2022-01-30] MEDS: ATORVASTATIN CA 20 MG TABLET (FP) PO SCH (21:56)
[2022-01-30] MEDS: THIAMINE HCL 100 MG TABLET (FP) PO SCH (21:57)
[2022-01-31] MEDS: metFORMIN HCL 500 MG TABLET (FP) PO SCH (06:53)
[2022-01-31] MEDS: INSULIN SLIDING SCALE (NOVOLOG) 1 VIAL SQ SCH ×2 (06:55→16:44)
[2022-01-31] MEDS: ASPIRIN 81 MG CHEWABLE TABLETS PO SCH (10:34)
[2022-01-31] MEDS: amLODIPine BESYLATE 10 MG TABLET (FP) PO SCH (10:34)
[2022-01-31] MEDS: HYDROCHLOROTHIAZIDE 25 MG TABLET (FP) PO SCH (10:34)
[2022-01-31] MEDS: PRENATAL VITAMINS W/ FOLIC ACID TABLET (FP) PO SCH (10:34)
[2022-01-31] MEDS: LISINOPRIL 20 MG TABLET PO SCH (10:35)
[2022-01-31] MEDS: guaiFENesin 200 MG/10 ML 10 ML UNIT-DOSE CUPS PO PRN ×2 (10:38→21:16)
[2022-01-31] MEDS: BENZOCAINE/MENTHOL (CHLORASEPTIC ) LOZENGE MM PRN ×3 (10:38→21:17)
[2022-01-31] MEDS: ENALAPRIL MALEATE 10 MG TABLET PO SCH ×2 (11:14→21:22)
[2022-01-31] MEDS: NICOTINE 10 MG CARTRIDGE (INHALER) IH PRN (17:32)
[2022-01-31] MEDS: ATORVASTATIN CA 20 MG TABLET (FP) PO SCH (21:16)
[2022-01-31] MEDS: traZODone HCL 50 MG TABLET (FP) PO SCH (21:16)
[2022-01-31] MEDS: THIAMINE HCL 100 MG TABLET (FP) PO SCH (21:16)
[2022-01-31] MEDS: MELATONIN 5 MG TABLETS PO SCH (21:16)
[2022-02-01] MEDS: metFORMIN HCL 500 MG TABLET (FP) PO SCH (06:40)
[2022-02-01] MEDS: INSULIN SLIDING SCALE (NOVOLOG) 1 VIAL SQ SCH (06:49)
[2022-02-01] MEDS: guaiFENesin 200 MG/10 ML 10 ML UNIT-DOSE CUPS PO PRN (07:06)
[2022-02-01 07:13] VITALS: BP 137/80; PULSE 66; TEMP 98.2
[2022-02-01] MEDS: PRENATAL VITAMINS W/ FOLIC ACID TABLET (FP) PO SCH (09:28)
[2022-02-01] MEDS: HYDROCHLOROTHIAZIDE 25 MG TABLET (FP) PO SCH (09:29)
[2022-02-01] MEDS: ASPIRIN 81 MG CHEWABLE TABLETS PO SCH (09:29)
[2022-02-01] MEDS: amLODIPine BESYLATE 10 MG TABLET (FP) PO SCH (09:29)
[2022-02-01] MEDS: ENALAPRIL MALEATE 10 MG TABLET PO SCH (09:31)
[2022-02-01] MEDS: BENZOCAINE/MENTHOL (CHLORASEPTIC ) LOZENGE MM PRN (09:32)
== END 2022-02-01 09:46 | disposition home or self-care (01) | DRG 772 ==
LOC: YASAS 12:05 → Y3W 12:06
PROVIDERS: ADMIT Allergy & Immunology; ATTEND Psychiatry & Neurology Pain Medicine
PROC: HZ42ZZZ Group Counseling for Substance Abuse Treatment, Cognitive-Behavioral (ICD-10-PCS; principal; 2022-01-18)
DX: F10.20 Alcohol dependence, uncomplicated (principal); F14.20 Cocaine dependence, uncomplicated; F12.20 Cannabis dependence, uncomplicated; F17.210 Nicotine dependence, cigarettes, uncomplicated; F32.A Depression, unspecified; G47.30 Sleep apnea, unspecified; E78.5 Hyperlipidemia, unspecified; I10 Essential (primary) hypertension; J44.9 Chronic obstructive pulmonary disease, unspecified; K21.9 Gastro-esophageal reflux disease without esophagitis; E11.9 Type 2 diabetes mellitus without complications; Z79.84 Long term (current) use of oral hypoglycemic drugs; E66.9 Obesity, unspecified; Z68.39 Body mass index [BMI] 39.0-39.9, adult; R12 Heartburn
CPT/HCPCS: 36415; 82962; 86803; G0008; Q2036

== ENCOUNTER 2022-03-19 08:30 | Inpatient (IN) | payer OTHER ==
[2022-03-19 12:11] VITALS: BMI 40.3
[2022-03-19] MEDS ORDERED: BENZOCAINE/MENTHOL (CHLORASEPTIC ) LOZENGE MM PRN (12:56)
[2022-03-19] MEDS ORDERED: POLYETHYLENE GLYCOL (HEALTHYLAX) 3350 17 GM PACKET PO PRN (12:56)
[2022-03-19] MEDS ORDERED: guaiFENesin 200 MG/10 ML 10 ML UNIT-DOSE CUPS PO PRN (12:56)
[2022-03-19] MEDS ORDERED: P-EPHED 60MG/TRIPROLIDI 2.5MG TABLET PO PRN (12:56)
[2022-03-19] MEDS ORDERED: MAGNESIUM HYDROX 2400MG/30ML ORAL SUSPENSION 30 ML CUP PO PRN (12:56)
[2022-03-19] MEDS ORDERED: hydrOXYzine PAMOATE 25 MG CAPSULE (FP) PO PRN (12:56)
[2022-03-19] MEDS ORDERED: LOPERAMIDE HCL 2 MG CAPSULE PO PRN (12:56)
[2022-03-19] MEDS: NICOTINE 10 MG CARTRIDGE (INHALER) IH PRN (19:55)
[2022-03-19] MEDS ORDERED: ENALAPRIL MALEATE 10 MG TABLET PO SCH (22:00)
[2022-03-19] MEDS: THIAMINE HCL 100 MG TABLET (FP) PO SCH (22:38)
[2022-03-19] MEDS: FAMOTIDINE 20 MG TABLET PO SCH (22:38)
[2022-03-19] MEDS: ATORVASTATIN CA 20 MG TABLET (FP) PO SCH (22:39)
[2022-03-19] MEDS: MELATONIN 5 MG TABLETS PO SCH (22:39)
[2022-03-20] MEDS: metFORMIN HCL 500 MG TABLET (FP) PO SCH (06:22)
[2022-03-20] MEDS ORDERED: PATIENT'S OWN MEDICATION (NON-FORMULARY) (Lisinopril [Lisinopril] 40 MG Tablet) PO SCH (10:00)
[2022-03-20] MEDS: FAMOTIDINE 20 MG TABLET PO SCH ×2 (10:06→21:58)
[2022-03-20] MEDS: amLODIPine BESYLATE 10 MG TABLET (FP) PO SCH (10:06)
[2022-03-20] MEDS: ASPIRIN 81 MG CHEWABLE TABLETS PO SCH (10:06)
[2022-03-20] MEDS: HYDROCHLOROTHIAZIDE 25 MG TABLET (FP) PO SCH (10:06)
[2022-03-20] MEDS: PRENATAL VITAMINS W/ FOLIC ACID TABLET (FP) PO SCH (10:07)
[2022-03-20 10:39] LABS: HEMATOCRIT 45.9 % (35.4-49); HEMOGLOBIN 14.5 GM/dL (11.7-16.9); MCH 25.4 pg (25.7-33.7); MCHC 31.5 g/dl (32.0-35.9); MEAN CELL VOLUME 80.6 fl (80-96); PLATELET COUNT 220 10^3/uL (134-434); RDW 16.4 % (11.9-15.9); WHITE BLOOD COUNT 7.3 K/mm3 (4.0-10.0)
[2022-03-20 10:40] LABS: ALBUMIN 2.6 g/dl (3.4-5.0); CALCIUM 8.6 mg/dL (8.5-10.1)
[2022-03-20 10:44] LABS: CREATININE 1.6 mg/dL (0.55-1.3)
[2022-03-20 10:45] LABS: BILIRUBIN,TOTAL 0.2 mg/dL (0.2-1); TOT PROT 5.9 g/dl (6.4-8.2)
[2022-03-20 12:07] LABS: SYPHILIS W/ RPR CONF NON-REACTIVE (NONREACTIVE)
[2022-03-20 12:37] LABS: HIV INTERPRETATION NEGATIVE (NEGATIVE)
[2022-03-20] MEDS: LISINOPRIL 20 MG TABLET PO SCH (13:11)
[2022-03-20] MEDS: MAG HYDROX/AL HYDROX/SIMETH 30 ML UNIT-DOSE CUP PO PRN (17:12)
[2022-03-20] MEDS: MELATONIN 5 MG TABLETS PO SCH (21:58)
[2022-03-20] MEDS: ATORVASTATIN CA 20 MG TABLET (FP) PO SCH (21:58)
[2022-03-20] MEDS: THIAMINE HCL 100 MG TABLET (FP) PO SCH (21:58)
[2022-03-20] MEDS: traZODone HCL 50 MG TABLET (FP) PO SCH (21:58)
[2022-03-21] MEDS: ACETAMINOPHEN 325 MG TABLET (FP) PO PRN ×3 (05:56→21:40)
[2022-03-21] MEDS: metFORMIN HCL 500 MG TABLET (FP) PO SCH (06:21)
[2022-03-21 07:04] LABS: EPI CELLS 3 /uL (0-25.1); HYALINE CASTS 1 /uL (0-3.1); URINE APPEARANCE CLEAR; URINE BACTERIA 2 /uL (0-1359); URINE BILIRUBIN NEGATIVE (NEGATIVE); URINE COLOR YELLOW; URINE GLUCOSE (UA) NEGATIVE (NEGATIVE); URINE KETONE NEGATIVE (NEGATIVE); URINE LEUK ESTERASE NEGATIVE (NEGATIVE); URINE NITRITE NEGATIVE (NEGATIVE); URINE PROTEIN 3+ (NEGATIVE); URINE RBC 13 /uL (0-23.9); URINE UROBILINOGEN 0.2 mg/dL (0.2-1.0); URINE WBC 11 /uL (0-25.8)
[2022-03-21] MEDS: ASPIRIN 81 MG CHEWABLE TABLETS PO SCH (10:20)
[2022-03-21] MEDS: HYDROCHLOROTHIAZIDE 25 MG TABLET (FP) PO SCH (10:20)
[2022-03-21] MEDS: amLODIPine BESYLATE 10 MG TABLET (FP) PO SCH (10:21)
[2022-03-21] MEDS: PRENATAL VITAMINS W/ FOLIC ACID TABLET (FP) PO SCH (10:21)
[2022-03-21] MEDS: LISINOPRIL 20 MG TABLET PO SCH (10:21)
[2022-03-21] MEDS: FAMOTIDINE 20 MG TABLET PO SCH ×2 (10:21→21:39)
[2022-03-21] MEDS: ATORVASTATIN CA 20 MG TABLET (FP) PO SCH (21:38)
[2022-03-21] MEDS: traZODone HCL 50 MG TABLET (FP) PO SCH (21:39)
[2022-03-21] MEDS: MELATONIN 5 MG TABLETS PO SCH (21:39)
[2022-03-21] MEDS: THIAMINE HCL 100 MG TABLET (FP) PO SCH (21:39)
[2022-03-22] MEDS: metFORMIN HCL 500 MG TABLET (FP) PO SCH (06:04)
[2022-03-22] MEDS: ACETAMINOPHEN 325 MG TABLET (FP) PO PRN (06:04)
[2022-03-22] MEDS: PRENATAL VITAMINS W/ FOLIC ACID TABLET (FP) PO SCH (09:51)
[2022-03-22] MEDS: ASPIRIN 81 MG CHEWABLE TABLETS PO SCH (09:51)
[2022-03-22] MEDS: FAMOTIDINE 20 MG TABLET PO SCH ×2 (09:51→21:33)
[2022-03-22] MEDS: amLODIPine BESYLATE 10 MG TABLET (FP) PO SCH (09:51)
[2022-03-22] MEDS: HYDROCHLOROTHIAZIDE 25 MG TABLET (FP) PO SCH (09:51)
[2022-03-22] MEDS: LISINOPRIL 20 MG TABLET PO SCH (09:51)
[2022-03-22] MEDS: ATORVASTATIN CA 20 MG TABLET (FP) PO SCH (21:33)
[2022-03-22] MEDS: traZODone HCL 50 MG TABLET (FP) PO SCH (21:33)
[2022-03-22] MEDS: MELATONIN 5 MG TABLETS PO SCH (21:33)
[2022-03-22] MEDS: THIAMINE HCL 100 MG TABLET (FP) PO SCH (21:33)
[2022-03-23] MEDS: metFORMIN HCL 500 MG TABLET (FP) PO SCH (06:13)
[2022-03-23] MEDS: FAMOTIDINE 20 MG TABLET PO SCH ×2 (09:40→21:27)
[2022-03-23] MEDS: HYDROCHLOROTHIAZIDE 25 MG TABLET (FP) PO SCH (09:40)
[2022-03-23] MEDS: PRENATAL VITAMINS W/ FOLIC ACID TABLET (FP) PO SCH (09:40)
[2022-03-23] MEDS: amLODIPine BESYLATE 10 MG TABLET (FP) PO SCH (09:41)
[2022-03-23] MEDS: ASPIRIN 81 MG CHEWABLE TABLETS PO SCH (09:41)
[2022-03-23] MEDS: LISINOPRIL 20 MG TABLET PO SCH (09:41)
[2022-03-23] MEDS: THIAMINE HCL 100 MG TABLET (FP) PO SCH (21:27)
[2022-03-23] MEDS: MELATONIN 5 MG TABLETS PO SCH (21:27)
[2022-03-23] MEDS: traZODone HCL 50 MG TABLET (FP) PO SCH (21:27)
[2022-03-23] MEDS: ATORVASTATIN CA 20 MG TABLET (FP) PO SCH (21:27)
[2022-03-24] MEDS: metFORMIN HCL 500 MG TABLET (FP) PO SCH (06:16)
[2022-03-24] MEDS: FAMOTIDINE 20 MG TABLET PO SCH ×2 (09:34→21:15)
[2022-03-24] MEDS: ASPIRIN 81 MG CHEWABLE TABLETS PO SCH (09:34)
[2022-03-24] MEDS: PRENATAL VITAMINS W/ FOLIC ACID TABLET (FP) PO SCH (09:34)
[2022-03-24] MEDS: LISINOPRIL 20 MG TABLET PO SCH (09:34)
[2022-03-24] MEDS: HYDROCHLOROTHIAZIDE 25 MG TABLET (FP) PO SCH (09:35)
[2022-03-24] MEDS: amLODIPine BESYLATE 10 MG TABLET (FP) PO SCH (09:35)
[2022-03-24] MEDS: MELATONIN 5 MG TABLETS PO SCH (21:14)
[2022-03-24] MEDS: THIAMINE HCL 100 MG TABLET (FP) PO SCH (21:14)
[2022-03-24] MEDS: ATORVASTATIN CA 20 MG TABLET (FP) PO SCH (21:15)
[2022-03-24] MEDS: traZODone HCL 50 MG TABLET (FP) PO SCH (21:15)
[2022-03-25] MEDS: metFORMIN HCL 500 MG TABLET (FP) PO SCH (06:23)
[2022-03-25] MEDS: FAMOTIDINE 20 MG TABLET PO SCH ×2 (09:44→21:16)
[2022-03-25] MEDS: HYDROCHLOROTHIAZIDE 25 MG TABLET (FP) PO SCH (09:44)
[2022-03-25] MEDS: LISINOPRIL 20 MG TABLET PO SCH (09:44)
[2022-03-25] MEDS: amLODIPine BESYLATE 10 MG TABLET (FP) PO SCH (09:44)
[2022-03-25] MEDS: ASPIRIN 81 MG CHEWABLE TABLETS PO SCH (09:44)
[2022-03-25] MEDS: PRENATAL VITAMINS W/ FOLIC ACID TABLET (FP) PO SCH (09:44)
[2022-03-25] MEDS: METHOCARBAMOL 500 MG TABLET PO SCH ×2 (13:39→21:16)
[2022-03-25] MEDS: NICOTINE 10 MG CARTRIDGE (INHALER) IH PRN (15:22)
[2022-03-25] MEDS: THIAMINE HCL 100 MG TABLET (FP) PO SCH (21:16)
[2022-03-25] MEDS: MELATONIN 5 MG TABLETS PO SCH (21:16)
[2022-03-25] MEDS: ATORVASTATIN CA 20 MG TABLET (FP) PO SCH (21:17)
[2022-03-25] MEDS: traZODone HCL 50 MG TABLET (FP) PO SCH (21:17)
[2022-03-25] MEDS: ACETAMINOPHEN 325 MG TABLET (FP) PO PRN (21:18)
[2022-03-26] MEDS: metFORMIN HCL 500 MG TABLET (FP) PO SCH (06:22)
[2022-03-26] MEDS: LISINOPRIL 20 MG TABLET PO SCH (10:04)
[2022-03-26] MEDS: PRENATAL VITAMINS W/ FOLIC ACID TABLET (FP) PO SCH (10:04)
[2022-03-26] MEDS: HYDROCHLOROTHIAZIDE 25 MG TABLET (FP) PO SCH (10:05)
[2022-03-26] MEDS: amLODIPine BESYLATE 10 MG TABLET (FP) PO SCH (10:05)
[2022-03-26] MEDS: METHOCARBAMOL 500 MG TABLET PO SCH ×2 (10:05→21:15)
[2022-03-26] MEDS: ASPIRIN 81 MG CHEWABLE TABLETS PO SCH (10:05)
[2022-03-26] MEDS: FAMOTIDINE 20 MG TABLET PO SCH ×2 (10:05→21:16)
[2022-03-26] MEDS: NICOTINE 10 MG CARTRIDGE (INHALER) IH PRN (10:06)
[2022-03-26] MEDS: MELATONIN 5 MG TABLETS PO SCH (21:15)
[2022-03-26] MEDS: traZODone HCL 50 MG TABLET (FP) PO SCH (21:15)
[2022-03-26] MEDS: THIAMINE HCL 100 MG TABLET (FP) PO SCH (21:15)
[2022-03-26] MEDS: ATORVASTATIN CA 20 MG TABLET (FP) PO SCH (21:16)
[2022-03-27] MEDS: metFORMIN HCL 500 MG TABLET (FP) PO SCH (06:03)
[2022-03-27] MEDS: ASPIRIN 81 MG CHEWABLE TABLETS PO SCH (09:33)
[2022-03-27] MEDS: PRENATAL VITAMINS W/ FOLIC ACID TABLET (FP) PO SCH (09:33)
[2022-03-27] MEDS: METHOCARBAMOL 500 MG TABLET PO SCH ×2 (09:33→21:43)
[2022-03-27] MEDS: FAMOTIDINE 20 MG TABLET PO SCH ×2 (09:33→21:42)
[2022-03-27] MEDS: LISINOPRIL 20 MG TABLET PO SCH (09:33)
[2022-03-27] MEDS: amLODIPine BESYLATE 10 MG TABLET (FP) PO SCH (09:33)
[2022-03-27] MEDS: HYDROCHLOROTHIAZIDE 25 MG TABLET (FP) PO SCH (09:34)
[2022-03-27] MEDS: ATORVASTATIN CA 20 MG TABLET (FP) PO SCH (21:42)
[2022-03-27] MEDS: MELATONIN 5 MG TABLETS PO SCH (21:43)
[2022-03-27] MEDS: THIAMINE HCL 100 MG TABLET (FP) PO SCH (21:43)
[2022-03-27] MEDS: traZODone HCL 50 MG TABLET (FP) PO SCH (21:43)
[2022-03-27] MEDS: ACETAMINOPHEN 325 MG TABLET (FP) PO PRN (21:45)
[2022-03-28] MEDS: metFORMIN HCL 500 MG TABLET (FP) PO SCH (06:12)
[2022-03-28] MEDS: HYDROCHLOROTHIAZIDE 25 MG TABLET (FP) PO SCH (09:35)
[2022-03-28] MEDS: LISINOPRIL 20 MG TABLET PO SCH (09:35)
[2022-03-28] MEDS: FAMOTIDINE 20 MG TABLET PO SCH ×2 (09:35→21:47)
[2022-03-28] MEDS: amLODIPine BESYLATE 10 MG TABLET (FP) PO SCH (09:35)
[2022-03-28] MEDS: PRENATAL VITAMINS W/ FOLIC ACID TABLET (FP) PO SCH (09:35)
[2022-03-28] MEDS: METHOCARBAMOL 500 MG TABLET PO SCH ×2 (09:35→21:47)
[2022-03-28] MEDS: ASPIRIN 81 MG CHEWABLE TABLETS PO SCH (09:35)
[2022-03-28] MEDS: traZODone HCL 50 MG TABLET (FP) PO SCH (21:47)
[2022-03-28] MEDS: ATORVASTATIN CA 20 MG TABLET (FP) PO SCH (21:47)
[2022-03-28] MEDS: THIAMINE HCL 100 MG TABLET (FP) PO SCH (21:48)
[2022-03-28] MEDS: MELATONIN 5 MG TABLETS PO SCH (21:48)
[2022-03-29] MEDS: metFORMIN HCL 500 MG TABLET (FP) PO SCH (06:00)
[2022-03-29] MEDS: PRENATAL VITAMINS W/ FOLIC ACID TABLET (FP) PO SCH (10:02)
[2022-03-29] MEDS: FAMOTIDINE 20 MG TABLET PO SCH ×2 (10:03→21:39)
[2022-03-29] MEDS: HYDROCHLOROTHIAZIDE 25 MG TABLET (FP) PO SCH (10:03)
[2022-03-29] MEDS: METHOCARBAMOL 500 MG TABLET PO SCH ×2 (10:03→21:39)
[2022-03-29] MEDS: amLODIPine BESYLATE 10 MG TABLET (FP) PO SCH (10:03)
[2022-03-29] MEDS: ASPIRIN 81 MG CHEWABLE TABLETS PO SCH (10:03)
[2022-03-29] MEDS: LISINOPRIL 20 MG TABLET PO SCH (10:04)
[2022-03-29] MEDS: traZODone HCL 50 MG TABLET (FP) PO SCH (21:39)
[2022-03-29] MEDS: THIAMINE HCL 100 MG TABLET (FP) PO SCH (21:40)
[2022-03-29] MEDS: ATORVASTATIN CA 20 MG TABLET (FP) PO SCH (21:40)
[2022-03-29] MEDS: MELATONIN 5 MG TABLETS PO SCH (21:40)
[2022-03-30] MEDS: metFORMIN HCL 500 MG TABLET (FP) PO SCH ×2 (06:04→17:05)
[2022-03-30] MEDS: ASPIRIN 81 MG CHEWABLE TABLETS PO SCH (09:36)
[2022-03-30] MEDS: METHOCARBAMOL 500 MG TABLET PO SCH ×2 (09:36→21:00)
[2022-03-30] MEDS: LISINOPRIL 20 MG TABLET PO SCH (09:37)
[2022-03-30] MEDS: HYDROCHLOROTHIAZIDE 25 MG TABLET (FP) PO SCH (09:37)
[2022-03-30] MEDS: PRENATAL VITAMINS W/ FOLIC ACID TABLET (FP) PO SCH (09:37)
[2022-03-30] MEDS: FAMOTIDINE 20 MG TABLET PO SCH ×2 (09:37→21:00)
[2022-03-30] MEDS: amLODIPine BESYLATE 10 MG TABLET (FP) PO SCH (09:37)
[2022-03-30] MEDS: MELATONIN 5 MG TABLETS PO SCH (21:00)
[2022-03-30] MEDS: traZODone HCL 50 MG TABLET (FP) PO SCH (21:00)
[2022-03-30] MEDS: ATORVASTATIN CA 20 MG TABLET (FP) PO SCH (21:00)
[2022-03-30] MEDS: THIAMINE HCL 100 MG TABLET (FP) PO SCH (21:00)
[2022-03-31] MEDS: metFORMIN HCL 500 MG TABLET (FP) PO SCH (06:21)
[2022-03-31 06:34] VITALS: RESP 18
[2022-03-31] MEDS: METHOCARBAMOL 500 MG TABLET PO SCH ×2 (10:22→21:14)
[2022-03-31] MEDS: amLODIPine BESYLATE 10 MG TABLET (FP) PO SCH (10:22)
[2022-03-31] MEDS: HYDROCHLOROTHIAZIDE 25 MG TABLET (FP) PO SCH (10:22)
[2022-03-31] MEDS: LISINOPRIL 20 MG TABLET PO SCH (10:22)
[2022-03-31] MEDS: FAMOTIDINE 20 MG TABLET PO SCH ×2 (10:22→21:14)
[2022-03-31] MEDS: PRENATAL VITAMINS W/ FOLIC ACID TABLET (FP) PO SCH (10:22)
[2022-03-31] MEDS: ASPIRIN 81 MG CHEWABLE TABLETS PO SCH (10:22)
[2022-03-31] MEDS: MAG HYDROX/AL HYDROX/SIMETH 30 ML UNIT-DOSE CUP PO PRN ×2 (10:23→21:15)
[2022-03-31] MEDS: MELATONIN 5 MG TABLETS PO SCH (21:14)
[2022-03-31] MEDS: THIAMINE HCL 100 MG TABLET (FP) PO SCH (21:14)
[2022-03-31] MEDS: traZODone HCL 50 MG TABLET (FP) PO SCH (21:14)
[2022-03-31] MEDS: ATORVASTATIN CA 20 MG TABLET (FP) PO SCH (21:14)
[2022-03-31] MEDS: ACETAMINOPHEN 325 MG TABLET (FP) PO PRN (21:39)
[2022-04-01 06:35] VITALS: BP 152/82; PULSE 70; TEMP 97.3
[2022-04-01] MEDS: metFORMIN HCL 500 MG TABLET (FP) PO SCH (06:41)
[2022-04-01] MEDS: PRENATAL VITAMINS W/ FOLIC ACID TABLET (FP) PO SCH (09:03)
[2022-04-01] MEDS: LISINOPRIL 20 MG TABLET PO SCH (09:03)
[2022-04-01] MEDS: HYDROCHLOROTHIAZIDE 25 MG TABLET (FP) PO SCH (09:04)
[2022-04-01] MEDS: METHOCARBAMOL 500 MG TABLET PO SCH (09:04)
[2022-04-01] MEDS: ASPIRIN 81 MG CHEWABLE TABLETS PO SCH (09:04)
[2022-04-01] MEDS: amLODIPine BESYLATE 10 MG TABLET (FP) PO SCH (09:04)
[2022-04-01] MEDS: FAMOTIDINE 20 MG TABLET PO SCH (09:04)
== END 2022-04-01 09:15 | disposition home or self-care (01) | DRG 772 ==
LOC: YASAS 08:30 → Y3W 16:46
PROVIDERS: ADMIT Surgery; ATTEND Allergy & Immunology
PROC: HZ42ZZZ Group Counseling for Substance Abuse Treatment, Cognitive-Behavioral (ICD-10-PCS; principal; 2022-03-19)
DX: F10.20 Alcohol dependence, uncomplicated (principal); F14.20 Cocaine dependence, uncomplicated; F17.210 Nicotine dependence, cigarettes, uncomplicated; F19.282 Other psychoactive substance dependence with psychoactive substance-induced sleep disorder; F19.24 Other psychoactive substance dependence with psychoactive substance-induced mood disorder; F32.A Depression, unspecified; G47.30 Sleep apnea, unspecified; I12.9 Hypertensive chronic kidney disease with stage 1 through stage 4 chronic kidney disease, or unspecified chronic kidney disease; N18.9 Chronic kidney disease, unspecified; Z79.84 Long term (current) use of oral hypoglycemic drugs; K21.9 Gastro-esophageal reflux disease without esophagitis; E78.5 Hyperlipidemia, unspecified; M54.50 Low back pain, unspecified; G89.29 Other chronic pain; Z56.0 Unemployment, unspecified; Z59.01 Sheltered homelessness
CPT/HCPCS: 36415; 80053; 81003; 82962; 85027; 86780; 86803; 87389; C9803-CS; U0003; U0005

== ENCOUNTER 2022-06-25 13:20 | Inpatient (IN) | payer OTHER ==
[2022-06-25 16:57] VITALS: BMI 39.5
[2022-06-25] MEDS ORDERED: ONDANSETRON *ODT* 4 MG TABLET SL PRN (17:25)
[2022-06-25] MEDS ORDERED: LOPERAMIDE HCL 2 MG CAPSULE PO PRN (17:25)
[2022-06-25] MEDS ORDERED: IBUPROFEN 600 MG TABLET (FP) PO PRN (17:25)
[2022-06-25] MEDS ORDERED: MAGNESIUM HYDROX 2400MG/30ML ORAL SUSPENSION 30 ML CUP PO PRN (17:25)
[2022-06-25] MEDS ORDERED: NALOXONE HCL 0.4 MG/ML VIAL IM PRN (17:25)
[2022-06-25] MEDS ORDERED: IBUPROFEN 400 MG TABLET (FP) PO PRN (17:25)
[2022-06-25] MEDS ORDERED: BISMUTH SUBSALICYLATE 524 MG/30 ML PO PRN (17:25)
[2022-06-25] MEDS ORDERED: ACETAMINOPHEN 325 MG TABLET (FP) PO PRN (17:25)
[2022-06-25] MEDS ORDERED: POLYETHYLENE GLYCOL (HEALTHYLAX) 3350 17 GM PACKET PO PRN (17:25)
[2022-06-25] MEDS ORDERED: hydrOXYzine PAMOATE 25 MG CAPSULE (FP) PO PRN (17:25)
[2022-06-25] MEDS ORDERED: NICOTINE 10 MG CARTRIDGE (INHALER) IH PRN (17:25)
[2022-06-25] MEDS ORDERED: BENZOCAINE/MENTHOL (CHLORASEPTIC ) LOZENGE MM PRN (17:25)
[2022-06-25] MEDS ORDERED: DICYCLOMINE HCL 10 MG CAPSULE PO PRN (17:25)
[2022-06-25] MEDS ORDERED: chlordiazePOXIDE HCL 25 MG CAPSULE PO PRN (17:25)
[2022-06-25] MEDS ORDERED: NALOXONE HCL (KLOXXADO) 8 MG SPRAY NS PRN (17:25)
[2022-06-25] MEDS ORDERED: MAG HYDROX/AL HYDROX/SIMETH 30 ML UNIT-DOSE CUP PO PRN (17:25)
[2022-06-25] MEDS ORDERED: guaiFENesin 600 MG TABLET.ER (FP) PO PRN (17:25)
[2022-06-25] MEDS ORDERED: BENZONATATE 200 MG CAPSULE PO PRN (17:25)
[2022-06-25] MEDS ORDERED: METHOCARBAMOL 500 MG TABLET PO PRN (17:25)
[2022-06-25] MEDS: THIAMINE HCL 100 MG TABLET (FP) PO SCH (22:26)
[2022-06-25] MEDS: MELATONIN 5 MG TABLETS PO SCH (22:26)
[2022-06-25] MEDS: chlordiazePOXIDE HCL 25 MG CAPSULE PO SCH (22:27)
[2022-06-26] MEDS: chlordiazePOXIDE HCL 25 MG CAPSULE PO SCH ×4 (05:42→22:41)
[2022-06-26] MEDS: PRENATAL VITAMINS W/ FOLIC ACID TABLET (FP) PO SCH (11:00)
[2022-06-26] MEDS: amLODIPine BESYLATE 10 MG TABLET (FP) PO SCH (11:01)
[2022-06-26] MEDS: HYDROCHLOROTHIAZIDE 25 MG TABLET (FP) PO SCH (11:01)
[2022-06-26 11:45] LABS: MCH 26.3 pg (25.7-33.7); MCHC 33.2 g/dl (32.0-35.9); MEAN CELL VOLUME 79.2 fl (80-96); MEAN PLT VOLUME 9.6 fl (7.5-11.1); PLATELET COUNT 198 10^3/uL (134-434); WHITE BLOOD COUNT 6.6 K/mm3 (4.0-10.0)
[2022-06-26 12:06] LABS: CALCIUM 8.2 mg/dL (8.5-10.1)
[2022-06-26 12:07] LABS: ALBUMIN 2.2 g/dl (3.4-5.0); BLOOD UREA NITROGEN 23.7 mg/dL (7-18)
[2022-06-26 12:10] LABS: CREATININE 1.5 mg/dL (0.55-1.3)
[2022-06-26 12:11] LABS: BILIRUBIN,TOTAL 0.4 mg/dL (0.2-1)
[2022-06-26 12:12] LABS: TOT PROT 5.3 g/dl (6.4-8.2)
[2022-06-26] MEDS: ASPIRIN 81 MG CHEWABLE TABLETS PO SCH (13:06)
[2022-06-26] MEDS: MELATONIN 5 MG TABLETS PO SCH (22:41)
[2022-06-26] MEDS: THIAMINE HCL 100 MG TABLET (FP) PO SCH (22:41)
[2022-06-27] MEDS: chlordiazePOXIDE HCL 25 MG CAPSULE PO SCH ×4 (05:29→23:19)
[2022-06-27] MEDS: ASPIRIN 81 MG CHEWABLE TABLETS PO SCH (10:09)
[2022-06-27] MEDS: PRENATAL VITAMINS W/ FOLIC ACID TABLET (FP) PO SCH (10:09)
[2022-06-27] MEDS: HYDROCHLOROTHIAZIDE 25 MG TABLET (FP) PO SCH (10:09)
[2022-06-27] MEDS: amLODIPine BESYLATE 10 MG TABLET (FP) PO SCH (10:09)
[2022-06-27] MEDS ORDERED: LISINOPRIL 10 MG TABLET PO ONE ×2 (19:03→21:45)
[2022-06-27] MEDS ORDERED: ATORVASTATIN CA 20 MG TABLET (FP) PO SCH (22:00)
[2022-06-27 23:07] VITALS: RESP 18
[2022-06-27] MEDS: MELATONIN 5 MG TABLETS PO SCH (23:20)
[2022-06-27] MEDS: THIAMINE HCL 100 MG TABLET (FP) PO SCH (23:21)
[2022-06-28] MEDS ORDERED: chlordiazePOXIDE HCL 10 MG CAPSULE PO PRN
[2022-06-28] MEDS: chlordiazePOXIDE HCL 10 MG CAPSULE PO SCH ×3 (05:21→10:23)
[2022-06-28] MEDS ORDERED: metFORMIN HCL 500 MG TABLET (FP) PO SCH (07:00)
[2022-06-28 09:38] VITALS: BP 142/94; PULSE 75; TEMP 97.8
[2022-06-28] MEDS: amLODIPine BESYLATE 10 MG TABLET (FP) PO SCH ×2 (10:16→10:23)
[2022-06-28] MEDS: ASPIRIN 81 MG CHEWABLE TABLETS PO SCH ×2 (10:16→10:22)
[2022-06-28] MEDS: PRENATAL VITAMINS W/ FOLIC ACID TABLET (FP) PO SCH ×2 (10:16→10:23)
[2022-06-28] MEDS: HYDROCHLOROTHIAZIDE 25 MG TABLET (FP) PO SCH ×2 (10:16→10:22)
[2022-06-28] MEDS ORDERED: LISINOPRIL 20 MG TABLET PO SCH (10:30)
[2022-06-29] MEDS ORDERED: chlordiazePOXIDE HCL 10 MG CAPSULE PO SCH (05:00)
[2022-06-30] MEDS ORDERED: chlordiazePOXIDE HCL 10 MG CAPSULE PO ONE (05:00)
== END 2022-06-28 10:29 | disposition left against medical advice (07) | DRG 770 ==
LOC: YASAS 13:20 → Y6N 18:26
PROVIDERS: ADMIT Allergy & Immunology; ATTEND Surgery
PROC: HZ2ZZZZ Detoxification Services for Substance Abuse Treatment (ICD-10-PCS; principal; 2022-06-25)
DX: F10.230 Alcohol dependence with withdrawal, uncomplicated (principal); F14.20 Cocaine dependence, uncomplicated; F17.210 Nicotine dependence, cigarettes, uncomplicated; E78.2 Mixed hyperlipidemia; I10 Essential (primary) hypertension; K21.9 Gastro-esophageal reflux disease without esophagitis; E11.9 Type 2 diabetes mellitus without complications; Z79.84 Long term (current) use of oral hypoglycemic drugs; F91.8 Other conduct disorders; Z91.199 Patient's noncompliance with other medical treatment and regimen due to unspecified reason
CPT/HCPCS: 36415; 80053; 82962; 85027; 86780; 87811; C9803-CS; U0003; U0005

== ENCOUNTER 2022-10-06 18:32 | Inpatient (IN) | payer OTHER ==
[2022-10-06 19:42] VITALS: BMI 38.0
[2022-10-06] MEDS ORDERED: POLYETHYLENE GLYCOL (HEALTHYLAX) 3350 17 GM PACKET PO PRN (21:13)
[2022-10-06] MEDS ORDERED: guaiFENesin 600 MG TABLET.ER (FP) PO PRN (21:13)
[2022-10-06] MEDS ORDERED: BENZONATATE 200 MG CAPSULE PO PRN (21:13)
[2022-10-06] MEDS ORDERED: NALOXONE HCL 0.4 MG/ML VIAL IM PRN (21:13)
[2022-10-06] MEDS ORDERED: COLLOIDAL OATMEAL 1 BAR EACH TP PRN (21:13)
[2022-10-06] MEDS ORDERED: NALOXONE HCL (KLOXXADO) 8 MG SPRAY NS PRN (21:13)
[2022-10-06] MEDS ORDERED: NICOTINE POLACRILEX 2 MG GUM BUC PRN (21:13)
[2022-10-06] MEDS ORDERED: hydrOXYzine PAMOATE 25 MG CAPSULE (FP) PO PRN (21:13)
[2022-10-06] MEDS ORDERED: LOPERAMIDE HCL 2 MG CAPSULE PO PRN (21:13)
[2022-10-06] MEDS ORDERED: TUBERCULIN PPD 5 TU/0.1ML SYRINGE (IN PATIENT USE ONLY) ID ONE (21:13)
[2022-10-06] MEDS ORDERED: AMMONIUM LACTATE 12% LOTION 225 GM BOTTLE TP PRN (21:13)
[2022-10-06] MEDS ORDERED: GABAPENTIN 300 MG CAPSULE PO SCH (22:00)
[2022-10-07] MEDS ORDERED: TUBERCULIN PPD 5 TU/0.1ML VIAL ID ONE ×2 (01:23→07:09)
[2022-10-07] MEDS: ATORVASTATIN CA 20 MG TABLET (FP) PO SCH ×2 (01:29→21:17)
[2022-10-07] MEDS: GABAPENTIN 300 MG CAPSULE PO SCH ×3 (01:29→21:16)
[2022-10-07] MEDS: MELATONIN 5 MG TABLETS PO SCH ×2 (01:39→21:16)
[2022-10-07] MEDS: THIAMINE HCL 100 MG TABLET (FP) PO SCH ×2 (01:40→21:16)
[2022-10-07] MEDS: metFORMIN HCL 500 MG TABLET (FP) PO SCH (07:17)
[2022-10-07] MEDS: amLODIPine BESYLATE 10 MG TABLET (FP) PO SCH (09:06)
[2022-10-07] MEDS: FAMOTIDINE 20 MG TABLET PO SCH ×2 (09:06→21:16)
[2022-10-07] MEDS: LISINOPRIL 20 MG TABLET PO SCH (09:06)
[2022-10-07] MEDS: ASPIRIN 81 MG CHEWABLE TABLETS PO SCH (09:06)
[2022-10-07] MEDS: PRENATAL VITAMINS W/ FOLIC ACID TABLET (FP) PO SCH (09:06)
[2022-10-07] MEDS: NICOTINE 14 MG/24 HOURS TOPICAL PATCH TD SCH (09:07)
[2022-10-07 11:11] LABS: HEMATOCRIT 46.9 % (35.4-49); HEMOGLOBIN 14.8 GM/dL (11.7-16.9); MCH 26.4 pg (25.7-33.7); MCHC 31.4 g/dl (32.0-35.9); MEAN PLT VOLUME 10.1 fl (7.5-11.1); PLATELET COUNT 211 10^3/uL (134-434); RBC 5.59 M/mm3 (4.00-5.60); RDW 16.7 % (11.9-15.9); WHITE BLOOD COUNT 6.9 K/mm3 (4.0-10.0)
[2022-10-07 11:45] LABS: EPI CELLS 6 /uL (0-25.1); HYALINE CASTS 1 /uL (0-3.1); PH,URINE 5.5 (5.0-8.0); URINE APPEARANCE CLEAR; URINE BACTERIA 5 /uL (0-1359); URINE BILIRUBIN NEGATIVE (NEGATIVE); URINE COLOR YELLOW; URINE GLUCOSE (UA) NEGATIVE (NEGATIVE); URINE KETONE NEGATIVE (NEGATIVE); URINE LEUK ESTERASE NEGATIVE (NEGATIVE); URINE NITRITE NEGATIVE (NEGATIVE); URINE PROTEIN 3+ (NEGATIVE); URINE RBC 6 /uL (0-23.9); URINE UROBILINOGEN 0.2 mg/dL (0.2-1.0); URINE WBC 11 /uL (0-25.8)
[2022-10-07 11:57] LABS: POTASSIUM 4.5 mmol/L (3.5-5.1)
[2022-10-07 12:04] LABS: ALBUMIN 2.5 g/dl (3.4-5.0)
[2022-10-07 12:07] LABS: CALCIUM 8.9 mg/dL (8.5-10.1)
[2022-10-07 12:08] LABS: BILIRUBIN,TOTAL 0.3 mg/dL (0.2-1); CREATININE 1.5 mg/dL (0.55-1.3); TOT PROT 5.6 g/dl (6.4-8.2)
[2022-10-07 12:33] LABS: SYPHILIS W/ RPR CONF NON-REACTIVE (NONREACTIVE)
[2022-10-07] MEDS: ACETAMINOPHEN 325 MG TABLET (FP) PO PRN (17:02)
[2022-10-07] MEDS: traZODone HCL 100 MG TABLET (FP) PO SCH (21:18)
[2022-10-07] MEDS: BENZOCAINE/MENTHOL (CHLORASEPTIC ) LOZENGE MM PRN (22:28)
[2022-10-08] MEDS: metFORMIN HCL 500 MG TABLET (FP) PO SCH (06:46)
[2022-10-08] MEDS: amLODIPine BESYLATE 10 MG TABLET (FP) PO SCH (10:01)
[2022-10-08] MEDS: LISINOPRIL 20 MG TABLET PO SCH (10:01)
[2022-10-08] MEDS: ASPIRIN 81 MG CHEWABLE TABLETS PO SCH (10:01)
[2022-10-08] MEDS: FAMOTIDINE 20 MG TABLET PO SCH ×2 (10:01→21:15)
[2022-10-08] MEDS: GABAPENTIN 300 MG CAPSULE PO SCH ×2 (10:01→21:15)
[2022-10-08] MEDS: PRENATAL VITAMINS W/ FOLIC ACID TABLET (FP) PO SCH (10:01)
[2022-10-08] MEDS: NICOTINE 14 MG/24 HOURS TOPICAL PATCH TD SCH (10:02)
[2022-10-08] MEDS: MELATONIN 5 MG TABLETS PO SCH (21:14)
[2022-10-08] MEDS: THIAMINE HCL 100 MG TABLET (FP) PO SCH (21:15)
[2022-10-08] MEDS: traZODone HCL 100 MG TABLET (FP) PO SCH (21:15)
[2022-10-08] MEDS: ATORVASTATIN CA 20 MG TABLET (FP) PO SCH (21:15)
[2022-10-08] MEDS: MAGNESIUM HYDROX 2400MG/30ML ORAL SUSPENSION 30 ML CUP PO PRN (21:16)
[2022-10-09] MEDS: metFORMIN HCL 500 MG TABLET (FP) PO SCH (06:43)
[2022-10-09] MEDS: LISINOPRIL 20 MG TABLET PO SCH (09:58)
[2022-10-09] MEDS: amLODIPine BESYLATE 10 MG TABLET (FP) PO SCH (09:58)
[2022-10-09] MEDS: GABAPENTIN 300 MG CAPSULE PO SCH ×2 (09:58→21:13)
[2022-10-09] MEDS: PRENATAL VITAMINS W/ FOLIC ACID TABLET (FP) PO SCH (09:58)
[2022-10-09] MEDS: FAMOTIDINE 20 MG TABLET PO SCH ×2 (09:58→21:13)
[2022-10-09] MEDS: ASPIRIN 81 MG CHEWABLE TABLETS PO SCH (09:58)
[2022-10-09] MEDS: NICOTINE 14 MG/24 HOURS TOPICAL PATCH TD SCH (10:00)
[2022-10-09] MEDS: BENZOCAINE/MENTHOL (CHLORASEPTIC ) LOZENGE MM PRN ×2 (11:15→21:15)
[2022-10-09] MEDS: traZODone HCL 100 MG TABLET (FP) PO SCH (21:13)
[2022-10-09] MEDS: ATORVASTATIN CA 20 MG TABLET (FP) PO SCH (21:13)
[2022-10-09] MEDS: MELATONIN 5 MG TABLETS PO SCH (21:13)
[2022-10-09] MEDS: THIAMINE HCL 100 MG TABLET (FP) PO SCH (21:13)
[2022-10-09] MEDS: ACETAMINOPHEN 325 MG TABLET (FP) PO PRN (21:15)
[2022-10-10] MEDS: metFORMIN HCL 500 MG TABLET (FP) PO SCH (06:38)
[2022-10-10] MEDS: PRENATAL VITAMINS W/ FOLIC ACID TABLET (FP) PO SCH (10:04)
[2022-10-10] MEDS: FAMOTIDINE 20 MG TABLET PO SCH ×2 (10:05→21:22)
[2022-10-10] MEDS: ASPIRIN 81 MG CHEWABLE TABLETS PO SCH (10:05)
[2022-10-10] MEDS: LISINOPRIL 20 MG TABLET PO SCH (10:05)
[2022-10-10] MEDS: amLODIPine BESYLATE 10 MG TABLET (FP) PO SCH (10:05)
[2022-10-10] MEDS: GABAPENTIN 300 MG CAPSULE PO SCH ×2 (10:05→21:23)
[2022-10-10] MEDS: NICOTINE 14 MG/24 HOURS TOPICAL PATCH TD SCH (10:05)
[2022-10-10] MEDS: BENZOCAINE/MENTHOL (CHLORASEPTIC ) LOZENGE MM PRN ×2 (10:56→21:26)
[2022-10-10] MEDS: ARTIFICIAL TEARS (POLYVINYL ALCOHOL) OPTH DROPS OU PRN (12:01)
[2022-10-10] MEDS ORDERED: LACTULOSE 20 GM/30 ML UDC (FOR ORAL USE ONLY) PO ONE (12:54)
[2022-10-10] MEDS: THIAMINE HCL 100 MG TABLET (FP) PO SCH (21:22)
[2022-10-10] MEDS: ATORVASTATIN CA 20 MG TABLET (FP) PO SCH (21:22)
[2022-10-10] MEDS: traZODone HCL 100 MG TABLET (FP) PO SCH (21:22)
[2022-10-10] MEDS: MELATONIN 5 MG TABLETS PO SCH (21:23)
[2022-10-10] MEDS: ACETAMINOPHEN 325 MG TABLET (FP) PO PRN (21:24)
[2022-10-11] MEDS: metFORMIN HCL 500 MG TABLET (FP) PO SCH (06:49)
[2022-10-11] MEDS: GABAPENTIN 300 MG CAPSULE PO SCH (09:16)
[2022-10-11] MEDS: ASPIRIN 81 MG CHEWABLE TABLETS PO SCH (09:16)
[2022-10-11] MEDS: FAMOTIDINE 20 MG TABLET PO SCH ×2 (09:18→21:22)
[2022-10-11] MEDS: PRENATAL VITAMINS W/ FOLIC ACID TABLET (FP) PO SCH (09:18)
[2022-10-11] MEDS: NICOTINE 14 MG/24 HOURS TOPICAL PATCH TD SCH (09:18)
[2022-10-11] MEDS: amLODIPine BESYLATE 10 MG TABLET (FP) PO SCH (09:18)
[2022-10-11] MEDS: LISINOPRIL 20 MG TABLET PO SCH (09:19)
[2022-10-11] MEDS: MAGNESIUM HYDROX 2400MG/30ML ORAL SUSPENSION 30 ML CUP PO PRN (09:27)
[2022-10-11] MEDS ORDERED: NICOTINE POLACRILEX 4 MG GUM BUC PRN (13:43)
[2022-10-11] MEDS: LISINOPRIL 10 MG TABLET PO SCH (15:20)
[2022-10-11] MEDS: guaiFENesin 200 MG/10 ML 10 ML UNIT-DOSE CUPS PO PRN ×2 (15:32→21:26)
[2022-10-11] MEDS: ARTIFICIAL TEARS (POLYVINYL ALCOHOL) OPTH DROPS OU PRN (16:43)
[2022-10-11] MEDS: BENZOCAINE/MENTHOL (CHLORASEPTIC ) LOZENGE MM PRN (19:33)
[2022-10-11] MEDS: ACETAMINOPHEN 325 MG TABLET (FP) PO PRN (21:21)
[2022-10-11] MEDS: traZODone HCL 100 MG TABLET (FP) PO SCH (21:22)
[2022-10-11] MEDS: MELATONIN 5 MG TABLETS PO SCH (21:22)
[2022-10-11] MEDS: THIAMINE HCL 100 MG TABLET (FP) PO SCH (21:22)
[2022-10-11] MEDS: ATORVASTATIN CA 20 MG TABLET (FP) PO SCH (21:22)
[2022-10-11] MEDS: SENNOSIDES 8.6MG TABLET (FP) PO PRN (21:24)
[2022-10-12] MEDS: ACETAMINOPHEN 325 MG TABLET (FP) PO PRN ×2 (06:39→21:09)
[2022-10-12] MEDS: metFORMIN HCL 500 MG TABLET (FP) PO SCH (07:08)
[2022-10-12] MEDS: ARTIFICIAL TEARS (POLYVINYL ALCOHOL) OPTH DROPS OU PRN (07:48)
[2022-10-12] MEDS: PRENATAL VITAMINS W/ FOLIC ACID TABLET (FP) PO SCH (10:03)
[2022-10-12] MEDS: LISINOPRIL 20 MG TABLET PO SCH (10:05)
[2022-10-12] MEDS: ASPIRIN 81 MG CHEWABLE TABLETS PO SCH (10:05)
[2022-10-12] MEDS: amLODIPine BESYLATE 10 MG TABLET (FP) PO SCH (10:05)
[2022-10-12] MEDS: FAMOTIDINE 20 MG TABLET PO SCH ×2 (10:05→21:07)
[2022-10-12] MEDS: NICOTINE 14 MG/24 HOURS TOPICAL PATCH TD SCH (10:05)
[2022-10-12] MEDS: guaiFENesin 200 MG/10 ML 10 ML UNIT-DOSE CUPS PO PRN ×2 (10:08→21:11)
[2022-10-12] MEDS: BENZOCAINE/MENTHOL (CHLORASEPTIC ) LOZENGE MM PRN ×2 (11:15→15:42)
[2022-10-12] MEDS: LISINOPRIL 10 MG TABLET PO SCH (14:22)
[2022-10-12] MEDS: THIAMINE HCL 100 MG TABLET (FP) PO SCH (21:07)
[2022-10-12] MEDS: ATORVASTATIN CA 20 MG TABLET (FP) PO SCH (21:07)
[2022-10-12] MEDS: SENNOSIDES 8.6MG TABLET (FP) PO PRN (21:08)
[2022-10-12] MEDS: traZODone HCL 100 MG TABLET (FP) PO SCH (21:27)
[2022-10-12] MEDS: MELATONIN 5 MG TABLETS PO SCH (21:27)
[2022-10-13] MEDS: metFORMIN HCL 500 MG TABLET (FP) PO SCH (06:34)
[2022-10-13] MEDS: LISINOPRIL 20 MG TABLET PO SCH (06:34)
[2022-10-13] MEDS: amLODIPine BESYLATE 10 MG TABLET (FP) PO SCH (06:34)
[2022-10-13] MEDS: BENZOCAINE/MENTHOL (CHLORASEPTIC ) LOZENGE MM PRN ×2 (06:36→15:03)
[2022-10-13] MEDS: ASPIRIN 81 MG CHEWABLE TABLETS PO SCH (09:56)
[2022-10-13] MEDS: FAMOTIDINE 20 MG TABLET PO SCH ×2 (09:56→21:18)
[2022-10-13] MEDS: PRENATAL VITAMINS W/ FOLIC ACID TABLET (FP) PO SCH (09:56)
[2022-10-13] MEDS: NICOTINE 14 MG/24 HOURS TOPICAL PATCH TD SCH (09:58)
[2022-10-13] MEDS: guaiFENesin 200 MG/10 ML 10 ML UNIT-DOSE CUPS PO PRN (10:08)
[2022-10-13] MEDS: ARTIFICIAL TEARS (POLYVINYL ALCOHOL) OPTH DROPS OU PRN ×3 (10:08→18:35)
[2022-10-13] MEDS: LISINOPRIL 10 MG TABLET PO SCH (14:28)
[2022-10-13] MEDS: THIAMINE HCL 100 MG TABLET (FP) PO SCH (21:19)
[2022-10-13] MEDS: MELATONIN 5 MG TABLETS PO SCH (21:19)
[2022-10-13] MEDS: traZODone HCL 100 MG TABLET (FP) PO SCH (21:19)
[2022-10-13] MEDS: ATORVASTATIN CA 20 MG TABLET (FP) PO SCH (21:19)
[2022-10-14] MEDS: LISINOPRIL 20 MG TABLET PO SCH (06:29)
[2022-10-14] MEDS: metFORMIN HCL 500 MG TABLET (FP) PO SCH (06:29)
[2022-10-14] MEDS: amLODIPine BESYLATE 10 MG TABLET (FP) PO SCH (06:29)
[2022-10-14] MEDS: ARTIFICIAL TEARS (POLYVINYL ALCOHOL) OPTH DROPS OU PRN (06:31)
[2022-10-14] MEDS: PRENATAL VITAMINS W/ FOLIC ACID TABLET (FP) PO SCH (09:48)
[2022-10-14] MEDS: NICOTINE 14 MG/24 HOURS TOPICAL PATCH TD SCH (09:48)
[2022-10-14] MEDS: FAMOTIDINE 20 MG TABLET PO SCH ×2 (09:48→21:22)
[2022-10-14] MEDS: ASPIRIN 81 MG CHEWABLE TABLETS PO SCH (09:48)
[2022-10-14] MEDS: guaiFENesin 200 MG/10 ML 10 ML UNIT-DOSE CUPS PO PRN (14:29)
[2022-10-14] MEDS: LISINOPRIL 10 MG TABLET PO SCH (14:29)
[2022-10-14] MEDS: THIAMINE HCL 100 MG TABLET (FP) PO SCH (21:21)
[2022-10-14] MEDS: MELATONIN 5 MG TABLETS PO SCH (21:21)
[2022-10-14] MEDS: ATORVASTATIN CA 20 MG TABLET (FP) PO SCH (21:22)
[2022-10-14] MEDS: SENNOSIDES 8.6MG TABLET (FP) PO PRN (21:22)
[2022-10-14] MEDS: traZODone HCL 100 MG TABLET (FP) PO SCH (21:22)
[2022-10-15] MEDS: amLODIPine BESYLATE 10 MG TABLET (FP) PO SCH (06:25)
[2022-10-15] MEDS: LISINOPRIL 20 MG TABLET PO SCH (06:25)
[2022-10-15] MEDS: metFORMIN HCL 500 MG TABLET (FP) PO SCH (06:25)
[2022-10-15] MEDS: BENZOCAINE/MENTHOL (CHLORASEPTIC ) LOZENGE MM PRN (09:17)
[2022-10-15] MEDS: PRENATAL VITAMINS W/ FOLIC ACID TABLET (FP) PO SCH (10:13)
[2022-10-15] MEDS: ASPIRIN 81 MG CHEWABLE TABLETS PO SCH (10:13)
[2022-10-15] MEDS: NICOTINE 14 MG/24 HOURS TOPICAL PATCH TD SCH (10:13)
[2022-10-15] MEDS: FAMOTIDINE 20 MG TABLET PO SCH ×2 (10:13→21:52)
[2022-10-15] MEDS: ARTIFICIAL TEARS (POLYVINYL ALCOHOL) OPTH DROPS OU PRN ×2 (10:15→21:48)
[2022-10-15] MEDS: LISINOPRIL 10 MG TABLET PO SCH (14:26)
[2022-10-15] MEDS: guaiFENesin 200 MG/10 ML 10 ML UNIT-DOSE CUPS PO PRN ×2 (14:28→21:49)
[2022-10-15] MEDS: ACETAMINOPHEN 325 MG TABLET (FP) PO PRN (21:51)
[2022-10-15] MEDS: MELATONIN 5 MG TABLETS PO SCH (21:51)
[2022-10-15] MEDS: traZODone HCL 100 MG TABLET (FP) PO SCH (21:51)
[2022-10-15] MEDS: THIAMINE HCL 100 MG TABLET (FP) PO SCH (21:52)
[2022-10-15] MEDS: ATORVASTATIN CA 20 MG TABLET (FP) PO SCH (21:52)
[2022-10-15] MEDS: SENNOSIDES 8.6MG TABLET (FP) PO PRN (21:53)
[2022-10-16] MEDS: amLODIPine BESYLATE 10 MG TABLET (FP) PO SCH (06:46)
[2022-10-16] MEDS: LISINOPRIL 20 MG TABLET PO SCH (06:46)
[2022-10-16] MEDS: metFORMIN HCL 500 MG TABLET (FP) PO SCH (06:47)
[2022-10-16] MEDS: ARTIFICIAL TEARS (POLYVINYL ALCOHOL) OPTH DROPS OU PRN ×2 (06:47→21:28)
[2022-10-16] MEDS: PRENATAL VITAMINS W/ FOLIC ACID TABLET (FP) PO SCH (09:53)
[2022-10-16] MEDS: FAMOTIDINE 20 MG TABLET PO SCH ×2 (09:53→21:44)
[2022-10-16] MEDS: ASPIRIN 81 MG CHEWABLE TABLETS PO SCH (09:53)
[2022-10-16] MEDS: NICOTINE 14 MG/24 HOURS TOPICAL PATCH TD SCH (09:53)
[2022-10-16] MEDS: guaiFENesin 200 MG/10 ML 10 ML UNIT-DOSE CUPS PO PRN (09:55)
[2022-10-16] MEDS: BENZOCAINE/MENTHOL (CHLORASEPTIC ) LOZENGE MM PRN (09:56)
[2022-10-16] MEDS: LISINOPRIL 10 MG TABLET PO SCH (14:07)
[2022-10-16] MEDS: MELATONIN 5 MG TABLETS PO SCH (21:28)
[2022-10-16] MEDS: ACETAMINOPHEN 325 MG TABLET (FP) PO PRN (21:29)
[2022-10-16] MEDS: THIAMINE HCL 100 MG TABLET (FP) PO SCH (21:44)
[2022-10-16] MEDS: ATORVASTATIN CA 20 MG TABLET (FP) PO SCH (21:45)
[2022-10-16] MEDS: traZODone HCL 100 MG TABLET (FP) PO SCH (22:15)
[2022-10-17] MEDS: LISINOPRIL 20 MG TABLET PO SCH (06:37)
[2022-10-17] MEDS: metFORMIN HCL 500 MG TABLET (FP) PO SCH (06:37)
[2022-10-17] MEDS: amLODIPine BESYLATE 10 MG TABLET (FP) PO SCH (06:37)
[2022-10-17] MEDS: ARTIFICIAL TEARS (POLYVINYL ALCOHOL) OPTH DROPS OU PRN ×3 (06:38→21:29)
[2022-10-17] MEDS: PRENATAL VITAMINS W/ FOLIC ACID TABLET (FP) PO SCH (09:51)
[2022-10-17] MEDS: FAMOTIDINE 20 MG TABLET PO SCH ×2 (09:51→21:25)
[2022-10-17] MEDS: NICOTINE 14 MG/24 HOURS TOPICAL PATCH TD SCH (09:51)
[2022-10-17] MEDS: ASPIRIN 81 MG CHEWABLE TABLETS PO SCH (09:51)
[2022-10-17] MEDS: BENZOCAINE/MENTHOL (CHLORASEPTIC ) LOZENGE MM PRN ×2 (09:52→21:30)
[2022-10-17] MEDS: LISINOPRIL 10 MG TABLET PO SCH (14:45)
[2022-10-17] MEDS: traZODone HCL 100 MG TABLET (FP) PO SCH (21:24)
[2022-10-17] MEDS: MELATONIN 5 MG TABLETS PO SCH (21:24)
[2022-10-17] MEDS: ACETAMINOPHEN 325 MG TABLET (FP) PO PRN (21:25)
[2022-10-17] MEDS: THIAMINE HCL 100 MG TABLET (FP) PO SCH (21:25)
[2022-10-17] MEDS: ATORVASTATIN CA 20 MG TABLET (FP) PO SCH (21:25)
[2022-10-17] MEDS: guaiFENesin 200 MG/10 ML 10 ML UNIT-DOSE CUPS PO PRN (21:30)
[2022-10-18] MEDS: LISINOPRIL 20 MG TABLET PO SCH (06:41)
[2022-10-18] MEDS: amLODIPine BESYLATE 10 MG TABLET (FP) PO SCH (06:41)
[2022-10-18] MEDS: metFORMIN HCL 500 MG TABLET (FP) PO SCH (06:41)
[2022-10-18] MEDS: PRENATAL VITAMINS W/ FOLIC ACID TABLET (FP) PO SCH (09:46)
[2022-10-18] MEDS: ASPIRIN 81 MG CHEWABLE TABLETS PO SCH (09:46)
[2022-10-18] MEDS: ARTIFICIAL TEARS (POLYVINYL ALCOHOL) OPTH DROPS OU PRN ×2 (09:46→21:33)
[2022-10-18] MEDS: FAMOTIDINE 20 MG TABLET PO SCH ×2 (09:46→21:31)
[2022-10-18] MEDS: NICOTINE 14 MG/24 HOURS TOPICAL PATCH TD SCH (09:58)
[2022-10-18] MEDS: LISINOPRIL 10 MG TABLET PO SCH (14:53)
[2022-10-18] MEDS: SENNOSIDES 8.6MG TABLET (FP) PO PRN (21:30)
[2022-10-18] MEDS: ATORVASTATIN CA 20 MG TABLET (FP) PO SCH (21:31)
[2022-10-18] MEDS: ACETAMINOPHEN 325 MG TABLET (FP) PO PRN (21:31)
[2022-10-18] MEDS: traZODone HCL 100 MG TABLET (FP) PO SCH (21:33)
[2022-10-18] MEDS: THIAMINE HCL 100 MG TABLET (FP) PO SCH (21:33)
[2022-10-18] MEDS: MELATONIN 5 MG TABLETS PO SCH (21:33)
[2022-10-18] MEDS: BENZOCAINE/MENTHOL (CHLORASEPTIC ) LOZENGE MM PRN (23:07)
[2022-10-18] MEDS: guaiFENesin 200 MG/10 ML 10 ML UNIT-DOSE CUPS PO PRN (23:07)
[2022-10-19] MEDS: LISINOPRIL 20 MG TABLET PO SCH (06:22)
[2022-10-19] MEDS: metFORMIN HCL 500 MG TABLET (FP) PO SCH (06:23)
[2022-10-19] MEDS: amLODIPine BESYLATE 10 MG TABLET (FP) PO SCH (06:23)
[2022-10-19] MEDS: NICOTINE 14 MG/24 HOURS TOPICAL PATCH TD SCH (09:42)
[2022-10-19] MEDS: ASPIRIN 81 MG CHEWABLE TABLETS PO SCH (09:42)
[2022-10-19] MEDS: PRENATAL VITAMINS W/ FOLIC ACID TABLET (FP) PO SCH (09:42)
[2022-10-19] MEDS: FAMOTIDINE 20 MG TABLET PO SCH ×2 (09:42→21:27)
[2022-10-19] MEDS: guaiFENesin 200 MG/10 ML 10 ML UNIT-DOSE CUPS PO PRN (09:44)
[2022-10-19] MEDS: LISINOPRIL 10 MG TABLET PO SCH (14:22)
[2022-10-19] MEDS: ACETAMINOPHEN 325 MG TABLET (FP) PO PRN (19:09)
[2022-10-19] MEDS: MAG HYDROX/AL HYDROX/SIMETH 30 ML UNIT-DOSE CUP PO PRN (19:30)
[2022-10-19] MEDS: traZODone HCL 100 MG TABLET (FP) PO SCH (21:27)
[2022-10-19] MEDS: THIAMINE HCL 100 MG TABLET (FP) PO SCH (21:27)
[2022-10-19] MEDS: ATORVASTATIN CA 20 MG TABLET (FP) PO SCH (21:27)
[2022-10-19] MEDS: MELATONIN 5 MG TABLETS PO SCH (21:27)
[2022-10-19] MEDS: ARTIFICIAL TEARS (POLYVINYL ALCOHOL) OPTH DROPS OU PRN (21:29)
[2022-10-20] MEDS: amLODIPine BESYLATE 10 MG TABLET (FP) PO SCH (06:26)
[2022-10-20] MEDS: metFORMIN HCL 500 MG TABLET (FP) PO SCH (06:26)
[2022-10-20] MEDS: LISINOPRIL 20 MG TABLET PO SCH (06:26)
[2022-10-20] MEDS: ASPIRIN 81 MG CHEWABLE TABLETS PO SCH (09:40)
[2022-10-20] MEDS: PRENATAL VITAMINS W/ FOLIC ACID TABLET (FP) PO SCH (09:40)
[2022-10-20] MEDS: FAMOTIDINE 20 MG TABLET PO SCH ×2 (09:40→21:24)
[2022-10-20] MEDS: NICOTINE 14 MG/24 HOURS TOPICAL PATCH TD SCH (09:40)
[2022-10-20] MEDS: ARTIFICIAL TEARS (POLYVINYL ALCOHOL) OPTH DROPS OU PRN (09:41)
[2022-10-20] MEDS: LISINOPRIL 10 MG TABLET PO SCH (13:47)
[2022-10-20] MEDS: THIAMINE HCL 100 MG TABLET (FP) PO SCH (21:23)
[2022-10-20] MEDS: MELATONIN 5 MG TABLETS PO SCH (21:23)
[2022-10-20] MEDS: ATORVASTATIN CA 20 MG TABLET (FP) PO SCH (21:24)
[2022-10-20] MEDS: traZODone HCL 100 MG TABLET (FP) PO SCH (21:24)
[2022-10-20] MEDS: BENZOCAINE/MENTHOL (CHLORASEPTIC ) LOZENGE MM PRN (21:26)
[2022-10-20] MEDS: guaiFENesin 200 MG/10 ML 10 ML UNIT-DOSE CUPS PO PRN (21:26)
[2022-10-21] MEDS: amLODIPine BESYLATE 10 MG TABLET (FP) PO SCH (07:00)
[2022-10-21] MEDS: LISINOPRIL 20 MG TABLET PO SCH (07:01)
[2022-10-21] MEDS: metFORMIN HCL 500 MG TABLET (FP) PO SCH (07:01)
[2022-10-21] MEDS: BENZOCAINE/MENTHOL (CHLORASEPTIC ) LOZENGE MM PRN ×2 (07:03→21:25)
[2022-10-21] MEDS: ARTIFICIAL TEARS (POLYVINYL ALCOHOL) OPTH DROPS OU PRN ×2 (07:04→21:27)
[2022-10-21] MEDS: NICOTINE 14 MG/24 HOURS TOPICAL PATCH TD SCH (09:50)
[2022-10-21] MEDS: PRENATAL VITAMINS W/ FOLIC ACID TABLET (FP) PO SCH (09:50)
[2022-10-21] MEDS: ASPIRIN 81 MG CHEWABLE TABLETS PO SCH (09:51)
[2022-10-21] MEDS: FAMOTIDINE 20 MG TABLET PO SCH ×2 (09:51→21:26)
[2022-10-21] MEDS: LISINOPRIL 10 MG TABLET PO SCH (13:17)
[2022-10-21] MEDS: MELATONIN 5 MG TABLETS PO SCH (21:25)
[2022-10-21] MEDS: traZODone HCL 100 MG TABLET (FP) PO SCH (21:26)
[2022-10-21] MEDS: guaiFENesin 200 MG/10 ML 10 ML UNIT-DOSE CUPS PO PRN (21:26)
[2022-10-21] MEDS: SENNOSIDES 8.6MG TABLET (FP) PO PRN (21:26)
[2022-10-21] MEDS: THIAMINE HCL 100 MG TABLET (FP) PO SCH (21:26)
[2022-10-21] MEDS: ATORVASTATIN CA 20 MG TABLET (FP) PO SCH (21:26)
[2022-10-22] MEDS: ARTIFICIAL TEARS (POLYVINYL ALCOHOL) OPTH DROPS OU PRN (06:52)
[2022-10-22] MEDS: LISINOPRIL 20 MG TABLET PO SCH (06:53)
[2022-10-22] MEDS: amLODIPine BESYLATE 10 MG TABLET (FP) PO SCH (06:53)
[2022-10-22] MEDS: metFORMIN HCL 500 MG TABLET (FP) PO SCH (06:53)
[2022-10-22] MEDS: ASPIRIN 81 MG CHEWABLE TABLETS PO SCH (09:53)
[2022-10-22] MEDS: NICOTINE 14 MG/24 HOURS TOPICAL PATCH TD SCH (09:53)
[2022-10-22] MEDS: FAMOTIDINE 20 MG TABLET PO SCH ×2 (09:53→21:24)
[2022-10-22] MEDS: PRENATAL VITAMINS W/ FOLIC ACID TABLET (FP) PO SCH (09:53)
[2022-10-22] MEDS: LISINOPRIL 10 MG TABLET PO SCH (13:00)
[2022-10-22] MEDS: ACETAMINOPHEN 325 MG TABLET (FP) PO PRN (21:23)
[2022-10-22] MEDS: ATORVASTATIN CA 20 MG TABLET (FP) PO SCH (21:24)
[2022-10-22] MEDS: traZODone HCL 100 MG TABLET (FP) PO SCH (21:24)
[2022-10-22] MEDS: MELATONIN 5 MG TABLETS PO SCH (21:24)
[2022-10-22] MEDS: THIAMINE HCL 100 MG TABLET (FP) PO SCH (21:24)
[2022-10-22] MEDS: SENNOSIDES 8.6MG TABLET (FP) PO PRN (21:24)
[2022-10-23] MEDS: ARTIFICIAL TEARS (POLYVINYL ALCOHOL) OPTH DROPS OU PRN ×2 (07:00→21:11)
[2022-10-23] MEDS: metFORMIN HCL 500 MG TABLET (FP) PO SCH (07:01)
[2022-10-23] MEDS: LISINOPRIL 20 MG TABLET PO SCH (07:01)
[2022-10-23] MEDS: amLODIPine BESYLATE 10 MG TABLET (FP) PO SCH (07:01)
[2022-10-23] MEDS: ACETAMINOPHEN 325 MG TABLET (FP) PO PRN ×2 (07:03→21:08)
[2022-10-23] MEDS: PRENATAL VITAMINS W/ FOLIC ACID TABLET (FP) PO SCH (09:33)
[2022-10-23] MEDS: FAMOTIDINE 20 MG TABLET PO SCH ×2 (09:33→21:05)
[2022-10-23] MEDS: NICOTINE 14 MG/24 HOURS TOPICAL PATCH TD SCH (09:33)
[2022-10-23] MEDS: ASPIRIN 81 MG CHEWABLE TABLETS PO SCH (09:33)
[2022-10-23] MEDS: LISINOPRIL 10 MG TABLET PO SCH (13:56)
[2022-10-23] MEDS: SENNOSIDES 8.6MG TABLET (FP) PO PRN (21:05)
[2022-10-23] MEDS: traZODone HCL 100 MG TABLET (FP) PO SCH (21:05)
[2022-10-23] MEDS: ATORVASTATIN CA 20 MG TABLET (FP) PO SCH (21:05)
[2022-10-23] MEDS: THIAMINE HCL 100 MG TABLET (FP) PO SCH (21:05)
[2022-10-23] MEDS: MELATONIN 5 MG TABLETS PO SCH (21:06)
[2022-10-23] MEDS: guaiFENesin 200 MG/10 ML 10 ML UNIT-DOSE CUPS PO PRN (21:08)
[2022-10-23] MEDS: BENZOCAINE/MENTHOL (CHLORASEPTIC ) LOZENGE MM PRN (21:11)
[2022-10-24] MEDS: LISINOPRIL 20 MG TABLET PO SCH (05:57)
[2022-10-24] MEDS: amLODIPine BESYLATE 10 MG TABLET (FP) PO SCH (05:57)
[2022-10-24] MEDS: metFORMIN HCL 500 MG TABLET (FP) PO SCH (06:14)
[2022-10-24] MEDS: ACETAMINOPHEN 325 MG TABLET (FP) PO PRN (09:40)
[2022-10-24] MEDS: NICOTINE 14 MG/24 HOURS TOPICAL PATCH TD SCH (09:41)
[2022-10-24] MEDS: FAMOTIDINE 20 MG TABLET PO SCH ×2 (09:41→21:20)
[2022-10-24] MEDS: ASPIRIN 81 MG CHEWABLE TABLETS PO SCH (09:41)
[2022-10-24] MEDS: PRENATAL VITAMINS W/ FOLIC ACID TABLET (FP) PO SCH (09:41)
[2022-10-24] MEDS: LISINOPRIL 10 MG TABLET PO SCH (14:06)
[2022-10-24] MEDS: ATORVASTATIN CA 20 MG TABLET (FP) PO SCH (21:20)
[2022-10-24] MEDS: MELATONIN 5 MG TABLETS PO SCH (21:20)
[2022-10-24] MEDS: traZODone HCL 100 MG TABLET (FP) PO SCH (21:20)
[2022-10-24] MEDS: guaiFENesin 200 MG/10 ML 10 ML UNIT-DOSE CUPS PO PRN (21:20)
[2022-10-24] MEDS: BENZOCAINE/MENTHOL (CHLORASEPTIC ) LOZENGE MM PRN (21:21)
[2022-10-24] MEDS: THIAMINE HCL 100 MG TABLET (FP) PO SCH (21:32)
[2022-10-24] MEDS: MAG HYDROX/AL HYDROX/SIMETH 30 ML UNIT-DOSE CUP PO PRN (22:02)
[2022-10-25] MEDS: amLODIPine BESYLATE 10 MG TABLET (FP) PO SCH (05:58)
[2022-10-25] MEDS: LISINOPRIL 20 MG TABLET PO SCH (05:58)
[2022-10-25] MEDS: metFORMIN HCL 500 MG TABLET (FP) PO SCH (06:00)
[2022-10-25] MEDS: NICOTINE 14 MG/24 HOURS TOPICAL PATCH TD SCH (09:55)
[2022-10-25] MEDS: FAMOTIDINE 20 MG TABLET PO SCH ×2 (09:55→21:12)
[2022-10-25] MEDS: ASPIRIN 81 MG CHEWABLE TABLETS PO SCH (09:55)
[2022-10-25] MEDS: PRENATAL VITAMINS W/ FOLIC ACID TABLET (FP) PO SCH (09:55)
[2022-10-25] MEDS: ARTIFICIAL TEARS (POLYVINYL ALCOHOL) OPTH DROPS OU PRN (09:56)
[2022-10-25] MEDS: LISINOPRIL 10 MG TABLET PO SCH (13:44)
[2022-10-25] MEDS: ACETAMINOPHEN 325 MG TABLET (FP) PO PRN (21:12)
[2022-10-25] MEDS: traZODone HCL 100 MG TABLET (FP) PO SCH (21:12)
[2022-10-25] MEDS: ATORVASTATIN CA 20 MG TABLET (FP) PO SCH (21:12)
[2022-10-25] MEDS: THIAMINE HCL 100 MG TABLET (FP) PO SCH (21:12)
[2022-10-25] MEDS: MELATONIN 5 MG TABLETS PO SCH (21:12)
[2022-10-25] MEDS: BENZOCAINE/MENTHOL (CHLORASEPTIC ) LOZENGE MM PRN (21:14)
[2022-10-26] MEDS: amLODIPine BESYLATE 10 MG TABLET (FP) PO SCH (06:27)
[2022-10-26] MEDS: LISINOPRIL 20 MG TABLET PO SCH (06:27)
[2022-10-26] MEDS: metFORMIN HCL 500 MG TABLET (FP) PO SCH (06:27)
[2022-10-26] MEDS: NICOTINE 14 MG/24 HOURS TOPICAL PATCH TD SCH (09:43)
[2022-10-26] MEDS: ASPIRIN 81 MG CHEWABLE TABLETS PO SCH (09:43)
[2022-10-26] MEDS: PRENATAL VITAMINS W/ FOLIC ACID TABLET (FP) PO SCH (09:43)
[2022-10-26] MEDS: FAMOTIDINE 20 MG TABLET PO SCH ×2 (09:43→21:19)
[2022-10-26] MEDS: LISINOPRIL 10 MG TABLET PO SCH (14:35)
[2022-10-26] MEDS: MAG HYDROX/AL HYDROX/SIMETH 30 ML UNIT-DOSE CUP PO PRN (21:19)
[2022-10-26] MEDS: ATORVASTATIN CA 20 MG TABLET (FP) PO SCH (21:19)
[2022-10-26] MEDS: ACETAMINOPHEN 325 MG TABLET (FP) PO PRN (21:19)
[2022-10-26] MEDS: traZODone HCL 100 MG TABLET (FP) PO SCH (21:19)
[2022-10-26] MEDS: MELATONIN 5 MG TABLETS PO SCH (21:28)
[2022-10-26] MEDS: THIAMINE HCL 100 MG TABLET (FP) PO SCH (21:28)
[2022-10-27] MEDS: metFORMIN HCL 500 MG TABLET (FP) PO SCH (06:09)
[2022-10-27] MEDS: amLODIPine BESYLATE 10 MG TABLET (FP) PO SCH (06:09)
[2022-10-27] MEDS: LISINOPRIL 20 MG TABLET PO SCH (06:09)
[2022-10-27] MEDS: ASPIRIN 81 MG CHEWABLE TABLETS PO SCH (10:16)
[2022-10-27] MEDS: PRENATAL VITAMINS W/ FOLIC ACID TABLET (FP) PO SCH (10:16)
[2022-10-27] MEDS: FAMOTIDINE 20 MG TABLET PO SCH ×2 (10:16→21:21)
[2022-10-27] MEDS: ACETAMINOPHEN 325 MG TABLET (FP) PO PRN ×2 (10:17→16:44)
[2022-10-27] MEDS: NICOTINE 14 MG/24 HOURS TOPICAL PATCH TD SCH (10:18)
[2022-10-27] MEDS: LISINOPRIL 10 MG TABLET PO SCH (14:48)
[2022-10-27] MEDS: traZODone HCL 100 MG TABLET (FP) PO SCH (21:21)
[2022-10-27] MEDS: MELATONIN 5 MG TABLETS PO SCH (21:21)
[2022-10-27] MEDS: THIAMINE HCL 100 MG TABLET (FP) PO SCH (21:21)
[2022-10-27] MEDS: ATORVASTATIN CA 20 MG TABLET (FP) PO SCH (21:21)
[2022-10-27] MEDS: BENZOCAINE/MENTHOL (CHLORASEPTIC ) LOZENGE MM PRN (21:23)
[2022-10-28] MEDS: amLODIPine BESYLATE 10 MG TABLET (FP) PO SCH (06:26)
[2022-10-28] MEDS: metFORMIN HCL 500 MG TABLET (FP) PO SCH (06:26)
[2022-10-28] MEDS: LISINOPRIL 20 MG TABLET PO SCH (06:26)
[2022-10-28] MEDS: PRENATAL VITAMINS W/ FOLIC ACID TABLET (FP) PO SCH (09:37)
[2022-10-28] MEDS: FAMOTIDINE 20 MG TABLET PO SCH ×2 (09:38→21:40)
[2022-10-28] MEDS: NICOTINE 14 MG/24 HOURS TOPICAL PATCH TD SCH (09:38)
[2022-10-28] MEDS: ASPIRIN 81 MG CHEWABLE TABLETS PO SCH (09:38)
[2022-10-28] MEDS: BENZOCAINE/MENTHOL (CHLORASEPTIC ) LOZENGE MM PRN ×2 (10:01→21:38)
[2022-10-28] MEDS: LISINOPRIL 10 MG TABLET PO SCH (13:32)
[2022-10-28] MEDS: ACETAMINOPHEN 325 MG TABLET (FP) PO PRN (21:38)
[2022-10-28] MEDS: guaiFENesin 200 MG/10 ML 10 ML UNIT-DOSE CUPS PO PRN (21:38)
[2022-10-28] MEDS: MELATONIN 5 MG TABLETS PO SCH (21:39)
[2022-10-28] MEDS: THIAMINE HCL 100 MG TABLET (FP) PO SCH (21:40)
[2022-10-28] MEDS: traZODone HCL 100 MG TABLET (FP) PO SCH (21:40)
[2022-10-28] MEDS: ATORVASTATIN CA 20 MG TABLET (FP) PO SCH (21:40)
[2022-10-29] MEDS: LISINOPRIL 20 MG TABLET PO SCH (06:16)
[2022-10-29] MEDS: metFORMIN HCL 500 MG TABLET (FP) PO SCH (06:16)
[2022-10-29] MEDS: amLODIPine BESYLATE 10 MG TABLET (FP) PO SCH (06:17)
[2022-10-29] MEDS: PRENATAL VITAMINS W/ FOLIC ACID TABLET (FP) PO SCH (09:55)
[2022-10-29] MEDS: ASPIRIN 81 MG CHEWABLE TABLETS PO SCH (09:55)
[2022-10-29] MEDS: FAMOTIDINE 20 MG TABLET PO SCH ×2 (09:55→21:45)
[2022-10-29] MEDS: NICOTINE 14 MG/24 HOURS TOPICAL PATCH TD SCH (09:56)
[2022-10-29] MEDS: ARTIFICIAL TEARS (POLYVINYL ALCOHOL) OPTH DROPS OU PRN (09:56)
[2022-10-29] MEDS: LISINOPRIL 10 MG TABLET PO SCH (14:13)
[2022-10-29] MEDS: MAG HYDROX/AL HYDROX/SIMETH 30 ML UNIT-DOSE CUP PO PRN (17:11)
[2022-10-29] MEDS: ATORVASTATIN CA 20 MG TABLET (FP) PO SCH (21:45)
[2022-10-29] MEDS: traZODone HCL 100 MG TABLET (FP) PO SCH (21:45)
[2022-10-29] MEDS: THIAMINE HCL 100 MG TABLET (FP) PO SCH (21:45)
[2022-10-29] MEDS: MELATONIN 5 MG TABLETS PO SCH (21:45)
[2022-10-29] MEDS: BENZOCAINE/MENTHOL (CHLORASEPTIC ) LOZENGE MM PRN (21:46)
[2022-10-29] MEDS: ACETAMINOPHEN 325 MG TABLET (FP) PO PRN (21:46)
[2022-10-30] MEDS: amLODIPine BESYLATE 10 MG TABLET (FP) PO SCH (06:27)
[2022-10-30] MEDS: LISINOPRIL 20 MG TABLET PO SCH (06:27)
[2022-10-30] MEDS: metFORMIN HCL 500 MG TABLET (FP) PO SCH (06:27)
[2022-10-30] MEDS: FAMOTIDINE 20 MG TABLET PO SCH ×2 (09:55→21:24)
[2022-10-30] MEDS: NICOTINE 14 MG/24 HOURS TOPICAL PATCH TD SCH (09:55)
[2022-10-30] MEDS: PRENATAL VITAMINS W/ FOLIC ACID TABLET (FP) PO SCH (09:55)
[2022-10-30] MEDS: ASPIRIN 81 MG CHEWABLE TABLETS PO SCH (09:55)
[2022-10-30] MEDS: LISINOPRIL 10 MG TABLET PO SCH (14:36)
[2022-10-30] MEDS: traZODone HCL 100 MG TABLET (FP) PO SCH (21:24)
[2022-10-30] MEDS: THIAMINE HCL 100 MG TABLET (FP) PO SCH (21:24)
[2022-10-30] MEDS: MELATONIN 5 MG TABLETS PO SCH (21:24)
[2022-10-30] MEDS: ATORVASTATIN CA 20 MG TABLET (FP) PO SCH (21:24)
[2022-10-30] MEDS: ACETAMINOPHEN 325 MG TABLET (FP) PO PRN (21:28)
[2022-10-30] MEDS: BENZOCAINE/MENTHOL (CHLORASEPTIC ) LOZENGE MM PRN (21:28)
[2022-10-31] MEDS: metFORMIN HCL 500 MG TABLET (FP) PO SCH (06:31)
[2022-10-31] MEDS: LISINOPRIL 20 MG TABLET PO SCH (06:31)
[2022-10-31] MEDS: amLODIPine BESYLATE 10 MG TABLET (FP) PO SCH (06:31)
[2022-10-31] MEDS: ARTIFICIAL TEARS (POLYVINYL ALCOHOL) OPTH DROPS OU PRN ×2 (09:12→16:54)
[2022-10-31] MEDS: PRENATAL VITAMINS W/ FOLIC ACID TABLET (FP) PO SCH (10:10)
[2022-10-31] MEDS: ASPIRIN 81 MG CHEWABLE TABLETS PO SCH (10:11)
[2022-10-31] MEDS: FAMOTIDINE 20 MG TABLET PO SCH ×2 (10:11→21:43)
[2022-10-31] MEDS: NICOTINE 14 MG/24 HOURS TOPICAL PATCH TD SCH (10:11)
[2022-10-31] MEDS: LISINOPRIL 10 MG TABLET PO SCH (13:11)
[2022-10-31] MEDS: ACETAMINOPHEN 325 MG TABLET (FP) PO PRN (13:11)
[2022-10-31] MEDS: MELATONIN 5 MG TABLETS PO SCH (21:43)
[2022-10-31] MEDS: traZODone HCL 100 MG TABLET (FP) PO SCH (21:43)
[2022-10-31] MEDS: THIAMINE HCL 100 MG TABLET (FP) PO SCH (21:43)
[2022-10-31] MEDS: ATORVASTATIN CA 20 MG TABLET (FP) PO SCH (21:43)
[2022-10-31] MEDS: BENZOCAINE/MENTHOL (CHLORASEPTIC ) LOZENGE MM PRN (21:45)
[2022-11-01] MEDS: metFORMIN HCL 500 MG TABLET (FP) PO SCH (06:43)
[2022-11-01] MEDS: amLODIPine BESYLATE 10 MG TABLET (FP) PO SCH (06:43)
[2022-11-01] MEDS: LISINOPRIL 20 MG TABLET PO SCH (06:43)
[2022-11-01] MEDS: ACETAMINOPHEN 325 MG TABLET (FP) PO PRN ×2 (06:46→21:15)
[2022-11-01] MEDS: PRENATAL VITAMINS W/ FOLIC ACID TABLET (FP) PO SCH (09:56)
[2022-11-01] MEDS: ASPIRIN 81 MG CHEWABLE TABLETS PO SCH (09:56)
[2022-11-01] MEDS: NICOTINE 14 MG/24 HOURS TOPICAL PATCH TD SCH (09:56)
[2022-11-01] MEDS: FAMOTIDINE 20 MG TABLET PO SCH ×2 (09:56→21:15)
[2022-11-01] MEDS: ARTIFICIAL TEARS (POLYVINYL ALCOHOL) OPTH DROPS OU PRN (09:57)
[2022-11-01] MEDS: BENZOCAINE/MENTHOL (CHLORASEPTIC ) LOZENGE MM PRN ×2 (10:00→21:17)
[2022-11-01] MEDS: LISINOPRIL 10 MG TABLET PO SCH (14:28)
[2022-11-01] MEDS: AMOX TR/POT CLAV 875MG/125MG TABLETS (FP) PO SCH (17:09)
[2022-11-01] MEDS: MELATONIN 5 MG TABLETS PO SCH (21:14)
[2022-11-01] MEDS: traZODone HCL 100 MG TABLET (FP) PO SCH (21:15)
[2022-11-01] MEDS: THIAMINE HCL 100 MG TABLET (FP) PO SCH (21:15)
[2022-11-01] MEDS: ATORVASTATIN CA 20 MG TABLET (FP) PO SCH (21:15)
[2022-11-02] MEDS: LISINOPRIL 20 MG TABLET PO SCH (05:29)
[2022-11-02] MEDS: amLODIPine BESYLATE 10 MG TABLET (FP) PO SCH (05:29)
[2022-11-02] MEDS: metFORMIN HCL 500 MG TABLET (FP) PO SCH (06:06)
[2022-11-02] MEDS: AMOX TR/POT CLAV 875MG/125MG TABLETS (FP) PO SCH ×2 (07:08→17:49)
[2022-11-02] MEDS: FAMOTIDINE 20 MG TABLET PO SCH ×2 (09:51→21:20)
[2022-11-02] MEDS: PRENATAL VITAMINS W/ FOLIC ACID TABLET (FP) PO SCH (09:51)
[2022-11-02] MEDS: ASPIRIN 81 MG CHEWABLE TABLETS PO SCH (09:51)
[2022-11-02] MEDS: NICOTINE 14 MG/24 HOURS TOPICAL PATCH TD SCH (09:51)
[2022-11-02] MEDS: ARTIFICIAL TEARS (POLYVINYL ALCOHOL) OPTH DROPS OU PRN ×2 (09:52→21:29)
[2022-11-02] MEDS: BENZOCAINE/MENTHOL (CHLORASEPTIC ) LOZENGE MM PRN ×2 (09:54→21:28)
[2022-11-02] MEDS: LISINOPRIL 10 MG TABLET PO SCH (14:08)
[2022-11-02] MEDS: THIAMINE HCL 100 MG TABLET (FP) PO SCH (21:20)
[2022-11-02] MEDS: ATORVASTATIN CA 20 MG TABLET (FP) PO SCH (21:20)
[2022-11-02] MEDS: MELATONIN 5 MG TABLETS PO SCH (21:20)
[2022-11-02] MEDS: ACETAMINOPHEN 325 MG TABLET (FP) PO PRN (21:21)
[2022-11-02] MEDS: traZODone HCL 100 MG TABLET (FP) PO SCH (21:21)
[2022-11-03] MEDS: LISINOPRIL 20 MG TABLET PO SCH (05:58)
[2022-11-03] MEDS: ARTIFICIAL TEARS (POLYVINYL ALCOHOL) OPTH DROPS OU PRN (05:58)
[2022-11-03] MEDS: amLODIPine BESYLATE 10 MG TABLET (FP) PO SCH (05:59)
[2022-11-03] MEDS: ACETAMINOPHEN 325 MG TABLET (FP) PO PRN (06:01)
[2022-11-03] MEDS: metFORMIN HCL 500 MG TABLET (FP) PO SCH (06:58)
[2022-11-03] MEDS: AMOX TR/POT CLAV 875MG/125MG TABLETS (FP) PO SCH (07:08)
[2022-11-03 07:31] VITALS: RESP 18; TEMP 97.9
[2022-11-03] MEDS: NICOTINE 14 MG/24 HOURS TOPICAL PATCH TD SCH (09:16)
[2022-11-03] MEDS: ASPIRIN 81 MG CHEWABLE TABLETS PO SCH (09:16)
[2022-11-03] MEDS: FAMOTIDINE 20 MG TABLET PO SCH (09:16)
[2022-11-03] MEDS: PRENATAL VITAMINS W/ FOLIC ACID TABLET (FP) PO SCH (09:16)
[2022-11-03] MEDS: BENZOCAINE/MENTHOL (CHLORASEPTIC ) LOZENGE MM PRN (09:17)
[2022-11-03 09:29] VITALS: BP 149/79; PULSE 86
== END 2022-11-03 10:12 | disposition home or self-care (01) | DRG 772 ==
LOC: YASAS 18:32 → Y5N 21:16
PROVIDERS: ADMIT Allergy & Immunology; ATTEND Psychiatry & Neurology Pain Medicine
PROC: HZ42ZZZ Group Counseling for Substance Abuse Treatment, Cognitive-Behavioral (ICD-10-PCS; principal; 2022-10-06)
DX: F10.20 Alcohol dependence, uncomplicated (principal); F14.20 Cocaine dependence, uncomplicated; F17.210 Nicotine dependence, cigarettes, uncomplicated; F19.282 Other psychoactive substance dependence with psychoactive substance-induced sleep disorder; F32.A Depression, unspecified; E78.5 Hyperlipidemia, unspecified; E11.9 Type 2 diabetes mellitus without complications; I10 Essential (primary) hypertension; K21.9 Gastro-esophageal reflux disease without esophagitis; G47.30 Sleep apnea, unspecified; M54.50 Low back pain, unspecified; G89.29 Other chronic pain; Z79.84 Long term (current) use of oral hypoglycemic drugs
CPT/HCPCS: 36415; 80053; 81003; 82962; 85027; 86780; 86803; 87635; 87811

== ENCOUNTER 2023-05-17 09:20 | Inpatient (IN) | payer OTHER ==
[2023-05-17 09:34] VITALS: BMI 37.7
[2023-05-17] MEDS ORDERED: LOPERAMIDE HCL 2 MG CAPSULE PO PRN (10:31)
[2023-05-17] MEDS ORDERED: DICYCLOMINE HCL 10 MG CAPSULE PO PRN (10:31)
[2023-05-17] MEDS ORDERED: guaiFENesin 600 MG TABLET.ER (FP) PO PRN (10:31)
[2023-05-17] MEDS ORDERED: NALOXONE HCL (KLOXXADO) 8 MG SPRAY NS PRN (10:31)
[2023-05-17] MEDS ORDERED: POLYETHYLENE GLYCOL (HEALTHYLAX) 3350 17 GM PACKET PO PRN (10:31)
[2023-05-17] MEDS ORDERED: MAGNESIUM HYDROX 2400MG/30ML ORAL SUSPENSION 30 ML CUP PO PRN (10:31)
[2023-05-17] MEDS ORDERED: NICOTINE POLACRILEX 4 MG GUM BUC PRN (10:31)
[2023-05-17] MEDS ORDERED: ONDANSETRON *ODT* 4 MG TABLET SL PRN (10:31)
[2023-05-17] MEDS ORDERED: BISMUTH SUBSALICYLATE 524 MG/30 ML PO PRN (10:31)
[2023-05-17] MEDS ORDERED: NALOXONE HCL 0.4 MG/ML VIAL IM PRN (10:31)
[2023-05-17] MEDS ORDERED: IBUPROFEN 400 MG TABLET (FP) PO PRN (10:31)
[2023-05-17] MEDS ORDERED: chlordiazePOXIDE HCL 25 MG CAPSULE PO PRN (10:31)
[2023-05-17] MEDS ORDERED: BENZONATATE 200 MG CAPSULE PO PRN (10:31)
[2023-05-17] MEDS ORDERED: SENNOSIDES 8.6MG TABLET (FP) PO PRN (10:33)
[2023-05-17] MEDS ORDERED: IBUPROFEN 600 MG TABLET (FP) PO ONE (11:11)
[2023-05-17] MEDS ORDERED: PRENATAL VITAMINS W/ FOLIC ACID TABLET (FP) PO ONE (11:11)
[2023-05-17] MEDS ORDERED: chlordiazePOXIDE HCL 25 MG CAPSULE ONE (11:11)
[2023-05-17] MEDS ORDERED: MAG HYDROX/AL HYDROX/SIMETH 30 ML UNIT-DOSE CUP ONE (11:11)
[2023-05-17] MEDS: chlordiazePOXIDE HCL 25 MG CAPSULE PO SCH (11:13)
[2023-05-17] MEDS: PRENATAL VITAMINS W/ FOLIC ACID TABLET (FP) PO SCH (11:14)
[2023-05-17] MEDS: MAG HYDROX/AL HYDROX/SIMETH 30 ML UNIT-DOSE CUP PO PRN (11:24)
[2023-05-17] MEDS: IBUPROFEN 600 MG TABLET (FP) PO PRN (11:24)
[2023-05-17] MEDS: ATORVASTATIN CA 20 MG TABLET (FP) PO SCH (22:33)
[2023-05-17] MEDS: THIAMINE HCL 100 MG TABLET (FP) PO SCH (22:33)
[2023-05-17] MEDS: traZODone HCL 100 MG TABLET (FP) PO SCH (22:33)
[2023-05-17] MEDS: FAMOTIDINE 20 MG TABLET PO SCH (22:33)
[2023-05-17] MEDS: MELATONIN 5 MG TABLETS PO SCH (22:46)
[2023-05-18] MEDS: amLODIPine BESYLATE 10 MG TABLET (FP) PO SCH (05:56)
[2023-05-18] MEDS: metFORMIN HCL 500 MG TABLET (FP) PO SCH (06:10)
[2023-05-18] MEDS: LISINOPRIL 20 MG TABLET PO SCH (10:29)
[2023-05-18] MEDS: ASPIRIN 81 MG CHEWABLE TABLETS PO SCH (10:30)
[2023-05-18 11:06] LABS: HEMATOCRIT 45.7 % (35.4-49); HEMOGLOBIN 14.9 GM/dL (11.7-16.9); MCH 27.3 pg (25.7-33.7); MCHC 32.5 g/dl (32.0-35.9); MEAN PLT VOLUME 10.1 fl (7.5-11.1); PLATELET COUNT 212 10^3/uL (134-434); RBC 5.44 M/mm3 (4.00-5.60); WHITE BLOOD COUNT 6.8 K/mm3 (4.0-10.0)
[2023-05-18 11:10] LABS: POTASSIUM 4.7 mmol/L (3.5-5.1)
[2023-05-18 11:11] LABS: ALBUMIN 2.6 g/dl (3.4-5.0); BLOOD UREA NITROGEN 29.4 mg/dL (7-18); CALCIUM 8.7 mg/dL (8.5-10.1)
[2023-05-18 11:14] LABS: CREATININE 1.5 mg/dL (0.55-1.3)
[2023-05-18 11:16] LABS: BILIRUBIN,TOTAL 0.2 mg/dL (0.2-1); TOT PROT 6.1 g/dl (6.4-8.2)
[2023-05-18 12:00] LABS: SYPHILIS W/ RPR CONF NON-REACTIVE (NONREACTIVE)
[2023-05-18 12:28] LABS: HIV INTERPRETATION NEGATIVE (NEGATIVE)
[2023-05-19] MEDS: chlordiazePOXIDE HCL 25 MG CAPSULE PO SCH (05:22)
[2023-05-19] MEDS: amLODIPine BESYLATE 10 MG TABLET (FP) PO SCH (10:26)
[2023-05-19] MEDS: ACETAMINOPHEN 325 MG TABLET (FP) PO PRN (11:20)
[2023-05-19] MEDS ORDERED: FAMOTIDINE 20 MG TABLET PO SCH (12:00)
[2023-05-19] MEDS ORDERED: amLODIPine BESYLATE 10 MG TABLET (FP) PO SCH (12:00)
[2023-05-19] MEDS ORDERED: ASPIRIN 81 MG CHEWABLE TABLETS PO SCH (12:00)
[2023-05-20] MEDS ORDERED: chlordiazePOXIDE HCL 10 MG CAPSULE PO PRN
[2023-05-20] MEDS: chlordiazePOXIDE HCL 10 MG CAPSULE PO SCH (05:44)
[2023-05-20] MEDS: hydrOXYzine PAMOATE 25 MG CAPSULE (FP) PO PRN (18:17)
[2023-05-20] MEDS: METHOCARBAMOL 500 MG TABLET PO PRN (18:17)
[2023-05-21] MEDS: chlordiazePOXIDE HCL 10 MG CAPSULE PO SCH (06:00)
[2023-05-21] MEDS: BENZOCAINE/MENTHOL (CHLORASEPTIC ) LOZENGE MM PRN (22:48)
[2023-05-22] MEDS: chlordiazePOXIDE HCL 10 MG CAPSULE PO ONE (05:37)
[2023-05-22 06:27] VITALS: BP 136/80; PULSE 74; RESP 18; TEMP 97.8
== END 2023-05-22 08:30 | disposition home or self-care (01) | DRG 774 ==
LOC: YASAS 09:20 → Y6N 10:46
PROVIDERS: ADMIT Allergy & Immunology; ATTEND Surgery
PROC: HZ2ZZZZ Detoxification Services for Substance Abuse Treatment (ICD-10-PCS; principal; 2023-05-17)
DX: F10.230 Alcohol dependence with withdrawal, uncomplicated (principal); F14.20 Cocaine dependence, uncomplicated; F12.20 Cannabis dependence, uncomplicated; F17.210 Nicotine dependence, cigarettes, uncomplicated; I10 Essential (primary) hypertension; E78.5 Hyperlipidemia, unspecified; G47.00 Insomnia, unspecified; K21.9 Gastro-esophageal reflux disease without esophagitis; N28.9 Disorder of kidney and ureter, unspecified; E11.9 Type 2 diabetes mellitus without complications; Z79.84 Long term (current) use of oral hypoglycemic drugs
CPT/HCPCS: 36415; 80053; 80305; 80307; 82962; 85027; 86780; 87389; 87635; 87811; 93005; 93010

== ENCOUNTER 2024-02-20 11:54 | Inpatient (IN) | payer OTHER ==
[2024-02-20 12:33] VITALS: BMI 35.6
[2024-02-20] MEDS ORDERED: LOPERAMIDE HCL 2 MG CAPSULE PO PRN (14:28)
[2024-02-20] MEDS ORDERED: BENZONATATE 200 MG CAPSULE PO PRN (14:28)
[2024-02-20] MEDS ORDERED: NICOTINE POLACRILEX 2 MG GUM BUC PRN (14:28)
[2024-02-20] MEDS ORDERED: guaiFENesin 600 MG TABLET.ER (FP) PO PRN (14:28)
[2024-02-20] MEDS ORDERED: IBUPROFEN 600 MG TABLET (FP) PO PRN (14:28)
[2024-02-20] MEDS ORDERED: MAG HYDROX/AL HYDROX/SIMETH 30 ML UNIT-DOSE CUP PO PRN (14:28)
[2024-02-20] MEDS ORDERED: IBUPROFEN 400 MG TABLET (FP) PO PRN (14:28)
[2024-02-20] MEDS ORDERED: NICOTINE POLACRILEX 2 MG LOZENGE BC PRN (14:28)
[2024-02-20] MEDS ORDERED: POLYETHYLENE GLYCOL (HEALTHYLAX) 3350 17 GM PACKET PO PRN (14:28)
[2024-02-20] MEDS: INSULIN ASPART SLIDING SCALE (NOVOLOG) 1 VIAL SQ SCH (21:28)
[2024-02-20] MEDS: ATORVASTATIN CA 20 MG TABLET (FP) PO SCH (22:59)
[2024-02-20] MEDS: FAMOTIDINE 20 MG TABLET PO SCH (22:59)
[2024-02-20] MEDS: THIAMINE 100 MG TABLET PO SCH (22:59)
[2024-02-20] MEDS: MELATONIN 5 MG TABLETS PO SCH (23:00)
[2024-02-20] MEDS: SEVELAMER CARBONATE 800 MG TAB (FP) PO SCH (23:11)
[2024-02-21] MEDS: PRENATAL VITAMINS W/ FOLIC ACID TABLET (FP) PO SCH (09:11)
[2024-02-21] MEDS: amLODIPine BESYLATE 10 MG TABLET (FP) PO SCH (09:11)
[2024-02-21] MEDS: ASPIRIN 81 MG CHEWABLE TABLETS PO SCH (09:11)
[2024-02-21] MEDS: LISINOPRIL 20 MG TABLET PO SCH (09:11)
[2024-02-21 10:27] LABS: HEMATOCRIT 39.4 % (35.4-49); HEMOGLOBIN 12.7 GM/dL (11.7-16.9); MCH 26.6 pg (25.7-33.7); MCHC 32.3 g/dl (32.0-35.9); MEAN CELL VOLUME 82.3 fl (80-96); MEAN PLT VOLUME 9.1 fl (7.5-11.1); PLATELET COUNT 241 10^3/uL (134-434); RBC 4.78 M/mm3 (4.00-5.60); RDW 15.4 % (11.9-15.9); WHITE BLOOD COUNT 6.8 K/mm3 (4.0-10.0)
[2024-02-21 10:49] LABS: POTASSIUM 4.3 mmol/L (3.5-5.1)
[2024-02-21 10:53] LABS: CALCIUM 8.9 mg/dL (8.5-10.1)
[2024-02-21 10:54] LABS: ALBUMIN 2.9 g/dl (3.4-5.0); BLOOD UREA NITROGEN 26.6 mg/dL (7-18)
[2024-02-21 10:57] LABS: PHOSPHOROUS 3.5 mg/dL (2.5-4.9)
[2024-02-21 10:59] LABS: BILIRUBIN,TOTAL 0.2 mg/dL (0.2-1)
[2024-02-21] MEDS: MAGNESIUM HYDROX 2400MG/30ML ORAL SUSPENSION 30 ML CUP PO PRN (11:45)
[2024-02-21] MEDS: ACETAMINOPHEN 325 MG TABLET (FP) PO PRN (21:34)
[2024-02-21 22:31] LABS: EPI CELLS 2 /uL (0-25.1); HYALINE CASTS 0 /uL (0-3.1); PH,URINE 7.5 (5.0-8.0); URINE APPEARANCE CLOUDY; URINE BACTERIA 1 /uL (0-1359); URINE BILIRUBIN NEGATIVE (NEGATIVE); URINE COLOR YELLOW; URINE GLUCOSE (UA) TRACE (NEGATIVE); URINE KETONE NEGATIVE (NEGATIVE); URINE LEUK ESTERASE NEGATIVE (NEGATIVE); URINE NITRITE NEGATIVE (NEGATIVE); URINE PROTEIN 3+ (NEGATIVE); URINE RBC 2 /uL (0-23.9); URINE UROBILINOGEN 0.2 mg/dL (0.2-1.0); URINE WBC 10 /uL (0-25.8)
[2024-02-22] MEDS: INSULIN ASPART SLIDING SCALE (NOVOLOG) 1 VIAL SQ SCH (06:06)
[2024-02-22] MEDS: hydrOXYzine PAMOATE 25 MG CAPSULE (FP) PO PRN (22:06)
[2024-02-23] MEDS ORDERED: INSULIN (NOVOLOG) ASPART 100 UNITS/ML 10ML VIAL ONE (16:31)
[2024-02-23] MEDS: traZODone HCL 100 MG TABLET (FP) PO SCH (21:13)
[2024-02-28] MEDS: AMOX TR/POT CLAV 875MG/125MG TABLETS (FP) PO SCH (16:54)
[2024-02-28] MEDS: BENZOCAINE 20 % GEL TUBE MM PRN (21:19)
[2024-02-28] MEDS: BACLOFEN 10 MG TABLET (FP) PO SCH (21:31)
[2024-03-03] MEDS ORDERED: INSULIN (NOVOLOG) ASPART 100 UNITS/ML 10ML VIAL ONE (16:36)
[2024-03-05] MEDS: BENZOCAINE/MENTHOL (CHLORASEPTIC ) LOZENGE MM PRN (10:25)
[2024-03-12] MEDS: BENZONATATE 200 MG CAPSULE PO PRN (22:08)
[2024-03-13] MEDS: guaiFENesin 600 MG TABLET.ER (FP) PO PRN (06:38)
[2024-03-15] MEDS: guaiFENesin 200 MG/10 ML 10 ML UNIT-DOSE CUPS PO PRN (21:32)
[2024-03-16] MEDS: HYDROCHLOROTHIAZIDE 25 MG TABLET (FP) PO SCH (09:34)
[2024-03-18] MEDS: HYDROCHLOROTHIAZIDE 25 MG TABLET (FP) PO SCH (21:34)
[2024-03-18] MEDS ORDERED: INSULIN (LEVEMIR) 100 UNITS/ML UNITS SQ ONE (21:45)
[2024-03-19 06:13] VITALS: BP 149/86; PULSE 71; RESP 18; TEMP 97.8
[2024-03-19] MEDS: NALOXONE (NYS OPIOID OVERDOSE PROGRAM) 4 MG/0.1 ML SPRAY NS SCH (07:37)
== END 2024-03-19 07:05 | disposition home or self-care (01) | DRG 772 ==
LOC: YASAS 11:54 → Y3NR 15:49 → Y3E 02-23 10:06
PROVIDERS: ADMIT Psychiatry & Neurology Pain Medicine; ATTEND Psychiatry & Neurology Pain Medicine
PROC: HZ42ZZZ Group Counseling for Substance Abuse Treatment, Cognitive-Behavioral (ICD-10-PCS; principal; 2024-02-20)
DX: F14.10 Cocaine abuse, uncomplicated (principal); F17.210 Nicotine dependence, cigarettes, uncomplicated; F19.282 Other psychoactive substance dependence with psychoactive substance-induced sleep disorder; F32.A Depression, unspecified; I10 Essential (primary) hypertension; N28.9 Disorder of kidney and ureter, unspecified; E78.5 Hyperlipidemia, unspecified; E11.9 Type 2 diabetes mellitus without complications; G47.30 Sleep apnea, unspecified; K21.9 Gastro-esophageal reflux disease without esophagitis; M54.50 Low back pain, unspecified; G89.29 Other chronic pain
CPT/HCPCS: 0241U-QW; 36415; 80053; 80305; 80307; 81003; 82962; 84100; 85027; 86780; 87811; J0475